=== PATIENT | male | born 1990 | race Caucasian/White ===

== ENCOUNTER 2021-09-26 20:52 | Emergency (ER) | payer OTHER, SELFPAY ==
[2021-09-26 21:11] VITALS: BP 157/84; BP 160/82; PULSE 108; RESP 18; TEMP 37.1; O2SAT 97; BMI 29.2
--- NOTE | 2021-09-26 21:25 | ED_ITS ---
HPI - Psych General Chief Complaint: Psychiatric Symptoms Stated Complaint: HI/SEC 12 Time Seen by Provider: 09/26/21 21:22 Source: patient and EMS Mode of arrival: EMS Limitations: no limitations History of Present Illness HPI Narrative: 31-year-old male who presents emergency department by EMS on a Section 12 for homicidal ideation. The patient states that he has bipolar disorder and schizophrenia. He states that he takes Haldol 2.5 mg daily and has been compliant with his medication. He states that he was at his brother's girlfriend's house. He states that he took a dog outside in the dog had a bowel movement. The neighbor was upset that the patient did not cigar packer and picker the dog excrement and got in an argument with the patient. The patient states that he got upset with a neighbor and wanted to kill the neighbor. Apparently he went to the police station and wanted to be put in detention because he was homicidal. The patient states that he was created to be in detention and that his people were in detention. He denied being suicidal. When I asked him if he was homicidal he states that if anybody hurt him he would hurt them back. He states that he was upset with the neighbor and that is why he went to the police station to be placed in detention. The patient states that he has not been vaccinated for COVID. He denies being ill in any way prior to coming to the emergency department The patient is on a Section 12 for unspecified schizophrenia with substantial risk of harm to other persons. The Section 12 states the following ?reported that he wants to kill his neighbor because of his mental health and a recent argument with a neighbor . Related Data Home Medications Medication Instructions Recorded Confirmed haloperidol 5 mg tablet 2.5 mg PO QPM 10/24/20 10/24/20 hydroxyzine pamoate 25 mg capsule 25 mg PO BEDTIME PRN cap 10/24/20 10/24/20 Allergies Allergy/AdvReac Type Severity Reaction Status Date / Time No Known Allergies Allergy Unknown UNKNOWN Verified 10/24/20 16:09 [NO KNOWN ALLERGIES] Review of Systems Review of Systems: Yes all other systems are reviewed and are negative [facility] Past Medical History [facility] Narrative: Social history: He denies tobacco, alcohol and drug use. Medical History Overweight (BMI 25.0-29.9) Schizoaffective disorder Surgical History No significant past surgical history Family History Family History Father Mental illness in member of household Mother Mental illness in member of household Brother Mental illness in member of household Sister Mental illness in member of household Maternal Grandmother Diabetes mellitus Social History Social History Alcohol intake: never Advance Directives: No Advance Directives Information Provided: No Physical Exam Vital Signs: Vital Signs: Last Vital Signs Temp 98.8 F 09/26/21 21:11 Pulse 99 09/26/21 23:09 Resp 16 09/26/21 23:09 BP 132/100 H 09/26/21 23:09 Pulse Ox 99 09/26/21 23:09 BMI result Body Mass Index 29.2 Const: General: cooperative and no acute distress Orientation/conscio usness: oriented to person and oriented to place Limitations: no limitations HEENT: Head: Yes normal to inspection, Yes normocephalic and Yes atraumatic Ears: external ears normal General nose exam: Normal external nose present Face and sinus: Yes normal facial exam Mouth: Normal oral and palatal mucosa present Throat: Yes posterior oropharynx normal Eyes: General: appearance normal, both eyes and all related structures Pupils: Equal, round and reactive pupils present Neck: Neck: Yes normal visual inspection, Yes no lymphadenopathy, Yes trachea midline and Yes supple Chest: Chest palpation & inspection: normal inspection of the chest and normal palpation of entire chest wall Resp: Effort & Inspection: normal respiratory effort and able to speak in complete sentences Auscultation: clear to auscultation bilaterally Cardio: Rate: regular rate Rhythm: regular rhythm Heart sounds: S1 no rmal heart sound present, S2 normal heart sound present and no murmurs GI: Inspection: Yes normal to inspection Palpation (GI): Soft to palpation, nontender and no guarding Auscultation: normal bowel sounds : General: Yes no CVA tenderness Back/Spine/Pelvis: Back: no CVA tenderness Skin: General skin exam: no rashes or lesions noted Neuro: General: oriented to person and oriented to place Cranial nerves: Yes CN's II-XII intact bilaterally and Yes Equal, round and reactive pupils present Cognition (Neuro): normal cognition Motor exam (neuro): 5/5 motor strength present throughout Extrem: General: Yes normal to inspection Psych: Appearance: grossly normal Speech and movement: Pressured speech present Affect: Animated affect present and Irritable affect present Attitude: Belligerent attititude/behavior present Thought content: Homicidality present Course Course Course Narrative: 31-year-old male with a history schizophrenia who states he is compliant with his Haldol who got in a fight with his neighbor and now has homicidal ideation towards the neighbor. The patient went to the detention because he wanted to be arrested, he was evaluated, placed on a Section 12 and transfer to the emergency department by EMS. Patient does appear to be agitated is very animated, he does have some grandiose ideas as well. I believe that the patient has decompensation of his underlying schizophrenia. I did order Haldol 10 mg orally and Ativan 2 mg orally. We will check blood work and a urine sample on the patient. The patient will need a crisis evaluation as well. 0007: Laboratory evaluation: CBC was normal. Elevated AST and ALT of 43 and 42. Normal TSH. Urinalysis was positive for glucose and trace blood. Microscopic revealed 0-2 RBCs, 0-2 WBCs, no bacteria. Urine drug screen was negative. Alcohol levels below detectable limits. COVID-19 and influenza tests were negative. The patient initially was given oral Haldol and Ativan but remained agitated therefore is given Zyprexa 10 mg IM with improvement of his agitation. The patient is medically cleared for psychiatric evaluation. 0148: Start physician observation: Physician observation was started at 01:48 hours. The patient is on a Section 12 and is waiting for Behavioral Health evaluation. The patient is sleeping and resting comfortably since receiving the above medications. The patient will need more time for the medications to wear off so he can be evaluated. His examination is unremarkable. MDM - Psych Lab Data Result diagrams: 09/26/21 22:57 09/26/21 22:57 Labs: Lab Results 09/26/21 09/26/21 09/26/21 Range/Units 22:32 22:57 22:57 WBC 9.4 (4.8-10.8) X10*3/uL RBC 4.85 (4.60-5.80) X10*6/uL Hgb 15.2 (14.0-18.0) g/dl Hct 44.8 (42.0-52.0) % MCV 92.4 (80.0-98.0) fL MCH 31.3 (27.0-33.0) pg MCHC 33.9 (31.0-36.0) g/dl RDW 11.9 (11.0-16.0) % Plt Count 209 (160-400) X10*3/uL MPV 9.5 (9.4-12.4) fL Immature Gran % (Auto) 0.4 (0.0-0.4) % Neut % (Auto) 66.0 (45-73) % Lymph % (Auto) 23.7 (20-40) % [place] % (Auto) 8.8 (2-11) % Eos % (Auto) 0.9 (0-4) % Baso % (Auto) 0.2 (0-2) % Lymph # (Auto) 2.2 (1.2-4.9) X10*3/uL [place] # (Auto) 0.8 (0.1-1.2) X10*3/uL Eos # (Auto) 0.1 (0.0-0.4) X10*3/uL Baso # (Auto) 0.0 (0.0-0.2) X10*3/uL Abs Immat Gran (auto) 0.04 H (0.00-0.03) X10*3/uL Absolute Neuts (auto) 6.2 (2.0-8.3) x10*3/uL Absolute Nucleated RBC 0.000 (0.0-0.012) X10*3/uL Nucleated RBC % (auto) 0.0 (0.0-0.2) /100WBC Sodium 142 (135-145) mmol/L Potassium 4.1 (3.3-5.1) mmol/L Chloride 103 (96-108) mmol/L Carbon Dioxide 31 H (22-29) mmol/L Anion Gap 12 (12-20) BUN 8 L (9-16) mg/dL Creatinine 1.13 (0.5-1.4) mg/dL Estim Creat Clear Calc 103.1 Estimated GFR > 60 Random Glucose 80 (60-115) mg/dL Calcium 9.6 (8.4-10.2) mg/dL Total Bilirubin 0.5 (0.0-1.0) mg/dL AST 43 H (5-37) U/L ALT 42 H (0-40) U/L Alkaline Phosphatase 93 (39-117) U/L Total Protein 7.3 (6.5-8.0) g/dL Albumin 4.3 (3.5-5.0) g/dL TSH 1.09 (0.32-4.0) uIU/mL Urine Opiates Screen Not Detected (Not Detect) Urine Fentanyl Screen Not Detected (Not Detect) Ur Barbiturates Screen Not Detected (Not Detect) Ur Phencyclidine Scrn Not Detected (Not Detect) Ur Amphetamines Screen Not Detected (Not Detect) U Benzodiazepines Scrn Not Detected (Not Detect) Urine Cocaine Screen Not Detected (Not Detect) U Marijuana (THC) Screen Not Detected (Not Detect) Ethyl Alcohol mg/dL COVID-19 (RADHIKA) (Negative) COVID-19 Clin Com Influenza Type A (RENATE) (Negative) Influenza Type B (RENATE) (Negative) Influenza A & B Note 09/26/21 09/26/21 09/26/21 Range/Units 22:57 22:57 23:42 WBC (4.8-10.8) X10*3/uL RBC (4.60-5.80) X10*6/uL Hgb (14.0-18.0) g/dl Hct (42.0-52.0) % MCV (80.0-98.0) fL MCH (27.0-33.0) pg MCHC (31.0-36.0) g/dl RDW (11.0-16.0) % Plt Count (160-400) X10*3/uL MPV (9.4-12.4) fL Immature Gran % (Auto) (0.0-0.4) % Neut % (Auto) (45-73) % Lymph % (Auto) (20-40) % [place] % (Auto) (2-11) % Eos % (Auto) (0-4) % Baso % (Auto) (0-2) % Lymph # (Auto) (1.2-4.9) X10*3/uL [place] # (Auto) (0.1-1.2) X10*3/uL Eos # (Auto) (0.0-0.4) X10*3/uL Baso # (Auto) (0.0-0.2) X10*3/uL Abs Immat Gran (auto) (0.00-0.03) X10*3/uL Absolute Neuts (auto) (2.0-8.3) x10*3/uL Absolute Nucleated RBC (0.0-0.012) X10*3/uL Nucleated RBC % (auto) (0.0-0.2) /100WBC Sodium (135-145) mmol/L Potassium (3.3-5.1) mmol/L Chloride (96-108) mmol/L Carbon Dioxide (22-29) mmol/L Anion Gap (12-20) BUN (9-16) mg/dL Creatinine (0.5-1.4) mg/dL Estim Creat Clear Calc Estimated GFR Random Glucose (60-115) mg/dL Calcium (8.4-10.2) mg/dL Total Bilirubin (0.0-1.0) mg/dL AST (5-37) U/L ALT (0-40) U/L Alkaline Phosphatase (39-117) U/L Total Protein (6.5-8.0) g/dL Albumin (3.5-5.0) g/dL TSH (0.32-4.0) uIU/mL Urine Opiates Screen (Not Detect) Urine Fentanyl Screen (Not Detect) Ur Barbiturates Screen (Not Detect) Ur Phencyclidine Scrn (Not Detect) Ur Amphetamines Screen (Not Detect) U Benzodiazepines Scrn (Not Detect) Urine Cocaine Screen (Not Detect) U Marijuana (THC) Screen (Not Detect) Ethyl Alcohol < 10 mg/dL COVID-19 (RADHIKA) Negative (Negative) COVID-19 Clin Com See Note Influenza Type A (RENATE) Negative (Negative) Influenza Type B (RENATE) Negative (Negative) Influenza A & B Note See Note Discharge Plan Discharge Clinical Impression: Homicidal ideation, Schizophrenia Patient Disposition: Still a Patient Prescriptions: No Action haloperidol 5 mg tablet 2.5 mg PO QPM 0RF hydroxyzine pamoate 25 mg capsule 25 mg PO BEDTIME PRN0RF
[2021-09-26] MEDS: HaloperidoL 5 MG TABLET 10 MG PO (21:40)
[2021-09-26] MEDS: LORazepam 1 MG TABLET 2 MG PO (21:40)
[2021-09-26] MEDS: OLANZapine 10 MG VIAL IM (21:45)
--- NOTE | 2021-09-26 21:53 | PC.NURSE ---
Pt has been slowly escalating in aggressive behaviors since his arrival. Vitaliy RN gave pt ativan and haldol PO that was ordered and Rylan RODRIGUEZ gave pt zyprexa injection. Pt has been cooperative with medication administrations. Security has been called about 3 times to deescalate pt and is currently at bedside. Plan is to move pt to a BH pod when one becomes available. Will continue to monitor.
[2021-09-26 23:09] VITALS: BP 132/100; PULSE 99; RESP 16; O2SAT 99
[2021-09-26 23:09] LABS: Amphetamine Screen Urine Not Detected (Not Detect); Barbiturates, Urine Not Detected (Not Detect); Benzodiazepines Screen Urine Not Detected (Not Detect); Cannabinoid Screen Urine Not Detected (Not Detect); Cocaine Screen Urine Not Detected (Not Detect); Fentanyl, urine Not Detected (Not Detect); Opiate Screen Urine Not Detected (Not Detect); Phencyclidine Screen Urine Not Detected (Not Detect)
[2021-09-26 23:10] LABS: MANUAL DIFF FLAG NO
--- NOTE | 2021-09-26 23:10 | PC.NURSE ---
Patient awake, resting in bed. Calm and cooperative at this time. Will monitor closely.
[2021-09-26 23:17] LABS: Basophils Percent Auto 0.2 % (0-2); Eosinophils Absolute Auto 0.1 X10*3/uL (0.0-0.4); Eosinophils Percent Auto 0.9 % (0-4); Hematocrit 44.8 % (42.0-52.0); Hemoglobin 15.2 g/dl (14.0-18.0); Imm Gran Abs Auto 0.04 X10*3/uL (0.00-0.03); Imm Gran Pct Auto 0.4 % (0.0-0.4); Lymphocytes Absolute Auto 2.2 X10*3/uL (1.2-4.9); Lymphocytes Percent Auto 23.7 % (20-40); Mean Corpuscular HGB Conc 33.9 g/dl (31.0-36.0); Mean Corpuscular Hemoglobin 31.3 pg (27.0-33.0); Mean Corpuscular Volume 92.4 fL (80.0-98.0); Mean Platelet Volume 9.5 fL (9.4-12.4); Monocytes Absolute Auto 0.8 X10*3/uL (0.1-1.2); Monocytes Percent Auto 8.8 % (2-11); Neutrophils Absolute Auto 6.2 x10*3/uL (2.0-8.3); Platelet Count 209 X10*3/uL (160-400); Red Blood Count 4.85 X10*6/uL (4.60-5.80); Red Cell Distribution Width 11.9 % (11.0-16.0); White Blood Count 9.4 X10*3/uL (4.8-10.8)
[2021-09-26 23:27] LABS: Ethanol < 10 mg/dL
[2021-09-26 23:30] LABS: Alanine Aminotransferase 42 U/L (0-40); Albumin Level 4.3 g/dL (3.5-5.0); Alkaline Phosphatase 93 U/L (39-117); Anion Gap 12 (12-20); Aspartate Amino Transferase 43 U/L (5-37); Bilirubin Total 0.5 mg/dL (0.0-1.0); Blood Urea Nitrogen 8 mg/dL (9-16); Calcium 9.6 mg/dL (8.4-10.2); Carbon Dioxide 31 mmol/L (22-29); Chloride 103 mmol/L (96-108); Creatinine Clr Calc Pharmacy 103.1; Estimated Glomerular Filt Rate > 60; Glucose Random 80 mg/dL (60-115); Potassium 4.1 mmol/L (3.3-5.1); Sodium 142 mmol/L (135-145); Total Protein 7.3 g/dL (6.5-8.0)
[2021-09-26 23:36] LABS: COVID-19 Test Negative (Negative); IDNOW Serial# 55D5AD1C
[2021-09-26 23:50] LABS: TSH reflex Free T4 1.09 uIU/mL (0.32-4.0)
[2021-09-27 00:06] LABS: Influenza A Negative (Negative); Influenza B2 Negative (Negative)
--- NOTE | 2021-09-27 07:16 | PC.NURSE ---
patient appears to remain asleep at prsent respirations are even and unlabored patient appears in no distress
[2021-09-27] MEDS: Naloxone HCl Nasal TAKE HOME 4 MG SPRAY NOSTRILALT (08:51)
[2021-09-27 10:41] VITALS: BP 149/89; PULSE 109; TEMP 36.8; O2SAT 96
--- NOTE | 2021-09-27 13:22 | MHC.CARE ---
CARE Team met with patient in BH3, he was alert and oriented, polite, easily engaged. He explained what had happened yesterday which was consistent with his initial complaint of being upset with his brother's girlfriend's neighbor and at the time wanted to kill him. Today he was calm and stated that he does not want to kill or harm anyone, he does not look for trouble but if he feels disrespected he will disrespect back, hard. In general patient appears to be functioning well, he lives independently in an apartment that he pays for with disability income, no issues with self-care, has providers at [facility] which he maintains contact with, has a psychiatry appointment tomorrow. He acknowledged that his twin brother thinks that he needs more medication and that seems to be based on the way that patient walks around with a bluetooth speaker listening to music. Patient feels that his medications are working and he feels stable. He has no suicidal or homicidal ideation, plan or intention and does not appear to be in crisis or need a psychiatric inpatient admission at this time. Attempted to call patient's father Bib for collateral but was unable to reach. [facility] arrived for evaluation and was provided with the above information.
== END 2021-09-27 14:52 | disposition home or self-care (01) ==
PROVIDERS: Emergency Provider Emergency Medicine Emergency Medical Services; PCP Internal Medicine
DX: F25.9 Schizoaffective disorder, unspecified (principal); R45.850 Homicidal ideations; Z20.822 Contact with and (suspected) exposure to COVID-19; Z79.899 Other long term (current) drug therapy
CPT/HCPCS: 80053; 80307; 82077; 84443; 85025; 87502; 87635; 96372; 99284; 99285

== ENCOUNTER 2021-09-28 07:27 | Inpatient (IN) | payer OTHER, SELFPAY ==
[2021-09-28 07:35] VITALS: BP 124/79; BP 154/74; PULSE 102; PULSE 95; RESP 20; TEMP 37.1; O2SAT 99; BMI 29.5
--- NOTE | 2021-09-28 08:03 | ED_ITS ---
HPI - Psych General Chief Complaint: Psychiatric Symptoms Stated Complaint: CRISIS,SI W/PLAN Time Seen by Provider: 09/28/21 08:02 Source: patient Mode of arrival: ambulatory Limitations: no limitations History of Present Illness HPI Narrative: Manually as presents via EMS with suicidal ideation with a plan he states he has no plan when I assessed him he states he just wants his meds changed he states he does see somebody but denies any falls fever chest pain nausea vomiting diarrhea. complaint: suicidal ideation and feels depressed Related Data Home Medications Medication Instructions Recorded Confirmed haloperidol 5 mg tablet 2.5 mg PO QPM 10/24/20 10/24/20 hydroxyzine pamoate 25 mg capsule 25 mg PO BEDTIME PRN cap 10/24/20 10/24/20 Allergies Allergy/AdvReac Type Severity Reaction Status Date / Time No Known Allergies Allergy Unknown UNKNOWN Verified 10/24/20 16:09 [NO KNOWN ALLERGIES] Review of Systems Review of Systems: Review of systems: General: Patient denies any fever chills recent illness or falls Musculoskeletal: Denies back pain or body aches or other injuries HEENT: denies headache, runny nose, ear pain Respiratory: denies shortness of breath, cough Cardiovascular: no chest pain or palpitations : denies dysuria, frequency Abdomen: no nausea vomiting denies abdominal pain Extremities: no swelling, no pain Skin: no diaphoresis Yes all other systems are reviewed and are negative PMFSH Past Medical History Medical History Overweight (BMI 25.0-29.9) Schizoaffective disorder Surgical History No significant past surgical history Family History Family History Father Mental illness in member of household Mother Mental illness in member of household Brother Mental illness in member of household Sister Mental illness in member of household Maternal Grandmother Diabetes mellitus Social History Social History Alcohol intake: never Smoked in Last 30 Days: No Use of substances other than those prescribed or required for medical reasons: No Advance Directives: No Advance Directives Information Provided: No Physical Exam Vital Signs: Vital Signs: Last Vital Signs Temp 97.9 F 09/28/21 11:56 Pulse 85 09/28/21 11:56 Resp 20 09/28/21 07:35 BP 143/88 H 09/28/21 11:56 Pulse Ox 100 09/28/21 11:56 BMI result Body Mass Index 29.5 General: Well-appearing well-nourished in no signs of distress HEENT: Normocephalic atraumatic Neck: No signs of JVD, no masses no tenderness or lymphadenopathy Cardiovascular: Regular rate and rhythm Respiratory: Clear to auscultation bilaterally Abdomen: Soft nontender no masses rectal exam performed guiac negative senior quality assurance analyst confirmed. Extremities: Normal pedal pulses no signs of edema Skin: Dry warm no rashes Back: No tenderness full ROM MDM - Psych MDM Narrative Medical decision making narrative: Patient with his son Section 12 have the patient evaluated by crisis. Patient's known evaluation I will sign out to Dr. Chou. Differential Diagnosis Differential diagnosis: Likely suicidal ideation Lab Data Result diagrams: 09/28/21 08:17 Labs: Lab Results 09/28/21 09/28/21 09/28/21 Range/Units 08:17 08:17 08:42 WBC 7.9 (4.8-10.8) X10*3/uL RBC 4.63 (4.60-5.80) X10*6/uL Hgb 14.3 (14.0-18.0) g/dl Hct 43.2 (42.0-52.0) % MCV 93.3 (80.0-98.0) fL MCH 30.9 (27.0-33.0) pg MCHC 33.1 (31.0-36.0) g/dl RDW 11.9 (11.0-16.0) % Plt Count 205 (160-400) X10*3/uL MPV 9.6 (9.4-12.4) fL Immature Gran % (Auto) 0.4 (0.0-0.4) % Neut % (Auto) 67.8 (45-73) % Lymph % (Auto) 23.2 (20-40) % Hand % (Auto) 7.5 (2-11) % Eos % (Auto) 0.6 (0-4) % Baso % (Auto) 0.5 (0-2) % Lymph # (Auto) 1.8 (1.2-4.9) X10*3/uL Hand # (Auto) 0.6 (0.1-1.2) X10*3/uL Eos # (Auto) 0.1 (0.0-0.4) X10*3/uL Baso # (Auto) 0.0 (0.0-0.2) X10*3/uL Abs Immat Gran (auto) 0.03 (0.00-0.03) X10*3/uL Absolute Neuts (auto) 5.4 (2.0-8.3) x10*3/uL Absolute Nucleated RBC 0.000 (0.0-0.012) X10*3/uL Nucleated RBC % (auto) 0.0 (0.0-0.2) /100WBC Urine Opiates Screen Not Detected (Not Detect) Urine Fentanyl Screen Not Detected (Not Detect) Ur Barbiturates Screen Not Detected (Not Detect) Ur Phencyclidine Scrn Not Detected (Not Detect) Ur Amphetamines Screen Not Detected (Not Detect) U Benzodiazepines Scrn Not Detected (Not Detect) Urine Cocaine Screen Not Detected (Not Detect) U Marijuana (THC) Screen Not Detected (Not Detect) Ethyl Alcohol < 10 mg/dL COVID-19 (RADHIKA) (Negative) COVID-19 Clin Com 09/28/21 Range/Units 10:52 WBC (4.8-10.8) X10*3/uL RBC (4.60-5.80) X10*6/uL Hgb (14.0-18.0) g/dl Hct (42.0-52.0) % MCV (80.0-98.0) fL MCH (27.0-33.0) pg MCHC (31.0-36.0) g/dl RDW (11.0-16.0) % Plt Count (160-400) X10*3/uL MPV (9.4-12.4) fL Immature Gran % (Auto) (0.0-0.4) % Neut % (Auto) (45-73) % Lymph % (Auto) (20-40) % Hand % (Auto) (2-11) % Eos % (Auto) (0-4) % Baso % (Auto) (0-2) % Lymph # (Auto) (1.2-4.9) X10*3/uL Hand # (Auto) (0.1-1.2) X10*3/uL Eos # (Auto) (0.0-0.4) X10*3/uL Baso # (Auto) (0.0-0.2) X10*3/uL Abs Immat Gran (auto) (0.00-0.03) X10*3/uL Absolute Neuts (auto) (2.0-8.3) x10*3/uL Absolute Nucleated RBC (0.0-0.012) X10*3/uL Nucleated RBC % (auto) (0.0-0.2) /100WBC Urine Opiates Screen (Not Detect) Urine Fentanyl Screen (Not Detect) Ur Barbiturates Screen (Not Detect) Ur Phencyclidine Scrn (Not Detect) Ur Amphetamines Screen (Not Detect) U Benzodiazepines Scrn (Not Detect) Urine Cocaine Screen (Not Detect) U Marijuana (THC) Screen (Not Detect) Ethyl Alcohol mg/dL COVID-19 (RADHIKA) Negative (Negative) COVID-19 Clin Com See Note Discharge Plan Discharge Clinical Impression: Schizoaffective disorder, Suicidal ideation Patient Disposition: Still a Patient Prescriptions: No Action haloperidol 5 mg tablet 2.5 mg PO QPM 0RF hydroxyzine pamoate 25 mg capsule 25 mg PO BEDTIME PRN0RF
[2021-09-28 08:24] LABS: MANUAL DIFF FLAG NO
[2021-09-28 08:29] LABS: Basophils Percent Auto 0.5 % (0-2); Eosinophils Absolute Auto 0.1 X10*3/uL (0.0-0.4); Eosinophils Percent Auto 0.6 % (0-4); Hematocrit 43.2 % (42.0-52.0); Hemoglobin 14.3 g/dl (14.0-18.0); Imm Gran Abs Auto 0.03 X10*3/uL (0.00-0.03); Imm Gran Pct Auto 0.4 % (0.0-0.4); Lymphocytes Absolute Auto 1.8 X10*3/uL (1.2-4.9); Lymphocytes Percent Auto 23.2 % (20-40); Mean Corpuscular HGB Conc 33.1 g/dl (31.0-36.0); Mean Corpuscular Hemoglobin 30.9 pg (27.0-33.0); Mean Corpuscular Volume 93.3 fL (80.0-98.0); Mean Platelet Volume 9.6 fL (9.4-12.4); Monocytes Absolute Auto 0.6 X10*3/uL (0.1-1.2); Monocytes Percent Auto 7.5 % (2-11); Neutrophils Absolute Auto 5.4 x10*3/uL (2.0-8.3); Neutrophils Percent Auto 67.8 % (45-73); Platelet Count 205 X10*3/uL (160-400); Red Blood Count 4.63 X10*6/uL (4.60-5.80); Red Cell Distribution Width 11.9 % (11.0-16.0); White Blood Count 7.9 X10*3/uL (4.8-10.8)
[2021-09-28 08:37] LABS: Ethanol < 10 mg/dL
[2021-09-28 09:05] LABS: Amphetamine Screen Urine Not Detected (Not Detect); Barbiturates, Urine Not Detected (Not Detect); Benzodiazepines Screen Urine Not Detected (Not Detect); Cannabinoid Screen Urine Not Detected (Not Detect); Fentanyl, urine Not Detected (Not Detect); Opiate Screen Urine Not Detected (Not Detect); Phencyclidine Screen Urine Not Detected (Not Detect)
[2021-09-28 09:25] LABS: Cocaine Screen Urine Not Detected (Not Detect)
--- NOTE | 2021-09-28 10:12 | PC.NURSE ---
smart sheet sent over to [facility] for eval.
[2021-09-28 11:14] LABS: COVID-19 Test Negative (Negative)
[2021-09-28 11:56] VITALS: BP 143/88; PULSE 85; TEMP 36.6; O2SAT 100
--- NOTE | 2021-09-28 19:32 | MHC.CARE ---
Pt has been accepted to for admission [facility]. Auth [id number] for 5 days approved by Shebly Jain.
[2021-09-28 21:48] VITALS: BP 139/88; PULSE 97; RESP 16; O2SAT 97
[2021-09-28 22:49] VITALS: BP 133/71; PULSE 108; RESP 16; TEMP 36.9; O2SAT 96; BMI 28.3
--- NOTE | 2021-09-29 | ECG_ITS ---
Test Reason : MED CLEARENCE Blood Pressure : / mmHG Vent. Rate : 102 BPM Atrial Rate : 102 BPM P-R Int : 118 ms QRS Dur : 070 ms QT Int : 324 ms P-R-T Axes : 065 067 011 degrees QTc Int : 422 ms Sinus tachycardia Otherwise normal ECG When compared with ECG of 25-DEC-2019 13:56, No significant change was found Referred By: Natalee Trejo Electronically Signed By:NATHAN CROCKETT MD
[2021-09-29] MEDS: traZODone HCL 50 MG TABLET PO (00:57)
--- NOTE | 2021-09-29 01:45 | PC.ADMIT ---
31 year old Man admitted to from ER with thoughts of harming his neighbor. He was transported to [facility] on a section 12 by the police after he reported himself to them that he need to go to longterm for his thoughts of HI. he has been a patient at [facility] [id number] in the past last admission was in 2019 . He is calm and cooperative with some slight pressured speech said he I know people are afraid of me because I works out and my arms are big I know I'm supposed to love others like the Bible says better than the love for myself He signed a CV
[2021-09-29] MEDS: HaloperidoL 5 MG TABLET PO (02:52)
[2021-09-29 05:38] VITALS: BP 130/69; PULSE 90; RESP 17; TEMP 36.2; O2SAT 97
[2021-09-29 08:21] LABS: Cholesterol 157 mg/dL; HDL Cholesterol 46 mg/dL; LDL Cholesterol Calculated 97 mg/dl; Magnesium 2.1 mg/dL (1.6-2.6); Triglycerides 71 mg/dL
[2021-09-29 08:22] LABS: Estimated Average Glucose 103 mg/dL; Hemoglobin A1c % 5.2 %
[2021-09-29 08:43] LABS: Free T4 (Free Thyroxine) 1.09 ng/dL (0.71-1.85); Thyroid Stimulating Hormone 1.35 uIU/mL (0.32-4.0)
[2021-09-29 09:10] LABS: Folate 11.1 ng/mL (> or = 4.0); Vitamin B12 255 pg/mL (200-900)
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
[2021-09-29 18:00] VITALS: BP 122/82; PULSE 102; RESP 16; TEMP 36.4; O2SAT 97
[2021-09-29] MEDS: HaloperidoL 5 MG TABLET 10 MG PO (20:49)
[2021-09-30] MEDS: hydrOXYzine HCL 25 MG TABLET PO (05:51)
[2021-09-30 06:00] VITALS: BP 146/79; PULSE 110; RESP 17; TEMP 36.5; O2SAT 97
--- NOTE | 2021-09-30 08:39 | P.PNPSI_ITS ---
Subjective Subjective Date of Service: 09/30/21 Reason For Visit: Manic Sx Interim History: Restless agitated. Pacing corridor in tank top. POS. Med compliant. 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 Pt is unkempt in appearance, pacing halls with he adphones, tank top. Intense eye contact, attentive. No Tics or Tremors. No abnormal involuntary movements. Calm, guarded but ultimately cooperative and engaged. Non-pressured speech, spontaneous with regular rate and rhythm, normal volume and prosody. No prolonged speech latency or dysarthria. Mood is ?okay,? affect is activated. Denies SI/SIB/HI upon inquiry. Denies A/VH. Endorses paranoid and persecutory delusional thought content. Thoughts are perseverative, tangential, racing. No known cognitive or memory impairment. Insight/ Judgment limited. Diagnostics Vital Signs (24Hr): Vital Signs - 24 hr 09/29/21 18:00 09/30/21 06:00 Temperature 97.6 F 97.7 F Pulse Rate 102 H 110 H Respiratory Rate 16 17 Blood Pressure 122/82 146/79 H Pulse Oximetry 97 97 BMI result Body Mass Index 28.3 Labs Results: 09/28/21 08:17 Labs: Laboratory Results - last 48 hr 09/28/21 09/28/21 09/29/21 08:42 10:52 07:45 Estimat Average Glucose 103 Hemoglobin A1c % 5.2 Magnesium Triglycerides Cholesterol LDL Cholesterol, Calc HDL Cholesterol Vitamin B12 Folate TSH Free T4 Urine Opiates Screen Not Detected Urine Fentanyl Screen Not Detected Ur Barbiturates Screen Not Detected Ur Phencyclidine Scrn Not Detected Ur Amphetamines Screen Not Detected U Benzodiazepines Scrn Not Detected Urine Cocaine Screen Not Detected U Marijuana (THC) Screen Not Detected COVID-19 (RADHIKA) Negative COVID-19 Clin Com See Note 09/29/21 09/29/21 07:45 07:46 Estimat Average Glucose Hemoglobin A1c % Magnesium 2.1 Triglycerides 71 Cholesterol 157 LDL Cholesterol, Calc 97 HDL Cholesterol 46 Vitamin B12 255 Folate 11.1 TSH 1.35 Free T4 1.09 Urine Opiates Screen Urine Fentanyl Screen Ur Barbiturates Screen Ur Phencyclidine Scrn Ur Amphetamines Screen U Benzodiazepines Scrn Urine Cocaine Screen U Marijuana (THC) Screen COVID-19 (RADHIKA) COVID-19 Clin Com Medications Medications Current Medications Acetaminophen (Acetaminophen 325 Mg Tablet) 650 mg PO Q6H PRN PRN Reason: Headache/Pain Mild Scale (1-3) Al Hydroxide/Mg Hydroxide (Magnesium Hydrox/Alum Hydrox 30 Ml Oral.Susp) 30 ml PO Q6H PRN PRN Reason: Heartburn/Nausea Benztropine Mesylate (Benztropine Mesylate 1 Mg Tablet) 1 mg PO Q8H PRN PRN Reason: akathisia/EPS Chlorpromazine HCl (Chlorpromazine Hcl 25 Mg Tablet) 50 mg PO Q4H PRN PRN Reason: agitation Haloperidol (Haloperidol 5 Mg Tablet) 10 mg PO BEDTIME CASANDRA Last Admin: 09/29/21 20:49 Dose: 10 mg Documented by: Hydroxyzine HCl (Hydroxyzine Hcl 25 Mg Tablet) 25 mg PO Q6H PRN PRN Reason: Anxiety Last Admin: 09/30/21 05:51 Dose: 25 mg Documented by: Magnesium Hydroxide (Milk Of Magnesia 30 Ml Oral.Susp) 30 ml PO DAILY PRN PRN Reason: Constipation Trazodone HCl (Trazodone Hcl 100 Mg Tablet) 100 mg PO BEDTIME PRN PRN Reason: Insomnia Allergies Allergies Allergy/AdvReac Type Severity Reaction Status Date / Time No Known Allergies Allergy Unknown UNKNOWN Verified 10/24/20 16:09 [NO KNOWN ALLERGIES] Assessment & Plan Assessment & Plan (1) Schizoaffective disorder, bipolar type: Status: Acute Code(s): F25.0 - Schizoaffective disorder, bipolar type Plan Edy is a 31 y.o. Male who carries a dx schizoaffective disorder, bipolar type. He presented to [facility] ED on 09/28/21 due to HI towards a neighbor. Pt brought himself to the [place] police station on 09/26/2021 stating he wanted to go to alf due to having thoughts to harm his neighbor.? Plan: Pt is prescribed haldol 2.5 mg QHS by his OP prescriber at [facility], says he is willing to take a higher dose as he thinks the 2.5 mg dose is too low. He took 5 mg last night per admitting provider. Will increase to 10 mg QHS to target psychotic sx and assaultive ideation. Q15 min safety checks, CV Monitor response to medications. Monitor for safety in the milieu. Discharge on stabilization. Patient seen. Chart reviewed. Discussed with team. Obtain collateral contact info?as needed 09/30: Ct meds. I spent minutes with the patient and/or on the patient floor today, greater than?50% of which was spent counseling/coordinating care. Reason for contiued inpatient stay Substantial Risk for: rapid decompensation
[2021-09-30 18:00] VITALS: BP 136/80; PULSE 97; RESP 18; TEMP 36.6; O2SAT 98
[2021-09-30] MEDS: HaloperidoL 5 MG TABLET 10 MG PO (21:24)
[2021-09-30] MEDS: traZODone HCL 100 MG TABLET PO (22:58)
[2021-10-01] MEDS: hydrOXYzine HCL 25 MG TABLET PO ×3 (05:05→20:37)
--- NOTE | 2021-10-01 05:32 | HO.PSYCHPN ---
Subjective Subjective Date of Service: 10/01/21 Reason For Visit: Manic Sx Subjective Notes: Conditional Voluntary Interim History: Restless agitated. Pacing corridor in tank top. POS. Med compliant. 10/01: Less agitated, pressured. Pacing but more relaxed. POS + . Told TW how he wanted to be jailed and his visit to the PD. Med compliant. 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 Pt is unkempt in appearance, pacing halls with headphones, tank top. Intense eye contact, attentive. No Tics or Tremors. No abnormal involuntary movements. Calm, guarded but ultimately cooperative and engaged. Non-pressured speech, spontaneous with regular rate and rhythm, normal volume and prosody. No prolonged speech latency or dysarthria. Mood is ?okay,? affect is activated. Denies SI/SIB/HI upon inquiry. Denies A/VH. Endorses paranoid and persecutory delusional thought content. Thoughts are perseverative, tangential, racing. No known cognitive or memory impairment. Insight/ Judgment limited. Diagnostics Vital Signs (24Hr): Vital Signs - 24 hr 09/30/21 06:00 09/30/21 18:00 Temperature 97.7 F 98 F Pulse Rate 110 H 97 Respiratory Rate 17 18 Blood Pressure 146/79 H 136/80 Pulse Oximetry 97 98 BMI result Body Mass Index 28.3 Labs Results: 09/28/21 08:17 Labs: Laboratory Results - last 48 hr 09/29/21 09/29/21 09/29/21 07:45 07:45 07:46 Estimat Average Glucose 103 Hemoglobin A1c % 5.2 Magnesium 2.1 Triglycerides 71 Cholesterol 157 LDL Cholesterol, Calc 97 HDL Cholesterol 46 Vitamin B12 255 Folate 11.1 TSH 1.35 Free T4 1.09 Medications Medications Current Medications Acetaminophen (Acetaminophen 325 Mg Tablet) 650 mg PO Q6H PRN PRN Reason: Headache/Pain Mild Scale (1-3) Al Hydroxide/Mg Hydroxide (Magnesium Hydrox/Alum Hydrox 30 Ml Oral.Susp) 30 ml PO Q6H PRN PRN Reason: Heartburn/Nausea Benztropine Mesylate (Benztropine Mesylate 1 Mg Tablet) 1 mg PO Q8H PRN PRN Reason: akathisia/EPS Chlorpromazine HCl (Chlorpromazine Hcl 25 Mg Tablet) 50 mg PO Q4H PRN PRN Reason: agitation Haloperidol (Haloperidol 5 Mg Tablet) 10 mg PO BEDTIME CASANDRA Last Admin: 09/30/21 21:24 Dose: 10 mg Documented by: Hydroxyzine HCl (Hydroxyzine Hcl 25 Mg Tablet) 25 mg PO Q6H PRN PRN Reason: Anxiety Last Admin: 10/01/21 05:05 Dose: 25 mg Documented by: Magnesium Hydroxide (Milk Of Magnesia 30 Ml Oral.Susp) 30 ml PO DAILY PRN PRN Reason: Constipation Trazodone HCl (Trazodone Hcl 100 Mg Tablet) 100 mg PO BEDTIME PRN PRN Reason: Insomnia Last Admin: 09/30/21 22:58 Dose: 100 mg Documented by: Allergies Allergies Allergy/AdvReac Type Severity Reaction Status Date / Time No Known Allergies Allergy Unknown UNKNOWN Verified 10/24/20 16:09 [NO KNOWN ALLERGIES] Assessment & Plan Assessment & Plan (1) Schizoaffective disorder, bipolar type: Status: Acute Code(s): F25.0 - Schizoaffective disorder, bipolar type Plan Edy is a 31 y.o. Male who carries a dx schizoaffective disorder, bipolar type. He presented to [facility] on 09/28/21 due to HI towards a neighbor. Pt brought himself to the [place] police station on 09/26/2021 stating he wanted to go to shelter due to having thoughts to harm his neighbor.? Plan: Pt is prescribed haldol 2.5 mg QHS by his OP prescriber at [facility], says he is willing to take a higher dose as he thinks the 2.5 mg dose is too low. He took 5 mg last night per admitting provider. Will increase to 10 mg QHS to target psychotic sx and assaultive ideation. Q15 min safety checks, CV Monitor response to medications. Monitor for safety in the milieu. Discharge on stabilization. Patient seen. Chart reviewed. Discussed with team. Obtain collateral contact info?as needed 10/01: Ct Rx plan I spent minutes with the patient and/or on the patient floor today, greater than?50% of which was spent counseling/coordinating care. Reason for contiued inpatient stay Substantial Risk for: harm to others and rapid decompensation
[2021-10-01 06:00] VITALS: BP 138/83; PULSE 98; RESP 16; TEMP 36.6; O2SAT 99
[2021-10-01 18:00] VITALS: BP 124/79; PULSE 102; RESP 16; TEMP 36.8; O2SAT 98
[2021-10-01] MEDS: HaloperidoL 5 MG TABLET 10 MG PO (19:24)
[2021-10-01] MEDS: chlorproMAZINE HCl 25 MG TABLET 50 MG PO (20:36)
[2021-10-01] MEDS: traZODone HCL 100 MG TABLET PO (20:37)
[2021-10-01] MEDS: Benztropine Mesylate 1 MG TABLET PO (20:49)
[2021-10-01] MEDS: LORazepam 1 MG TABLET 2 MG PO (21:08)
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
[2021-10-02 06:00] VITALS: BP 132/65; PULSE 108; RESP 20; TEMP 36.5; O2SAT 96
[2021-10-02] MEDS: LORazepam 1 MG TABLET PO (08:09)
[2021-10-02] MEDS: chlorproMAZINE HCl 25 MG TABLET 50 MG PO (08:09)
[2021-10-02] MEDS: HaloperidoL 5 MG TABLET PO (08:09)
[2021-10-02 16:40] VITALS: BP 141/70; PULSE 128; TEMP 36.3
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
[2021-10-02] MEDS: hydrOXYzine HCL 25 MG TABLET PO (20:13)
[2021-10-02] MEDS: Benztropine Mesylate 0.5 MG TABLET PO (20:13)
[2021-10-02] MEDS: QUEtiapine Fumarate 100 MG TABLET PO (20:13)
[2021-10-02] MEDS: HaloperidoL 5 MG TABLET 15 MG PO (20:14)
[2021-10-02] MEDS: traZODone HCL 100 MG TABLET PO (20:58)
[2021-10-03] MEDS: LORazepam 1 MG TABLET PO ×2 (05:14→23:27)
[2021-10-03 06:00] VITALS: BP 128/76; PULSE 100; RESP 18; TEMP 36.9; O2SAT 96
[2021-10-03] MEDS: HaloperidoL 5 MG TABLET PO ×2 (07:42→18:35)
[2021-10-03] MEDS: hydrOXYzine HCL 25 MG TABLET PO (07:42)
[2021-10-03] MEDS: Benztropine Mesylate 0.5 MG TABLET PO ×2 (07:42→23:28)
--- NOTE | 2021-10-03 10:13 | P.PNPSI_ITS ---
Subjective Subjective Date of Service: 10/03/21 Reason For Visit: Manic Sx Interim History: Staff reports pt only sleeping 3 hours a night Pt pacing halls singing. friendly and calm on approach. He says he wants to steal cocaine so he can go to [facility] and be kind and treat prisoners with love. He says i'm the only one that can carry the cross. Field Counsel discussed other ways to achieve this goal but patient discounts them. When publicity writer talked about medications to help him sleep, he corrects publicity writer to say he does not want to sleep, but just rest... However, he is open to medications. He says they won't work but is willing to try Depakote which records indicate he's been on before. He says his mind keeps going and that he has too much energy to sleep. Mental Status Exam Mental Status Exam Narrative: A&O except to situation. Pt is unkempt in appearance, pacing halls with hea dphones, tank top. Intense or no eye contact. No Tics or Tremors. No abnormal involuntary movements. Calm, guarded but ultimately cooperative and engaged. Non-pressured speech, spontaneous with regular rate and rhythm, normal volume and prosody. No prolonged speech latency or dysarthria. Mood is ?good,? affect is constricted. Denies SI/SIB/HI upon inquiry. Denies A/VH. Endorses paranoid and delusional thought content. Thoughts are perseverative on wanting to go to [facility] to love prisoners; No known cognitive or memory impairment. Insight/ Judgment limited. Diagnostics Vital Signs (24Hr): Vital Signs - 24 hr 10/02/21 16:40 10/03/21 06:00 Temperature 97.4 F 98.5 F Pulse Rate 128 H 100 Respiratory Rate 18 Blood Pressure 141/70 H 128/76 Pulse Oximetry 96 BMI result Body Mass Index 28.3 Labs Results: 09/28/21 08:17 Medications Medications Current Medications Acetaminophen (Acetaminophen 325 Mg Tablet) 650 mg PO Q6H PRN PRN Reason: Headache/Pain Mild Scale (1-3) Al Hydroxide/Mg Hydroxide (Magnesium Hydrox/Alum Hydrox 30 Ml Oral.Susp) 30 ml PO Q6H PRN PRN Reason: Heartburn/Nausea Benztropine Mesylate (Benztropine Mesylate 1 Mg Tablet) 1 mg PO Q8H PRN PRN Reason: akathisia/EPS Last Admin: 10/01/21 20:49 Dose: 1 mg Documented by: Benztropine Mesylate (Benztropine Mesylate 0.5 Mg Tablet) 0.5 mg PO BID [facility] Last Admin: 10/03/21 07:42 Dose: 0.5 mg Documented by: Chlorpromazine HCl (Chlorpromazine Hcl 25 Mg Tablet) 50 mg PO Q4H PRN PRN Reason: agitation Last Admin: 10/02/21 08:09 Dose: 50 mg Documented by: Haloperidol (Haloperidol 5 Mg Tablet) 5 mg PO RQ6H PRN PRN Reason: anxiety/restlessness Last Admin: 10/03/21 07:42 Dose: 5 mg Documented by: Haloperidol (Haloperidol 5 Mg Tablet) 15 mg PO BEDTIME [facility] Last Admin: 10/02/21 20:14 Dose: 15 mg Documented by: Hydroxyzine HCl (Hydroxyzine Hcl 25 Mg Tablet) 25 mg PO Q6H PRN PRN Reason: Anxiety Last Admin: 10/03/21 07:42 Dose: 25 mg Documented by: Lorazepam (Lorazepam 1 Mg Tablet) 1 mg PO Q4H PRN PRN Reason: anxiety/restlessness Last Admin: 10/03/21 05:14 Dose: 1 mg Documented by: Magnesium Hydroxide (Milk Of Magnesia 30 Ml Oral.Susp) 30 ml PO DAILY PRN PRN Reason: Constipation Quetiapine Fumarate (Quetiapine Fumarate 100 Mg Tablet) 100 mg PO BEDTIME [facility] Last Admin: 10/02/21 20:13 Dose: 100 mg Documented by: Trazodone HCl (Trazodone Hcl 100 Mg Tablet) 100 mg PO BEDTIME PRN PRN Reason: Insomnia Last Admin: 10/02/21 20:58 Dose: 100 mg Documented by: Allergies Allergies Allergy/AdvReac Type Severity Reaction Status Date / Time No Known Allergies Allergy Unknown UNKNOWN Verified 10/24/20 16:09 [NO KNOWN ALLERGIES] Assessment & Plan Assessment & Plan (1) Schizoaffective disorder, bipolar type: Status: Acute Code(s): F25.0 - Schizoaffective disorder, bipolar type Plan Edy is a 31 y.o. Male who carries a dx schizoaffective disorder, bipolar type. He presented to [facility] ED on 09/28/21 due to HI towards a neighbor. Pt brought himself to the [employer] police station on 09/26/2021 stating he wanted to go to [facility] due to having thoughts to harm his neighbor.? Hospital course -Pt is prescribed haldol 2.5 mg QHS by his OP prescriber at [facility], says he is willing to take higher dose as he thinks 2.5mg dose is too low, Will increase to 10 mg QHS to target psychotic sx and assaultive ideation. -10/03 remains manic with delusional thinking; will restart Depakote for continued insomnia and manic symptoms (pt has been on before) PLAN: Haldol 10mg qhs GIVE Depakote ER 250mg now dose' START Depakote ER 750mg qhs; pt has been on before Q15 min safety checks, CV Monitor response to medications. Monitor for safety in the milieu. Discharge on stabilization. Patient seen. Chart reviewed. Discussed with team. Obtain collateral contact info?as needed 10/01: Ct Rx plan I spent minutes with the patient and/or on the patient floor today, greater than?50% of which was spent counseling/coordinating care. Patient educated on: diagnosis and medication risk/benefits Informed Consent: further education needed Reason for contiued inpatient stay Substantial Risk for: rapid decompensation
[2021-10-03] MEDS: Divalproex Sodium ER 250 MG TAB.ER.24H PO (16:22)
[2021-10-03] MEDS: chlorproMAZINE HCl 25 MG TABLET 50 MG PO (16:51)
[2021-10-03 16:55] VITALS: BP 129/84; PULSE 109; TEMP 37.2
[2021-10-03] MEDS: QUEtiapine Fumarate 100 MG TABLET PO (23:27)
[2021-10-03] MEDS: HaloperidoL 5 MG TABLET 15 MG PO (23:27)
[2021-10-03] MEDS: Divalproex Sodium ER 250 MG TAB.ER.24H 750 MG PO (23:28)
[2021-10-03] MEDS: traZODone HCL 100 MG TABLET PO (23:30)
[2021-10-04 04:54] VITALS: BP 109/72; PULSE 110; RESP 18; TEMP 36.4; O2SAT 97
[2021-10-04] MEDS: HaloperidoL 5 MG TABLET PO (05:12)
[2021-10-04] MEDS: LORazepam 1 MG TABLET PO (05:12)
[2021-10-04] MEDS: Benztropine Mesylate 0.5 MG TABLET PO ×2 (09:15→20:10)
[2021-10-04] MEDS: Divalproex Sodium ER 250 MG TAB.ER.24H 750 MG PO (09:15)
--- NOTE | 2021-10-04 10:13 | P.PNPSI_ITS ---
Subjective Subjective Date of Service: 10/04/21 Reason For Visit: Manic Sx Interim History: Patient remains moderately manic and focused on going to by cocaine so that he can end up in nursing home and be kind to the prisoners. Last night, patient was irritable and initially refused meds and made some vaguely threatening comments towards staff, difficult to redirect as he was doing pushups in the milieu. He slept little last night. Patient put in a 3 day notice today. Afloat Cryptologic Manager encouraged patient to remain for treatment but he said he is taking all his medications, he is going to groups and he has done good and now he wants to leave since he has things to do. He agrees to have his medications increased and added to however he says it will not work. Afloat Cryptologic Manager told patient that during his past hospitalization at this hospital, combination of Haldol Depakote did seem to be effective; patient disagrees but is willing to continue with medication titration. Mental Status Exam Mental Status Exam Narrative: A&O except to situation. Pt is wearing tank top t-shirt; hair neatly combed; pac ing halls. Intense or minimal eye contact. No Tics or Tremors. No abnormal involuntary movements. Calm, guarded; overall cooperative and engaged. Non- pressured speech, spontaneous with regular rate and rhythm, normal volume and prosody. No prolonged speech latency or dysarthria. Mood is ?good,? but affect is constricted. Denies SI/SIB/HI upon inquiry. Denies A/VH. Endorses paranoid and delusional thought content. Thoughts perseverate on wanting to go to buy cocaine to get himself imprisoned in order to love fellow prisoners; No known cognitive or memory impairment. Insight/ Judgment impaired. Diagnostics Vital Signs (24Hr): Vital Signs - 24 hr 10/03/21 16:55 10/04/21 04:54 Temperature 98.9 F 97.6 F Pulse Rate 109 H 110 H Respiratory Rate 18 Blood Pressure 129/84 109/72 Pulse Oximetry 97 BMI result Body Mass Index 28.3 Labs Results: 09/28/21 08:17 Medications Medications Current Medications Acetaminophen (Acetaminophen 325 Mg Tablet) 650 mg PO Q6H PRN PRN Reason: Headache/Pain Mild Scale (1-3) Al Hydroxide/Mg Hydroxide (Magnesium Hydrox/Alum Hydrox 30 Ml Oral.Susp) 30 ml PO Q6H PRN PRN Reason: Heartburn/Nausea Benztropine Mesylate (Benztropine Mesylate 1 Mg Tablet) 1 mg PO Q8H PRN PRN Reason: akathisia/EPS Last Admin: 10/01/21 20:49 Dose: 1 mg Documented by: Benztropine Mesylate (Benztropine Mesylate 0.5 Mg Tablet) 0.5 mg PO BID [facility] Last Admin: 10/04/21 09:15 Dose: 0.5 mg Documented by: Chlorpromazine HCl (Chlorpromazine Hcl 25 Mg Tablet) 50 mg PO Q4H PRN PRN Reason: agitation Last Admin: 10/03/21 16:51 Dose: 50 mg Documented by: Divalproex Sodium (Divalproex Sodium Er 250 Mg Tab.Er.24h) 750 mg PO BID [facility] Last Admin: 10/04/21 09:15 Dose: 750 mg Documented by: Haloperidol (Haloperidol 5 Mg Tablet) 5 mg PO RQ6H PRN PRN Reason: anxiety/restlessness Last Admin: 10/04/21 05:12 Dose: 5 mg Documented by: Haloperidol (Haloperidol 5 Mg Tablet) 15 mg PO BEDTIME [facility] Last Admin: 10/03/21 23:27 Dose: 15 mg Documented by: Hydroxyzine HCl (Hydroxyzine Hcl 25 Mg Tablet) 25 mg PO Q6H PRN PRN Reason: Anxiety Last Admin: 10/03/21 07:42 Dose: 25 mg Documented by: Lorazepam (Lorazepam 1 Mg Tablet) 1 mg PO Q4H PRN PRN Reason: anxiety/restlessness Last Admin: 10/04/21 05:12 Dose: 1 mg Documented by: Magnesium Hydroxide (Milk Of Magnesia 30 Ml Oral.Susp) 30 ml PO DAILY PRN PRN Reason: Constipation Quetiapine Fumarate (Quetiapine Fumarate 100 Mg Tablet) 100 mg PO BEDTIME [facility] Last Admin: 10/03/21 23:27 Dose: 100 mg Documented by: Trazodone HCl (Trazodone Hcl 100 Mg Tablet) 100 mg PO BEDTIME PRN PRN Reason: Insomnia Last Admin: 10/03/21 23:30 Dose: 100 mg Documented by: Allergies Allergies Allergy/AdvReac Type Severity Reaction Status Date / Time No Known Allergies Allergy Unknown UNKNOWN Verified 10/24/20 16:09 [NO KNOWN ALLERGIES] Assessment & Plan Assessment & Plan (1) Schizoaffective disorder, bipolar type: Status: Acute Code(s): F25.0 - Schizoaffective disorder, bipolar type Plan Edy is a 31 y.o. Male who carries a dx schizoaffective disorder, bipolar type. He presented to [facility] ED on 09/28/21 due to HI towards a neighbor. Pt brought himself to the [employer] police station on 09/26/2021 stating he wanted to go to nursing home due to having thoughts to harm his neighbor.? Hospital course Pt is prescribed haldol 2.5 mg QHS by his OP prescriber at [facility], says he is willing to take higher dose as he thinks 2.5mg dose is too low, Will increase to 10 mg QHS to target psychotic sx and assaultive ideation. 10/03 remains manic with delusional thinking; will restart Depakote for continued insomnia and manic symptoms (pt has been on before) 10/04 remains manic with delusional thinking. Afloat Cryptologic Manager reviewed past admissions to this hospital during which time patient was will treated on Haldol and Depakote for very similar presentation PLAN: 3 day notice INCREASED TO Haldol 20mg qhs (up from 15mg) INCREASED to Depakote ER 1000mg BID; pt has been on before STARTED clonazepam 1 mg b.i.d. INCREASED to Seroquel 200 mg q.h.s. considered increasing Trazodone as well, however, do not want to over sedate or cause hypotension Monitor response to medications. Monitor for safety in the milieu. Discharge on stabilization. Patient seen. Chart reviewed. Discussed with team. Obtain collateral contact info?as needed I spent minutes with the patient and/or on the patient floor today, greater than?50% of which was spent counseling/coordinating care. Patient educated on: diagnosis and medication risk/benefits Informed Consent: further education needed Reason for contiued inpatient stay Substantial Risk for: rapid decompensation
[2021-10-04 18:00] VITALS: BP 122/81; PULSE 95; RESP 16; TEMP 36.5; O2SAT 99
[2021-10-04] MEDS: clonazePAM 1 MG TABLET PO ×2 (20:11)
[2021-10-04] MEDS: QUEtiapine Fumarate 200 MG TABLET PO (20:11)
[2021-10-04] MEDS: Divalproex Sodium ER 500 MG TAB.ER.24H 1000 MG PO (20:11)
[2021-10-04] MEDS: Divalproex Sodium ER 250 MG TAB.ER.24H PO (20:12)
[2021-10-04] MEDS: HaloperidoL 5 MG TABLET 20 MG PO (20:12)
[2021-10-04] MEDS: traZODone HCL 100 MG TABLET PO (20:12)
[2021-10-05 06:00] VITALS: BP 110/66; PULSE 119; RESP 18; TEMP 36.6; O2SAT 98
[2021-10-05] MEDS: Divalproex Sodium ER 500 MG TAB.ER.24H 1000 MG PO ×2 (09:06→19:49)
[2021-10-05] MEDS: HaloperidoL 5 MG TABLET 10 MG PO ×2 (09:06→19:50)
[2021-10-05] MEDS: Benztropine Mesylate 0.5 MG TABLET PO ×2 (09:06→19:49)
[2021-10-05] MEDS: clonazePAM 1 MG TABLET PO ×2 (09:06→19:50)
--- NOTE | 2021-10-05 10:04 | P.PNPSI_ITS ---
Subjective Subjective Date of Service: 10/05/21 Reason For Visit: Angel Manriquez Interim History: Patient more calm today. He said That he slept last night which staff confirms. He said that his mind is not racing as much. Patient still fixated on going to skilled nursing to Love [his] people. He said they got put on his Heart to go to skilled nursing to be kind to the present nurse. His plan is to go buy cocaine which he says he has been saving up for, get arrested and then go to skilled nursing. Slurry Tank Operator tried to di scuss alternatives and The many pitfalls to this plan however patient Remains adamant this is what he wants to do. He said he tried to get access to prisoners without committed a crime and that he went to the police and asked them to put him in skilled nursing which they of course did not. He does not except volunteering to work with present hers and he cannot appreciate the possibility That he might regret being in custodial and want out, But since being convicted he would have to remain. Patient said he has never been to custodial before but that god this but this on his heart And that he has been saving money to buy the cocaine since he was a first born baby. He says he knows at present is like from watching television. Slurry Tank Operator asked about the report that he HI towards his brothers neighbor. He described a situation where he was walking a dog that ran into the neighbor's yard; the neighbor yelled at him and he yelled back. He says he has no plans to harm or confront the neighbor or anyone else; he denies any SI. Patient also said he was on the list for Section 8 housing and wanting to know if social worker delinquency prevention help find out with this might be available; patient could not appreciate how this is incongruent with this plan to go to present Mental Status Exam Mental Status Exam Narrative: A&O except to situation. Pt is wearing tank top t-shirt; hair neatly combed; pacing halls, signing, listening to music.? Appropriate eye contact. No Tics or Tremors. No abnormal involuntary movements. Calm and cooperative and not guarded; Non-pressured speech, spontaneous with regular rate and rhythm, normal volume and prosody. No prolonged speech latency or dysarthria. Mood is ?good,? and affect more calm. Denies SI/SIB/HI upon inquiry. Denies A/VH. Endorses delusional thought content and thoughts perseverate on wanting to go to buy cocaine to get himself imprisoned in order to love fellow prisoners; No known cognitive or memory impairment. Insight/ Judgment impaired. Diagnostics Vital Signs (24Hr): Vital Signs - 24 hr 10/04/21 18:00 10/05/21 06:00 Temperature 97.7 F 97.8 F Pulse Rate 95 119 H Respiratory Rate 16 18 Blood Pressure 122/81 110/66 Pulse Oximetry 99 98 BMI result Body Mass Index 28.3 Labs Results: 09/28/21 08:17 Medications Medications Current Medications Acetaminophen (Acetaminophen 325 Mg Tablet) 650 mg PO Q6H PRN PRN Reason: Headache/Pain Mild Scale (1-3) Al Hydroxide/Mg Hydroxide (Magnesium Hydrox/Alum Hydrox 30 Ml Oral.Susp) 30 ml PO Q6H PRN PRN Reason: Heartburn/Nausea Benztropine Mesylate (Benztropine Mesylate 1 Mg Tablet) 1 mg PO Q8H PRN PRN Reason: akathisia/EPS Last Admin: 10/01/21 20:49 Dose: 1 mg Documented by: Benztropine Mesylate (Benztropine Mesylate 0.5 Mg Tablet) 0.5 mg PO BID [facility] Last Admin: 10/05/21 09:06 Dose: 0.5 mg Documented by: Clonazepam (Clonazepam 1 Mg Tablet) 1 mg PO BID [facility] Last Admin: 10/05/21 09:06 Dose: 1 mg Documented by: Diphenhydramine HCl (Diphenhydramine Hcl 25 Mg Tablet) 50 mg PO Q4H PRN PRN Reason: agitation Divalproex Sodium (Divalproex Sodium Er 500 Mg Tab.Er.24h) 1,000 mg PO BID [facility] Last Admin: 10/05/21 09:06 Dose: 1,000 mg Documented by: Haloperidol (Haloperidol 5 Mg Tablet) 5 mg PO Q4H PRN PRN Reason: agitation Haloperidol (Haloperidol 5 Mg Tablet) 10 mg PO BID [facility] Last Admin: 10/05/21 09:06 Dose: 10 mg Documented by: Hydroxyzine HCl (Hydroxyzine Hcl 25 Mg Tablet) 25 mg PO Q6H PRN PRN Reason: Anxiety Last Admin: 10/03/21 07:42 Dose: 25 mg Documented by: Lorazepam (Lorazepam 1 Mg Tablet) 2 mg PO Q4H PRN PRN Reason: agitation Magnesium Hydroxide (Milk Of Magnesia 30 Ml Oral.Susp) 30 ml PO DAILY PRN PRN Reason: Constipation Quetiapine Fumarate (Quetiapine Fumarate 200 Mg Tablet) 200 mg PO BEDTIME [facility] Last Admin: 10/04/21 20:11 Dose: 200 mg Documented by: Trazodone HCl (Trazodone Hcl 100 Mg Tablet) 100 mg PO BEDTIME [facility] Last Admin: 10/04/21 20:12 Dose: 100 mg Documented by: Allergies Allergies Allergy/AdvReac Type Severity Reaction Status Date / Time No Known Allergies Allergy Unknown UNKNOWN Verified 10/24/20 16:09 [NO KNOWN ALLERGIES] Assessment & Plan Assessment & Plan (1) Schizoaffective disorder, bipolar type: Status: Acute Code(s): F25.0 - Schizoaffective disorder, bipolar type Plan Edy is a 31 y.o. Male who carries a dx schizoaffective disorder, bipolar type. He presented to [facility] ED on 09/28/21 due to HI towards a neighbor. Pt brought himself to the [place] police station on 09/26/2021 stating he wanted to go to skilled nursing due to having thoughts to harm his neighbor.? Hospital course Pt is prescribed haldol 2.5 mg QHS by his OP prescriber at [facility], says he is willing to take higher dose as he thinks 2.5mg dose is too low, Will increase to 10 mg QHS to target psychotic sx and assaultive ideation. 10/03 remains manic with delusional thinking; will restart Depakote for continued insomnia and manic symptoms (pt has been on before) 10/04 remains manic with delusional thinking. Slurry Tank Operator reviewed past admissions to this hospital during which time patient was will treated on Haldol and Depakote for very similar presentation 10/05 Patient finally did sleep last night and does appear more calm; he says he is feeling more calm as well and mind is not racing as much. He remains perseverative on wanting to buy cocaine in order to get arrested and end up in custodial so he can love the people there PLAN: 3 day notice Will order Depakote level and associated lab work Continue TO Haldol 20mg qhs (up from 15mg) Continue to Depakote ER 1000mg BID; pt has been on before Continue clonazepam 1 mg b.i.d. Continue to Seroquel 200 mg q.h.s. considered increasing Trazodone as well, however, do not want to over sedate or cause hypotension Monitor response to medications. Monitor for safety in the milieu. Discharge on stabilization. Patient seen. Chart reviewed. Discussed with team. Obtain collateral contact info?as needed I spent minutes with the patient and/or on the patient floor today, greater than?50% of which was spent counseling/coordinating care. Patient educated on: diagnosis Informed Consent: does not understand Reason for contiued inpatient stay Substantial Risk for: rapid decompensation
[2021-10-05 17:49] VITALS: BP 134/82; PULSE 108; RESP 18; TEMP 36.7; O2SAT 100
[2021-10-05] MEDS: traZODone HCL 100 MG TABLET PO (19:49)
[2021-10-05] MEDS: QUEtiapine Fumarate 200 MG TABLET PO (19:49)
[2021-10-06 06:00] VITALS: BP 122/78; PULSE 82; RESP 16; TEMP 36.4; O2SAT 99
[2021-10-06] MEDS: HaloperidoL 5 MG TABLET 10 MG PO ×2 (08:43→19:46)
[2021-10-06] MEDS: Benztropine Mesylate 0.5 MG TABLET PO ×2 (08:43→19:46)
[2021-10-06] MEDS: Divalproex Sodium ER 500 MG TAB.ER.24H 1000 MG PO ×2 (08:43→19:46)
[2021-10-06] MEDS: clonazePAM 1 MG TABLET PO ×2 (08:43→19:47)
--- NOTE | 2021-10-06 10:09 | HO.PSYCHPN ---
Subjective Subjective Date of Service: 10/06/21 Reason For Visit: Manic Sx Interim History: Patient reports that he is doing better. He said that he slept again last night and that his mind is not racing. He says he still wants to go to assisted to be with the people and patient cannot seem to be dissuaded. Patient said that some of his friends from the street or in assisted a wants to visit them and be with them. He denies any HI or SI. Patient says he is tolerating his medications well and he is open to long-acting injectable of Haldol. Patient talked a little about his stepfather who lives in [place]; patient says he grew up in [place]. Mental Status Exam Mental Status Exam Narrative: A&O. Pt is wearing tank top t-shirt; hair neatly combed; pacing halls, signing, listening to music.? Appropriate eye contact. No Tics or Tremors. No abnormal involuntary movements. Calm and cooperative and not guarded; Non-pressured speech, spontaneous with regular rate and rhythm, normal volume and prosody. No prolonged speech latency or dysarthria. Mood is ?good,? and affect more calm. Denies SI/SIB/HI upon inquiry. Denies A/VH. Endorses delusional thought content and? thoughts perseverate on wanting to go to buy cocaine to get himself imprisoned in order to love fellow prisoners; No known cognitive or memory impairment. Insight/ Judgment impaired. Diagnostics Vital Signs (24Hr): Vital Signs - 24 hr 10/05/21 17:49 10/06/21 06:00 Temperature 98.1 F 97.6 F Pulse Rate 108 H 82 Respiratory Rate 18 16 Blood Pressure 134/82 122/78 Pulse Oximetry 100 99 BMI result Body Mass Index 28.3 Labs Results: 09/28/21 08:17 Medications Medications Current Medications Acetaminophen (Acetaminophen 325 Mg Tablet) 650 mg PO Q6H PRN PRN Reason: Headache/Pain Mild Scale (1-3) Al Hydroxide/Mg Hydroxide (Magnesium Hydrox/Alum Hydrox 30 Ml Oral.Susp) 30 ml PO Q6H PRN PRN Reason: Heartburn/Nausea Benztropine Mesylate (Benztropine Mesylate 1 Mg Tablet) 1 mg PO Q8H PRN PRN Reason: akathisia/EPS Last Admin: 10/01/21 20:49 Dose: 1 mg Documented by: Benztropine Mesylate (Benztropine Mesylate 0.5 Mg Tablet) 0.5 mg PO BID [facility] Last Admin: 10/06/21 08:43 Dose: 0.5 mg Documented by: Clonazepam (Clonazepam 1 Mg Tablet) 1 mg PO BID [facility] Last Admin: 10/06/21 08:43 Dose: 1 mg Documented by: Diphenhydramine HCl (Diphenhydramine Hcl 25 Mg Tablet) 50 mg PO Q4H PRN PRN Reason: agitation Divalproex Sodium (Divalproex Sodium Er 500 Mg Tab.Er.24h) 1,000 mg PO BID [facility] Last Admin: 10/06/21 08:43 Dose: 1,000 mg Documented by: Haloperidol (Haloperidol 5 Mg Tablet) 5 mg PO Q4H PRN PRN Reason: agitation Haloperidol (Haloperidol 5 Mg Tablet) 10 mg PO BID [facility] Last Admin: 10/06/21 08:43 Dose: 10 mg Documented by: Hydroxyzine HCl (Hydroxyzine Hcl 25 Mg Tablet) 25 mg PO Q6H PRN PRN Reason: Anxiety Last Admin: 10/03/21 07:42 Dose: 25 mg Documented by: Lorazepam (Lorazepam 1 Mg Tablet) 2 mg PO Q4H PRN PRN Reason: agitation Magnesium Hydroxide (Milk Of Magnesia 30 Ml Oral.Susp) 30 ml PO DAILY PRN PRN Reason: Constipation Quetiapine Fumarate (Quetiapine Fumarate 200 Mg Tablet) 200 mg PO BEDTIME [facility] Last Admin: 10/05/21 19:49 Dose: 200 mg Documented by: Trazodone HCl (Trazodone Hcl 100 Mg Tablet) 100 mg PO BEDTIME [facility] Last Admin: 10/05/21 19:49 Dose: 100 mg Documented by: Allergies Allergies Allergy/AdvReac Type Severity Reaction Status Date / Time No Known Allergies Allergy Unknown UNKNOWN Verified 10/24/20 16:09 [NO KNOWN ALLERGIES] Assessment & Plan Assessment & Plan (1) Schizoaffective disorder, bipolar type: Status: Acute Code(s): F25.0 - Schizoaffective disorder, bipolar type Plan Edy is a 31 y.o. Male who carries a dx schizoaffective disorder, bipolar type. He presented to [facility] on 09/28/21 due to HI towards a neighbor. Pt brought himself to the [place] police station on 09/26/2021 stating he wanted to go to group home due to having thoughts to harm his neighbor.? Hospital course Pt is prescribed haldol 2.5 mg QHS by his OP prescriber at [facility], says he is willing to take higher dose as he thinks 2.5mg dose is too low, Will increase to 10 mg QHS to target psychotic sx and assaultive ideation. 10/03 remains manic with delusional thinking; will restart Depakote for continued insomnia and manic symptoms (pt has been on before) 10/04 remains manic with delusional thinking. Retail Operations Manager reviewed past admissions to this hospital during which time patient was will treated on Haldol and Depakote for very similar presentation 10/05 Patient finally did sleep last night and does appear more calm; he says he is feeling more calm as well and mind is not racing as much. He remains perseverative on wanting to buy cocaine in order to get arrested and end up in assisted so he can love the people there 10/06 patient remains calmer and more easily engageable. He continues to have delusional idea about it being got plan for him to go to present. Retail Operations Manager discussed case with staff who known patient for years and say this is pretty much his baseline. And also that for years patient has had the same delusional idea to go buy cocaine so that he can get into assisted although he never has done so. Will consider long-acting injectable. Waiting for labs on whether to go up on Depakote PLAN: 3 day notice Will order Depakote level and associated lab work Continue Haldol b.i.d. Continue to Depakote ER 1000mg BID; pt has been on before Continue clonazepam 1 mg b.i.d. Continue to Seroquel 200 mg q.h.s. considered increasing Trazodone as well, however, do not want to over sedate or cause hypotension Monitor response to medications. Monitor for safety in the milieu. Discharge on stabilization. Patient seen. Chart reviewed. Discussed with team. Obtain collateral contact info?as needed I spent minutes with the patient and/or on the patient floor today, greater than?50% of which was spent counseling/coordinating care. Patient educated on: diagnosis Informed Consent: further education needed Reason for contiued inpatient stay Substantial Risk for: med/psych decompensation
[2021-10-06 18:00] VITALS: BP 109/76; PULSE 89; RESP 16; TEMP 36.6; O2SAT 99
[2021-10-06] MEDS: traZODone HCL 100 MG TABLET PO (19:46)
[2021-10-06] MEDS: QUEtiapine Fumarate 200 MG TABLET PO (19:46)
[2021-10-07 06:00] VITALS: BP 117/68; PULSE 100; RESP 18; TEMP 36.6; O2SAT 100
[2021-10-07] MEDS: HaloperidoL 5 MG TABLET 10 MG PO ×2 (08:49→21:15)
[2021-10-07] MEDS: Benztropine Mesylate 0.5 MG TABLET PO ×2 (08:49→21:14)
[2021-10-07] MEDS: Divalproex Sodium ER 500 MG TAB.ER.24H 1000 MG PO ×2 (08:50→21:14)
[2021-10-07] MEDS: clonazePAM 1 MG TABLET PO ×2 (08:50→21:15)
--- NOTE | 2021-10-07 11:19 | P.PNPSI_ITS ---
Subjective Subjective Date of Service: 10/07/21 Reason For Visit: Manic Sx Subjective Notes: Conditional Voluntary Interim History: Pt reports feeling much better in that he is less anxious, less depressed. He appears pleasant and polite on approach. He denies SI/HI. He denies AH/VH. pacing cruz at times, social with select peers. per nursing no concern. Medication Compliance: Yes Side effects from medications: No Attending Groups: Intermittent Review of Systems Acute medical concerns: No Review of Systems Review of Systems CVS: No c/o chest pain, palpitations, no SOB GEOGRAPHY PROFESSOR: No c/o dizziness, headache GI: No c/o Nausea, Vomiting, diarrhea, constipation or heartburn Yes all other systems are reviewed and are negative Mental Status Exam Mental Status Exam Narrative: A&O. Pt is wearing tank top t-shirt; hair neatly combed; pacing halls, signing, listening to music.? Appropriate eye contact. No Tics or Tremors. No abnormal involuntary movements. Calm and cooperative and not guarded; Non-pressured speech, spontaneous with regular rate and rhythm, normal volume and prosody. No prolonged speech latency or dysarthria. Mood is ?good,? and affect more calm. Denies SI/SIB/HI upon inquiry. Denies A/VH. Endorses delusional thought content and? thoughts perseverate on wanting to go to buy cocaine to get himself imprisoned in order to love fellow prisoners; No known cognitive or memory impairment. Insight/ Judgment impaired. Diagnostics Vital Signs (24Hr): Vital Signs - 24 hr 10/08/21 16:15 10/09/21 06:00 Temperature 99.2 F 97.7 F Pulse Rate 118 H 114 H Respiratory Rate 18 18 Blood Pressure 129/68 124/76 Pulse Oximetry 96 99 BMI result Body Mass Index 28.3 Labs Results: 09/28/21 08:17 Labs: Laboratory Results - last 48 hr 10/08/21 10/08/21 07:23 07:24 Total Bilirubin 0.2 Direct Bilirubin < 0.2 AST 55 H ALT 84 H Alkaline Phosphatase 89 Ammonia 40 Total Protein 6.9 Albumin 3.9 Valproic Acid 87.7 Medications Medications Current Medications Acetaminophen (Acetaminophen 325 Mg Tablet) 650 mg PO Q6H PRN PRN Reason: Headache/Pain Mild Scale (1-3) Al Hydroxide/Mg Hydroxide (Magnesium Hydrox/Alum Hydrox 30 Ml Oral.Susp) 30 ml PO Q6H PRN PRN Reason: Heartburn/Nausea Benztropine Mesylate (Benztropine Mesylate 1 Mg Tablet) 1 mg PO Q8H PRN PRN Reason: akathisia/EPS Last Admin: 10/01/21 20:49 Dose: 1 mg Documented by: Benztropine Mesylate (Benztropine Mesylate 0.5 Mg Tablet) 0.5 mg PO BID [facility] Last Admin: 10/08/21 19:55 Dose: 0.5 mg Documented by: Clonazepam (Clonazepam 1 Mg Tablet) 1 mg PO BID [facility] Last Admin: 10/08/21 19:55 Dose: 1 mg Documented by: Diphenhydramine HCl (Diphenhydramine Hcl 25 Mg Tablet) 50 mg PO Q4H PRN PRN Reason: agitation Divalproex Sodium (Divalproex Sodium Er 500 Mg Tab.Er.24h) 1,000 mg PO BID [facility] Last Admin: 10/08/21 19:55 Dose: 1,000 mg Documented by: Haloperidol (Haloperidol 5 Mg Tablet) 5 mg PO Q4H PRN PRN Reason: agitation Haloperidol (Haloperidol 5 Mg Tablet) 10 mg PO BID [facility] Last Admin: 10/08/21 19:55 Dose: 10 mg Documented by: Hydroxyzine HCl (Hydroxyzine Hcl 25 Mg Tablet) 25 mg PO Q6H PRN PRN Reason: Anxiety Last Admin: 10/08/21 04:57 Dose: 25 mg Documented by: Lorazepam (Lorazepam 1 Mg Tablet) 2 mg PO Q4H PRN PRN Reason: agitation Last Admin: 10/08/21 04:57 Dose: 2 mg Documented by: Magnesium Hydroxide (Milk Of Magnesia 30 Ml Oral.Susp) 30 ml PO DAILY PRN PRN Reason: Constipation Quetiapine Fumarate (Quetiapine Fumarate 200 Mg Tablet) 200 mg PO BEDTIME [facility] Last Admin: 10/08/21 19:56 Dose: 200 mg Documented by: Trazodone HCl (Trazodone Hcl 100 Mg Tablet) 100 mg PO BEDTIME [facility] Last Admin: 10/08/21 19:56 Dose: 100 mg Documented by: Allergies Allergies Allergy/AdvReac Type Severity Reaction Status Date / Time No Known Allergies Allergy Unknown UNKNOWN Verified 10/24/20 16:09 [NO KNOWN ALLERGIES] Assessment & Plan Assessment & Plan (1) Schizoaffective disorder, bipolar type: Status: Acute Code(s): F25.0 - Schizoaffective disorder, bipolar type Plan Edy is a 31 y.o. Male who carries a dx schizoaffective disorder, bipolar type. He presented to [facility] [place] due to HI towards a neighbor. Pt brought himself to the [place] police station on 09/26/2021 stating he wanted to go to halfway due to having thoughts to harm his neighbor.? Hospital course Pt is prescribed haldol 2.5 mg QHS by his OP prescriber at [facility], says he is willing to take higher dose as he thinks 2.5mg dose is too low, Will increase to 10 mg QHS to target psychotic sx and assaultive ideation. 10/03 remains manic with delusional thinking; will restart Depakote for continued insomnia and manic symptoms (pt has been on before) 10/04 remains manic with delusional thinking. Game Master reviewed past admissions to this hospital during which time patient was will treated on Haldol and Depakote for very similar presentation 10/05 Patient finally did sleep last night and does appear more calm; he says he is feeling more calm as well and mind is not racing as much. He remains perseverative on wanting to buy cocaine in order to get arrested and end up in shelter so he can love the people there 10/06 patient remains calmer and more easily engageable. He continues to have delusional idea about it being got plan for him to go to present. Game Master discussed case with staff who known patient for years and say this is pretty much his baseline. And also that for years patient has had the same delusional idea to go buy cocaine so that he can get into shelter although he never has done so. Will consider long-acting injectable. Waiting for labs on whether to go up on Depakote PLAN: 3 day notice Will order Depakote level and associated lab work Continue Haldol b.i.d. Continue to Depakote ER 1000mg BID; pt has been on before Continue clonazepam 1 mg b.i.d. Continue to Seroquel 200 mg q.h.s. considered increasing Trazodone as well, however, do not want to over sedate or cause hypotension Monitor response to medications. Monitor for safety in the milieu. Discharge on stabilization. Patient seen. Chart reviewed. Discussed with team. Obtain collateral contact info?as needed 10/07 continue tx. I spent __25____ minutes with the patient and/or on the patient floor today, greater than?50% of which was spent counseling/coordinating care. Reason for contiued inpatient stay Substantial Risk for: harm to self and inability to function
[2021-10-07 18:00] VITALS: BP 131/74; PULSE 112; TEMP 36.7
[2021-10-07] MEDS: traZODone HCL 100 MG TABLET PO (21:14)
[2021-10-07] MEDS: QUEtiapine Fumarate 200 MG TABLET PO (21:15)
[2021-10-08] MEDS: hydrOXYzine HCL 25 MG TABLET PO (04:57)
[2021-10-08] MEDS: LORazepam 1 MG TABLET 2 MG PO (04:57)
[2021-10-08 06:00] VITALS: BP 115/68; PULSE 109; RESP 18; TEMP 36.4; O2SAT 99
[2021-10-08 07:48] LABS: Alanine Aminotransferase 84 U/L (0-40); Albumin Level 3.9 g/dL (3.5-5.0); Alkaline Phosphatase 89 U/L (39-117); Aspartate Amino Transferase 55 U/L (5-37); Bilirubin Direct < 0.2 mg/dL (0.0-0.5); Bilirubin Total 0.2 mg/dL (0.0-1.0); Total Protein 6.9 g/dL (6.5-8.0)
[2021-10-08 07:55] LABS: Valproate 87.7 mcg/mL (50.0-100.0)
[2021-10-08] MEDS: clonazePAM 1 MG TABLET PO ×2 (08:29→19:55)
[2021-10-08] MEDS: HaloperidoL 5 MG TABLET 10 MG PO ×2 (08:29→19:55)
[2021-10-08] MEDS: Benztropine Mesylate 0.5 MG TABLET PO ×2 (08:29→19:55)
[2021-10-08] MEDS: Divalproex Sodium ER 500 MG TAB.ER.24H 1000 MG PO ×2 (08:30→19:55)
[2021-10-08 08:32] LABS: Ammonia 40 umol/L (13-55)
--- NOTE | 2021-10-08 11:21 | P.PNPSI_ITS ---
Subjective Subjective Date of Service: 10/08/21 Reason For Visit: Manic Sx Subjective Notes: Conditional Voluntary Interim History: Pt continues to report feeling much better in that he is less anxious, less depressed. He appears pleasant and polite on approach. He denies SI/HI. when asked about hurting others- he reports I would rather hurt myself and go to [facility] He denies AH/VH. pacing cruz at times, social with select peers. per nursing no concern. Review of Systems Review of Systems CVS: No c/o chest pain, palpitations, no SOB LITIGATOR: No c/o dizziness, headache GI: No c/o Nausea, Vomiting, diarrhea, constipation or heartburn Yes all other systems are reviewed and are negative Mental Status Exam Mental Status Exam Narrative: A&O. Pt is wearing tank top t-shirt; hair neatly combed; pacing halls, signing, listening to music.? Appropriate eye contact. No Tics or Tremors. No abnormal involuntary movements. Calm and cooperative and not guarded; Non-pressured speech, spontaneous with regular rate and rhythm, normal volume and prosody. No prolonged speech latency or dysarthria. Mood is ?good,? and affect more calm. Denies SI/SIB/HI upon inquiry. Denies A/VH. Endorses delusional thought content and? thoughts perseverate on wanting to go to buy cocaine to get himself impriso tomás in order to love fellow prisoners; No known cognitive or memory impairment. Insight/ Judgment impaired. Diagnostics Vital Signs (24Hr): Vital Signs - 24 hr 10/08/21 16:15 10/09/21 06:00 Temperature 99.2 F 97.7 F Pulse Rate 118 H 114 H Respiratory Rate 18 18 Blood Pressure 129/68 124/76 Pulse Oximetry 96 99 BMI result Body Mass Index 28.3 Labs Results: 09/28/21 08:17 Labs: Laboratory Results - last 48 hr 10/08/21 10/08/21 07:23 07:24 Total Bilirubin 0.2 Direct Bilirubin < 0.2 AST 55 H ALT 84 H Alkaline Phosphatase 89 Ammonia 40 Total Protein 6.9 Albumin 3.9 Valproic Acid 87.7 Medications Medications Current Medications Acetaminophen (Acetaminophen 325 Mg Tablet) 650 mg PO Q6H PRN PRN Reason: Headache/Pain Mild Scale (1-3) Al Hydroxide/Mg Hydroxide (Magnesium Hydrox/Alum Hydrox 30 Ml Oral.Susp) 30 ml PO Q6H PRN PRN Reason: Heartburn/Nausea Benztropine Mesylate (Benztropine Mesylate 1 Mg Tablet) 1 mg PO Q8H PRN PRN Reason: akathisia/EPS Last Admin: 10/01/21 20:49 Dose: 1 mg Documented by: Benztropine Mesylate (Benztropine Mesylate 0.5 Mg Tablet) 0.5 mg PO BID [facility] Last Admin: 10/08/21 19:55 Dose: 0.5 mg Documented by: Clonazepam (Clonazepam 1 Mg Tablet) 1 mg PO BID [facility] Last Admin: 10/08/21 19:55 Dose: 1 mg Documented by: Diphenhydramine HCl (Diphenhydramine Hcl 25 Mg Tablet) 50 mg PO Q4H PRN PRN Reason: agitation Divalproex Sodium (Divalproex Sodium Er 500 Mg Tab.Er.24h) 1,000 mg PO BID [facility] Last Admin: 10/08/21 19:55 Dose: 1,000 mg Documented by: Haloperidol (Haloperidol 5 Mg Tablet) 5 mg PO Q4H PRN PRN Reason: agitation Haloperidol (Haloperidol 5 Mg Tablet) 10 mg PO BID [facility] Last Admin: 10/08/21 19:55 Dose: 10 mg Documented by: Hydroxyzine HCl (Hydroxyzine Hcl 25 Mg Tablet) 25 mg PO Q6H PRN PRN Reason: Anxiety Last Admin: 10/08/21 04:57 Dose: 25 mg Documented by: Lorazepam (Lorazepam 1 Mg Tablet) 2 mg PO Q4H PRN PRN Reason: agitation Last Admin: 10/08/21 04:57 Dose: 2 mg Documented by: Magnesium Hydroxide (Milk Of Magnesia 30 Ml Oral.Susp) 30 ml PO DAILY PRN PRN Reason: Constipation Quetiapine Fumarate (Quetiapine Fumarate 200 Mg Tablet) 200 mg PO BEDTIME [facility] Last Admin: 10/08/21 19:56 Dose: 200 mg Documented by: Trazodone HCl (Trazodone Hcl 100 Mg Tablet) 100 mg PO BEDTIME [facility] Last Admin: 10/08/21 19:56 Dose: 100 mg Documented by: Allergies Allergies Allergy/AdvReac Type Severity Reaction Status Date / Time No Known Allergies Allergy Unknown UNKNOWN Verified 10/24/20 16:09 [NO KNOWN ALLERGIES] Assessment & Plan Assessment & Plan (1) Schizoaffective disorder, bipolar type: Status: Acute Code(s): F25.0 - Schizoaffective disorder, bipolar type Plan Edy is a 31 y.o. Male who carries a dx schizoaffective disorder, bipolar type. He [place] [facility] [place] due to HI towards a neighbor. Pt brought himself to the [place] police station on 09/26/2021 stating he wanted to go to care home due to having thoughts to harm his neighbor.? Hospital course Pt is prescribed haldol 2.5 mg QHS by his OP prescriber at [facility], says he is willing to take higher dose as he thinks 2.5mg dose is too low, Will increase to 10 mg QHS to target psychotic sx and assaultive ideation. 10/03 remains manic with delusional thinking; will restart Depakote for continued insomnia and manic symptoms (pt has been on before) 10/04 remains manic with delusional thinking. Front Office Developer reviewed past admissions to this hospital during which time patient was will treated on Haldol and Depakote for very similar presentation 10/05 Patient finally did sleep last night and does appear more calm; he says he is feeling more calm as well and mind is not racing as much. He remains perseverative on wanting to buy cocaine in order to get arrested and end up in care home so he can love the people there 10/06 patient remains calmer and more easily engageable. He continues to have delusional idea about it being got plan for him to go to present. Front Office Developer discussed case with staff who known patient for years and say this is pretty much his baseline. And also that for years patient has had the same delusional idea to go buy cocaine so that he can get into care home although he never has done so. Will consider long-acting injectable. Waiting for labs on whether to go up on Depakote PLAN: 3 day notice Will order Depakote level and associated lab work Continue Haldol b.i.d. Continue to Depakote ER 1000mg BID; pt has been on before Continue clonazepam 1 mg b.i.d. Continue to Seroquel 200 mg q.h.s. considered increasing Trazodone as well, however, do not want to over sedate or cause hypotension Monitor response to medications. Monitor for safety in the milieu. Discharge on stabilization. Patient seen. Chart reviewed. Discussed with team. Obtain collateral contact info?as needed 10/07 continue tx. 10/08 continue current tx. I spent ___25___ minutes with the patient and/or on the patient floor today, greater than?50% of which was spent counseling/coordinating care. Reason for contiued inpatient stay Substantial Risk for: inability to function
[2021-10-08 16:15] VITALS: BP 129/68; PULSE 118; RESP 18; TEMP 37.3; O2SAT 96
[2021-10-08] MEDS: traZODone HCL 100 MG TABLET PO (19:56)
[2021-10-08] MEDS: QUEtiapine Fumarate 200 MG TABLET PO (19:56)
--- NOTE | 2021-10-09 | ECG_ITS ---
Test Reason : QTC CHECK Blood Pressure : / mmHG Vent. Rate : 101 BPM Atrial Rate : 101 BPM P-R Int : 120 ms QRS Dur : 066 ms QT Int : 320 ms P-R-T Axes : 069 073 000 degrees QTc Int : 414 ms Sinus tachycardia Otherwise normal ECG When compared with ECG of 29-SEP-2021 10:44, No significant change was found Referred By: Noel Nichols Electronically Signed By:NATHAN CROCKETT MD
[2021-10-09 06:00] VITALS: BP 124/76; PULSE 114; RESP 18; TEMP 36.5; O2SAT 99
[2021-10-09] MEDS: HaloperidoL 5 MG TABLET 10 MG PO ×2 (08:43→20:53)
[2021-10-09] MEDS: Divalproex Sodium ER 500 MG TAB.ER.24H 1000 MG PO ×2 (08:43→20:53)
[2021-10-09] MEDS: Benztropine Mesylate 0.5 MG TABLET PO ×2 (08:43→20:53)
[2021-10-09] MEDS: clonazePAM 1 MG TABLET PO ×2 (08:44→20:54)
--- NOTE | 2021-10-09 12:05 | P.PNPSI_ITS ---
Subjective Subjective Date of Service: 10/09/21 Reason For Visit: Manic Sx Interim History: pt reports that he's doing well and feels much better. He says he's mostly sleeping through the night and feels well rested. When asked about his plans on discharge, he says he's going to go home, read, rest and follow his medication instructions. Ink Grinder asked if he still planned to buy cocaine to get imprisoned and he said ...maybe not...i'll leave it in God's hands.... a significant change as he's been adamant about this plan since admission (and has been for years). No SI or HI; no AVH. Patient retracted 3 day notice so he could stay another day in order to get Haldol Decanoate which he received to good effect. EKG done and QTC within normal limits. Mental Status Exam Mental Status Exam Narrative: A&O. Pt is wearing tank top t-shirt; hair neatly combed; reading bible; Appropriate eye contact. No Tics or Tremors. No abnormal involuntary movements. Calm and cooperative and not guarded; Non-pressured speech, spontaneous with regular rate and rhythm, normal volume and prosody. No prolonged speech latency or dysarthria. Mood is ?good,? and affect more calm. Denies SI/SIB/HI upon inquiry. Denies A/VH. No delusional thought content; no longer planning to buy cocaine to get himself imprisoned; No known cognitive or memory impairment. Insight/ Judgment fair and adequate. Diagnostics Vital Signs (24Hr): Vital Signs - 24 hr 10/08/21 16:15 10/09/21 06:00 Temperature 99.2 F 97.7 F Pulse Rate 118 H 114 H Respiratory Rate 18 18 Blood Pressure 129/68 124/76 Pulse Oximetry 96 99 BMI result Body Mass Index 28.3 Labs Results: 09/28/21 08:17 Labs: Laboratory Results - last 48 hr 10/08/21 10/08/21 07:23 07:24 Total Bilirubin 0.2 Direct Bilirubin < 0.2 AST 55 H ALT 84 H Alkaline Phosphatase 89 Ammonia 40 Total Protein 6.9 Albumin 3.9 Valproic Acid 87.7 EKG EKG: reviewed EKG Comment: Date of Service: 10/09/21 Procedure(s): ECG 12 lead EKG Accession Number(s): [id number] Test Reason : QTC CHECK Blood Pressure : / mmHG Vent. Rate : 101 BPM ? ? Atrial Rate : 101 BPM ?? P-R Int : 120 ms? QRS Dur : 066 ms ? ? QT Int : 320 ms ? ? ? P-R-T Axes : 069 073 000 degrees ?? QTc Int : 414 ms ? Medications Medications Current Medications Acetaminophen (Acetaminophen 325 Mg Tablet) 650 mg PO Q6H PRN PRN Reason: Headache/Pain Mild Scale (1-3) Al Hydroxide/Mg Hydroxide (Magnesium Hydrox/Alum Hydrox 30 Ml Oral.Susp) 30 ml PO Q6H PRN PRN Reason: Heartburn/Nausea Benztropine Mesylate (Benztropine Mesylate 1 Mg Tablet) 1 mg PO Q8H PRN PRN Reason: akathisia/EPS Last Admin: 10/01/21 20:49 Dose: 1 mg Documented by: Benztropine Mesylate (Benztropine Mesylate 0.5 Mg Tablet) 0.5 mg PO BID [facility] Last Admin: 10/09/21 08:43 Dose: 0.5 mg Documented by: Clonazepam (Clonazepam 1 Mg Tablet) 1 mg PO BID [facility] Last Admin: 10/09/21 08:44 Dose: 1 mg Documented by: Diphenhydramine HCl (Diphenhydramine Hcl 25 Mg Tablet) 50 mg PO Q4H PRN PRN Reason: agitation Divalproex Sodium (Divalproex Sodium Er 500 Mg Tab.Er.24h) 1,000 mg PO BID [facility] Last Admin: 10/09/21 08:43 Dose: 1,000 mg Documented by: Haloperidol (Haloperidol 5 Mg Tablet) 5 mg PO Q4H PRN PRN Reason: agitation Haloperidol (Haloperidol 5 Mg Tablet) 10 mg PO BID [facility] Last Admin: 10/09/21 08:43 Dose: 10 mg Documented by: Haloperidol Decanoate (Haloperidol Decanoate 50 Mg/Ml Ampul) 100 mg IM Q28D [facility] Hydroxyzine HCl (Hydroxyzine Hcl 25 Mg Tablet) 25 mg PO Q6H PRN PRN Reason: Anxiety Last Admin: 10/08/21 04:57 Dose: 25 mg Documented by: Lorazepam (Lorazepam 1 Mg Tablet) 2 mg PO Q4H PRN PRN Reason: agitation Last Admin: 10/08/21 04:57 Dose: 2 mg Documented by: Magnesium Hydroxide (Milk Of Magnesia 30 Ml Oral.Susp) 30 ml PO DAILY PRN PRN Reason: Constipation Quetiapine Fumarate (Quetiapine Fumarate 200 Mg Tablet) 200 mg PO BEDTIME [facility] Last Admin: 10/08/21 19:56 Dose: 200 mg Documented by: Trazodone HCl (Trazodone Hcl 100 Mg Tablet) 100 mg PO BEDTIME [facility] Last Admin: 10/08/21 19:56 Dose: 100 mg Documented by: Allergies Allergies Allergy/AdvReac Type Severity Reaction Status Date / Time No Known Allergies Allergy Unknown UNKNOWN Verified 10/24/20 16:09 [NO KNOWN ALLERGIES] Assessment & Plan Assessment & Plan (1) Schizoaffective disorder, bipolar type: Status: Acute Code(s): F25.0 - Schizoaffective disorder, bipolar type Plan Edy is a 31 y.o. Male who carries a dx schizoaffective disorder, bipolar type. He [place] [facility] [place] due to HI towards a neighbor. Pt brought himself to the [place] police station on 09/26/2021 stating he wanted to go to care home due to having thoughts to harm his neighbor.? Hospital course Pt is prescribed haldol 2.5 mg QHS by his OP prescriber at [facility], says he is willing to take higher dose as he thinks 2.5mg dose is too low, Will increase to 10 mg QHS to target psychotic sx and assaultive ideation. 10/03 remains manic with delusional thinking; will restart Depakote for continued insomnia and manic symptoms (pt has been on before) 10/04 remains manic with delusional thinking. Ink Grinder reviewed past admissions to this hospital during which time patient was will treated on Haldol and Depakote for very similar presentation 10/05 Patient finally did sleep last night and does appear more calm; he says he is feeling more calm as well and mind is not racing as much. He remains perseverative on wanting to buy cocaine in order to get arrested and end up in care home so he can love the people there 10/06 patient remains calmer and more easily engageable. He continues to have delusional idea about it being got plan for him to go to present. Ink Grinder discussed case with staff who known patient for years and say this is pretty much his baseline. And also that for years patient has had the same delusional idea to go buy cocaine so that he can get into care home although he never has done so. Will consider long-acting injectable. Waiting for labs on whether to go up on Depakote 10/09 Patient stable, Calm and delusional thoughts significantly reduced. Patient says that he is no longer planning to buy cocaine to get himself imprisoned which staff reports This is an improvement beyond his normal baseline and says that typically he is discharged with the continued plan to buy cocaine and get himself imprisoned (According to staff on the unit who have worked with him over the years, this is a baseline, chronic plan of his, however one he has never acted upon). Patient received Haldol dec 100mg. -regarding discharge, Patient is in good mood, sleeping Well, in good behavioral impulse control on the unit, tolerating medications. His delusional thinking has significantly reduced and staff reports he is improved beyond his normal baseline. Patient has no SI or HI and remains w/out angry feelings towards his brothers neighbor. Patient had a 3 day notice which was due today however he retracted it to get on the Haldol Decanoate demonstrating good judgment with plan to discharge tomorrow instead. Patient is not in imminent risk for harm to self or others and does not rise to the level of involuntary commitment. Patient's request for discharge will be honored. PLAN: 3 day notice; retracted Haldol dec 100mg recieived on 10/09 will get again in 2 weeks QTc WNL (10/09) Depakote level wnl Continue Haldol b.i.d. Continue to Depakote ER 1000mg BID; pt has been on before Continue clonazepam 1 mg b.i.d. Continue to Seroquel 200 mg q.h.s. considered increasing Trazodone as well, however, do not want to over sedate or cause hypotension Monitor response to medications. Monitor for safety in the milieu. Discharge on stabilization. Patient seen. Chart reviewed. Discussed with team. Obtain collateral contact info?as needed 10/07 continue tx. 10/08 continue current tx. I spent minutes with the patient and/or on the patient floor today, greater than?50% of which was spent counseling/coordinating care. Patient educated on: medication risk/benefits Informed Consent: understands Reason for contiued inpatient stay Substantial Risk for: stable for discharge
[2021-10-09] MEDS: traZODone HCL 100 MG TABLET PO ×2 (20:53→21:57)
[2021-10-09] MEDS: QUEtiapine Fumarate 200 MG TABLET PO (20:54)
[2021-10-09 20:55] VITALS: BP 135/84; PULSE 110; TEMP 36.7; O2SAT 96
[2021-10-10 06:00] VITALS: BP 123/57; PULSE 114; RESP 14; TEMP 36.5; O2SAT 99
--- NOTE | 2021-10-10 07:56 | PM.PSYDC ---
DS: Providers Provider Date of Service: 10/10/21 Date of admission: 09/28/21 22:00 Date of discharge: 10/10/21 Primary care physician: Khang Brown MD Admitting clinician: Merna Michael Attending physician on discharge: Noel Nichols DS: Diagnosis Discharge Diagnosis (1) Schizoaffective disorder, bipolar type: Status: Acute DS: Medications Discharge Medications Home Medications: Previous Rx's Medication Instructions Recorded benztropine 0.5 mg tablet 0.5 mg PO BID 30 Days #60 tab 10/10/21 clonazepam 0.5 mg tablet 0.5 mg PO BID 30 Days #60 tab 10/10/21 divalproex 500 mg tablet,extended 1,000 mg PO BID 30 Days #120 tab 10/10/21 release 24 hr haloperidol 10 mg tablet 10 mg PO BID 14 Days #28 tab 10/10/21 haloperidol decanoate 100 mg/mL 100 mg IM Q4W 30 Days #1 ml 10/10/21 intramuscular solution (Haldol Decanoate) haloperidol decanoate 50 mg/mL 100 mg (2 mL) IM ONCE 1 Days #2 ml 10/10/21 intramuscular solution quetiapine 200 mg tablet 200 mg PO BEDTIME PRN 30 Days #30 10/10/21 tab trazodone 100 mg tablet 100 mg PO BEDTIME PRN 30 Days #30 10/10/21 tab Mental Status Exam Mental Status Exam Narrative: A&O. Pt is wearing tank top t-shirt; hair neatly combed; Appropriate eye contact. No Tics or Tremors. No abnormal involuntary movements. Calm and cooperative and friendly; Non-pressured speech, spontaneous with regular rate and rhythm, normal volume and prosody. No prolonged speech latency or dysarthria. Mood is ?good,? and affect more calm. Denies SI or HI or A/VH. No delusional thought content; no longer planning to buy cocaine to get himself imprisoned; No known cognitive or memory impairment. Insight/ Judgment fair and adequate. Data Data Completed and Pending Completed studies during hospitalization [Text1]: 10/08/21 10/08/21 07:23 07:24 Total Bilirubin 0.2 Direct Bilirubin < 0.2 AST 55 H ALT 84 H Alkaline Phosphatase 89 Ammonia 40 Total Protein 6.9 Albumin 3.9 Valproic Acid 87.7 Cardiology Testing Date of Service: 10/09/21 Procedure(s): ECG 12 lead EKG Accession Number(s): [id number] Test Reason : QTC CHECK Blood Pressure : / mmHG Vent. Rate : 101 BPM ? ? Atrial Rate : 101 BPM ?? P-R Int : 120 ms? QRS Dur : 066 ms ? ? QT Int : 320 ms ? ? ? P-R-T Axes : 069 073 000 degrees ?? QTc Int : 414 ms ? Sinus tachycardia Otherwise normal ECG When compared with ECG of 29-SEP-2021 10:44, No significant change was found DS: Summary Hospital Course Hospital Course: KRYS Snow is a 31 y.o. Male who carries a dx schizoaffective disorder, bipolar type, who presents with moderate linn in face of subtherapeutic medication regimen. Pt brought himself to the [place] police station on 09/26/2021. He reported he is in the hospital because he had an altercation with his brother?s neighbor 3-4 days ago and says this person was having ?attitude with me.? He then went to the police station to explain what happened. Per pt, ?Im supposed to be in alf for the rest of my life, thats my purpose, that?s my plan.? States he plans to get into alf by ?I will ask them nicely to let me get in? and says he wants to go to alf because ?those people in there need help, nobody shows them love, they are waiting for the one.? Denies assaultive or homicidal ideation.? Hospital course: On admission, patient was moderately manic with insomnia, pacing the halls, racing mind and delusional thinking perseverating on the idea that he needs to buy cocaine to get arrested so that he can go to intermediate and show love to the prisoners. Patient had been angry at his brother's neighbor, but denied any thoughts of harming her. Patient was started on 10 mg of Haldol. Patient remained intermittently agitated 1 time punching the wall. He was started on trazodone and Seroquel to help with insomnia to only modest effect. Review of notes shows that in the past he had stabilized on both Haldol and Depakote and Depakote was also started. Haldol needed to be titrated to 10 mg b.i.d. and Depakote to 1000 mg b.i.d. at which time patient became a little more calm and reported his mind is not racing as much, however he still struggles insomnia was started on clonazepam 1 mg b.i.d. which was effective in patients started sleeping through the night (pt has remote history of substance abuse; sober for 10+years). He was still pacing and intermittently angry however was overall more calm. He remained with the delusional idea that it was God's plan for him to buy cocaine to get imprisoned so he could love the prisoners. Nursing staff who've worked with patient over the past years reported that this delusional thought is chronic and that patient was at his normal baseline and typically is discharged with the continued plan to buy cocaine and get himself imprisoned though one he has never acted upon. Patient remained on the unit for few more days and thankfully this current medication regimen continued to produce affect and as patient further stabilized this chronic plan (buy cocaine/get imprisoned) also resolved and patient decided not to do this. Patient had put in a 3 day notice but was willing to remain in extra day to get Haldol Decanoate which he received to good effect. Patient's EKG/QTC was within normal limits. He remains sleeping well, calm, denied racing thoughts, denied any SI or HI and reported he plan to continue with medication regimen; pt has demonstrated good behavioral and impulse control and is no longer intermittently angry. Patient does have a long history of disorganized/psychotic symptom and non adherence with medication and he remains vulnerable to at some point again becoming non-adherent and dysregulated. However as he is now on a long-acting injectable, patient's risk for decompensation is significantly reduced; Patient also has a VNA. Patient felt ready to go home and wanted discharge. He was not in imminent risk for harm to self or others and his request for discharge honored. In effort to treat with only Haldol, expert medical writer wanted to see if patient could be tapered off Seroquel and still remain stable. However, as Patient placed a 3 day notice and was appropriate for discharge there was not enough time remaining for a taper. Also, on this regimen pt finally become stabilized and was even improved beyond his baseline. Pt was fine with current regimen and expert medical writer agreed that it's in patients best interest to remain on regimen and allow his outpatient provider to see if he can taper off and remain stable w/out Seroquel. Time spent discussing smoking cessation with patient: 3 to 10 minutes Status at Discharge Functional status at discharge: independent ambulation Overall status at discharge: patient is back to baseline Time Spent with Patient Time attestation: Total time spent providing and/or coordinating discharge services: Time spent: Greater than 30 minutes Discharge Plan Discharge Patient Disposition: Home, Self-Care Discharge Diagnosis: Schizoaffective disorder, bipolar type Referrals: [facility] [Other] - 1 Week (fax- [phone] Visiting RN will start following Discharge. ) Therapist: Doug Kirk ([facility]) [Other] - 10/13/21 12:45 pm (Telehealth ) Psych Prescriber: Cora Phillips ([facility]) [Other] - 10/30/21 1:00 pm (Telehealth ) [facility] [Other] - 1 Week (OFFICE WILL CALL PT. WITH FOLLOW-UP APPOINTMENT.) Discharge Medications: New benztropine 0.5 mg Tablet 0.5 mg PO BID 30 Days Qty: 60 0RF divalproex 500 mg Tablet Extended Release 24 Hr 1,000 mg PO BID 30 Days Qty: 120 0RF haloperidol 10 mg tablet 10 mg PO BID 14 Days Qty: 28 0RF Rx Instructions: give for 14 days to overlap Haldol Dec haloperidol decanoate 50 mg/mL Solution 100 mg IM ONCE 1 Days Qty: 2 0RF Rx Instructions: Last dose on 10/09/21; give this dose on 10/23/21 and then from then five [id number] (11/20/21) quetiapine 200 mg Tablet 200 mg PO BEDTIME PRN (Reason: insomnia) 30 Days Qty: 30 0RF trazodone 100 mg Tablet 100 mg PO BEDTIME PRN (Reason: insomnia) 30 Days Qty: 30 0RF haloperidol decanoate [Haldol Decanoate] 100 mg/mL solution 100 mg IM Q4W 30 Days Qty: 1 0RF Rx Instructions: give on 11/20/21 (4 weeks after last dose on 10/23/21) clonazepam 0.5 mg tablet 0.5 mg PO BID 30 Days Qty: 60 0RF Discontinued haloperidol 5 mg tablet 2.5 mg PO QPM 0RF hydroxyzine pamoate 25 mg capsule 25 mg PO BEDTIME PRN (Reason: Anxiety) 0RF Discharge Orders: Discharge Order (Routine); Ordered 10/10/21 Ordered By: Noel Nichols Diet: regular diet Activity on Discharge: As tolerated Stand Alone Forms: Patient Portal Discharge page, Community Support Activity Restrictions/Additional Instructions: Next Haldol Dec 100mg IM dose on 10/23/21; then afterward, following IM dose to be given every 4 weeks (11/20/21). Take Haldol 10mg BID for 2 weeks then discontinue PO med Care Plan Goals: Maintain mood and safe behaviors Take medications as prescribed Practice coping skills Continue with outpatient providers and reach out to them as needed Health Concerns: Mood stability and behaviors Plan of Treatment: Follow up with your PCP, psychiatric provider and other outpatient providers regarding above concerns Take medications as prescribed Assessment: Risk assessment at time of discharge:? Patient was interviewed prior to discharge and found to be fully oriented and without any SI or HI. Patient has insight and demonstrates good judgment in terms of wanting to pursue treatment. Patient is not in imminent risk of harm to self or others and has a safety plan that includes presenting to the closest ER or calling 911 if feeling unsafe.? Patient has been observed closely by nursing and unit staff throughout admission; patient stabilized and did not engaged in any behaviors that suggest dangerousness to self or others and has demonstrated appropriate behaviors and impulse control
[2021-10-10] MEDS: Divalproex Sodium ER 500 MG TAB.ER.24H 1000 MG PO (08:45)
[2021-10-10] MEDS: HaloperidoL 5 MG TABLET 10 MG PO (08:45)
[2021-10-10] MEDS: clonazePAM 1 MG TABLET PO (08:45)
[2021-10-10] MEDS: Benztropine Mesylate 0.5 MG TABLET PO (08:46)
== END 2021-10-10 11:10 | disposition home or self-care (01) | DRG 750 ==
LOC: HO.ED 17:21 → HO.PM5 22:05
PROVIDERS: Registered Nurse; Admitting Provider Clinical Nurse Specialist Psychiatric/Mental Health, Adult; Emergency Provider Student in an Organized Health Care Education/Training Program; PCP Internal Medicine; Visit Provider Psychiatry & Neurology Psychiatry
DX: F25.0 Schizoaffective disorder, bipolar type (principal); R45.851 Suicidal ideations; Z20.822 Contact with and (suspected) exposure to COVID-19; Z79.899 Other long term (current) drug therapy
CPT/HCPCS: 36415; 80061; 80076; 80164; 80307; 82077; 82140; 82607; 82746; 83036; 83735; 84439; 84443; 85025; 87635; 93005; 99285

== ENCOUNTER 2021-10-13 17:51 | Inpatient (IN) | payer OTHER, SELFPAY ==
[2021-10-13 18:00] VITALS: BP 149/102; PULSE 115; RESP 18; TEMP 37.2; O2SAT 96; BMI 29.5
--- NOTE | 2021-10-13 18:41 | ED_ITS ---
HPI - Psych General Chief Complaint: Psychiatric Symptoms Stated Complaint: SI Time Seen by Provider: 10/13/21 18:36 Source: patient Mode of arrival: EMS History of Present Illness HPI Narrative: 31-year-old male with a past medical history of schizoaffective disorder, bipolar type, who was just discharged from [place] psychiatric hospitalization 3 days ago, presents again for suicidal ideation. Patient states he has been suicidal, and the meds he was given here are not working. He has a plan to kill himself which is decreased to find himself. States he hears voices, but he can control them. He repeatedly says that his family is in correction and he needs to be in correction. When I asked him if he has any pain he responds with ?I love pain? repeatedly saying ?time to go to correction with my family? patient has pressured speech. Patient has a left index finger puncture wound from a dog bite today, his story of how he got the bite is uncle ar. Will treat with Augmentin and give him a tetanus vaccination Related Data Previous Rx's Medication Instructions Recorded benztropine 0.5 mg tablet 0.5 mg PO BID 30 Days #60 tab 10/10/21 clonazepam 0.5 mg tablet 0.5 mg PO BID 30 Days #60 tab 10/10/21 divalproex 500 mg tablet,extended 1,000 mg PO BID 30 Days #120 tab 10/10/21 release 24 hr haloperidol 10 mg tablet 10 mg PO BID 14 Days #28 tab 10/10/21 haloperidol decanoate 100 mg/mL 100 mg IM Q4W 30 Days #1 ml 10/10/21 intramuscular solution (Haldol Decanoate) haloperidol decanoate 50 mg/mL 100 mg (2 mL) IM ONCE 1 Days #2 ml 10/10/21 intramuscular solution quetiapine 200 mg tablet 200 mg PO BEDTIME PRN 30 Days #30 10/10/21 tab trazodone 100 mg tablet 100 mg PO BEDTIME PRN 30 Days #30 10/10/21 tab Allergies Allergy/AdvReac Type Severity Reaction Status Date / Time No Known Allergies Allergy Unknown UNKNOWN Verified 10/24/20 16:09 [NO KNOWN ALLERGIES] Review of Systems Constitutional: Constitutional: Denies body ache(s), Denies chills, Denies fatigue, Denies fever(s), Denies headache(s), Denies malaise and Denies weakness Eyes: Eyes: Denies diplopia ENT: Denies vertigo, Denies dizziness, Denies otalgia, Denies headache(s), Denies mouth pain, Denies post nasal drip, Denies sinus pain, Denies sinus pressure, Denies sore throat and Denies throat swelling Cardiovascular: Cardiovascular: Denies chest pain, Denies syncope, Denies leg edema, Denies lightheadedness, Denies Loss of Consciousness, Denies palpitations and Denies dyspnea Respiratory: Respiratory: Denies chest congestion, Denies cough and Denies dyspnea Gastrointestinal: Gastrointestinal: Denies abdominal pain, Denies hematochezia, Denies constipation, Denies diarrhea and Denies vomiting Musculoskeletal: Musculoskeletal: Reports no additional musculoskeletal complaints Integumentary/Breasts: Comments: Puncture wound to left finger Neurologic: Reports behavioral changes, Denies confusion, Denies vertigo, Denies dizziness, Denies syncope, Denies headache(s) and Denies weakness Psychiatric: Psychiatric: Reports anxiety, Reports behavioral changes, Denies confusion, Reports depression, Reports auditory hallucinations, Denies homicidal ideation and Reports suicidal ideation Endocrine: Endocrine: Denies fatigue and Denies palpitations Allergic/Immunologic: Allergic/Immunologic: Denies throat swelling PMFSH Past Medical History Medical History Overweight (BMI 25.0-29.9) Schizoaffective disorder Surgical History No significant past surgical history Family History Family History Father Mental illness in member of household Mother Mental illness in member of household Brother Mental illness in member of household Sister Mental illness in member of household Maternal Grandmother Diabetes mellitus Social History Social History Household Members: None Housing: Apartment Do you presently have visiting nurse or other home services: No Alcohol intake: never Patient Tobacco Use Status: Never used Tobacco e-Cigarette/Vaping Use: Never Used Advance Directives: No Advance Directives Information Provided: No service: No Sexual orientation: Did not discuss Physical Exam Vital Signs: Vital Signs: Last Vital Signs Temp 99 F 10/13/21 18:00 Pulse 115 H 10/13/21 18:00 Resp 18 10/13/21 18:00 BP 149/102 H 10/13/21 18:00 Pulse Ox 96 10/13/21 18:00 BMI result Body Mass Index 29.5 Const: General: No confusion Nutritional Appearance: well nourished Orientation/consciousness: No confusion Limitations: no limitations HEENT: Head: Yes normal to inspection, Yes normocephalic and Yes atraumatic Ears: hearing grossly normal bilaterally, external ears normal, TM's normal bilaterally and EAC's normal General nose exam: Normal external nose present Face and sinus: Yes normal facial exam and Yes sinuses nontender Mouth: Normal oral and palatal mucosa present Throat: Yes posterior oropharynx normal Eyes: Conjunctivae: conjunctivae normal Pupils: Equal, round and reactive pupils present EOM: EOMs intact bilaterally Neck: Neck: Yes full ROM, Yes no lymphadenopathy and Yes supple Resp: Effort & Inspection: normal respiratory effort and able to speak in complete sentences Auscultation: clear to auscultation bilaterally, no crackles, no rales, no rhonchi and no wheezes Cardio: Rate: regular rate Rhythm: regular rhythm Heart sounds: S1 normal heart sound present and S2 normal heart sound present GI: Inspection: Yes normal to inspection Palpation (GI): Soft to palpation, nontender, no guarding and not rigid Percussion: Yes normal to percussion Auscultation: normal bowel sounds Skin: General skin exam: no rashes or lesions noted Neuro: General: No confusion Cranial nerves: Yes Equal, round and reactive pupils present Extrem: General: Yes normal to inspection and Yes full ROM Psych: Appearance: disheveled Speech and movement: Pressured speech present Affect: Animated affect present and Anxious affect present Attitude: cooperative Thought process: Perseverating thought process present Thought content: Suicidality present and Hallucination(s) present auditory Insight: Poor insight present (Psych) Course Course Course Narrative: 31-year-old male with schizoaffective disorder bipolar type presents for suicidal ideation with a plan. Patient states that the meds he was discharged on from her his recent psychiatric hospitalization are not working. On exam, patient has a benign physical exam except that he has a puncture wound to his left finger that he said he sustained from a dog. Will give Augmentin, tetanus, once patient is medically cleared, will consult crisis Reevaluation(s) Reevaluation #1: Patient is medically cleared. Only lab abnormality of significance is mild beth kocytosis at 11.3, most likely reactive not infectious Will repeat CMP tomorrow Time: 20:18 Reevaluation #2: A patient physician observation at this time, awaiting crisis evaluation Consultations Consultation #1: 31-year-old male presents for suicidal ideation with a plan to increase if I himself. Patient was just discharged from [facility] - Psych Lab Data Result diagrams: 10/13/21 18:48 10/13/21 18:48 Labs: Lab Results 10/13/21 10/13/21 10/13/21 Range/Units 18:18 18:18 18:48 WBC 11.3 H (4.8-10.8) X10*3/uL RBC 4.73 (4.60-5.80) X10*6/uL Hgb 14.7 (14.0-18.0) g/dl Hct 46.1 (42.0-52.0) % MCV 97.5 (80.0-98.0) fL MCH 31.1 (27.0-33.0) pg MCHC 31.9 (31.0-36.0) g/dl RDW 12.3 (11.0-16.0) % Plt Count 241 (160-400) X10*3/uL MPV 9.7 (9.4-12.4) fL Immature Gran % (Auto) 0.6 H (0.0-0.4) % Neut % (Auto) 74.7 H (45-73) % Lymph % (Auto) 14.6 L (20-40) % [place] % (Auto) 8.8 (2-11) % Eos % (Auto) 1.0 (0-4) % Baso % (Auto) 0.3 (0-2) % Lymph # (Auto) 1.7 (1.2-4.9) X10*3/uL [place] # (Auto) 1.0 (0.1-1.2) X10*3/uL Eos # (Auto) 0.1 (0.0-0.4) X10*3/uL Baso # (Auto) 0.0 (0.0-0.2) X10*3/uL Abs Immat Gran (auto) 0.07 H (0.00-0.03) X10*3/uL Absolute Neuts (auto) 8.4 H (2.0-8.3) x10*3/uL Absolute Nucleated RBC 0.000 (0.0-0.012) X10*3/uL Nucleated RBC % (auto) 0.0 (0.0-0.2) /100WBC Sodium (135-145) mmol/L Potassium (3.3-5.1) mmol/L Chloride (96-108) mmol/L Carbon Dioxide (22-29) mmol/L Anion Gap (12-20) BUN (9-16) mg/dL Creatinine (0.5-1.4) mg/dL Estim Creat Clear Calc Estimated GFR Random Glucose (60-115) mg/dL Calcium (8.4-10.2) mg/dL Total Bilirubin (0.0-1.0) mg/dL AST (5-37) U/L ALT (0-40) U/L Alkaline Phosphatase (39-117) U/L Total Protein (6.5-8.0) g/dL Albumin (3.5-5.0) g/dL Urine Opiates Screen Not Detected (Not Detect) Urine Fentanyl Screen Not Detected (Not Detect) Ur Barbiturates Screen Not Detected (Not Detect) Valproic Acid (50.0-100.0) mcg/mL Ur Phencyclidine Scrn Not Detected (Not Detect) Ur Amphetamines Screen Not Detected (Not Detect) U Benzodiazepines Scrn Not Detected (Not Detect) Urine Cocaine Screen Not Detected (Not Detect) U Marijuana (THC) Screen Not Detected (Not Detect) Ethyl Alcohol mg/dL COVID-19 (RADHIKA) Negative (Negative) COVID-19 Clin Com See Note 10/13/21 10/13/21 Range/Units 18:48 18:48 WBC (4.8-10.8) X10*3/uL RBC (4.60-5.80) X10*6/uL Hgb (14.0-18.0) g/dl Hct (42.0-52.0) % MCV (80.0-98.0) fL MCH (27.0-33.0) pg MCHC (31.0-36.0) g/dl RDW (11.0-16.0) % Plt Count (160-400) X10*3/uL MPV (9.4-12.4) fL Immature Gran % (Auto) (0.0-0.4) % Neut % (Auto) (45-73) % Lymph % (Auto) (20-40) % [place] % (Auto) (2-11) % Eos % (Auto) (0-4) % Baso % (Auto) (0-2) % Lymph # (Auto) (1.2-4.9) X10*3/uL [place] # (Auto) (0.1-1.2) X10*3/uL Eos # (Auto) (0.0-0.4) X10*3/uL Baso # (Auto) (0.0-0.2) X10*3/uL Abs Immat Gran (auto) (0.00-0.03) X10*3/uL Absolute Neuts (auto) (2.0-8.3) x10*3/uL Absolute Nucleated RBC (0.0-0.012) X10*3/uL Nucleated RBC % (auto) (0.0-0.2) /100WBC Sodium 137 (135-145) mmol/L Potassium 4.4 (3.3-5.1) mmol/L Chloride 100 (96-108) mmol/L Carbon Dioxide 26 (22-29) mmol/L Anion Gap 15 (12-20) BUN 12 (9-16) mg/dL Creatinine 1.18 (0.5-1.4) mg/dL Estim Creat Clear Calc 99.1 Estimated GFR > 60 Random Glucose 189 H D (60-115) mg/dL Calcium 9.2 (8.4-10.2) mg/dL Total Bilirubin 0.4 (0.0-1.0) mg/dL AST 114 H (5-37) U/L ALT 65 H (0-40) U/L Alkaline Phosphatase 97 (39-117) U/L Total Protein 7.7 (6.5-8.0) g/dL Albumin 4.2 (3.5-5.0) g/dL Urine Opiates Screen (Not Detect) Urine Fentanyl Screen (Not Detect) Ur Barbiturates Screen (Not Detect) Valproic Acid 14.9 L (50.0-100.0) mcg/mL Ur Phencyclidine Scrn (Not Detect) Ur Amphetamines Screen (Not Detect) U Benzodiazepines Scrn (Not Detect) Urine Cocaine Screen (Not Detect) U Marijuana (THC) Screen (Not Detect) Ethyl Alcohol < 10 mg/dL COVID-19 (RADHIKA) (Negative) COVID-19 Clin Com Discharge Plan Discharge Clinical Impression: Suicidal ideation, Schizoaffective disorder Patient Disposition: Still a Patient Prescriptions: No Action benztropine 0.5 mg Tablet 0.5 mg PO BID 30 Days Qty: 60 0RF divalproex 500 mg Tablet Extended Release 24 Hr 1,000 mg PO BID 30 Days Qty: 120 0RF haloperidol 10 mg tablet 10 mg PO BID 14 Days Qty: 28 0RF Rx Instructions: give for 14 days to overlap Haldol Dec haloperidol decanoate 50 mg/mL Solution 100 mg IM ONCE 1 Days Qty: 2 0RF Rx Instructions: Last dose on 10/09/21; give this dose on 10/23/21 and then from then five [id number] (11/20/21) quetiapine 200 mg Tablet 200 mg PO BEDTIME PRN (Reason: insomnia) 30 Days Qty: 30 0RF trazodone 100 mg Tablet 100 mg PO BEDTIME PRN (Reason: insomnia) 30 Days Qty: 30 0RF haloperidol decanoate [Haldol Decanoate] 100 mg/mL solution 100 mg IM Q4W 30 Days Qty: 1 0RF Rx Instructions: give on 11/20/21 (4 weeks after last dose on 10/23/21) clonazepam 0.5 mg tablet 0.5 mg PO BID 30 Days Qty: 60 0RF
[2021-10-13 18:43] LABS: COVID-19 Test Negative (Negative); IDNOW Serial# 16C4AD1C
[2021-10-13 18:45] LABS: Amphetamine Screen Urine Not Detected (Not Detect); Barbiturates, Urine Not Detected (Not Detect); Benzodiazepines Screen Urine Not Detected (Not Detect); Cannabinoid Screen Urine Not Detected (Not Detect); Cocaine Screen Urine Not Detected (Not Detect); Fentanyl, urine Not Detected (Not Detect); Opiate Screen Urine Not Detected (Not Detect); Phencyclidine Screen Urine Not Detected (Not Detect)
[2021-10-13] MEDS: Diphth,Pertus(ACell),Tet Adult 0.5 ML SYRINGE IM (18:50)
[2021-10-13] MEDS: Amoxicillin/Potassium Clav 875 MG TABLET PO (18:51)
[2021-10-13 18:53] LABS: MANUAL DIFF FLAG NO
[2021-10-13 18:54] LABS: Basophils Percent Auto 0.3 % (0-2); Eosinophils Absolute Auto 0.1 X10*3/uL (0.0-0.4); Hematocrit 46.1 % (42.0-52.0); Hemoglobin 14.7 g/dl (14.0-18.0); Imm Gran Abs Auto 0.07 X10*3/uL (0.00-0.03); Imm Gran Pct Auto 0.6 % (0.0-0.4); Lymphocytes Absolute Auto 1.7 X10*3/uL (1.2-4.9); Lymphocytes Percent Auto 14.6 % (20-40); Mean Corpuscular HGB Conc 31.9 g/dl (31.0-36.0); Mean Corpuscular Hemoglobin 31.1 pg (27.0-33.0); Mean Corpuscular Volume 97.5 fL (80.0-98.0); Mean Platelet Volume 9.7 fL (9.4-12.4); Monocytes Percent Auto 8.8 % (2-11); Neutrophils Absolute Auto 8.4 x10*3/uL (2.0-8.3); Neutrophils Percent Auto 74.7 % (45-73); Platelet Count 241 X10*3/uL (160-400); Red Blood Count 4.73 X10*6/uL (4.60-5.80); Red Cell Distribution Width 12.3 % (11.0-16.0); White Blood Count 11.3 X10*3/uL (4.8-10.8)
[2021-10-13 19:07] LABS: Ethanol < 10 mg/dL
[2021-10-13 19:13] LABS: Alanine Aminotransferase 65 U/L (0-40); Albumin Level 4.2 g/dL (3.5-5.0); Alkaline Phosphatase 97 U/L (39-117); Anion Gap 15 (12-20); Aspartate Amino Transferase 114 U/L (5-37); Bilirubin Total 0.4 mg/dL (0.0-1.0); Blood Urea Nitrogen 12 mg/dL (9-16); Calcium 9.2 mg/dL (8.4-10.2); Carbon Dioxide 26 mmol/L (22-29); Chloride 100 mmol/L (96-108); Creatinine Clr Calc Pharmacy 99.1; Estimated Glomerular Filt Rate > 60; Glucose Random 189 mg/dL (60-115); Potassium 4.4 mmol/L (3.3-5.1); Sodium 137 mmol/L (135-145); Total Protein 7.7 g/dL (6.5-8.0)
[2021-10-13 19:47] LABS: Valproate 14.9 mcg/mL (50.0-100.0)
[2021-10-13] MEDS: HaloperidoL 5 MG TABLET 10 MG PO (21:33)
[2021-10-13] MEDS: Benztropine Mesylate 0.5 MG TABLET PO (21:33)
[2021-10-13] MEDS: QUEtiapine Fumarate 200 MG TABLET PO (21:33)
[2021-10-13] MEDS: traZODone HCL 100 MG TABLET PO (21:33)
[2021-10-13] MEDS: Divalproex Sodium ER 500 MG TAB.ER.24H 1000 MG PO (21:33)
[2021-10-13] MEDS: clonazePAM 0.5 MG TABLET PO (21:34)
[2021-10-14 00:28] VITALS: BP 111/60; PULSE 104; RESP 17; TEMP 36.5; O2SAT 94
--- NOTE | 2021-10-14 06:32 | PC.NURSE ---
Patient slept through the night, no distress observed/reported, disposition per care team is section 12 inpatient bed search, pre-accepted to [facility], medication compliant, behavior appropriate and non concerning at this time, VSS, will continue to monitor.
--- NOTE | 2021-10-14 07:12 | PC.NURSE ---
patient appears to remain asleep at present respirations are even and unlabored patient appears in no distress
[2021-10-14] MEDS: Benztropine Mesylate 0.5 MG TABLET PO ×2 (07:43→20:49)
[2021-10-14] MEDS: HaloperidoL 5 MG TABLET 10 MG PO ×2 (07:43→20:49)
[2021-10-14] MEDS: Divalproex Sodium ER 500 MG TAB.ER.24H 1000 MG PO ×2 (07:44→20:49)
[2021-10-14] MEDS: clonazePAM 0.5 MG TABLET PO ×2 (07:44→20:50)
[2021-10-14] MEDS: Amoxicillin/Potassium Clav 875 MG TABLET PO ×2 (07:44→16:08)
[2021-10-14 09:55] LABS: MANUAL DIFF FLAG NO
[2021-10-14 10:04] LABS: Basophils Percent Auto 0.3 % (0-2); Eosinophils Absolute Auto 0.2 X10*3/uL (0.0-0.4); Eosinophils Percent Auto 2.4 % (0-4); Hematocrit 45.3 % (42.0-52.0); Hemoglobin 14.6 g/dl (14.0-18.0); Imm Gran Abs Auto 0.05 X10*3/uL (0.00-0.03); Imm Gran Pct Auto 0.5 % (0.0-0.4); Lymphocytes Absolute Auto 1.9 X10*3/uL (1.2-4.9); Lymphocytes Percent Auto 20.4 % (20-40); Mean Corpuscular HGB Conc 32.2 g/dl (31.0-36.0); Mean Corpuscular Hemoglobin 30.8 pg (27.0-33.0); Mean Corpuscular Volume 95.6 fL (80.0-98.0); Mean Platelet Volume 9.8 fL (9.4-12.4); Monocytes Percent Auto 11.1 % (2-11); Neutrophils Percent Auto 65.3 % (45-73); Platelet Count 217 X10*3/uL (160-400); Red Blood Count 4.74 X10*6/uL (4.60-5.80); Red Cell Distribution Width 12.4 % (11.0-16.0); White Blood Count 9.2 X10*3/uL (4.8-10.8)
--- NOTE | 2021-10-14 14:19 | PC.NURSE ---
Nursing admission note: 31 year old male DX: Schizoaffective disorder. Referred for admission by CARE team. Signed conditional voluntary for admission. Easily engaged, calm and cooperative with admission process. Reports he just discharged from hospitalization 3 days ago stating his medication was not right . Self presented to ED for assistance. Per crisis evaluation patient reported +SI with a plan to kill himself. He is A+O x3, speech normal rate, tone, volume. He is wearing hospital attire, presents as clean and neat. Intermittent eye contact. Currently denies SI/HI plan or intent. Reports he would be able to approach staff when needed and is more inclined to harm himself before anyone else. Patient endorses +AH reporting he is able to control them . . States he needs to go to retirement to be with his family. Thought process is disorganized. Patient reports sleep disturbances, getting approx. 3 hours per night. Denies appetite disturbances. Patient tox screen negative. COVID screen negative. Patient not current smoker. Patient denies current substance use. No current legal entanglements. Patient has history of previous hospitalization, reported suicide attempt in 2009 when he ate glass . Patient currently on AB for treatment of dog bite to L first finger. Reports it was a puppy . No other medical problems reported. NKDA. Patient oriented to unit, placed on unit safety checks. See nursing assessment, crisis evaluation for complete details.
[2021-10-14 16:07] VITALS: BMI 29.3
[2021-10-14 20:03] VITALS: BP 140/69; PULSE 114; RESP 18; TEMP 36.9; O2SAT 97
[2021-10-14] MEDS: traZODone HCL 100 MG TABLET PO (20:50)
[2021-10-14] MEDS: QUEtiapine Fumarate 200 MG TABLET PO (20:50)
[2021-10-15 07:12] LABS: Alanine Aminotransferase 63 U/L (0-40); Alkaline Phosphatase 93 U/L (39-117); Anion Gap 12 (12-20); Aspartate Amino Transferase 69 U/L (5-37); Bilirubin Total 0.5 mg/dL (0.0-1.0); Blood Urea Nitrogen 12 mg/dL (9-16); Calcium 9.3 mg/dL (8.4-10.2); Carbon Dioxide 31 mmol/L (22-29); Chloride 100 mmol/L (96-108); Cholesterol 173 mg/dL; Creatinine Clr Calc Pharmacy 101.4; Estimated Glomerular Filt Rate > 60; Glucose Fasting 106 mg/dL (60-99); HDL Cholesterol 40 mg/dL; LDL Cholesterol Calculated 104 mg/dl; Potassium 4.5 mmol/L (3.3-5.1); Sodium 138 mmol/L (135-145); Total Protein 7.2 g/dL (6.5-8.0); Triglycerides 147 mg/dL
[2021-10-15 07:32] LABS: Free T4 (Free Thyroxine) 1.46 ng/dL (0.71-1.85); Thyroid Stimulating Hormone 2.35 uIU/mL (0.32-4.0)
[2021-10-15 07:51] LABS: Estimated Average Glucose 103 mg/dL; Hemoglobin A1c % 5.2 %
[2021-10-15] MEDS: Divalproex Sodium ER 500 MG TAB.ER.24H 1000 MG PO ×2 (08:41→21:23)
[2021-10-15] MEDS: Benztropine Mesylate 0.5 MG TABLET PO ×2 (08:41→21:23)
[2021-10-15] MEDS: Amoxicillin/Potassium Clav 875 MG TABLET PO ×2 (08:41→17:40)
[2021-10-15] MEDS: clonazePAM 0.5 MG TABLET PO ×2 (08:42→21:23)
[2021-10-15] MEDS: HaloperidoL 5 MG TABLET 10 MG PO ×2 (08:42→21:23)
[2021-10-15 08:44] VITALS: BP 136/73; PULSE 100; RESP 18; TEMP 36.7; O2SAT 98
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
[2021-10-15 18:00] VITALS: BP 137/86; PULSE 102; RESP 18; TEMP 36.6; O2SAT 96
[2021-10-15] MEDS: traZODone HCL 100 MG TABLET PO (21:23)
[2021-10-15] MEDS: traZODone HCL 50 MG TABLET PO (21:23)
[2021-10-15] MEDS: QUEtiapine Fumarate 200 MG TABLET PO (21:23)
[2021-10-16 05:56] LABS: Folate 12.7 ng/mL (> or = 4.0); Vitamin B12 484 pg/mL (200-900)
[2021-10-16 08:32] VITALS: BP 142/72; PULSE 100; RESP 16; TEMP 36.7; O2SAT 97
[2021-10-16] MEDS: clonazePAM 0.5 MG TABLET PO ×2 (08:37→20:12)
[2021-10-16] MEDS: HaloperidoL 5 MG TABLET 10 MG PO ×2 (08:37→20:12)
[2021-10-16] MEDS: Amoxicillin/Potassium Clav 875 MG TABLET PO ×2 (08:37→16:37)
[2021-10-16] MEDS: Benztropine Mesylate 0.5 MG TABLET PO ×2 (08:37→20:11)
[2021-10-16] MEDS: Divalproex Sodium ER 500 MG TAB.ER.24H 1000 MG PO ×2 (08:37→20:11)
--- NOTE | 2021-10-16 14:28 | P.PNPSI_ITS ---
Subjective Subjective Date of Service: 10/16/21 Reason For Visit: Schizoaffective disorder Interim History: pt seen in milieu. calm, cooperative. comes to interview room. states he was not on the right medications after discharge - seems to believe he was not given the right medications by the pharmacy, then at another point blames his outpatient prescriber. unable to acknowledge not having taken his depakote since discharge; reviews his schedule and reports he takes his medications twice daily. asks how he can visit people in assisted. no complaints or requests otherwise, feels he is currently on the proper medications regimen. per staff, admitted with SI with plan; no SI/HI now. +AH as well, which pt says he can control currently. wants to go to assisted to live with his family. pleasant, cooperative. Mental Status Exam Mental Status Exam Narrative: dressed in red sleeveless undershirt. adequately dressed and groomed. cooperative. no PMA/PMR. speech somewhat mumbled with strong accent, rapid. incr amount, decr latency. thoughts linear and questionably logical. affect constricted, normo-intense, non-labile. mood not assessed. no SI/HI/AVH expressed. Diagnostics Vital Signs (24Hr): Vital Signs - 24 hr 10/15/21 18:00 10/16/21 08:32 Temperature 97.9 F 98.1 F Pulse Rate 102 H 100 Respiratory Rate 18 16 Blood Pressure 137/86 142/72 H Pulse Oximetry 96 97 BMI result Body Mass Index 29.3 Labs Results: 10/14/21 09:45 10/15/21 06:52 Labs: Laboratory Results - last 48 hr 10/15/21 10/15/21 10/15/21 06:52 06:52 06:52 Sodium 138 Potassium 4.5 Chloride 100 Carbon Dioxide 31 H Anion Gap 12 BUN 12 Creatinine 1.15 Estim Creat Clear Calc 101.4 Estimated GFR > 60 Fasting Glucose 106 H Estimat Average Glucose 103 Hemoglobin A1c % 5.2 Calcium 9.3 Magnesium 2.0 Total Bilirubin 0.5 AST 69 H ALT 63 H Alkaline Phosphatase 93 Total Protein 7.2 Albumin 4.0 Triglycerides 147 Cholesterol 173 LDL Cholesterol, Calc 104 HDL Cholesterol 40 Vitamin B12 484 Folate 12.7 TSH 2.35 Free T4 1.46 Medications Medications Current Medications Acetaminophen (Acetaminophen 325 Mg Tablet) 650 mg PO Q6H PRN PRN Reason: Headache/Pain Mild Scale (1-3) Al Hydroxide/Mg Hydroxide (Magnesium Hydrox/Alum Hydrox 30 Ml Oral.Susp) 30 ml PO Q6H PRN PRN Reason: Heartburn/Nausea Amoxicillin/Clavulanate Potassium (Amoxicillin/Potassium Clav 875 Mg Tablet) 875 mg PO BID@0800,1700 [facility] Stop: 10/23/21 18:44 Last Admin: 10/16/21 08:37 Dose: 875 mg Documented by: Benztropine Mesylate (Benztropine Mesylate 0.5 Mg Tablet) 0.5 mg PO BID [facility] Last Admin: 10/16/21 08:37 Dose: 0.5 mg Documented by: Clonazepam (Clonazepam 0.5 Mg Tablet) 0.5 mg PO BID [facility] Last Admin: 10/16/21 08:37 Dose: 0.5 mg Documented by: Divalproex Sodium (Divalproex Sodium Er 500 Mg Tab.Er.24h) 1,000 mg PO BID [facility] Last Admin: 10/16/21 08:37 Dose: 1,000 mg Documented by: Haloperidol (Haloperidol 5 Mg Tablet) 10 mg PO BID [facility] Last Admin: 10/16/21 08:37 Dose: 10 mg Documented by: Hydroxyzine HCl (Hydroxyzine Hcl 50 Mg Tablet) 50 mg PO BEDTIME PRN PRN Reason: Anxiety Magnesium Hydroxide (Milk Of Magnesia 30 Ml Oral.Susp) 30 ml PO DAILY PRN PRN Reason: Constipation Nicotine Polacrilex (Nicotine Polacrilex 2 Mg Gum) 4 mg BUCCAL Q2H PRN PRN Reason: Nicotine Cravings Quetiapine Fumarate (Quetiapine Fumarate 200 Mg Tablet) 200 mg PO BEDTIME PRN PRN Reason: insomnia Last Admin: 10/15/21 21:23 Dose: 200 mg Documented by: Trazodone HCl (Trazodone Hcl 100 Mg Tablet) 100 mg PO BEDTIME PRN PRN Reason: insomnia Last Admin: 10/15/21 21:23 Dose: 100 mg Documented by: Trazodone HCl (Trazodone Hcl 50 Mg Tablet) 50 mg PO BEDTIME PRN PRN Reason: Insomnia Last Admin: 10/15/21 21:23 Dose: 50 mg Documented by: Allergies Allergies Allergy/AdvReac Type Severity Reaction Status Date / Time No Known Allergies Allergy Unknown UNKNOWN Verified 10/24/20 16:09 [NO KNOWN ALLERGIES] Assessment & Plan Assessment & Plan (1) Schizoaffective disorder, bipolar type: Status: Acute Code(s): F25.0 - Schizoaffective disorder, bipolar type Plan - Admit to psychiatry - Restart medication - confirm dose of next Haldl Dec - Milieu therapy - Collaterals as needed - Disposition planning I spent ___25___ minutes with the patient and/or on the patient floor today, greater than?50% of which was spent counseling/coordinating care. Reason for contiued inpatient stay Substantial Risk for: harm to self
[2021-10-16 18:00] VITALS: BP 136/72; PULSE 97; RESP 18; TEMP 36.2; O2SAT 97
[2021-10-16] MEDS: QUEtiapine Fumarate 200 MG TABLET PO (20:12)
[2021-10-16] MEDS: traZODone HCL 100 MG TABLET PO (20:13)
[2021-10-17] MEDS: hydrOXYzine HCL 50 MG TABLET PO (03:07)
[2021-10-17 06:00] VITALS: BP 137/68; PULSE 104; RESP 17; TEMP 36.6; O2SAT 99
[2021-10-17] MEDS: clonazePAM 0.5 MG TABLET PO ×2 (08:50→22:13)
[2021-10-17] MEDS: Divalproex Sodium ER 500 MG TAB.ER.24H 1000 MG PO ×2 (08:50→21:05)
[2021-10-17] MEDS: Amoxicillin/Potassium Clav 875 MG TABLET PO ×2 (08:50→17:26)
[2021-10-17] MEDS: HaloperidoL 5 MG TABLET 10 MG PO ×2 (08:50→21:05)
[2021-10-17] MEDS: Benztropine Mesylate 0.5 MG TABLET PO ×2 (08:50→21:06)
--- NOTE | 2021-10-17 15:15 | HO.PSYCHPN ---
Subjective Subjective Date of Service: 10/17/21 Reason For Visit: Schizoaffective disorder Interim History: pt planning to DC on , when his 3-day notice matures. feels good on his current regimen. mood good. AH continue but they are controlled better than before. per staff, 3-day up . c/o AH. visible. participating in art group. got PRN seroquel and trazodone at HS. up x1 at 0300, then slept till morning. Mental Status Exam Mental Status Exam Narrative: dressed in red sleeveless undershirt. adequately dressed and groomed. cooperative. no PMA/PMR. speech somewhat mumbled with strong accent, rapid. nml amount, latency. thoughts linear and logical in brief interaction. affect constricted, normo-intense, non-labile. mood good. +AH, but improved from prior. no SI/HI/VH expressed. Diagnostics Vital Signs (24Hr): Vital Signs - 24 hr 10/16/21 18:00 10/17/21 06:00 Temperature 97.1 F 97.9 F Pulse Rate 97 104 H Respiratory Rate 18 17 Blood Pressure 136/72 137/68 Pulse Oximetry 97 99 BMI result Body Mass Index 29.3 Labs Results: 10/14/21 09:45 10/15/21 06:52 Labs: Laboratory Results - last 48 hr 10/15/21 06:52 Vitamin B12 484 Folate 12.7 Medications Medications Current Medications Acetaminophen (Acetaminophen 325 Mg Tablet) 650 mg PO Q6H PRN PRN Reason: Headache/Pain Mild Scale (1-3) Al Hydroxide/Mg Hydroxide (Magnesium Hydrox/Alum Hydrox 30 Ml Oral.Susp) 30 ml PO Q6H PRN PRN Reason: Heartburn/Nausea Amoxicillin/Clavulanate Potassium (Amoxicillin/Potassium Clav 875 Mg Tablet) 875 mg PO BID@0800,1700 [facility] Stop: 10/23/21 18:44 Last Admin: 10/17/21 08:50 Dose: 875 mg Documented by: Benztropine Mesylate (Benztropine Mesylate 0.5 Mg Tablet) 0.5 mg PO BID [facility] Last Admin: 10/17/21 08:50 Dose: 0.5 mg Documented by: Clonazepam (Clonazepam 0.5 Mg Tablet) 0.5 mg PO BID [facility] Last Admin: 10/17/21 08:50 Dose: 0.5 mg Documented by: Divalproex Sodium (Divalproex Sodium Er 500 Mg Tab.Er.24h) 1,000 mg PO BID [facility] Last Admin: 10/17/21 08:50 Dose: 1,000 mg Documented by: Haloperidol (Haloperidol 5 Mg Tablet) 10 mg PO BID [facility] Last Admin: 10/17/21 08:50 Dose: 10 mg Documented by: Hydroxyzine HCl (Hydroxyzine Hcl 50 Mg Tablet) 50 mg PO BEDTIME PRN PRN Reason: Anxiety Last Admin: 10/17/21 03:07 Dose: 50 mg Documented by: Magnesium Hydroxide (Milk Of Magnesia 30 Ml Oral.Susp) 30 ml PO DAILY PRN PRN Reason: Constipation Nicotine Polacrilex (Nicotine Polacrilex 2 Mg Gum) 4 mg BUCCAL Q2H PRN PRN Reason: Nicotine Cravings Quetiapine Fumarate (Quetiapine Fumarate 200 Mg Tablet) 200 mg PO BEDTIME PRN PRN Reason: insomnia Last Admin: 10/16/21 20:12 Dose: 200 mg Documented by: Trazodone HCl (Trazodone Hcl 100 Mg Tablet) 100 mg PO BEDTIME PRN PRN Reason: insomnia Last Admin: 10/16/21 20:13 Dose: 100 mg Documented by: Trazodone HCl (Trazodone Hcl 50 Mg Tablet) 50 mg PO BEDTIME PRN PRN Reason: Insomnia Last Admin: 10/15/21 21:23 Dose: 50 mg Documented by: Allergies Allergies Allergy/AdvReac Type Severity Reaction Status Date / Time No Known Allergies Allergy Unknown UNKNOWN Verified 10/24/20 16:09 [NO KNOWN ALLERGIES] Assessment & Plan Assessment & Plan (1) Schizoaffective disorder, bipolar type: Status: Acute Code(s): F25.0 - Schizoaffective disorder, bipolar type Plan continue current regimen. discharge as 3-day notice matures. I spent ___20___ minutes with the patient and/or on the patient floor today, greater than?50% of which was spent counseling/coordinating care. Reason for contiued inpatient stay Substantial Risk for: inability to function and rapid decompensation
[2021-10-17 20:59] VITALS: BP 143/62; PULSE 101; RESP 18; TEMP 36.6; O2SAT 97
[2021-10-17] MEDS: QUEtiapine Fumarate 200 MG TABLET PO (22:13)
[2021-10-17] MEDS: traZODone HCL 100 MG TABLET PO (22:13)
[2021-10-18 08:09] VITALS: BP 139/72; PULSE 101; RESP 18; TEMP 36.6; O2SAT 96
[2021-10-18] MEDS: HaloperidoL 5 MG TABLET 10 MG PO ×2 (08:10→20:09)
[2021-10-18] MEDS: Divalproex Sodium ER 500 MG TAB.ER.24H 1000 MG PO ×2 (08:11→20:09)
[2021-10-18] MEDS: Benztropine Mesylate 0.5 MG TABLET PO ×2 (08:11→20:09)
[2021-10-18] MEDS: clonazePAM 0.5 MG TABLET PO ×2 (08:11→20:09)
[2021-10-18] MEDS: Amoxicillin/Potassium Clav 875 MG TABLET PO ×2 (08:11→17:19)
--- NOTE | 2021-10-18 14:16 | HO.PSYCHPN ---
Subjective Subjective Date of Service: 10/18/21 Reason For Visit: Schizoaffective disorder Interim History: pt found resting in bed, easily rousable. reports he continues to feel well and that if he is able to continue on his current regimen, he will be fine after discharge. aware 3-day notice matures tomorrow. continues to feel he is better able to control the voices, describes his mood as great, and denies any safety concerns. per staff, not attending groups. endorsing AH of bad things. fixated on bible. pleasant, cooperative. no behavioral issues. Mental Status Exam Mental Status Exam Narrative: dressed in red sleeveless undershirt and matching shorts. adequately dressed and groomed. cooperative. no PMA/PMR. speech somewhat mumbled with strong accent, rapid. nml amount, latency. thoughts linear and logical in brief interaction. affect constricted, normo-intense, non-labile. mood great. +AH, but improved from prior. denies SI/HI/VH. Diagnostics Vital Signs (24Hr): Vital Signs - 24 hr 10/17/21 20:59 10/18/21 08:09 Temperature 97.9 F 97.9 F Pulse Rate 101 H 101 H Respiratory Rate 18 18 Blood Pressure 143/62 H 139/72 Pulse Oximetry 97 96 BMI result Body Mass Index 29.3 Labs Results: 10/14/21 09:45 10/15/21 06:52 Medications Medications Current Medications Acetaminophen (Acetaminophen 325 Mg Tablet) 650 mg PO Q6H PRN PRN Reason: Headache/Pain Mild Scale (1-3) Al Hydroxide/Mg Hydroxide (Magnesium Hydrox/Alum Hydrox 30 Ml Oral.Susp) 30 ml PO Q6H PRN PRN Reason: Heartburn/Nausea Amoxicillin/Clavulanate Potassium (Amoxicillin/Potassium Clav 875 Mg Tablet) 875 mg PO BID@0800,1700 [facility] Stop: 10/23/21 18:44 Last Admin: 10/18/21 08:11 Dose: 875 mg Documented by: Benztropine Mesylate (Benztropine Mesylate 0.5 Mg Tablet) 0.5 mg PO BID [facility] Last Admin: 10/18/21 08:11 Dose: 0.5 mg Documented by: Clonazepam (Clonazepam 0.5 Mg Tablet) 0.5 mg PO BID [facility] Last Admin: 10/18/21 08:11 Dose: 0.5 mg Documented by: Divalproex Sodium (Divalproex Sodium Er 500 Mg Tab.Er.24h) 1,000 mg PO BID [facility] Last Admin: 10/18/21 08:11 Dose: 1,000 mg Documented by: Haloperidol (Haloperidol 5 Mg Tablet) 10 mg PO BID [facility] Last Admin: 10/18/21 08:10 Dose: 10 mg Documented by: Hydroxyzine HCl (Hydroxyzine Hcl 50 Mg Tablet) 50 mg PO BEDTIME PRN PRN Reason: Anxiety Last Admin: 10/17/21 03:07 Dose: 50 mg Documented by: Magnesium Hydroxide (Milk Of Magnesia 30 Ml Oral.Susp) 30 ml PO DAILY PRN PRN Reason: Constipation Nicotine Polacrilex (Nicotine Polacrilex 2 Mg Gum) 4 mg BUCCAL Q2H PRN PRN Reason: Nicotine Cravings Quetiapine Fumarate (Quetiapine Fumarate 200 Mg Tablet) 200 mg PO BEDTIME PRN PRN Reason: insomnia Last Admin: 10/17/21 22:13 Dose: 200 mg Documented by: Trazodone HCl (Trazodone Hcl 100 Mg Tablet) 100 mg PO BEDTIME PRN PRN Reason: insomnia Last Admin: 10/17/21 22:13 Dose: 100 mg Documented by: Trazodone HCl (Trazodone Hcl 50 Mg Tablet) 50 mg PO BEDTIME PRN PRN Reason: Insomnia Last Admin: 10/15/21 21:23 Dose: 50 mg Documented by: Allergies Allergies Allergy/AdvReac Type Severity Reaction Status Date / Time No Known Allergies Allergy Unknown UNKNOWN Verified 10/24/20 16:09 [NO KNOWN ALLERGIES] Assessment & Plan Assessment & Plan (1) Schizoaffective disorder, bipolar type: Status: Acute Code(s): F25.0 - Schizoaffective disorder, bipolar type Plan continue current regimen. Sx gradually improving. discharge as 3-day notice matures. I spent ____20__ minutes with the patient and/or on the patient floor today, greater than?50% of which was spent counseling/coordinating care. Reason for contiued inpatient stay Substantial Risk for: inability to function and rapid decompensation
[2021-10-18 18:00] VITALS: BP 138/70; PULSE 101; RESP 16; TEMP 36.6; O2SAT 96
[2021-10-18] MEDS: traZODone HCL 100 MG TABLET PO (20:10)
[2021-10-18] MEDS: QUEtiapine Fumarate 200 MG TABLET PO (20:10)
[2021-10-19 08:11] VITALS: BP 144/65; PULSE 96; RESP 16; TEMP 36.7; O2SAT 97
[2021-10-19] MEDS: Benztropine Mesylate 0.5 MG TABLET PO (08:35)
[2021-10-19] MEDS: Amoxicillin/Potassium Clav 875 MG TABLET PO (08:35)
[2021-10-19] MEDS: HaloperidoL 5 MG TABLET 10 MG PO (08:35)
[2021-10-19] MEDS: Divalproex Sodium ER 500 MG TAB.ER.24H 1000 MG PO (08:35)
[2021-10-19 08:46] LABS: MANUAL DIFF FLAG NO
[2021-10-19 08:55] LABS: Basophils Percent Auto 0.4 % (0-2); Eosinophils Absolute Auto 0.2 X10*3/uL (0.0-0.4); Eosinophils Percent Auto 2.6 % (0-4); Hematocrit 45.8 % (42.0-52.0); Hemoglobin 14.9 g/dl (14.0-18.0); Imm Gran Abs Auto 0.23 X10*3/uL (0.00-0.03); Imm Gran Pct Auto 3.1 % (0.0-0.4); Lymphocytes Absolute Auto 2.1 X10*3/uL (1.2-4.9); Lymphocytes Percent Auto 28.2 % (20-40); Mean Corpuscular HGB Conc 32.5 g/dl (31.0-36.0); Mean Corpuscular Hemoglobin 30.7 pg (27.0-33.0); Mean Corpuscular Volume 94.4 fL (80.0-98.0); Mean Platelet Volume 9.7 fL (9.4-12.4); Monocytes Absolute Auto 0.7 X10*3/uL (0.1-1.2); Monocytes Percent Auto 9.7 % (2-11); Neutrophils Absolute Auto 4.2 x10*3/uL (2.0-8.3); Platelet Count 244 X10*3/uL (160-400); Red Blood Count 4.85 X10*6/uL (4.60-5.80); Red Cell Distribution Width 12.1 % (11.0-16.0); White Blood Count 7.4 X10*3/uL (4.8-10.8)
[2021-10-19 09:12] LABS: Alanine Aminotransferase 47 U/L (0-40); Albumin Level 3.9 g/dL (3.5-5.0); Alkaline Phosphatase 83 U/L (39-117); Anion Gap 12 (12-20); Aspartate Amino Transferase 33 U/L (5-37); Bilirubin Direct < 0.2 mg/dL (0.0-0.5); Bilirubin Total < 0.2 mg/dL (0.0-1.0); Blood Urea Nitrogen 11 mg/dL (9-16); Calcium 9.5 mg/dL (8.4-10.2); Carbon Dioxide 28 mmol/L (22-29); Chloride 102 mmol/L (96-108); Creatinine Clr Calc Pharmacy 117.8; Estimated Glomerular Filt Rate > 60; Glucose Random 130 mg/dL (60-115); Potassium 4.7 mmol/L (3.3-5.1); Sodium 137 mmol/L (135-145); Total Protein 7.1 g/dL (6.5-8.0)
[2021-10-19 09:17] LABS: Valproate 62.9 mcg/mL (50.0-100.0)
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
--- NOTE | 2021-10-19 13:32 | PC.NURSE ---
Patient is alert and oriented x4. Patient is pleasant and cooperative upon approach. Patient is in agreement with discharge and discharge teachings. Patient verbalizes an understanding of discharge teachings and is in agreement. Patient denies SI/HI. Patient reports looking forward to playing basketball today .
== END 2021-10-19 13:00 | disposition home or self-care (01) | DRG 750 ==
LOC: HO.ED 18:40 → HO.PADLT16 10-14 11:08
PROVIDERS: Physician Assistant; Psychiatry & Neurology Psychiatry; Admitting Provider Psychiatry & Neurology Psychiatry; Emergency Provider Emergency Medicine; Visit Provider Psychiatry & Neurology Psychiatry
DX: F25.0 Schizoaffective disorder, bipolar type (principal); R45.851 Suicidal ideations; Z20.822 Contact with and (suspected) exposure to COVID-19; Z79.899 Other long term (current) drug therapy
CPT/HCPCS: 36415; 80048; 80053; 80061; 80076; 80164; 80307; 82077; 82607; 82746; 83036; 83735; 84439; 84443; 85025; 87635; 90471; 90715; 99285

== ENCOUNTER 2021-10-21 04:42 | Emergency (ER) | payer OTHER, SELFPAY ==
[2021-10-21 04:46] VITALS: BMI 34.2
[2021-10-21 04:56] VITALS: BP 120/73; PULSE 90; RESP 17; TEMP 36.7; O2SAT 96
--- NOTE | 2021-10-21 05:30 | PC.NURSE ---
Patient just got triage, in bed resting, reported CAH, denied SI/HI/VH, [facility] referral completed/confirmed/pending ETA, med rec completed/pending provider's approval, patient was discharged from [facility] ON 10/19/21, VSS, WILL CONTINUE TO MONITOR.
--- NOTE | 2021-10-21 05:42 | ED_ITS ---
HPI - Psych General Chief Complaint: Psychiatric Symptoms Stated Complaint: SI/HI Time Seen by Provider: 10/21/21 05:42 Source: patient Mode of arrival: EMS History of Present Illness HPI Narrative: 31-year-old male with schizoaffective disorder presents with complaints of suicidal and homicidal ideation and states that he continues to hear voices and believes that the medication that he is given here at the hospital is superior to the medications that he is prescribed in the outpatient setting. He otherwise denies any acute constitutional symptoms such as fever, cough, abdominal or symptoms. Related Data Previous Rx's Medication Instructions Recorded haloperidol decanoate 100 mg/mL 100 mg IM Q4W 30 Days #1 ml 10/10/21 intramuscular solution (Haldol Decanoate) benztropine 0.5 mg tablet 0.5 mg PO BID 30 Days #60 tab 10/19/21 clonazepam 0.5 mg tablet 0.5 mg PO BID 30 Days #60 tab 10/19/21 divalproex 500 mg tablet,extended 1,000 mg PO BID 30 Days #120 tab 10/19/21 release 24 hr haloperidol 10 mg tablet 10 mg PO BID 14 Days #28 tab 10/19/21 quetiapine 200 mg tablet 200 mg PO BEDTIME PRN 30 Days #30 10/19/21 tab trazodone 100 mg tablet 100 mg PO BEDTIME PRN 30 Days #30 10/19/21 tab Allergies Allergy/AdvReac Type Severity Reaction Status Date / Time No Known Allergies Allergy Unknown UNKNOWN Verified 10/24/20 16:09 [NO KNOWN ALLERGIES] Review of Systems Review of Systems: Pertinent positives and negatives as stated in HPI 10 point review of systems is otherwise negative. [facility] Past Medical History Source: nursing notes reviewed Medical History Overweight (BMI 25.0-29.9) Surgical History No significant past surgical history Family History Family History Father Mental illness in member of household Mother Mental illness in member of household Brother Mental illness in member of household Sister Mental illness in member of household Maternal Grandmother Diabetes mellitus Social History Social History Household Members: None Housing: Apartment Do you presently have visiting nurse or other home services: No Alcohol intake: never Patient Tobacco Use Status: Never used Tobacco e-Cigarette/Vaping Use: Never Used Second Hand Smoke Exposure: No Substance Use Type: Caffiene Advance Directives: No Advance Directives Information Provided: No service: No Sexual orientation: Did not discuss. Physical Exam Vital Signs: Vital Signs: Last Vital Signs Temp 98.1 F 10/21/21 04:56 Pulse 90 10/21/21 04:56 Resp 17 10/21/21 04:56 BP 120/73 10/21/21 04:56 Pulse Ox 96 10/21/21 04:56 BMI result Body Mass Index 34.2 VITAL SIGNS: Reviewed. GENERAL: Well developed, well nourished, in no acute distress. HEAD: Normocephalic/atraumatic EYES: PERRLA, EOMI EARS: Ext canals without abnormality OROPHARYNX: no oral lesions noted, posterior pharynx clear LUNGS: Normal breath sounds. No adventitious sounds or accessory muscle use. SpO2<96> CARDIOVASCULAR: Regular rate and rhythm without noted murmurs ABDOMEN: Soft, non-tender, non-distended with bowel sounds. SKIN: Inspection of the skin reveals no rashes NEUROLOGIC: Alert and oriented x 4. Strength and sensation to light touch were grossly intact x 4, cranial nerves 2-12 grossly intact. PSYCH: Normal affect Course Course Course Narrative: 31-year-old male with history and clinical presentation consistent with decompensated, schizoaffective disorder that he attributes to medication differences and also has complaints of AVH/SI/HI. Patient has had recent labs and repeat COVID is noted to be negative. He is otherwise medically cleared for further evaluation by the crisis team. Reevaluation(s) Reevaluation #1: Patient placed in physician observation because the patient needed more time for crisis eval. At the time observation was started the patient's vital signs were stable, patient is alert and oriented, neuro: Nonfocal, CV RRR, lungs clear Time: 07:00 MDM - Psych Lab Data Labs: Lab Results 10/21/21 10/21/21 Range/Units 05:19 05:20 Urine Opiates Screen Not Detected (Not Detect) Urine Fentanyl Screen POSITIVE H (Not Detect) Ur Barbiturates Screen Not Detected (Not Detect) Ur Phencyclidine Scrn Not Detected (Not Detect) Ur Amphetamines Screen Not Detected (Not Detect) U Benzodiazepines Scrn Not Detected (Not Detect) Urine Cocaine Screen Not Detected (Not Detect) U Marijuana (THC) Screen Not Detected (Not Detect) COVID-19 (RADHIKA) Negative (Negative) COVID-19 Clin Com See Note Discharge Plan Discharge Clinical Impression: Schizoaffective disorder, bipolar type, Suicidal ideation Patient Disposition: Still a Patient Prescriptions: No Action haloperidol decanoate [Haldol Decanoate] 100 mg/mL solution 100 mg IM Q4W 30 Days Qty: 1 0RF Rx Instructions: give on 11/20/21 (4 weeks after last dose on 10/23/21) benztropine 0.5 mg Tablet 0.5 mg PO BID 30 Days Qty: 60 0RF clonazepam 0.5 mg tablet 0.5 mg PO BID 30 Days Qty: 60 0RF quetiapine 200 mg Tablet 200 mg PO BEDTIME PRN (Reason: insomnia) 30 Days Qty: 30 0RF trazodone 100 mg Tablet 100 mg PO BEDTIME PRN (Reason: insomnia) 30 Days Qty: 30 0RF divalproex 500 mg Tablet Extended Release 24 Hr 1,000 mg PO BID 30 Days Qty: 120 0RF haloperidol 10 mg tablet 10 mg PO BID 14 Days Qty: 28 0RF Rx Instructions: give for 14 days to overlap Haldol Dec
[2021-10-21 05:47] LABS: COVID-19 Test Negative (Negative)
[2021-10-21 05:49] LABS: Amphetamine Screen Urine Not Detected (Not Detect); Barbiturates, Urine Not Detected (Not Detect); Benzodiazepines Screen Urine Not Detected (Not Detect); Cannabinoid Screen Urine Not Detected (Not Detect); Cocaine Screen Urine Not Detected (Not Detect); Fentanyl, urine POSITIVE (Not Detect); Opiate Screen Urine Not Detected (Not Detect); Phencyclidine Screen Urine Not Detected (Not Detect)
--- NOTE | 2021-10-21 07:19 | PHA.MEDREC ---
Pharmacy Consult ? Medication Reconciliation Pharmacy has completed the medication reconciliation. Double checked nursing med rec
[2021-10-21 08:25] VITALS: BP 129/72; PULSE 92; RESP 15; O2SAT 98
[2021-10-21] MEDS: Divalproex Sodium ER 500 MG TAB.ER.24H 1000 MG PO (08:25)
[2021-10-21] MEDS: HaloperidoL 5 MG TABLET 10 MG PO (08:25)
[2021-10-21] MEDS: clonazePAM 0.5 MG TABLET PO (08:25)
[2021-10-21] MEDS: Benztropine Mesylate 0.5 MG TABLET PO (08:25)
== END 2021-10-21 14:01 | disposition home or self-care (01) ==
PROVIDERS: Emergency Provider Student in an Organized Health Care Education/Training Program
DX: F25.0 Schizoaffective disorder, bipolar type (principal); R45.851 Suicidal ideations; Z79.899 Other long term (current) drug therapy; Z20.822 Contact with and (suspected) exposure to COVID-19
CPT/HCPCS: 80307; 87635; 99284

== ENCOUNTER 2021-11-01 12:51 | Emergency (ER) | payer OTHER, SELFPAY ==
[2021-11-01 13:03] VITALS: BP 126/68; PULSE 96; O2SAT 96
[2021-11-01 13:33] VITALS: BP 142/84; PULSE 87; RESP 18; TEMP 36.6; O2SAT 95; BMI 29.2
--- NOTE | 2021-11-01 16:23 | ED_ITS ---
HPI - General Adult General Chief complaint: Allergic Reaction Stated complaint: RXN TO NEW MED/HALDOL,UNABLE SPEAK/WINDED PER EMS Time Seen by Provider: 11/01/21 15:30 Source: patient Mode of arrival: ambulatory Limitations: no limitations History of Present Illness HPI narrative: 31-year-old male presents to the ED for side effects from haldol. Patient states yesterday he was prescribed Haldol for the 1st time yesterday and today. Patient states after each episode of taking Haldol his tongue started having involuntary movements and than became stiff and could not talk. patient took benadryl and they resolved. Patient called his psychiatrists who informed him to to take half the dose and today he still had another adverse episode. Patient denies any facial droop, paralysis of extremities, or loss of visions. Patient denies any history of stroke in the past or drug use. Patient denies any family members of stroke. Related Data Previous Rx's Medication Instructions Recorded haloperidol decanoate 100 mg/mL 100 mg IM Q4W 30 Days #1 ml 10/10/21 intramuscular solution (Haldol Decanoate) benztropine 0.5 mg tablet 0.5 mg PO BID 30 Days #60 tab 10/19/21 clonazepam 0.5 mg tablet 0.5 mg PO BID 30 Days #60 tab 10/19/21 divalproex 500 mg tablet,extended 1,000 mg PO BID 30 Days #120 tab 10/19/21 release 24 hr haloperidol 10 mg tablet 10 mg PO BID 14 Days #28 tab 10/19/21 quetiapine 200 mg tablet 200 mg PO BEDTIME PRN 30 Days #30 10/19/21 tab trazodone 100 mg tablet 100 mg PO BEDTIME PRN 30 Days #30 10/19/21 tab Allergies Allergy/AdvReac Type Severity Reaction Status Date / Time No Known Allergies Allergy Unknown UNKNOWN Verified 11/01/21 13:32 [NO KNOWN ALLERGIES] Review of Systems Review of Systems: Tongue jerking and than stiffness after taking meds. Yes all other systems are reviewed and are negative PMFSH Past Medical History Medical History Overweight (BMI 25.0-29.9) Surgical History No significant past surgical history Family History Family History Father Mental illness in member of household Mother Mental illness in member of household Brother Mental illness in member of household Sister Mental illness in member of household Maternal Grandmother Diabetes mellitus Social History Social History Household Members: None Housing: Apartment Do you presently have visiting nurse or other home services: No Alcohol intake: never Patient Tobacco Use Status: Never used Tobacco e-Cigarette/Vaping Use: Never Used Second Hand Smoke Exposure: No Substance Use Type: Caffiene Advance Directives: No Advance Directives Information Provided: No service: No Sexual orientation: Did not discuss. Physical Exam ED Vital Signs: Vital Signs - 24 hr 11/01/21 13:33 Temperature 97.9 F Pulse Rate 87 Respiratory Rate 18 Blood Pressure 142/84 H Pulse Oximetry 95 BMI result Body Mass Index 29.2 Const General: cooperative, healthy appearing, comfortable, no acute distress, well developed, alert, awake and Physically active Orientation/consciousness: oriented to time and patient oriented x3 HENMT Head: Yes normal to inspection, Yes No palpable skull fracture present, Yes normocephalic, Yes atraumatic and No abrasion Eyes General: appearance normal, both eyes and all related structures Neck Neck: Yes normal visual inspection, Yes full ROM, Yes no lymphadenopathy, Yes no meningeal signs, Yes trachea midline, Yes supple, No anterior neck swelling and No tender Chest Chest palpation & inspection: normal inspection of the chest and normal palpation of entire chest wall Resp Effort & Inspection: normal respiratory effort and able to speak in complete sentences Auscultation: clear to auscultation bilaterally Cardio Jugular venous distension: no JVD Heart sounds: S1 normal heart sound present and S2 normal heart sound present GI Inspection: Yes normal to inspection and No abdominal wall ecchymosis Palpation (GI): Soft to palpation, not firm, nontender, no guarding and not rigid General: No CVA tenderness and Yes no CVA tenderness Back/Spine/Pelvis Back: no CVA tenderness, No CVA tenderness and No back tenderness Skin General skin exam: no rashes or lesions noted and elasticity normal Neuro General: oriented to time, patient oriented x3, gait normal, no meningeal signs and CN's II-XI intact bilaterally Cranial nerves: Yes CN's II-XII intact bilaterally Extrem General: Yes normal to inspection and Yes full ROM Psych Appearance: grossly normal, well kempt and not disheveled NIH Stroke Scale Internal: Initial- Upon Arrival Level of Consciousness: Alert Level of Consciousness Questions: Answers both questions correctly Level of Consciousness Commands: Performs both tasks correctly Best Gaze: Normal Visual: No visual loss Facial Palsy: Normal Motor Arm (Right): No drift Motor Arm (Left): No drift Motor Leg (Right): No drift Motor Leg (Left): No drift Limb Ataxia: Absent Sensory: Normal Best Language: No aphasia Dysarthia: Normal Extinction and Inattention: No abnormality Score: 0 Course Course Course Narrative: Side effects from Haldol. Extrapyrmidial symptoms Reevaluation(s) Reevaluation #1: Patient does not have any neuro deficits. Not suspecting stroke. Diagnosis focal dystonia. Benadryl already given. NIH score 0. No head CT scan needed. Time: 19:29 Discharge Plan Discharge Clinical Impression: Adverse effect of other antipsychotics and neuroleptics, initial encounter, Dystonia Patient Disposition: Home, Self-Care Instructions: Adverse Drug Reaction (ED), Extrapyramidal Symptoms (ED) Additional Instructions: You-re symptoms were due to Haldol. You were given benadryl. Please call the psychiatrist to discuss taking you off on medication. Return to ED for any slurred speech, facial droop, paralysis of extremities, loss of vision, or any other concerning symptoms. Prescriptions: No Action haloperidol decanoate [Haldol Decanoate] 100 mg/mL solution 100 mg IM Q4W 30 Days Qty: 1 0RF Rx Instructions: give on 11/20/21 (4 weeks after last dose on 10/23/21) benztropine 0.5 mg Tablet 0.5 mg PO BID 30 Days Qty: 60 0RF clonazepam 0.5 mg tablet 0.5 mg PO BID 30 Days Qty: 60 0RF quetiapine 200 mg Tablet 200 mg PO BEDTIME PRN (Reason: insomnia) 30 Days Qty: 30 0RF trazodone 100 mg Tablet 100 mg PO BEDTIME PRN (Reason: insomnia) 30 Days Qty: 30 0RF divalproex 500 mg Tablet Extended Release 24 Hr 1,000 mg PO BID 30 Days Qty: 120 0RF haloperidol 10 mg tablet 10 mg PO BID 14 Days Qty: 28 0RF Rx Instructions: give for 14 days to overlap Haldol Dec Interventions: ED Discharge Assessment Last Done: 11/01/21 17:17 Discharge Date/Time: 11/01/21 17:18 Print Language: American
[2021-11-01] MEDS: diphenhydrAMINE HCL 25 MG TABLET 50 MG PO (17:06)
== END 2021-11-01 17:18 | disposition home or self-care (01) ==
PROVIDERS: Emergency Provider Student in an Organized Health Care Education/Training Program; PCP Internal Medicine
DX: G24.09 Other drug induced dystonia (principal); T43.505A Adverse effect of unspecified antipsychotics and neuroleptics, initial encounter; R29.700 NIHSS score 0; Y92.9 Unspecified place or not applicable; Z79.899 Other long term (current) drug therapy
CPT/HCPCS: 99283; Q0163

== ENCOUNTER 2021-11-12 22:36 | Emergency (ER) | payer OTHER, SELFPAY ==
[2021-11-12 23:52] VITALS: BP 135/84; PULSE 74; RESP 16; TEMP 36.6; O2SAT 97; BMI 30.4
[2021-11-13 00:10] LABS: Amphetamine Screen Urine Not Detected (Not Detect); Barbiturates, Urine Not Detected (Not Detect); Benzodiazepines Screen Urine Not Detected (Not Detect); Cannabinoid Screen Urine Not Detected (Not Detect); Cocaine Screen Urine Not Detected (Not Detect); Fentanyl, urine Not Detected (Not Detect); Opiate Screen Urine Not Detected (Not Detect); Phencyclidine Screen Urine Not Detected (Not Detect)
--- NOTE | 2021-11-13 00:33 | PC.NURSE ---
pt a&ox3, vss, pt reports that he needs to be in shelter with his family and friend, and that there is a button that they might press if he is not there with them. pt denies SI/HI at this time, but did acknowledge a previous attempt in 2010. pt states that he has been taking his sleeping medication but was taken off of haldol by his doctor. pending ED provider.
--- NOTE | 2021-11-13 01:46 | ED_ITS ---
HPI - Psych General Chief Complaint: Psychiatric Symptoms Stated Complaint: SI/HI Time Seen by Provider: 11/13/21 01:45 History of Present Illness HPI Narrative: Patient made statements to anel GOMEZ that he wants to be aggressive to be with his friends. His possible suicidal homicidal ideation although patient cannot elaborate on the details. Denies recreational drug use. Does have a psychiatric history. Related Data Previous Rx's Medication Instructions Recorded haloperidol decanoate 100 mg/mL 100 mg IM Q4W 30 Days #1 ml 10/10/21 intramuscular solution (Haldol Decanoate) benztropine 0.5 mg tablet 0.5 mg PO BID 30 Days #60 tab 10/19/21 clonazepam 0.5 mg tablet 0.5 mg PO BID 30 Days #60 tab 10/19/21 divalproex 500 mg tablet,extended 1,000 mg PO BID 30 Days #120 tab 10/19/21 release 24 hr haloperidol 10 mg tablet 10 mg PO BID 14 Days #28 tab 10/19/21 quetiapine 200 mg tablet 200 mg PO BEDTIME PRN 30 Days #30 10/19/21 tab trazodone 100 mg tablet 100 mg PO BEDTIME PRN 30 Days #30 10/19/21 tab Allergies Allergy/AdvReac Type Severity Reaction Status Date / Time No Known Allergies Allergy Unknown UNKNOWN Verified 11/12/21 23:58 [NO KNOWN ALLERGIES] Review of Systems Review of Systems: No fever no chills no chest pain. Yes all other systems are reviewed and are negative PMFSH Past Medical History Attestation statement: The following information was validated with the patient. Medical History Bipolar 1 disorder Overweight (BMI 25.0-29.9) Schizophrenia Surgical History No significant past surgical history Family History Family History Father Mental illness in member of household Mother Mental illness in member of household Brother Mental illness in member of household Sister Mental illness in member of household Maternal Grandmother Diabetes mellitus Social History Social History Household Members: None Housing: Apartment Do you presently have visiting nurse or other home services: No Alcohol intake: never Patient Tobacco Use Status: Never used Tobacco e-Cigarette/Vaping Use: Never Used Second Hand Smoke Exposure: No Substance Use Type: Caffiene Advance Directives: No Advance Directives Information Provided: No service: No Sexual orientation: Did not discuss. Physical Exam Vital Signs: Vital Signs: Last Vital Signs Temp 97.9 F 11/12/21 23:52 Pulse 74 11/12/21 23:52 Resp 16 11/12/21 23:52 BP 135/84 11/12/21 23:52 Pulse Ox 97 11/12/21 23:52 BMI result Body Mass Index 30.4 Appearance: Alert. Oriented X3. No acute distress. Eyes: Pupils equal, round and reactive to light. ENT: Pharynx normal. Neck: Normal inspection. Neck supple. No lymph nodes noted. No crepitus CVS: Normal heart rate and rhythm. Pulses normal. Normal S1 and S2 Respiratory: No respiratory distress. Breath sounds normal. No Wheezing. No rales Abdomen: Soft and nontender. No rigidity. No distention. good BS x4 Skin: Skin warm and dry. Normal skin color. Normal skin turgor. Extremities: No lower extremity edema. Neurovascular intact to all extremities. No Lacerations. No Rash Neuro: Oriented X 3. No motor deficit. No sensory deficit. Moving all extermities. No slurred speech. Cranial nerves grossly intact MDM - Psych MDM Narrative Medical decision making narrative: Patient medically cleared. Final disposition as per crisis. In stable condition. Medical Records Attestation: I reviewed the patient's medical records. Lab Data Result diagrams: 11/13/21 02:51 11/13/21 02:51 Labs: Lab Results 11/12/21 11/13/21 11/13/21 Range/Units 23:47 02:51 02:51 WBC 8.2 (4.8-10.8) X10*3/uL RBC 4.87 (4.60-5.80) X10*6/uL Hgb 15.2 (14.0-18.0) g/dl Hct 46.1 (42.0-52.0) % MCV 94.7 (80.0-98.0) fL MCH 31.2 (27.0-33.0) pg MCHC 33.0 (31.0-36.0) g/dl RDW 12.2 (11.0-16.0) % Plt Count 202 (160-400) X10*3/uL MPV 9.9 (9.4-12.4) fL Immature Gran % (Auto) 0.2 (0.0-0.4) % Neut % (Auto) 52.8 (45-73) % Lymph % (Auto) 30.6 (20-40) % [place] % (Auto) 9.2 (2-11) % Eos % (Auto) 6.5 H (0-4) % Baso % (Auto) 0.7 (0-2) % Lymph # (Auto) 2.5 (1.2-4.9) X10*3/uL [place] # (Auto) 0.8 (0.1-1.2) X10*3/uL Eos # (Auto) 0.5 H (0.0-0.4) X10*3/uL Baso # (Auto) 0.1 (0.0-0.2) X10*3/uL Abs Immat Gran (auto) 0.02 (0.00-0.03) X10*3/uL Absolute Neuts (auto) 4.3 (2.0-8.3) x10*3/uL Absolute Nucleated RBC 0.000 (0.0-0.012) X10*3/uL Nucleated RBC % (auto) 0.0 (0.0-0.2) /100WBC Sodium (135-145) mmol/L Potassium (3.3-5.1) mmol/L Chloride (96-108) mmol/L Carbon Dioxide (22-29) mmol/L Anion Gap (12-20) BUN (9-16) mg/dL Creatinine (0.5-1.4) mg/dL Estim Creat Clear Calc Estimated GFR Random Glucose (60-115) mg/dL Calcium (8.4-10.2) mg/dL Total Bilirubin (0.0-1.0) mg/dL Direct Bilirubin (0.0-0.5) mg/dL AST (5-37) U/L ALT (0-40) U/L Alkaline Phosphatase (39-117) U/L Total Protein (6.5-8.0) g/dL Albumin (3.5-5.0) g/dL Urine Opiates Screen Not Detected (Not Detect) Urine Fentanyl Screen Not Detected (Not Detect) Ur Barbiturates Screen Not Detected (Not Detect) Ur Phencyclidine Scrn Not Detected (Not Detect) Ur Amphetamines Screen Not Detected (Not Detect) U Benzodiazepines Scrn Not Detected (Not Detect) Urine Cocaine Screen Not Detected (Not Detect) U Marijuana (THC) Screen Not Detected (Not Detect) Ethyl Alcohol mg/dL COVID-19 (RADHIKA) Negative (Negative) COVID-19 Clin Com See Note 11/13/21 11/13/21 Range/Units 02:51 02:51 WBC (4.8-10.8) X10*3/uL RBC (4.60-5.80) X10*6/uL Hgb (14.0-18.0) g/dl Hct (42.0-52.0) % MCV (80.0-98.0) fL MCH (27.0-33.0) pg MCHC (31.0-36.0) g/dl RDW (11.0-16.0) % Plt Count (160-400) X10*3/uL MPV (9.4-12.4) fL Immature Gran % (Auto) (0.0-0.4) % Neut % (Auto) (45-73) % Lymph % (Auto) (20-40) % [place] % (Auto) (2-11) % Eos % (Auto) (0-4) % Baso % (Auto) (0-2) % Lymph # (Auto) (1.2-4.9) X10*3/uL [place] # (Auto) (0.1-1.2) X10*3/uL Eos # (Auto) (0.0-0.4) X10*3/uL Baso # (Auto) (0.0-0.2) X10*3/uL Abs Immat Gran (auto) (0.00-0.03) X10*3/uL Absolute Neuts (auto) (2.0-8.3) x10*3/uL Absolute Nucleated RBC (0.0-0.012) X10*3/uL Nucleated RBC % (auto) (0.0-0.2) /100WBC Sodium 137 (135-145) mmol/L Potassium 4.1 (3.3-5.1) mmol/L Chloride 103 (96-108) mmol/L Carbon Dioxide 27 (22-29) mmol/L Anion Gap 11 L (12-20) BUN 10 (9-16) mg/dL Creatinine 1.00 (0.5-1.4) mg/dL Estim Creat Clear Calc 118.5 Estimated GFR > 60 Random Glucose 98 (60-115) mg/dL Calcium 9.2 (8.4-10.2) mg/dL Total Bilirubin 0.2 (0.0-1.0) mg/dL Direct Bilirubin < 0.2 (0.0-0.5) mg/dL AST 32 (5-37) U/L ALT 27 (0-40) U/L Alkaline Phosphatase 65 D (39-117) U/L Total Protein 7.2 (6.5-8.0) g/dL Albumin 4.1 (3.5-5.0) g/dL Urine Opiates Screen (Not Detect) Urine Fentanyl Screen (Not Detect) Ur Barbiturates Screen (Not Detect) Ur Phencyclidine Scrn (Not Detect) Ur Amphetamines Screen (Not Detect) U Benzodiazepines Scrn (Not Detect) Urine Cocaine Screen (Not Detect) U Marijuana (THC) Screen (Not Detect) Ethyl Alcohol < 10 mg/dL COVID-19 (RADHIKA) (Negative) COVID-19 Clin Com Discharge Plan Discharge Clinical Impression: Suicidal ideation Patient Disposition: Still a Patient Prescriptions: No Action haloperidol decanoate [Haldol Decanoate] 100 mg/mL solution 100 mg IM Q4W 30 Days Qty: 1 0RF Rx Instructions: give on 11/20/21 (4 weeks after last dose on 10/23/21) benztropine 0.5 mg Tablet 0.5 mg PO BID 30 Days Qty: 60 0RF clonazepam 0.5 mg tablet 0.5 mg PO BID 30 Days Qty: 60 0RF quetiapine 200 mg Tablet 200 mg PO BEDTIME PRN (Reason: insomnia) 30 Days Qty: 30 0RF trazodone 100 mg Tablet 100 mg PO BEDTIME PRN (Reason: insomnia) 30 Days Qty: 30 0RF divalproex 500 mg Tablet Extended Release 24 Hr 1,000 mg PO BID 30 Days Qty: 120 0RF haloperidol 10 mg tablet 10 mg PO BID 14 Days Qty: 28 0RF Rx Instructions: give for 14 days to overlap Haldol Dec
[2021-11-13 02:56] LABS: MANUAL DIFF FLAG NO
--- NOTE | 2021-11-13 02:56 | PC.NURSE ---
labs drawn, covid swab obtained, pt requesting food.
[2021-11-13 02:58] LABS: Basophils Absolute Auto 0.1 X10*3/uL (0.0-0.2); Basophils Percent Auto 0.7 % (0-2); Eosinophils Absolute Auto 0.5 X10*3/uL (0.0-0.4); Eosinophils Percent Auto 6.5 % (0-4); Hematocrit 46.1 % (42.0-52.0); Hemoglobin 15.2 g/dl (14.0-18.0); Imm Gran Abs Auto 0.02 X10*3/uL (0.00-0.03); Imm Gran Pct Auto 0.2 % (0.0-0.4); Lymphocytes Absolute Auto 2.5 X10*3/uL (1.2-4.9); Lymphocytes Percent Auto 30.6 % (20-40); Mean Corpuscular Hemoglobin 31.2 pg (27.0-33.0); Mean Corpuscular Volume 94.7 fL (80.0-98.0); Mean Platelet Volume 9.9 fL (9.4-12.4); Monocytes Absolute Auto 0.8 X10*3/uL (0.1-1.2); Monocytes Percent Auto 9.2 % (2-11); Neutrophils Absolute Auto 4.3 x10*3/uL (2.0-8.3); Neutrophils Percent Auto 52.8 % (45-73); Platelet Count 202 X10*3/uL (160-400); Red Blood Count 4.87 X10*6/uL (4.60-5.80); Red Cell Distribution Width 12.2 % (11.0-16.0); White Blood Count 8.2 X10*3/uL (4.8-10.8)
[2021-11-13 03:13] LABS: Ethanol < 10 mg/dL
[2021-11-13 03:17] LABS: Alanine Aminotransferase 27 U/L (0-40); Albumin Level 4.1 g/dL (3.5-5.0); Alkaline Phosphatase 65 U/L (39-117); Anion Gap 11 (12-20); Aspartate Amino Transferase 32 U/L (5-37); Bilirubin Direct < 0.2 mg/dL (0.0-0.5); Bilirubin Total 0.2 mg/dL (0.0-1.0); Blood Urea Nitrogen 10 mg/dL (9-16); Calcium 9.2 mg/dL (8.4-10.2); Carbon Dioxide 27 mmol/L (22-29); Chloride 103 mmol/L (96-108); Creatinine Clr Calc Pharmacy 118.5; Estimated Glomerular Filt Rate > 60; Glucose Random 98 mg/dL (60-115); Potassium 4.1 mmol/L (3.3-5.1); Sodium 137 mmol/L (135-145); Total Protein 7.2 g/dL (6.5-8.0)
[2021-11-13 03:27] LABS: COVID-19 Test Negative (Negative)
[2021-11-13 07:03] VITALS: BP 131/86; PULSE 66; RESP 14; TEMP 36.6; O2SAT 96
--- NOTE | 2021-11-13 08:22 | PC.NURSE ---
smart sheet done by this rn.
--- NOTE | 2021-11-13 13:50 | PHA.MEDREC ---
Pharmacy Consult ? Medication Reconciliation Pharmacy has completed the medication reconciliation. Patient unsure of what medications he takes. He did report that the doctor told him to stop the haloperidol. He reports taking trazodone at night makes him groggy in the morning. Deanne Wetzel, PharmD
== END 2021-11-13 15:06 | disposition home or self-care (01) ==
PROVIDERS: Emergency Provider Emergency Medicine Emergency Medical Services
DX: R45.851 Suicidal ideations (principal); R45.850 Homicidal ideations; Z20.822 Contact with and (suspected) exposure to COVID-19; F25.0 Schizoaffective disorder, bipolar type; Z79.899 Other long term (current) drug therapy
CPT/HCPCS: 36415; 80048; 80076; 80307; 82077; 85025; 87635; 99284

== ENCOUNTER 2022-01-01 14:37 | Emergency (ER) | payer OTHER, SELFPAY ==
[2022-01-01 14:46] VITALS: BP 126/80; PULSE 80; O2SAT 92
[2022-01-01 14:53] VITALS: BP 153/87; PULSE 79; RESP 18; TEMP 36.1; O2SAT 100; BMI 28.0
[2022-01-01 15:17] LABS: MANUAL DIFF FLAG NO
[2022-01-01 15:19] LABS: Basophils Percent Auto 0.3 % (0-2); Eosinophils Absolute Auto 0.1 X10*3/uL (0.0-0.4); Eosinophils Percent Auto 0.6 % (0-4); Hematocrit 45.9 % (42.0-52.0); Hemoglobin 15.1 g/dl (14.0-18.0); Imm Gran Abs Auto 0.04 X10*3/uL (0.00-0.03); Imm Gran Pct Auto 0.4 % (0.0-0.4); Lymphocytes Absolute Auto 2.9 X10*3/uL (1.2-4.9); Lymphocytes Percent Auto 26.2 % (20-40); Mean Corpuscular HGB Conc 32.9 g/dl (31.0-36.0); Mean Corpuscular Hemoglobin 31.1 pg (27.0-33.0); Mean Corpuscular Volume 94.6 fL (80.0-98.0); Mean Platelet Volume 9.7 fL (9.4-12.4); Monocytes Absolute Auto 0.8 X10*3/uL (0.1-1.2); Monocytes Percent Auto 7.5 % (2-11); Neutrophils Absolute Auto 7.1 x10*3/uL (2.0-8.3); Platelet Count 177 X10*3/uL (160-400); Red Blood Count 4.85 X10*6/uL (4.60-5.80); Red Cell Distribution Width 11.9 % (11.0-16.0); White Blood Count 10.9 X10*3/uL (4.8-10.8)
[2022-01-01 15:31] LABS: Appearance Urine CLEAR; Color Urine YELLOW; Glucose Urine UA NEG (NEG); Leukocyte Esterase Urine NEG (NEG); Nitrite Urine NEG (NEG); UACC Culture Trigger NO; Urine Blood 2+ (NEG); Urine Ketones 5 MG/DL (NEG); Urine Protein 1+ MG/DL (NEG-TRACE)
[2022-01-01 15:33] LABS: Alanine Aminotransferase 22 U/L (0-40); Albumin Level 4.6 g/dL (3.5-5.0); Alkaline Phosphatase 65 U/L (39-117); Anion Gap 12 (12-20); Aspartate Amino Transferase 20 U/L (5-37); Bilirubin Total 0.8 mg/dL (0.0-1.0); Blood Urea Nitrogen 18 mg/dL (9-16); Calcium 9.4 mg/dL (8.4-10.2); Carbon Dioxide 31 mmol/L (22-29); Chloride 104 mmol/L (96-108); Creatinine Clr Calc Pharmacy 89.2; Estimated Glomerular Filt Rate > 60; Glucose Random 95 mg/dL (60-115); Potassium 4.7 mmol/L (3.3-5.1); Sodium 142 mmol/L (135-145); Total Protein 8.1 g/dL (6.5-8.0)
[2022-01-01 15:44] LABS: WBC Urine 0 /HPF (0-4)
[2022-01-01 15:45] LABS: Bacteria Urine TRACE /LPF; Squamous Epithelial Cell Urine TRACE /LPF
--- NOTE | 2022-01-01 17:53 | ED.MALEGU ---
HPI - Male Genitourinary General Chief complaint: Urogenital-Male Stated complaint: blood in stool/urine x2 days Time Seen by Provider: 01/01/22 17:37 Source: patient Mode of arrival: ambulatory Limitations: no limitations History of Present Illness HPI Narrative: 31 yo male with history of schizoaffective disorder presents to the ER with new onset of hematuria that started yesterday. He reports when he went use to the bathroom to move his bowels, he noted blood in the toilet bowl that came from his penis. He reports it was from sitting too close to the toilet seat and straining to have a BM. He reports it was bright red. Since then the bleeding has improved and is now almost completely resolved. He reports some pain with urination in his penis as well. No rectal bleeding. No abdominal pain, back pain, fevers, chills, N/V, or urethral discharge. He is not sexually active. No history of hematuria in the past. MD Complaint: dysuria and other (hematuria) Onset (ago): day(s) (1) Duration: improved Location: penis Severity: mild Quality: burning Relieving factors: none Exacerbating factors: none Associated symptoms: Reports blood in urine and dysuria Related Data Sexually active: No Previous Rx's Medication Instructions Recorded benztropine 0.5 mg tablet 0.5 mg PO BID 30 days #60 tabs 10/19/21 clonazepam 0.5 mg tablet 0.5 mg PO BID 30 days #60 tabs 10/19/21 divalproex 500 mg tablet,extended 1,000 mg PO BID 30 days #120 tabs 10/19/21 release 24 hr quetiapine 200 mg tablet 200 mg PO BEDTIME PRN insomnia 30 10/19/21 days #30 tabs trazodone 100 mg tablet 100 mg PO BEDTIME PRN insomnia 30 10/19/21 days #30 tabs cefuroxime axetil 250 mg tablet 250 mg PO BID #10 tabs 01/01/22 Allergies Allergy/AdvReac Type Severity Reaction Status Date / Time No Known Allergies Allergy Unknown UNKNOWN Verified 11/21/21 11:30 [NO KNOWN ALLERGIES] Review of Systems Review of Systems: Constitutional: No Fever, No Chills Cardiovascular: No Chest Pain, No SOB Respiratory: No Cough, No Sputum Gastrointestinal: No Nausea, No Vomiting, No Diarrhea, No abdominal Pain Genitourinary: +Dysuria, No Urinary Frequency, + Hematuria Musculoskeletal: No joint pain, No Myalgias Skin: No Skin Lesions, No rash Psych: + Anxiety/Panic Heme/Lymph: No Bruising, No Lymphadenopathy PMFSH Past Medical History Medical History Bipolar 1 disorder Overweight (BMI 25.0-29.9) Schizophrenia Surgical History No significant past surgical history Family History Family History Father Mental illness in member of household Mother Mental illness in member of household Brother Mental illness in member of household Sister Mental illness in member of household Maternal Grandmother Diabetes mellitus Social History Social History Household Members: None Housing: Apartment Do you presently have visiting nurse or other home services: No Alcohol intake: never Patient Tobacco Use Status: Never used Tobacco e-Cigarette/Vaping Use: Never Used Second Hand Smoke Exposure: No Substance Use Type: Caffiene Advance Directives: No Advance Directives Information Provided: No service: No Sexual orientation: Did not discuss. Cognitive needs: No Hearing needs: No Vision needs: Yes (Pt has not seen a eye doctor since 2010-04.) Physical Exam Vital Signs: Vital Signs: Last Vital Signs Temp 96.9 F 01/01/22 14:53 Pulse 79 01/01/22 14:53 Resp 18 01/01/22 14:53 BP 153/87 H 01/01/22 14:53 Pulse Ox 100 01/01/22 14:53 O2 Del Method 01/01/22 14:53 BMI result Body Mass Index 28.0 Appearance: Alert. Oriented X3. No acute distress. HEENT: normal external inspection Neck: Normal inspection. Respiratory: No respiratory distress. Abdomen: Soft and nontender. +BS x4 : normal external inspection, no urethral discharge. no testicular tenderness. Skin: Skin warm and dry. Normal skin color. Normal skin turgor. No rashes. Extremities: No lower extremity edema. Neuro: Oriented X 3. Nonfocal Course Course Course Narrative: 31 yo male presenting with hematuria and dysuria that started yesterday and is slowly resolving. Not sexually active. No systemic signs of infection. Doubt kidney stone without back pain, abdominal pain, N/V. He appears comforable. UA today is clear yellow urine with 2+ blood. No other evidence of infection. Will empirically treat with abx for cystitis. Patient counseled and encouraged to f/u with Urology if symptoms persist or worsen. Stable for d/c home. MDM - Male Genitourinary Lab Data Result diagrams: 01/01/22 15:12 01/01/22 15:12 Labs: Lab Results 01/01/22 01/01/22 01/01/22 Range/Units 15:12 15:12 15:12 WBC 10.9 H (4.8-10.8) X10*3/uL RBC 4.85 (4.60-5.80) X10*6/uL Hgb 15.1 (14.0-18.0) g/dl Hct 45.9 (42.0-52.0) % MCV 94.6 (80.0-98.0) fL MCH 31.1 (27.0-33.0) pg MCHC 32.9 (31.0-36.0) g/dl RDW 11.9 (11.0-16.0) % Plt Count 177 (160-400) X10*3/uL MPV 9.7 (9.4-12.4) fL Immature Gran % (Auto) 0.4 (0.0-0.4) % Neut % (Auto) 65.0 (45-73) % Lymph % (Auto) 26.2 (20-40) % [place] % (Auto) 7.5 (2-11) % Eos % (Auto) 0.6 (0-4) % Baso % (Auto) 0.3 (0-2) % Lymph # (Auto) 2.9 (1.2-4.9) X10*3/uL [place] # (Auto) 0.8 (0.1-1.2) X10*3/uL Eos # (Auto) 0.1 (0.0-0.4) X10*3/uL Baso # (Auto) 0.0 (0.0-0.2) X10*3/uL Abs Immat Gran (auto) 0.04 H (0.00-0.03) X10*3/uL Absolute Neuts (auto) 7.1 (2.0-8.3) x10*3/uL Absolute Nucleated RBC 0.000 (0.0-0.012) X10*3/uL Nucleated RBC % (auto) 0.0 (0.0-0.2) /100WBC Sodium 142 (135-145) mmol/L Potassium 4.7 (3.3-5.1) mmol/L Chloride 104 (96-108) mmol/L Carbon Dioxide 31 H (22-29) mmol/L Anion Gap 12 (12-20) BUN 18 H D (9-16) mg/dL Creatinine 1.28 (0.5-1.4) mg/dL Estim Creat Clear Calc 89.2 Estimated GFR > 60 Random Glucose 95 (60-115) mg/dL Calcium 9.4 (8.4-10.2) mg/dL Total Bilirubin 0.8 (0.0-1.0) mg/dL AST 20 (5-37) U/L ALT 22 (0-40) U/L Alkaline Phosphatase 65 (39-117) U/L Total Protein 8.1 H (6.5-8.0) g/dL Albumin 4.6 (3.5-5.0) g/dL Urine Color YELLOW Urine Appearance CLEAR Urine pH 6.0 (5.0-8.0) Ur Specific [place] 1.020 (1.005-1.025) Urine Protein 1+ H (NEG-TRACE) MG/DL Urine Glucose (UA) NEG (NEG) MG/DL Urine Ketones 5 (NEG) MG/DL Urine Blood 2+ H (NEG) Urine Nitrite NEG (NEG) Ur Leukocyte Esterase NEG (NEG) Urine RBC 15-29 H (0) /HPF Urine WBC 0 (0-4) /HPF Ur Squamous Epith Cells TRACE /LPF Urine Bacteria TRACE /LPF Critical Care Time Critical Care Time Critical Care Time: No Discharge Plan Discharge Clinical Impression: Cystitis Patient Disposition: Home, Self-Care Instructions: Interstitial Cystitis (ED) Additional Instructions: Your urine test showed traces of blood which is most likely from inflammation and/or irritation of your bladder. Take the prescribed antibiotic as directed, start taking tomorrow. You were given the 1st dose today in the ER. If your symptoms do not resolve or recur, recommend following up with Urology for further evaluation and treatment. Prescriptions: New cefuroxime axetil 250 mg tablet 250 mg PO BID Qty: 10 0RF No Action benztropine 0.5 mg Tablet 0.5 mg PO BID 30 Days Qty: 60 0RF clonazepam 0.5 mg tablet 0.5 mg PO BID 30 Days Qty: 60 0RF quetiapine 200 mg Tablet 200 mg PO BEDTIME PRN (Reason: insomnia) 30 Days Qty: 30 0RF trazodone 100 mg Tablet 100 mg PO BEDTIME PRN (Reason: insomnia) 30 Days Qty: 30 0RF divalproex 500 mg Tablet Extended Release 24 Hr 1,000 mg PO BID 30 Days Qty: 120 0RF Referrals: Gerald Foster MD [Physician] - (hematuria)
== END 2022-01-01 18:21 | disposition home or self-care (01) ==
PROVIDERS: Emergency Provider Emergency Medicine
DX: N30.91 Cystitis, unspecified with hematuria (principal); F20.9 Schizophrenia, unspecified; Z79.899 Other long term (current) drug therapy
CPT/HCPCS: 36415; 80053; 81001; 85025; 99282; 99283

== ENCOUNTER 2022-01-08 10:16 | Emergency (ER) | payer OTHER, SELFPAY ==
[2022-01-08 10:55] VITALS: BP 141/74; PULSE 80; RESP 16; TEMP 36.6; O2SAT 98; BMI 26.6
[2022-01-08 11:10] LABS: Appearance Urine HAZY; Color Urine YELLOW; Glucose Urine UA NEG (NEG); Leukocyte Esterase Urine NEG (NEG); Nitrite Urine NEG (NEG); Specific Gravity - Urine 1.025 (1.005-1.025); UACC Culture Trigger NO; Urine Blood 3+ (NEG); Urine Ketones 5 MG/DL (NEG); Urine Protein NEG (NEG-TRACE)
--- NOTE | 2022-01-08 11:23 | ED_ITS ---
HPI - General Adult General Chief complaint: General Medical Stated complaint: return from previous visit for checkup Time Seen by Provider: 01/08/22 11:05 Source: patient Mode of arrival: ambulatory History of Present Illness HPI narrative: 31-year-old male without significant past medical history returns after he was treated for cystitis and returns to make sure that things are improving . He denies any previous penile redness but was experiencing dysuria which has resolved with antibiotics but he is concerned. Patient denies any difficulty with erections or urination at this time and denies any fevers or chills. Related Data Previous Rx's Medication Instructions Recorded benztropine 0.5 mg tablet 0.5 mg PO BID 30 days #60 tabs 10/19/21 clonazepam 0.5 mg tablet 0.5 mg PO BID 30 days #60 tabs 10/19/21 divalproex 500 mg tablet,extended 1,000 mg PO BID 30 days #120 tabs 10/19/21 release 24 hr quetiapine 200 mg tablet 200 mg PO BEDTIME PRN insomnia 30 10/19/21 days #30 tabs trazodone 100 mg tablet 100 mg PO BEDTIME PRN insomnia 30 10/19/21 days #30 tabs cefuroxime axetil 250 mg tablet 250 mg PO BID #10 tabs 01/01/22 Allergies Allergy/AdvReac Type Severity Reaction Status Date / Time No Known Allergies Allergy Unknown UNKNOWN Verified 11/21/21 11:30 [NO KNOWN ALLERGIES] Review of Systems Review of Systems: Pertinent positives and negatives as stated in HPI 10 point review of systems otherwise negative. [facility] Past Medical History Source: nursing notes reviewed Medical History Bipolar 1 disorder Overweight (BMI 25.0-29.9) Surgical History No significant past surgical history Family History Family History Father Mental illness in member of household Mother Mental illness in member of household Brother Mental illness in member of household Sister Mental illness in member of household Maternal Grandmother Diabetes mellitus Social History Social History Household Members: None Housing: Apartment Do you presently have visiting nurse or other home services: No Alcohol intake: never Patient Tobacco Use Status: Never used Tobacco e-Cigarette/Vaping Use: Never Used Second Hand Smoke Exposure: No Substance Use Type: Caffiene Advance Directives: No Advance Directives Information Provided: No service: No Sexual orientation: Did not discuss. Cognitive needs: No Hearing needs: No Vision needs: Yes (Pt has not seen a eye doctor since 2010-04.) Physical Exam ED Vital Signs: Vital Signs - 24 hr 01/08/22 10:55 Temperature 97.9 F Pulse Rate 80 Respiratory Rate 16 Blood Pressure 141/74 H Pulse Oximetry 98 Oxygen Delivery Method Room Air BMI result Body Mass Index 26.6 VITAL SIGNS: Reviewed. GENERAL: Well developed, well nourished, in no acute distress. HEAD: Normocephalic/atraumatic EYES: PERRLA, EOMI LUNGS: Normal breath sounds. No adventitious sounds or accessory muscle use. SpO2<98> CARDIOVASCULAR: Regular rate and rhythm without noted murmurs ABDOMEN: Soft, non-tender, non-distended with bowel sounds. : Exam was chaperoned Circumcised penis, no noted erythema/induration and patient denies any pain on his own personal palpation. Scrotum is non erythematous, no evidence of induration or swelling NEUROLOGIC: Alert and oriented x 4. Medical Decision Making Lab Data Labs: Lab Results 01/08/22 Range/Units 11:04 Urine Color YELLOW Urine Appearance HAZY Urine pH 6.0 (5.0-8.0) Ur Specific [place] 1.025 (1.005-1.025) Urine Protein NEG (NEG-TRACE) MG/DL Urine Glucose (UA) NEG (NEG) MG/DL Urine Ketones 5 (NEG) MG/DL Urine Blood 3+ H (NEG) Urine Nitrite NEG (NEG) Ur Leukocyte Esterase NEG (NEG) Discharge Plan Discharge Clinical Impression: Dysuria Patient Disposition: Home, Self-Care Instructions: Dysuria (ED) Additional Instructions: 1. There were no acute findings on your exam today and you reported that you were feeling much better. 2. I still recommend that you follow-up with Dr. Foster who is listed on your last discharge paperwork. Return to the ER for worsening symptoms. Prescriptions: No Action benztropine 0.5 mg Tablet 0.5 mg PO BID 30 Days Qty: 60 0RF clonazepam 0.5 mg tablet 0.5 mg PO BID 30 Days Qty: 60 0RF quetiapine 200 mg Tablet 200 mg PO BEDTIME PRN (Reason: insomnia) 30 Days Qty: 30 0RF trazodone 100 mg Tablet 100 mg PO BEDTIME PRN (Reason: insomnia) 30 Days Qty: 30 0RF divalproex 500 mg Tablet Extended Release 24 Hr 1,000 mg PO BID 30 Days Qty: 120 0RF cefuroxime axetil 250 mg tablet 250 mg PO BID Qty: 10 0RF Referrals: Khang Brown MD [Primary Care Provider] -
[2022-01-08 11:33] LABS: RBC Urine 50-75 /HPF (0); Squamous Epithelial Cell Urine 2+ /LPF
[2022-01-08 11:44] VITALS: BP 136/65; PULSE 74; RESP 17; O2SAT 98
== END 2022-01-08 11:59 | disposition home or self-care (01) ==
PROVIDERS: Emergency Provider Student in an Organized Health Care Education/Training Program; PCP Internal Medicine
DX: R30.0 Dysuria (principal); Z79.899 Other long term (current) drug therapy
CPT/HCPCS: 81001; 99282; 99283

== ENCOUNTER 2022-02-09 14:36 | Outpatient (REF) | payer OTHER, SELFPAY ==
--- NOTE | ~2022-02-09 | XR_ITS ---
EXAMINATION: XR LUMBOSACRAL SPINE CLINICAL INFORMATION: Lower back pain. COMPARISON: None TECHNIQUE: AP and lateral views of the lumbar spine and lateral view of the lumbosacral junction. FINDINGS: Vertebral body heights are normal. There is a slight lumbar levoscoliosis. The lumbar disc spaces are well-maintained. There is multi-level very mild lower thoracic and lumbar spondylosis. The posterior elements are intact. The paravertebral soft tissues are unremarkable. XR/XR lumbar spine 2-3V IMPRESSION: 1. No acute fracture or spondylolisthesis is seen. 2. The lumbar disc spaces are well-maintained. 3. There is multi-level very mild lower thoracic and lumbar anterior spondylosis. 4. There is a slight lumbar levoscoliosis.
== END 2022-02-09 14:37 | disposition home or self-care (01) ==
LOC: HO.XRAY 14:36
PROVIDERS: PCP Internal Medicine; Visit Provider Internal Medicine
DX: M54.50 Low back pain, unspecified (principal)
CPT/HCPCS: 72100

== ENCOUNTER 2022-06-24 04:13 | Inpatient (IN) | payer OTHER, SELFPAY ==
[2022-06-24 04:19] VITALS: BMI 26.6
[2022-06-24 04:39] VITALS: BP 117/59; PULSE 62; RESP 16; TEMP 36.3; O2SAT 98
--- NOTE | 2022-06-24 04:42 | ED.PSYCH ---
HPI - Psych General Chief Complaint: Psychiatric Symptoms Stated Complaint: psych eval Time Seen by Provider: 06/24/22 04:41 Source: patient Mode of arrival: EMS Limitations: no limitations History of Present Illness HPI Narrative: Patient With history of schizophrenia says that he has not taken his medication for last 2 days now if feels suicidal/homicidal sometimes with plan, intent, target nonspecific at this time. Patient watching TV at this time relaxed Related Data Home Medications Medication Instructions Recorded Confirmed clonazepam 0.5 mg tablet 1 tab PO DAILY 06/24/22 06/24/22 divalproex 500 mg tablet,extended 1 tab PO DAILY 06/24/22 06/24/22 release 24 hr Allergies Allergy/AdvReac Type Severity Reaction Status Date / Time No Known Allergies Allergy Unknown UNKNOWN Verified 02/09/22 14:18 [NO KNOWN ALLERGIES] Review of Systems Review of Systems: Yes all other systems are reviewed and are negative [facility] Past Medical History Medical History Bipolar 1 disorder Overweight (BMI 25.0-29.9) Surgical History No significant past surgical history Family History Family History Father Mental illness in member of household Mother Mental illness in member of household Brother Mental illness in member of household Sister Mental illness in member of household Maternal Grandmother Diabetes mellitus Social History Social History Household Members: None Housing: Apartment Do you presently have visiting nurse or other home services: No Alcohol intake: never Patient Tobacco Use Status: Never used Tobacco e-Cigarette/Vaping Use: Never Used Second Hand Smoke Exposure: No Substance Use Type: Caffiene Advance Directives: No Advance Directives Information Provided: No service: No Sexual orientation: Did not discuss. Cognitive needs: No Hearing needs: No Vision needs: Yes (Pt has not seen a eye doctor since 2010-04.) Physical Exam Vital Signs: Vital Signs: Last Vital Signs Temp 97.4 F 06/24/22 04:39 Pulse 62 06/24/22 04:39 Resp 16 06/24/22 04:39 BP 117/59 L 06/24/22 04:39 Pulse Ox 98 06/24/22 04:39 O2 Del Method 06/24/22 04:39 BMI result Body Mass Index 26.6 Appearance: Alert. Oriented X3. No acute distress. Eyes: PERRLA, No Nystagmus ENT: Pharynx normal. Oral Mucosa moist Neck: Normal inspection. Neck supple. CVS: Normal heart rate and rhythm. Pulses normal. Respiratory: No respiratory distress. Equal air entry bilateral, no wheezing/rales/rhonchi Abdomen: Soft and nontender. Bowel sounds are present, no mass palpable, no CVA tenderness Skin: Skin warm and dry. Normal skin color. Normal skin turgor. Extremities: No lower extremity edema. No calf tenderness psych: Mood stable denied any specific SI/HI says that when he thinks he feels that way, no current hallucinations/delusions Neuro: Oriented X 3. No motor deficit. No sensory deficit.No cerebellar signs , cranial nerves II-XII intact Medical Decision Making Medical Decision Making [facility] Narrative: Patient is schizophrenic off his medication with SI/HI will get crisis evaluation Lab Data [facility] Lab Attestation statement: I reviewed the patient's lab results. 06/24/22 05:11 06/24/22 05:10 Labs: Lab Results 06/24/22 06/24/22 06/24/22 Range/Units 04:46 04:47 05:10 WBC (4.8-10.8) X10*3/uL RBC (4.60-5.80) X10*6/uL Hgb (14.0-18.0) g/dl Hct (42.0-52.0) % MCV (80.0-98.0) fL MCH (27.0-33.0) pg MCHC (31.0-36.0) g/dl RDW (11.0-16.0) % Plt Count (160-400) X10*3/uL MPV (9.4-12.4) fL Immature Gran % (Auto) (0.0-0.4) % Neut % (Auto) (45-73) % Lymph % (Auto) (20-40) % [place] % (Auto) (2-11) % Eos % (Auto) (0-4) % Baso % (Auto) (0-2) % Lymph # (Auto) (1.2-4.9) X10*3/uL [place] # (Auto) (0.1-1.2) X10*3/uL Eos # (Auto) (0.0-0.4) X10*3/uL Baso # (Auto) (0.0-0.2) X10*3/uL Abs Immat Gran (auto) (0.00-0.03) X10*3/uL Absolute Neuts (auto) (2.0-8.3) x10*3/uL Absolute Nucleated RBC (0.0-0.012) X10*3/uL Nucleated RBC % (auto) (0.0-0.2) /100WBC Sodium 144 (135-145) mmol/L Potassium 4.2 (3.3-5.1) mmol/L Chloride 108 (96-108) mmol/L Carbon Dioxide 28 (22-29) mmol/L Anion Gap 12 (12-20) BUN 18 H (9-16) mg/dL Creatinine 0.98 (0.5-1.4) mg/dL Estim Creat Clear Calc 102.7 Estimated GFR > 60 Random Glucose 98 (60-115) mg/dL Calcium 9.2 (8.4-10.2) mg/dL Total Bilirubin 0.3 (0.0-1.0) mg/dL AST 94 H (5-37) U/L ALT 57 H (0-40) U/L Alkaline Phosphatase 55 (39-117) U/L Total Protein 7.0 (6.5-8.0) g/dL Albumin 4.3 (3.5-5.0) g/dL Urine Opiates Screen Not Detected (Not Detect) Urine Fentanyl Screen Not Detected (Not Detect) Ur Barbiturates Screen Not Detected (Not Detect) Valproic Acid (50.0-100.0) mcg/mL Ur Phencyclidine Scrn Not Detected (Not Detect) Ur Amphetamines Screen Not Detected (Not Detect) U Benzodiazepines Scrn Not Detected (Not Detect) Urine Cocaine Screen Not Detected (Not Detect) U Marijuana (THC) Screen Not Detected (Not Detect) Ethyl Alcohol mg/dL COVID-19 (RADHIKA) Negative (Negative) COVID-19 Clin Com See Note 06/24/22 06/24/22 06/24/22 Range/Units 05:10 05:11 05:11 WBC 9.3 (4.8-10.8) X10*3/uL RBC 4.63 (4.60-5.80) X10*6/uL Hgb 14.5 (14.0-18.0) g/dl Hct 44.4 (42.0-52.0) % MCV 95.9 (80.0-98.0) fL MCH 31.3 (27.0-33.0) pg MCHC 32.7 (31.0-36.0) g/dl RDW 12.6 (11.0-16.0) % Plt Count 208 (160-400) X10*3/uL MPV 10.1 (9.4-12.4) fL Immature Gran % (Auto) 0.2 (0.0-0.4) % Neut % (Auto) 71.9 (45-73) % Lymph % (Auto) 19.7 L (20-40) % [place] % (Auto) 6.9 (2-11) % Eos % (Auto) 1.1 (0-4) % Baso % (Auto) 0.2 (0-2) % Lymph # (Auto) 1.8 (1.2-4.9) X10*3/uL [place] # (Auto) 0.6 (0.1-1.2) X10*3/uL Eos # (Auto) 0.1 (0.0-0.4) X10*3/uL Baso # (Auto) 0.0 (0.0-0.2) X10*3/uL Abs Immat Gran (auto) 0.02 (0.00-0.03) X10*3/uL Absolute Neuts (auto) 6.7 (2.0-8.3) x10*3/uL Absolute Nucleated RBC 0.000 (0.0-0.012) X10*3/uL Nucleated RBC % (auto) 0.0 (0.0-0.2) /100WBC Sodium (135-145) mmol/L Potassium (3.3-5.1) mmol/L Chloride (96-108) mmol/L Carbon Dioxide (22-29) mmol/L Anion Gap (12-20) BUN (9-16) mg/dL Creatinine (0.5-1.4) mg/dL Estim Creat Clear Calc Estimated GFR Random Glucose (60-115) mg/dL Calcium (8.4-10.2) mg/dL Total Bilirubin (0.0-1.0) mg/dL AST (5-37) U/L ALT (0-40) U/L Alkaline Phosphatase (39-117) U/L Total Protein (6.5-8.0) g/dL Albumin (3.5-5.0) g/dL Urine Opiates Screen (Not Detect) Urine Fentanyl Screen (Not Detect) Ur Barbiturates Screen (Not Detect) Valproic Acid < 12.5 L (50.0-100.0) mcg/mL Ur Phencyclidine Scrn (Not Detect) Ur Amphetamines Screen (Not Detect) U Benzodiazepines Scrn (Not Detect) Urine Cocaine Screen (Not Detect) U Marijuana (THC) Screen (Not Detect) Ethyl Alcohol < 10 mg/dL COVID-19 (RADHIKA) (Negative) COVID-19 Clin Com Discharge Plan Discharge Clinical Impression: Schizoaffective disorder, bipolar type, Suicidal ideation Patient Disposition: Still a Patient Prescriptions: No Action clonazepam 0.5 mg tablet 1 tab PO DAILY divalproex 500 mg tablet extended release 24 hr 1 tab PO DAILY Interventions: [place]-Suicide Risk Severity Scale Last Done: 06/24/22 04:35
[2022-06-24 05:16] LABS: MANUAL DIFF FLAG NO
[2022-06-24 05:17] LABS: Basophils Percent Auto 0.2 % (0-2); Eosinophils Absolute Auto 0.1 X10*3/uL (0.0-0.4); Eosinophils Percent Auto 1.1 % (0-4); Hematocrit 44.4 % (42.0-52.0); Hemoglobin 14.5 g/dl (14.0-18.0); Imm Gran Abs Auto 0.02 X10*3/uL (0.00-0.03); Imm Gran Pct Auto 0.2 % (0.0-0.4); Lymphocytes Absolute Auto 1.8 X10*3/uL (1.2-4.9); Lymphocytes Percent Auto 19.7 % (20-40); Mean Corpuscular HGB Conc 32.7 g/dl (31.0-36.0); Mean Corpuscular Hemoglobin 31.3 pg (27.0-33.0); Mean Corpuscular Volume 95.9 fL (80.0-98.0); Mean Platelet Volume 10.1 fL (9.4-12.4); Monocytes Absolute Auto 0.6 X10*3/uL (0.1-1.2); Monocytes Percent Auto 6.9 % (2-11); Neutrophils Absolute Auto 6.7 x10*3/uL (2.0-8.3); Neutrophils Percent Auto 71.9 % (45-73); Platelet Count 208 X10*3/uL (160-400); Red Blood Count 4.63 X10*6/uL (4.60-5.80); Red Cell Distribution Width 12.6 % (11.0-16.0); White Blood Count 9.3 X10*3/uL (4.8-10.8)
[2022-06-24 05:28] LABS: Amphetamine Screen Urine Not Detected (Not Detect); Barbiturates, Urine Not Detected (Not Detect); Benzodiazepines Screen Urine Not Detected (Not Detect); Cannabinoid Screen Urine Not Detected (Not Detect); Cocaine Screen Urine Not Detected (Not Detect); Fentanyl, urine Not Detected (Not Detect); Opiate Screen Urine Not Detected (Not Detect); Phencyclidine Screen Urine Not Detected (Not Detect)
[2022-06-24 05:29] LABS: COVID-19 Test Negative (Negative); IDNOW Serial# 16C4AD1C
[2022-06-24 05:30] LABS: Ethanol < 10 mg/dL
[2022-06-24 05:30] LABS: Alanine Aminotransferase 57 U/L (0-40); Albumin Level 4.3 g/dL (3.5-5.0); Alkaline Phosphatase 55 U/L (39-117); Anion Gap 12 (12-20); Aspartate Amino Transferase 94 U/L (5-37); Bilirubin Total 0.3 mg/dL (0.0-1.0); Blood Urea Nitrogen 18 mg/dL (9-16); Calcium 9.2 mg/dL (8.4-10.2); Carbon Dioxide 28 mmol/L (22-29); Chloride 108 mmol/L (96-108); Creatinine Clr Calc Pharmacy 102.7; Estimated Glomerular Filt Rate > 60; Glucose Random 98 mg/dL (60-115); Potassium 4.2 mmol/L (3.3-5.1); Sodium 144 mmol/L (135-145); Valproate < 12.5 mcg/mL (50.0-100.0)
--- NOTE | 2022-06-24 07:13 | PC.NURSE ---
Patient awaiting care team assessment, behavior non concerning, vss, med rec completed/pending provider's approval, will continue to monitor.
--- NOTE | 2022-06-24 07:22 | PC.NURSE ---
PT IN COMMON AREA HAVING BKFST. CALM AND COOPERATIVE AT THIS TIME. AWAITING CARE TEAM
[2022-06-24 08:37] VITALS: BP 110/57; PULSE 77; TEMP 36.3; O2SAT 98
--- NOTE | 2022-06-24 10:51 | PC.NURSE ---
PT SPEAKING TO CARE TEAM AT THIS TIME
[2022-06-24 20:49] VITALS: BP 149/46; PULSE 73; RESP 20; TEMP 36.6; O2SAT 96
[2022-06-25 03:23] VITALS: BP 118/76; PULSE 78; RESP 14; TEMP 36.7; O2SAT 94
--- NOTE | 2022-06-25 06:30 | PC.NURSE ---
Patient slept only one and half hours of sleep, no distress observed/reported, wandering in POD listening to music, talking to staff member, behavior non concerning, hyperverbal and intrusive at time, med rec completed/pending provider's approval, disposition per care team is section 12 inpatient bed search, will continue to monitor.
--- NOTE | 2022-06-25 08:10 | PC.NURSE ---
Pt requested headphone, and gave them back after a few minutes, requesting to take a shower, loudly singing in shower to himself, hyperverbal, appears to be manic.
[2022-06-25 08:34] VITALS: BP 118/67; PULSE 80; RESP 16; TEMP 36.5; O2SAT 98
[2022-06-25] MEDS: clonazePAM 0.5 MG TABLET PO (09:00)
[2022-06-25] MEDS: Divalproex Sodium ER 500 MG TAB.ER.24H PO (09:04)
--- NOTE | 2022-06-25 12:58 | PC.NURSE ---
Pt seen for individual OT intervention on this date. Pt alert, oriented to self and place, somewhat disheveled wearing hospital gown . Pt paced the unit and conversed with this development writer, stated sometimes all I need is to talk with someone . This development writer used Therapeutic Use of Self to engage with pt, pt appeared calmer at end of intervention.
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
--- NOTE | 2022-06-25 15:18 | MHC.CARE ---
Care Team exhausted bedsearch.
--- NOTE | 2022-06-26 | ECG_ITS ---
Test Reason : RULE OUT QT Blood Pressure : / mmHG Vent. Rate : 083 BPM Atrial Rate : 083 BPM P-R Int : 120 ms QRS Dur : 084 ms QT Int : 332 ms P-R-T Axes : 065 057 033 degrees QTc Int : 390 ms Normal sinus rhythm with sinus arrhythmia Normal ECG When compared with ECG of 09-OCT-2021 11:51, Nonspecific T wave abnormality has replaced inverted T waves in Inferior leads Referred By: Natalee Trejo Electronically Signed By:NATHAN CROCKETT MD
[2022-06-26 05:10] VITALS: BP 124/79; PULSE 76; RESP 18; TEMP 36.6; O2SAT 97
--- NOTE | 2022-06-26 06:20 | PC.NURSE ---
Patient slept total 4 hours, no distress observed/reported, wandering in POD/exercising while awake, behavior hyper-verbal and non concerning, medication compliant, disposition per care team is section 12 inpatient bed search, will continue to monitor.
--- NOTE | 2022-06-26 07:03 | PC.NURSE ---
patient appears to remain asleep at present respirations are even and unlabored patient appears in no distress
[2022-06-26] MEDS: clonazePAM 0.5 MG TABLET PO (08:52)
[2022-06-26] MEDS: Divalproex Sodium ER 500 MG TAB.ER.24H PO (08:52)
[2022-06-26 09:41] VITALS: BP 104/56; PULSE 70; RESP 16; TEMP 37; O2SAT 98
--- NOTE | 2022-06-26 13:32 | PC.NURSE ---
RN-RN report called into [facility].
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
[2022-06-26 19:15] VITALS: BP 139/60; PULSE 95; RESP 18; TEMP 36.4; O2SAT 96
--- NOTE | 2022-06-27 06:03 | PC.NURSE ---
0550: pt became agitated, slamming room door, banging pt phone receivers, throwing headset into nurses station. It is unclear why this behavior was occurring. Security called for safety and support.Pt was quiet while security was on unit but acted out as soon as they left. Demanding to be let into social workers office. When told by staff that he would not be allowed to do so patient threatened to tear things down . Security called back to unit. Dr Nichols called for medication. 0620: supervisor dog license officer is speaking with patient. Patient appears to be calming after venting to security. Pt responding well to male senior network security architect than to unit staff. In behavioral control at this time.
[2022-06-27] MEDS: Divalproex Sodium ER 500 MG TAB.ER.24H PO ×3 (08:11→21:05)
[2022-06-27] MEDS: clonazePAM 0.5 MG TABLET PO (08:11)
[2022-06-27 08:14] VITALS: BP 126/87; PULSE 90; RESP 18; TEMP 36.4; O2SAT 97
--- NOTE | 2022-06-27 09:00 | ECG_ITS ---
Test Reason : qtc Blood Pressure : / mmHG Vent. Rate : 100 BPM Atrial Rate : 100 BPM P-R Int : 128 ms QRS Dur : 080 ms QT Int : 316 ms P-R-T Axes : 066 074 031 degrees QTc Int : 407 ms Normal sinus rhythm Normal ECG When compared with ECG of 26-JUN-2022 14:04, No significant change was found Referred By: Annie Leung Electronically Signed By:NATHAN CROCKETT MD
[2022-06-27 09:24] LABS: Estimated Average Glucose 94 mg/dL; Hemoglobin A1c % 4.9 %
[2022-06-27 10:01] LABS: Cholesterol 148 mg/dL; HDL Cholesterol 48 mg/dL; LDL Cholesterol Calculated 88 mg/dl; Magnesium 1.9 mg/dL (1.6-2.6); Triglycerides 60 mg/dL
[2022-06-27 10:05] LABS: Folate 14.3 ng/mL (> or = 4.0); Vitamin B12 482 pg/mL (200-900)
[2022-06-27 10:15] LABS: Free T4 (Free Thyroxine) 1.11 ng/dL (0.71-1.85); Thyroid Stimulating Hormone 1.89 uIU/mL (0.32-4.0)
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
[2022-06-27 18:00] VITALS: BP 135/80; PULSE 82; TEMP 36.8; O2SAT 99
[2022-06-27] MEDS: QUEtiapine Fumarate 100 MG TABLET PO (21:05)
[2022-06-27] MEDS: traZODone HCL 100 MG TABLET PO (21:06)
[2022-06-28 07:00] VITALS: BMI 24.1
[2022-06-28] MEDS: Divalproex Sodium ER 500 MG TAB.ER.24H PO ×2 (08:16→12:04)
[2022-06-28] MEDS: clonazePAM 0.5 MG TABLET PO (08:16)
[2022-06-28 08:44] VITALS: BP 137/85; PULSE 110; RESP 18; TEMP 36.6; O2SAT 98
--- NOTE | 2022-06-28 10:21 | HO.PSYCHPN ---
Subjective Subjective Date of Service: 06/28/22 Reason For Visit: Schizoaffective disorder, bipolar type Interim History: Met with patient; Discussed case with nursing and social work; of note nursing staff have known patient for while says that he is often discharged with current presentation Patient remains hyperactive, not sleeping. Immediately starts talking about hoahaoism things and that he is here form his father got to have do good to people on the unit. Manager In Training addressed patient not sleeping and he says he just wants to keep doing good and refers to the Bible; patient however responded well to the idea that he even god rested on the 7th day and that patient too needs rest. He agrees to medication adjustments. Mental Status Exam Mental Status Exam Narrative: Pt is alert and oriented; behavior is hyperactive, can be dysregulated, but mostly cooperative and friendly; patient is not in distress; dressed in casual attire tank top; adequate hygiene; mood is described as good and affect expansive; eye contact appropriate; Speech is pressured, hyperverbal, but normal volume. Psychomotor agitation present; thought process can be goal oriented but becomes tangential; Thought content is on grandiose delusional ideas; denies any SI/HI. not sure if AVH. Patients insight and judgment are impaired. Diagnostics Vital Signs (24Hr): Vital Signs - 24 hr 06/27/22 18:00 06/28/22 08:44 Temperature 98.3 F 97.8 F Pulse Rate 82 110 H Respiratory Rate 18 Blood Pressure 135/80 137/85 Pulse Oximetry 99 98 Oxygen Delivery Method Room Air Room Air BMI result Body Mass Index 26.6 Labs 06/24/22 05:11 06/24/22 05:10 Labs: Laboratory Results - last 48 hr 06/27/22 06/27/22 06/27/22 08:19 08:19 08:19 Estimat Average Glucose 94 Hemoglobin A1c % 4.9 Magnesium 1.9 Triglycerides 60 Cholesterol 148 LDL Cholesterol, Calc 88 HDL Cholesterol 48 Vitamin B12 482 Folate 14.3 TSH 1.89 Free T4 1.11 Medications Medications Current Medications Acetaminophen (Acetaminophen 325 Mg Tablet) 650 mg PO Q6H PRN PRN Reason: Headache/Pain Mild Scale (1-3) Al Hydroxide/Mg Hydroxide (Magnesium Hydrox/Alum Hydrox 30 Ml Oral.Susp) 30 ml PO Q6H PRN PRN Reason: Heartburn/Nausea Clonazepam (Clonazepam 1 Mg Tablet) 1 mg PO BID [facility] Divalproex Sodium (Divalproex Sodium Er 500 Mg Tab.Er.24h) 1,000 mg PO BEDTIME [facility] Divalproex Sodium (Divalproex Sodium Er 500 Mg Tab.Er.24h) 1,000 mg PO BID [facility] Magnesium Hydroxide (Milk Of Magnesia 30 Ml Oral.Susp) 30 ml PO DAILY PRN PRN Reason: Constipation Olanzapine (Olanzapine 10 Mg Tablet) 10 mg PO BID [facility] Quetiapine Fumarate (Quetiapine Fumarate 200 Mg Tablet) 200 mg PO BEDTIME [facility] Trazodone HCl (Trazodone Hcl 100 Mg Tablet) 100 mg PO BEDTIME PRN PRN Reason: insomnia Last Admin: 06/27/22 21:06 Dose: 100 mg Allergies Allergies Allergy/AdvReac Type Severity Reaction Status Date / Time haloperidol [From Haldol] AdvReac Intermediate Dystonia Unverified 06/25/22 13:23 Assessment & Plan Assessment & Plan (1) Schizoaffective disorder, bipolar type: Status: Acute Code(s): F25.0 - Schizoaffective disorder, bipolar type Plan Patient is a 32-year-old male with history of skin schizoaffective, bipolar type who presents with manic behaviors and the face of having medications lowered in the community and being off them for 2 days.? Earlier this morning on 3rd shift patient was dysregulated, kicking and punching the wall/doors; redirected and calmed down. Later, Patient is pleasant and mostly cooperative on approach; though friendly, patient remains Hyperactive, with pressured speech and grandiose ideas. -for some reason patient's Depakote was lowered to 500 mg daily; likely need to increase -patient reports dystonic reaction from Haldol and demonstrates by putting his tongue up 06/28 not sleeping, pleasantly manic; will titrate medications Plan: CV Q 15 minutes checks Increase Depakote ER to 1000 mg b.i.d. Start Zyprexa 10 mg b.i.d. for continued manic behavior; (used to be on Haldol 10 mg b.i.d. but reports dystonic reaction so will try Zyprexa) Increase clonazepam to 1 mg b.i.d. Seroquel 200 mg q.h.s. (home dose) Patient educated on: diagnosis and medication risk/benefits Informed Consent: understands, does not understand and further education needed Reason for contiued inpatient stay Substantial Risk for: inability to function Time Spent With Patient Time: Total time managing care of this patient today ____ minutes.
[2022-06-28] MEDS: OLANZapine 10 MG TABLET PO ×2 (11:23→22:42)
[2022-06-28] MEDS: clonazePAM 1 MG TABLET PO ×2 (12:04→22:42)
[2022-06-28 17:12] VITALS: BP 129/60; PULSE 103; RESP 18; TEMP 36.1; O2SAT 96
[2022-06-28] MEDS: Divalproex Sodium ER 500 MG TAB.ER.24H 1000 MG PO (22:41)
[2022-06-28] MEDS: traZODone HCL 100 MG TABLET PO (22:42)
[2022-06-28] MEDS: QUEtiapine Fumarate 200 MG TABLET PO (22:42)
[2022-06-29] MEDS: OLANZapine 10 MG TABLET PO ×2 (07:59→23:26)
[2022-06-29] MEDS: clonazePAM 1 MG TABLET PO ×2 (07:59→23:30)
[2022-06-29] MEDS: Divalproex Sodium ER 500 MG TAB.ER.24H 1000 MG PO ×2 (07:59→23:26)
[2022-06-29 08:01] VITALS: BP 138/73; PULSE 112; RESP 16; TEMP 36.5; O2SAT 100
--- NOTE | 2022-06-29 09:07 | PC.NURSE ---
Pt signed a 3-day notice up on July 04. MD PHILL, and SW aware.
--- NOTE | 2022-06-29 11:30 | P.PNPSI_ITS ---
Subjective Subjective Date of Service: 06/29/22 Reason For Visit: Schizoaffective disorder, bipolar type Subjective Notes: Conditional Voluntary Interim History: Pt very somnolent, falling asleep in chair and drooling but declined to go to his room. He reports doing well. He denies SI/HI. He finally agreed to go to his room and it was clear he was very somnolent. He has not slept for days and fighting it not to fall asleep. Per nursing, no behavioral concerns. Medication Compliance: Yes Side effects from medications: No Attending Groups: Intermittent Review of Systems Review of Systems Yes all other systems are reviewed and are negative Mental Status Exam Mental Status Exam Narrative: Pt is very somnolent, briefly opens eyes, reports feeling well. behavior is somnolent, cooperative and friendly; patient is not in distress; dressed in casual attire tank top; adequate hygiene; mood is described as good and affect expansive; eye contact appropriate; Speech is minimally spontaneous due to somnolence. Psychomotor: retardation; thought process: single words at this point due to somnolence; Thought content limited due to somnolence; denies any SI/HI. not sure if AVH. Patients insight and judgment are impaired. Diagnostics Vital Signs (24Hr): Vital Signs - 24 hr 06/28/22 17:12 06/29/22 08:01 Temperature 97 F 97.7 F Pulse Rate 103 H 112 H Respiratory Rate 18 16 Blood Pressure 129/60 138/73 Pulse Oximetry 96 100 Oxygen Delivery Method Room Air Room Air BMI result Body Mass Index 24.1 Labs 06/24/22 05:11 06/24/22 05:10 Medications Medications Current Medications Acetaminophen (Acetaminophen 325 Mg Tablet) 650 mg PO Q6H PRN PRN Reason: Headache/Pain Mild Scale (1-3) Al Hydroxide/Mg Hydroxide (Magnesium Hydrox/Alum Hydrox 30 Ml Oral.Susp) 30 ml PO Q6H PRN PRN Reason: Heartburn/Nausea Clonazepam (Clonazepam 1 Mg Tablet) 1 mg PO BID [facility] Last Admin: 06/29/22 07:59 Dose: 1 mg Divalproex Sodium (Divalproex Sodium Er 500 Mg Tab.Er.24h) 1,000 mg PO BID [facility] Last Admin: 06/29/22 07:59 Dose: 1,000 mg Magnesium Hydroxide (Milk Of Magnesia 30 Ml Oral.Susp) 30 ml PO DAILY PRN PRN Reason: Constipation Olanzapine (Olanzapine 10 Mg Tablet) 10 mg PO BID [facility] Last Admin: 06/29/22 07:59 Dose: 10 mg Quetiapine Fumarate (Quetiapine Fumarate 200 Mg Tablet) 200 mg PO BEDTIME [facility] Last Admin: 06/28/22 22:42 Dose: 200 mg Trazodone HCl (Trazodone Hcl 100 Mg Tablet) 100 mg PO BEDTIME PRN PRN Reason: insomnia Last Admin: 06/28/22 22:42 Dose: 100 mg Allergies Allergies Allergy/AdvReac Type Severity Reaction Status Date / Time haloperidol [From Haldol] AdvReac Intermediate Dystonia Unverified 06/25/22 13:23 Assessment & Plan Assessment & Plan (1) Schizoaffective disorder, bipolar type: Status: Acute Code(s): F25.0 - Schizoaffective disorder, bipolar type Plan Patient is a 32-year-old male with history of skin schizoaffective, bipolar type who presents with manic behaviors and the face of having medications lowered in the community and being off them for 2 days.? Earlier this morning on 3rd shift patient was dysregulated, kicking and punching the wall/doors; redirected and calmed down. Later, Patient is pleasant and mostly cooperative on approach; though friendly, patient remains Hyperactive, with pressured speech and grandiose ideas. -for some reason patient's Depakote was lowered to 500 mg daily; likely need to increase -patient reports dystonic reaction from Haldol and demonstrates by putting his tongue up 06/28 not sleeping, pleasantly manic; will titrate medications Plan: CV Q 15 minutes checks Increase Depakote ER to 1000 mg b.i.d. Start Zyprexa 10 mg b.i.d. for continued manic behavior; (used to be on Haldol 10 mg b.i.d. but reports dystonic reaction so will try Zyprexa) Increase clonazepam to 1 mg b.i.d. Seroquel 200 mg q.h.s. (home dose) 06/29- continue tx. Patient educated on: diagnosis Informed Consent: understands Reason for contiued inpatient stay Substantial Risk for: inability to function Time Spent With Patient Time: Total time managing care of this patient today _30___ minutes.
[2022-06-29 20:23] VITALS: BP 134/70; PULSE 100; TEMP 37.2
[2022-06-29] MEDS: QUEtiapine Fumarate 200 MG TABLET PO (23:27)
[2022-06-30] MEDS: Divalproex Sodium ER 500 MG TAB.ER.24H 1000 MG PO ×2 (07:59→22:56)
[2022-06-30] MEDS: clonazePAM 1 MG TABLET PO ×2 (07:59→22:56)
[2022-06-30] MEDS: OLANZapine 10 MG TABLET PO (07:59)
[2022-06-30 08:13] VITALS: BP 118/73; PULSE 108; RESP 18; TEMP 35.9; O2SAT 97
[2022-06-30 18:00] VITALS: BP 145/67; PULSE 106; RESP 18; TEMP 36.7; O2SAT 98
--- NOTE | 2022-06-30 20:13 | P.PNPSI_ITS ---
Subjective Subjective Date of Service: 06/30/22 Reason For Visit: Schizoaffective disorder, bipolar type Interim History: Case review with nursing. Pt reportedly improving with medication changes with intermittent irritability and continued struggles with his sleep. Pt visable in milieu. Reports he is feeling improved. Well engaged. Spends a significant amount of time exercising Medication Compliance: Yes Side effects from medications: No Attending Groups: Intermittent Review of Systems Acute medical concerns: No Medical Review of Systems: unchanged Mental Status Exam Mental Status Exam Patient Appearance: Appropriate Patient Orientation: Person, Place, Time and Situation Level of Consciousness: Alert Patient Behavior: Talkative Mood Description: Cheerful Affect Description: Constricted Patient Cognition Impaired: No Ability to Follow Directions: Good Speech Pattern: Spontaneous Speech Memory Description: Episodic Impaired Delusions: Present Thought Process: Distracted Thought Content: positive for [place] and positive for Tangential Judgement: Fair Diagnostics Vital Signs (24Hr): Vital Signs - 24 hr 06/29/22 20:23 06/30/22 08:13 06/30/22 18:00 Temperature 98.9 F 96.7 F L 98.0 F Pulse Rate 100 108 H 106 H Respiratory Rate 18 18 Blood Pressure 134/70 118/73 145/67 H Pulse Oximetry 97 98 Oxygen Delivery Method Room Air Room Air BMI result Body Mass Index 24.1 Labs 06/24/22 05:11 06/24/22 05:10 Medications Medications Current Medications Acetaminophen (Acetaminophen 325 Mg Tablet) 650 mg PO Q6H PRN PRN Reason: Headache/Pain Mild Scale (1-3) Al Hydroxide/Mg Hydroxide (Magnesium Hydrox/Alum Hydrox 30 Ml Oral.Susp) 30 ml PO Q6H PRN PRN Reason: Heartburn/Nausea Clonazepam (Clonazepam 1 Mg Tablet) 1 mg PO BID [facility] Last Admin: 06/30/22 07:59 Dose: 1 mg Divalproex Sodium (Divalproex Sodium Er 500 Mg Tab.Er.24h) 1,000 mg PO BID [facility] Last Admin: 06/30/22 07:59 Dose: 1,000 mg Magnesium Hydroxide (Milk Of Magnesia 30 Ml Oral.Susp) 30 ml PO DAILY PRN PRN Reason: Constipation Olanzapine (Olanzapine 10 Mg Tablet) 10 mg PO BID [facility] Last Admin: 06/30/22 07:59 Dose: 10 mg Quetiapine Fumarate (Quetiapine Fumarate 200 Mg Tablet) 200 mg PO BEDTIME [facility] Last Admin: 06/29/22 23:27 Dose: 200 mg Trazodone HCl (Trazodone Hcl 100 Mg Tablet) 100 mg PO BEDTIME PRN PRN Reason: insomnia Last Admin: 06/28/22 22:42 Dose: 100 mg Allergies Allergies Allergy/AdvReac Type Severity Reaction Status Date / Time haloperidol [From Haldol] AdvReac Intermediate Dystonia Unverified 06/25/22 13:23 Assessment & Plan Assessment & Plan (1) Schizoaffective disorder, bipolar type: Status: Acute Code(s): F25.0 - Schizoaffective disorder, bipolar type Plan Patient is a 32-year-old male with history of skin schizoaffective, bipolar type who presents with manic behaviors and the face of having medications lowered in the community and being off them for 2 days.? Earlier this morning on 3rd shift patient was dysregulated, kicking and punching the wall/doors; redirected and calmed down. Later, Patient is pleasant and mostly cooperative on approach; th ough friendly, patient remains Hyperactive, with pressured speech and grandiose ideas. -for some reason patient's Depakote was lowered to 500 mg daily; likely need to increase -patient reports dystonic reaction from Haldol and demonstrates by putting his tongue up 06/28 not sleeping, pleasantly manic; will titrate medications Plan: CV Q 15 minutes checks Increase Depakote ER to 1000 mg b.i.d. Start Zyprexa 10 mg b.i.d. for continued manic behavior; (used to be on Haldol 10 mg b.i.d. but reports dystonic reaction so will try Zyprexa) Increase clonazepam to 1 mg b.i.d. Seroquel 200 mg q.h.s. (home dose) 06/29- continue tx. 06/30/22- Continue current plan. Labs 07/02/22. Informed Consent: further education needed Reason for contiued inpatient stay Substantial Risk for: rapid decompensation Time Spent With Patient Time: Total time managing care of this patient today ____ minutes.
[2022-07-01] MEDS: Divalproex Sodium ER 500 MG TAB.ER.24H 1000 MG PO ×2 (08:32→21:33)
[2022-07-01] MEDS: OLANZapine 10 MG TABLET PO ×2 (08:32→21:33)
[2022-07-01] MEDS: clonazePAM 1 MG TABLET PO ×2 (08:32→21:33)
[2022-07-01 09:37] VITALS: BP 134/81; PULSE 104; RESP 16; TEMP 36.8; O2SAT 96
[2022-07-01 17:40] VITALS: BP 120/74; PULSE 113; TEMP 36.3
--- NOTE | 2022-07-01 19:20 | P.PNPSI_ITS ---
Subjective Subjective Date of Service: 07/01/22 Reason For Visit: Schizoaffective disorder, bipolar type Interim History: Care discussed with team. Pt reports that he could use some extra assist with his sleep. Labs for 07/02-Valproate, CBCD, CHEMP Pt telling team and tw today that he believes he was sent to the hospital to make others happy Medication Compliance: Yes Side effects from medications: No Attending Groups: Intermittent Review of Systems Acute medical concerns: No Medical Review of Systems: unchanged Mental Status Exam Mental Status Exam Patient Appearance: Appropriate Patient Orientation: Person, Place, Time and Situation Level of Consciousness: Alert Patient Behavior: Talkative Mood Description: Cheerful Affect Description: Constricted Patient Cognition Impaired: No Ability to Follow Directions: Good Speech Pattern: Spontaneous Speech Memory Description: Episodic Impaired Delusions: Present Thought Process: Distracted Thought Content: positive for [place] and positive for Tangential Judgement: Fair Diagnostics Vital Signs (24Hr): Vital Signs - 24 hr 07/01/22 09:37 Temperature 98.2 F Pulse Rate 104 H Respiratory Rate 16 Blood Pressure 134/81 Pulse Oximetry 96 Oxygen Delivery Method Room Air BMI result Body Mass Index 24.1 Labs 06/24/22 05:11 06/24/22 05:10 Medications Medications Current Medications Acetaminophen (Acetaminophen 325 Mg Tablet) 650 mg PO Q6H PRN PRN Reason: Headache/Pain Mild Scale (1-3) Al Hydroxide/Mg Hydroxide (Magnesium Hydrox/Alum Hydrox 30 Ml Oral.Susp) 30 ml PO Q6H PRN PRN Reason: Heartburn/Nausea Clonazepam (Clonazepam 1 Mg Tablet) 1 mg PO BID [facility] Last Admin: 07/01/22 08:32 Dose: 1 mg Divalproex Sodium (Divalproex Sodium Er 500 Mg Tab.Er.24h) 1,000 mg PO BID [facility] Last Admin: 07/01/22 08:32 Dose: 1,000 mg Magnesium Hydroxide (Milk Of Magnesia 30 Ml Oral.Susp) 30 ml PO DAILY PRN PRN Reason: Constipation Olanzapine (Olanzapine 10 Mg Tablet) 10 mg PO BID [facility] Last Admin: 07/01/22 08:32 Dose: 10 mg Quetiapine Fumarate (Quetiapine Fumarate 300 Mg Tablet) 300 mg PO BEDTIME [facility] Trazodone HCl (Trazodone Hcl 100 Mg Tablet) 100 mg PO BEDTIME PRN PRN Reason: insomnia Last Admin: 06/28/22 22:42 Dose: 100 mg Allergies Allergies Allergy/AdvReac Type Severity Reaction Status Date / Time haloperidol [From Haldol] AdvReac Intermediate Dystonia Unverified 06/25/22 13:23 Assessment & Plan Assessment & Plan (1) Schizoaffective disorder, bipolar type: Status: Acute Code(s): F25.0 - Schizoaffective disorder, bipolar type Plan Patient is a 32-year-old male with history of skin schizoaffective, bipolar type who presents with manic behaviors and the face of having medications lowered in the community and being off them for 2 days.? Earlier this morning on 3rd shift patient was dysregulated, kicking and punching the wall/doors; redirected and calmed down. Later, Patient is pleasant and mostly cooperative on approach; though friendly, patient remains Hyperactive, with pressured speech and gra ndiose ideas. -for some reason patient's Depakote was lowered to 500 mg daily; likely need to increase -patient reports dystonic reaction from Haldol and demonstrates by putting his tongue up 06/28 not sleeping, pleasantly manic; will titrate medications Plan: CV Q 15 minutes checks Increase Depakote ER to 1000 mg b.i.d. Start Zyprexa 10 mg b.i.d. for continued manic behavior; (used to be on Haldol 10 mg b.i.d. but reports dystonic reaction so will try Zyprexa) Increase clonazepam to 1 mg b.i.d. Seroquel 200 mg q.h.s. (home dose) 06/29- continue tx. 07/01/22- Increase Seroquel to 300 mg HS CBCD, CMP, Valproate for 07/02/22. Informed Consent: understands Reason for contiued inpatient stay Substantial Risk for: inability to function and rapid decompensation Time Spent With Patient Time: Total time managing care of this patient today ____ minutes.
[2022-07-01] MEDS: QUEtiapine Fumarate 300 MG TABLET PO (21:34)
[2022-07-02 08:16] LABS: MANUAL DIFF FLAG NO
[2022-07-02 08:19] LABS: Basophils Percent Auto 0.4 % (0-2); Eosinophils Absolute Auto 0.3 X10*3/uL (0.0-0.4); Eosinophils Percent Auto 3.3 % (0-4); Hematocrit 47.5 % (42.0-52.0); Hemoglobin 15.4 g/dl (14.0-18.0); Imm Gran Abs Auto 0.02 X10*3/uL (0.00-0.03); Imm Gran Pct Auto 0.3 % (0.0-0.4); Lymphocytes Absolute Auto 2.5 X10*3/uL (1.2-4.9); Lymphocytes Percent Auto 32.7 % (20-40); Mean Corpuscular HGB Conc 32.4 g/dl (31.0-36.0); Mean Corpuscular Volume 95.8 fL (80.0-98.0); Mean Platelet Volume 9.9 fL (9.4-12.4); Monocytes Absolute Auto 0.6 X10*3/uL (0.1-1.2); Monocytes Percent Auto 8.1 % (2-11); Neutrophils Absolute Auto 4.3 x10*3/uL (2.0-8.3); Neutrophils Percent Auto 55.2 % (45-73); Platelet Count 197 X10*3/uL (160-400); Red Blood Count 4.96 X10*6/uL (4.60-5.80); Red Cell Distribution Width 12.6 % (11.0-16.0); White Blood Count 7.7 X10*3/uL (4.8-10.8)
[2022-07-02] MEDS: clonazePAM 1 MG TABLET PO (08:34)
[2022-07-02] MEDS: Divalproex Sodium ER 500 MG TAB.ER.24H 1000 MG PO ×2 (08:34→22:19)
[2022-07-02] MEDS: OLANZapine 10 MG TABLET PO (08:34)
[2022-07-02 08:49] LABS: Valproate 77.8 mcg/mL (50.0-100.0)
[2022-07-02 08:53] LABS: Alanine Aminotransferase 38 U/L (0-40); Alkaline Phosphatase 57 U/L (39-117); Anion Gap 15 (12-20); Aspartate Amino Transferase 34 U/L (5-37); Bilirubin Total 0.3 mg/dL (0.0-1.0); Blood Urea Nitrogen 14 mg/dL (9-16); Calcium 9.4 mg/dL (8.4-10.2); Carbon Dioxide 28 mmol/L (22-29); Chloride 105 mmol/L (96-108); Creatinine Clr Calc Pharmacy 109.4; Estimated Glomerular Filt Rate > 60; Glucose Random 72 mg/dL (60-115); Potassium 4.6 mmol/L (3.3-5.1); Sodium 143 mmol/L (135-145); Total Protein 6.8 g/dL (6.5-8.0)
--- NOTE | 2022-07-02 09:18 | HO.PSYCHPN ---
Subjective Subjective Date of Service: 07/02/22 Reason For Visit: Schizoaffective disorder, bipolar type Interim History: Met with patient; discussed with team; reviewed labs; reviewed notes by covering provider who reported some improvement but continued insomnia. pt says the same things, that he's here on the unit to do good to people. He says is not sleeping much but does not want to end up sleeping too much which he says happened with past medications; he agrees to med change for help sleep Mental Status Exam Mental Status Exam Patient Appearance: Appropriate Patient Orientation: Person, Place, Time and Situation Level of Consciousness: Alert Patient Behavior: Talkative Mood Description: Cheerful Affect Description: Constricted Patient Cognition Impaired: No Ability to Follow Directions: Good Speech Pattern: Spontaneous Speech Memory Description: Episodic Impaired Delusions: Present Thought Process: Distracted Thought Content: positive for [place] and positive for Tangential Judgement: Fair Diagnostics Vital Signs (24Hr): Vital Signs - 24 hr 07/01/22 09:37 07/01/22 17:40 Temperature 98.2 F 97.4 F Pulse Rate 104 H 113 H Respiratory Rate 16 Blood Pressure 134/81 120/74 Pulse Oximetry 96 Oxygen Delivery Method Room Air BMI result Body Mass Index 24.1 Labs 07/02/22 08:08 07/02/22 08:08 Labs: Laboratory Results - last 48 hr 07/02/22 07/02/22 07/02/22 08:08 08:08 08:08 WBC 7.7 RBC 4.96 Hgb 15.4 Hct 47.5 MCV 95.8 MCH 31.0 MCHC 32.4 RDW 12.6 Plt Count 197 MPV 9.9 Immature Gran % (Auto) 0.3 Neut % (Auto) 55.2 Lymph % (Auto) 32.7 [place] % (Auto) 8.1 Eos % (Auto) 3.3 Baso % (Auto) 0.4 Lymph # (Auto) 2.5 [place] # (Auto) 0.6 Eos # (Auto) 0.3 Baso # (Auto) 0.0 Abs Immat Gran (auto) 0.02 Absolute Neuts (auto) 4.3 Absolute Nucleated RBC 0.000 Nucleated RBC % (auto) 0.0 Sodium 143 Potassium 4.6 Chloride 105 Carbon Dioxide 28 Anion Gap 15 BUN 14 Creatinine 0.92 Estim Creat Clear Calc 109.4 Estimated GFR > 60 Random Glucose 72 Calcium 9.4 Total Bilirubin 0.3 AST 34 ALT 38 Alkaline Phosphatase 57 Total Protein 6.8 Albumin 4.0 Valproic Acid 77.8 Medications Medications Current Medications Acetaminophen (Acetaminophen 325 Mg Tablet) 650 mg PO Q6H PRN PRN Reason: Headache/Pain Mild Scale (1-3) Al Hydroxide/Mg Hydroxide (Magnesium Hydrox/Alum Hydrox 30 Ml Oral.Susp) 30 ml PO Q6H PRN PRN Reason: Heartburn/Nausea Clonazepam (Clonazepam 1 Mg Tablet) 1 mg PO BID [facility] Last Admin: 07/02/22 08:34 Dose: 1 mg Divalproex Sodium (Divalproex Sodium Er 500 Mg Tab.Er.24h) 1,000 mg PO BID [facility] Last Admin: 07/02/22 08:34 Dose: 1,000 mg Magnesium Hydroxide (Milk Of Magnesia 30 Ml Oral.Susp) 30 ml PO DAILY PRN PRN Reason: Constipation Olanzapine (Olanzapine 10 Mg Tablet) 10 mg PO BID [facility] Last Admin: 07/02/22 08:34 Dose: 10 mg Quetiapine Fumarate (Quetiapine Fumarate 300 Mg Tablet) 300 mg PO BEDTIME [facility] Last Admin: 07/01/22 21:34 Dose: 300 mg Trazodone HCl (Trazodone Hcl 100 Mg Tablet) 100 mg PO BEDTIME PRN PRN Reason: insomnia Last Admin: 06/28/22 22:42 Dose: 100 mg Allergies Allergies Allergy/AdvReac Type Severity Reaction Status Date / Time haloperidol [From Haldol] AdvReac Intermediate Dystonia Unverified 06/25/22 13:23 Assessment & Plan Assessment & Plan (1) Schizoaffective disorder, bipolar type: Status: Acute Code(s): F25.0 - Schizoaffective disorder, bipolar type Plan Patient is a 32-year-old male with history of skin schizoaffective, bipolar type who presents with manic behaviors and the face of having medications lowered in the community and being off them for 2 days.? Earlier this morning on 3rd shift patient was dysregulated, kicking and punching the wall/doors; redirected and calmed down. Later, Patient is pleasant and mostly cooperative on approach; though friendly, patient remains Hyperactive, with pressured speech and grandiose ideas. -for some reason patient's Depakote was lowered to 500 mg daily; likely need to increase -patient reports dystonic reaction from Haldol and demonstrates by putting his tongue up 06/28 not sleeping, pleasantly manic; will titrate medications 06/29- continue tx. 07/01/22- Increase Seroquel to 300 mg HS CBCD, CMP, Valproate for 07/02/22. 07/02 Reviewed labs: Depakote level WNL; associated labs WNL; will change Zyprexa to 20mg qhs to help w/ sleep. Hypomanic. Staff who know patient report pt is doing better than his typical baseline for discharge. Plan: 3 day notice Q 15 minutes checks Increase Depakote ER to 1000 mg b.i.d. changed to Zyprexa 20mg at bed to help w/ sleep; (used to be on Haldol 10 mg b.i.d. but reports dystonic reaction so will try Zyprexa) Increase clonazepam to 1 mg b.i.d. Seroquel 200 mg q.h.s. (home dose) Patient educated on: diagnosis and medication risk/benefits Informed Consent: understands and further education needed Reason for contiued inpatient stay Substantial Risk for: stable for discharge Time Spent With Patient Time: Total time managing care of this patient today ____ minutes.
[2022-07-02 10:15] VITALS: BP 133/56; PULSE 141; RESP 16; TEMP 36.8; O2SAT 96
[2022-07-02 21:45] VITALS: BP 148/76; PULSE 119; TEMP 36.9; O2SAT 96
[2022-07-02] MEDS: clonazePAM 0.5 MG TABLET PO (22:20)
[2022-07-02] MEDS: QUEtiapine Fumarate 300 MG TABLET PO (22:20)
[2022-07-02] MEDS: OLANZapine 10 MG TABLET 20 MG PO (22:20)
[2022-07-03 06:00] VITALS: BP 132/75; PULSE 150; RESP 6; TEMP 38.3; O2SAT 96
[2022-07-03] MEDS: Divalproex Sodium ER 500 MG TAB.ER.24H 1000 MG PO ×2 (08:08→21:55)
[2022-07-03] MEDS: clonazePAM 0.5 MG TABLET PO ×2 (08:08→21:55)
[2022-07-03 10:23] LABS: Influenza A PCR NEGATIVE (Negative); Influenza B PCR NEGATIVE (Negative); Resp Syncy Virus RNA Qual PCR NEGATIVE (Negative); SARS COV2 PCR INHOUSE NEGATIVE (Negative)
--- NOTE | 2022-07-03 13:26 | HO.PSYCHPN ---
Subjective Subjective Date of Service: 07/03/22 Reason For Visit: Schizoaffective disorder, bipolar type Interim History: Met with patient; discussed patient with team Patient is cooperative and pleasant on approach. He talks about doing good and serving God. To other staff person patient had made a statement about suicide however and the next moment he talked about something totally unrelated and staff reports that this is baseline behavior for patient. Patient denies any actual SI or HI. Patient's 3 day notice is coming due and he wants to discharge tomorrow. Patient said he will continue taking medications but does not want them to make him sleepy during the day which clearly is not happening. Mental Status Exam Mental Status Exam Narrative: Pt is alert and oriented; behavior is mildly hyperactive, but in overall behvioral control, pleasant, cooperative and friendly; patient is not in distress; dressed in casual attire, wearing a tank top with hair pulled back; good hygiene; mood is described as good and affect mildly expansive; eye contact appropriate; Speech is midly pressured, but normal volume. Some Psychomotor agitation present; thought process can be goal oriented but also becomes tangential; Thought content is on muslim ideas; denies any SI/HI/avh; Patients insight and judgment are impaired but adequate and at baseline. Diagnostics Vital Signs (24Hr): Vital Signs - 24 hr 07/02/22 21:45 07/03/22 06:00 Temperature 98.4 F 101 F H Pulse Rate 119 H 150 H Respiratory Rate 6 L Blood Pressure 148/76 H 132/75 Pulse Oximetry 96 96 Oxygen Delivery Method Room Air Room Air BMI result Body Mass Index 24.1 Labs 07/02/22 08:08 07/02/22 08:08 Labs: Laboratory Results - last 48 hr 07/02/22 07/02/22 07/02/22 08:08 08:08 08:08 WBC 7.7 RBC 4.96 Hgb 15.4 Hct 47.5 MCV 95.8 MCH 31.0 MCHC 32.4 RDW 12.6 Plt Count 197 MPV 9.9 Immature Gran % (Auto) 0.3 Neut % (Auto) 55.2 Lymph % (Auto) 32.7 [place] % (Auto) 8.1 Eos % (Auto) 3.3 Baso % (Auto) 0.4 Lymph # (Auto) 2.5 [place] # (Auto) 0.6 Eos # (Auto) 0.3 Baso # (Auto) 0.0 Abs Immat Gran (auto) 0.02 Absolute Neuts (auto) 4.3 Absolute Nucleated RBC 0.000 Nucleated RBC % (auto) 0.0 Sodium 143 Potassium 4.6 Chloride 105 Carbon Dioxide 28 Anion Gap 15 BUN 14 Creatinine 0.92 Estim Creat Clear Calc 109.4 Estimated GFR > 60 Random Glucose 72 Calcium 9.4 Total Bilirubin 0.3 AST 34 ALT 38 Alkaline Phosphatase 57 Total Protein 6.8 Albumin 4.0 Valproic Acid 77.8 Influenza Type A (PCR) Influenza Type B (PCR) RSV RNA Qual (PCR) SARS-CoV-2 RNA (RT-PCR) 07/03/22 09:25 WBC RBC Hgb Hct MCV MCH MCHC RDW Plt Count MPV Immature Gran % (Auto) Neut % (Auto) Lymph % (Auto) [place] % (Auto) Eos % (Auto) Baso % (Auto) Lymph # (Auto) [place] # (Auto) Eos # (Auto) Baso # (Auto) Abs Immat Gran (auto) Absolute Neuts (auto) Absolute Nucleated RBC Nucleated RBC % (auto) Sodium Potassium Chloride Carbon Dioxide Anion Gap BUN Creatinine Estim Creat Clear Calc Estimated GFR Random Glucose Calcium Total Bilirubin AST ALT Alkaline Phosphatase Total Protein Albumin Valproic Acid Influenza Type A (PCR) NEGATIVE Influenza Type B (PCR) NEGATIVE RSV RNA Qual (PCR) NEGATIVE SARS-CoV-2 RNA (RT-PCR) NEGATIVE Medications Medications Current Medications Acetaminophen (Acetaminophen 325 Mg Tablet) 650 mg PO Q6H PRN PRN Reason: Headache/Pain Mild Scale (1-3) Al Hydroxide/Mg Hydroxide (Magnesium Hydrox/Alum Hydrox 30 Ml Oral.Susp) 30 ml PO Q6H PRN PRN Reason: Heartburn/Nausea Clonazepam (Clonazepam 0.5 Mg Tablet) 0.5 mg PO BID [facility] Last Admin: 07/03/22 08:08 Dose: 0.5 mg Divalproex Sodium (Divalproex Sodium Er 500 Mg Tab.Er.24h) 1,000 mg PO BID [facility] Last Admin: 07/03/22 08:08 Dose: 1,000 mg Magnesium Hydroxide (Milk Of Magnesia 30 Ml Oral.Susp) 30 ml PO DAILY PRN PRN Reason: Constipation Olanzapine (Olanzapine 10 Mg Tablet) 20 mg PO BEDTIME [facility] Last Admin: 07/02/22 22:20 Dose: 20 mg Quetiapine Fumarate (Quetiapine Fumarate 300 Mg Tablet) 300 mg PO BEDTIME [facility] Last Admin: 07/02/22 22:20 Dose: 300 mg Trazodone HCl (Trazodone Hcl 100 Mg Tablet) 100 mg PO BEDTIME PRN PRN Reason: insomnia Last Admin: 06/28/22 22:42 Dose: 100 mg Allergies Allergies Allergy/AdvReac Type Severity Reaction Status Date / Time haloperidol [From Haldol] AdvReac Intermediate Dystonia Unverified 06/25/22 13:23 Assessment & Plan Assessment & Plan (1) Schizoaffective disorder, bipolar type: Status: Acute Code(s): F25.0 - Schizoaffective disorder, bipolar type Plan Patient is a 32-year-old male with history of skin schizoaffective, bipolar type who presents with manic behaviors and the face of having medications lowered in the community and being off them for 2 days.? Earlier this morning on 3rd shift patient was dysregulated, kicking and punching the wall/doors; redirected and calmed down. Later, Patient is pleasant and mostly cooperative on approach; though friendly, patient remains Hyperactive, with pressured speech and grandiose ideas. -for some reason patient's Depakote was lowered to 500 mg daily; likely need to increase -patient reports dystonic reaction from Haldol and demonstrates by putting his tongue up 06/28 not sleeping, pleasantly manic; will titrate medications 06/29- continue tx. 07/01/22- Increase Seroquel to 300 mg HS CBCD, CMP, Valproate for 07/02/22. 07/02 Reviewed labs: Depakote level WNL; associated labs WNL; will change Zyprexa to 20mg qhs to help w/ sleep. Hypomanic. Staff who know patient report pt is doing better than his typical baseline for discharge. 07/03 patient is at or beyond baseline; is on medications that have reduced manic symptoms. He remains hypomanic, with some grandiose muslim preoccupations however he is cooperative and friendly, pleasant and appropriate with others. Has mentioned, he is at baseline. Patient has outpatient providers established. While he of course remains at risk for decompensate in at some point, he is not in imminent risk for harm to self or others and his request for discharge honored. Plan: 3 day notice Q 15 minutes checks Increase Depakote ER to 1000 mg b.i.d. changed to Zyprexa 20mg at bed to help w/ sleep; (used to be on Haldol 10 mg b.i.d. but reports dystonic reaction so will try Zyprexa) Increase clonazepam to 1 mg b.i.d. Seroquel 200 mg q.h.s. (home dose) Patient educated on: medication risk/benefits Informed Consent: understands and further education needed Reason for contiued inpatient stay Substantial Risk for: stable for discharge Time Spent With Patient Time: Total time managing care of this patient today ____ minutes.
[2022-07-03 18:40] VITALS: BP 133/63; PULSE 126; RESP 16; TEMP 37.3; O2SAT 96
[2022-07-03] MEDS: OLANZapine 10 MG TABLET 20 MG PO (21:55)
[2022-07-03] MEDS: QUEtiapine Fumarate 300 MG TABLET PO (21:55)
[2022-07-04] MEDS: traZODone HCL 100 MG TABLET PO (02:43)
[2022-07-04 07:32] VITALS: BP 133/71; PULSE 132; RESP 18; TEMP 36.9; O2SAT 95
[2022-07-04] MEDS: Divalproex Sodium ER 500 MG TAB.ER.24H 1000 MG PO (07:59)
[2022-07-04] MEDS: clonazePAM 0.5 MG TABLET PO (07:59)
--- NOTE | 2022-07-04 11:40 | PM.PSYDC ---
DS: Providers Provider Date of Service: 07/04/22 Date of admission: 06/26/22 15:03 Date of discharge: 07/04/22 Primary care physician: Khang Brown MD Attending physician on admission: Noel Nichols Attending physician on discharge: Noel Nichols DS: Diagnosis Discharge Diagnosis (1) Schizoaffective disorder, bipolar type: Status: Acute DS: Medications Discharge Medications Home Medications: Previous Rx's Medication Instructions Recorded clonazepam 0.5 mg tablet 0.5 mg PO DAILY PRN anxiety 30 07/04/22 days #30 tabs divalproex 500 mg tablet,extended 1,000 mg PO BID 30 days #120 tabs 07/04/22 release 24 hr olanzapine 20 mg tablet 20 mg PO BEDTIME 30 days #30 tabs 07/04/22 quetiapine 300 mg tablet 300 mg PO BEDTIME 30 days #30 tabs 07/04/22 trazodone 100 mg tablet 100 mg PO BEDTIME PRN insomnia 30 07/04/22 days #30 tabs Mental Status Exam Mental Status Exam Narrative: Pt is alert and oriented; behavior is mildly hyperactive, but in overall behvioral control, pleasant, cooperative and friendly; patient is not in distress; dressed in casual attire, wearing a tank top with hair pulled back; good hygiene; mood is described as good and affect mildly expansive; eye contact appropriate; Speech is midly pressured, but normal volume. Some Psychomotor agitation present; thought process can be goal oriented but also becomes tangential; Thought content is on methodist ideas; denies any SI/HI/avh; Patients insight and judgment are impaired but adequate and at baseline. Data Data Completed and Pending Completed studies during hospitalization [Text1]: 07/02/22 07/02/22 07/02/22 08:08 08:08 08:08 WBC 7.7 RBC 4.96 Hgb 15.4 Hct 47.5 MCV 95.8 MCH 31.0 MCHC 32.4 RDW 12.6 Plt Count 197 MPV 9.9 Immature Gran % (Auto) 0.3 Neut % (Auto) 55.2 Lymph % (Auto) 32.7 [place] % (Auto) 8.1 Eos % (Auto) 3.3 Baso % (Auto) 0.4 Lymph # (Auto) 2.5 [place] # (Auto) 0.6 Eos # (Auto) 0.3 Baso # (Auto) 0.0 Abs Immat Gran (auto) 0.02 Absolute Neuts (auto) 4.3 Absolute Nucleated RBC 0.000 Nucleated RBC % (auto) 0.0 Sodium 143 Potassium 4.6 Chloride 105 Carbon Dioxide 28 Anion Gap 15 BUN 14 Creatinine 0.92 Estim Creat Clear Calc 109.4 Estimated GFR > 60 Random Glucose 72 Calcium 9.4 Total Bilirubin 0.3 AST 34 ALT 38 Alkaline Phosphatase 57 Total Protein 6.8 Albumin 4.0 Valproic Acid 77.8 Influenza Type A (PCR) Influenza Type B (PCR) RSV RNA Qual (PCR) SARS-CoV-2 RNA (RT-PCR) 07/03/22 09:25 WBC RBC Hgb Hct MCV MCH MCHC RDW Plt Count MPV Immature Gran % (Auto) Neut % (Auto) Lymph % (Auto) [place] % (Auto) Eos % (Auto) Baso % (Auto) Lymph # (Auto) [place] # (Auto) Eos # (Auto) Baso # (Auto) Abs Immat Gran (auto) Absolute Neuts (auto) Absolute Nucleated RBC Nucleated RBC % (auto) Sodium Potassium Chloride Carbon Dioxide Anion Gap BUN Creatinine Estim Creat Clear Calc Estimated GFR Random Glucose Calcium Total Bilirubin AST ALT Alkaline Phosphatase Total Protein Albumin Valproic Acid Influenza Type A (PCR) NEGATIVE Influenza Type B (PCR) NEGATIVE RSV RNA Qual (PCR) NEGATIVE SARS-CoV-2 RNA (RT-PCR) NEGATIVE DS: Summary Hospital Course Hospital Course: Patient is a 32-year-old male with history of skin schizoaffective, bipolar type who presents with manic behaviors and the face of having medications lowered in the community and being off them for 2 days.? Earlier this morning on 3rd shift patient was dysregulated, kicking and punching the wall/doors; redirected and calmed down. Later, Patient is pleasant and mostly cooperative on approach; though friendly, patient remains Hyperactive, with pressured speech and grandiose ideas. -for some reason patient's Depakote was lowered to 500 mg daily; likely need to increase -patient reports dystonic reaction from Haldol and demonstrates by putting his tongue up On admission, patient was manic, hyperactive and hyperverbal, talking about methodist things with grandiose ideas; however he was pleasant; in the cost and risk analysis manager of his admission, he had 1 bout of dysregulated behavior where he punched and kicked the wall, but he was redirectable and going forward remained within safe behavior. Patient agreed to increase Depakote which was subtherapeutic. Patient used to also be on Haldol 10 mg b.i.d. but reported that this had caused a dystonic reaction; he agreed to try Zyprexa instead which was helpful and patient's behaviors became less hyperactive and in improved control. Patient continued to have trouble sleeping however and agreed to have home dose of Seroquel restored to 300 mg q.h.s.. Patient started sleeping through the night. He remained hypomanic, frequently exercising in the halls, and with some delusional preoccupation but was otherwise pleasant and appropriate with peers and staff. Patient would intermittently make comments about suicidality, however he denied any actual SI, intent or plans; these comments were randomly expressed and juxtaposed with other grandiose and future oriented comments and it is noteworthy to mention that this is baseline behavior for patient. Patient's labs remained within normal limits and Depakote level therapeutic. Patient placed a 3 day notice wanting to discharge. Patient remained in good mood, future oriented and said he would take medication as long as it did make him too drowsy which it does not appear to be doing. Staff who know patient well report that he is actually improved from his typical presentation when discharged from prior admissions. Despite intermittent random comments, Patient continues to denies any SI; no HI. Patient has outpatient providers already established. Patient of course remains vulnerable to future dysregulation however he is currently at or better than his regular baseline at which he is able to function on his own in the community. He is not in imminent risk for or harm to self or others. His 3 day notice is due and he does not rise to the level of involuntary commitment. His request for discharge honored. Time spent discussing smoking cessation with patient: 3 to 10 minutes Status at Discharge Functional status at discharge: independent ambulation Overall status at discharge: patient is progressing back to baseline Time Spent with Patient Time attestation: Total time managing care of this patient today ____ minutes. Time spent: Less than 30 minutes Discharge Plan Discharge Anticipated Discharge Date/Time: 07/04/22 13:00 Patient Disposition: Home, Self-Care Discharge Diagnosis: Schizoaffective disorder, bipolar type, recurrent, severe in partial remission Referrals: Khang Brown MD [Primary Care Provider] - 07/13/22 10:30 am (in office) Discharge Medications: New divalproex 500 mg Tablet Extended Release 24 Hr 1,000 mg PO BID 30 Days Qty: 120 0RF olanzapine 20 mg tablet 20 mg PO BEDTIME 30 Days Qty: 30 0RF quetiapine 300 mg Tablet 300 mg PO BEDTIME 30 Days Qty: 30 0RF trazodone 100 mg Tablet 100 mg PO BEDTIME PRN (Reason: insomnia) 30 Days Qty: 30 0RF Changed clonazepam 0.5 mg tablet 0.5 mg PO DAILY PRN (Reason: anxiety) 30 Days Qty: 30 0RF Discontinued divalproex 500 mg tablet extended release 24 hr 1 tab PO DAILY Discharge Orders: Discharge Order (Routine); Ordered 07/04/22 Ordered By: Noel Nichols Diet: Regular diet Activity on Discharge: As tolerated Stand Alone Forms: Patient Portal Discharge page, Community Support Care Plan Goals: Maintain mood and safe behaviors Take medications as prescribed Continue to pursue sobriety Practice coping skills Continue with outpatient providers and reach out to them as needed Health Concerns: Mood stability and behaviors Plan of Treatment: Follow up with your PCP, psychiatric provider and other outpatient providers regarding above concerns Take medications as prescribed Assessment: Risk assessment at time of discharge:? Patient was interviewed prior to discharge and found to be fully oriented and without any SI or HI. Patient has insight and demonstrates good judgment in terms of wanting to pursue treatment. Patient is not in imminent risk of harm to self or others and has a safety plan that includes presenting to the closest ER or calling 911 if feeling unsafe.? Patient has been observed closely by nursing and unit staff throughout admission; patient has not engaged in any behaviors that suggest dangerousness to self or others and has demonstrated appropriate behaviors and impulse control
== END 2022-07-04 13:45 | disposition home or self-care (01) | DRG 750 ==
LOC: HO.ED 06-26 12:57 → HO.PM5 06-26 15:07
PROVIDERS: Admitting Provider Clinical Nurse Specialist Psychiatric/Mental Health, Adult; Emergency Provider Internal Medicine; PCP Internal Medicine; Visit Provider Psychiatry & Neurology Psychiatry
DX: F25.0 Schizoaffective disorder, bipolar type (principal); R45.851 Suicidal ideations; Z20.822 Contact with and (suspected) exposure to COVID-19; Z88.8 Allergy status to other drugs, medicaments and biological substances; Z79.899 Other long term (current) drug therapy
CPT/HCPCS: 0241U; 36415; 80053; 80061; 80164; 80307; 82077; 82607; 82746; 83036; 83735; 84439; 84443; 85025; 87635; 93005; 99285; S9485

== ENCOUNTER 2022-07-05 00:30 | Emergency (ER) | payer OTHER, SELFPAY ==
[2022-07-05 00:38] VITALS: BP 149/91; PULSE 109; RESP 16; TEMP 36.9; O2SAT 96; BMI 24.3
[2022-07-05 01:12] LABS: Amphetamine Screen Urine Not Detected (Not Detect); Barbiturates, Urine Not Detected (Not Detect); Benzodiazepines Screen Urine Not Detected (Not Detect); COVID-19 Test Negative (Negative); Cannabinoid Screen Urine Not Detected (Not Detect); Cocaine Screen Urine Not Detected (Not Detect); Fentanyl, urine Not Detected (Not Detect); IDNOW Serial# BCCEAD1C; Opiate Screen Urine Not Detected (Not Detect); Phencyclidine Screen Urine Not Detected (Not Detect)
--- NOTE | 2022-07-05 02:19 | ED.PSYCH ---
HPI - Psych General Chief Complaint: Psychiatric Symptoms Stated Complaint: crisis Time Seen by Provider: 07/05/22 00:52 Source: patient Mode of arrival: ambulatory Limitations: no limitations History of Present Illness HPI Narrative: Patient schizoaffective disorder just discharged from yesterday from here patient went to police station and asked to bring him back to the ER as unable to sleep patient delusional with history of hallucination thinks that his medicine has been change which were now Related Data Previous Rx's Medication Instructions Recorded clonazepam 0.5 mg tablet 0.5 mg PO DAILY PRN anxiety 30 07/04/22 days #30 tabs divalproex 500 mg tablet,extended 1,000 mg PO BID 30 days #120 tabs 07/04/22 release 24 hr olanzapine 20 mg tablet 20 mg PO BEDTIME 30 days #30 tabs 07/04/22 quetiapine 300 mg tablet 300 mg PO BEDTIME 30 days #30 tabs 07/04/22 trazodone 100 mg tablet 100 mg PO BEDTIME PRN insomnia 30 07/04/22 days #30 tabs Allergies Allergy/AdvReac Type Severity Reaction Status Date / Time haloperidol [From Haldol] AdvReac Intermediate Dystonia Unverified 06/25/22 13:23 Review of Systems Review of Systems: Yes all other systems are reviewed and are negative PMFSH Past Medical History Medical History Bipolar 1 disorder Overweight (BMI 25.0-29.9) Surgical History No significant past surgical history Family History Family History Father Mental illness in member of household Mother Mental illness in member of household Brother Mental illness in member of household Sister Mental illness in member of household Maternal Grandmother Diabetes mellitus Social History Social History Household Members: None Housing: Apartment Do you presently have visiting nurse or other home services: No Alcohol intake: never Patient Tobacco Use Status: Never used Tobacco e-Cigarette/Vaping Use: Never Used Second Hand Smoke Exposure: No Substance Use Type: Caffiene Advance Directives: No service: No Sexual orientation: Did not discuss Cognitive needs: No Hearing needs: No Vision needs: Yes (Pt has not seen a eye doctor since 2010-04.) Physical Exam Vital Signs: Vital Signs: Last Vital Signs Temp 98.4 F 07/05/22 00:38 Pulse 109 H 07/05/22 00:38 Resp 16 07/05/22 00:38 BP 149/91 H 07/05/22 00:38 Pulse Ox 96 07/05/22 00:38 O2 Del Method 07/05/22 00:38 BMI result Body Mass Index 24.3 Appearance: Alert. Oriented X3. No acute distress. Eyes: PERRLA, No Nystagmus ENT: Pharynx normal. Oral Mucosa moist Neck: Normal inspection. Neck supple. CVS: Normal heart rate and rhythm. Pulses normal. Respiratory: No respiratory distress. Equal air entry bilateral, no wheezing/rales/rhonchi Abdomen: Soft and nontender. Bowel sounds are present, no mass palpable, no CVA tenderness Skin: Skin warm and dry. Normal skin color. Normal skin turgor. Extremities: No lower extremity edema. No calf tenderness psych: Delusional +AH no VH no depression no SI no HI Neuro: Oriented X 3. No motor deficit. No sensory deficit.No cerebellar signs , cranial nerves II-XII intact Medical Decision Making Medical Decision Making [facility] Narrative: Will get care time involved schizo affective disorder and delusion Lab Data [facility] Lab Attestation statement: I reviewed the patient's lab results. Labs: Lab Results 07/05/22 07/05/22 Range/Units 00:53 00:53 Urine Opiates Screen Not Detected (Not Detect) Urine Fentanyl Screen Not Detected (Not Detect) Ur Barbiturates Screen Not Detected (Not Detect) Ur Phencyclidine Scrn Not Detected (Not Detect) Ur Amphetamines Screen Not Detected (Not Detect) U Benzodiazepines Scrn Not Detected (Not Detect) Urine Cocaine Screen Not Detected (Not Detect) U Marijuana (THC) Screen Not Detected (Not Detect) COVID-19 (RADHIKA) Negative (Negative) COVID-19 Clin Com See Note Discharge Plan Discharge Clinical Impression: Schizoaffective disorder, bipolar type Patient Disposition: Still a Patient Prescriptions: No Action divalproex 500 mg Tablet Extended Release 24 Hr 1,000 mg PO BID 30 Days Qty: 120 0RF olanzapine 20 mg tablet 20 mg PO BEDTIME 30 Days Qty: 30 0RF quetiapine 300 mg Tablet 300 mg PO BEDTIME 30 Days Qty: 30 0RF trazodone 100 mg Tablet 100 mg PO BEDTIME PRN (Reason: insomnia) 30 Days Qty: 30 0RF clonazepam 0.5 mg tablet 0.5 mg PO DAILY PRN (Reason: anxiety) 30 Days Qty: 30 0RF Interventions: [place]-Suicide Risk Severity Scale Last Done: 07/05/22 05:57
--- NOTE | 2022-07-05 05:59 | PC.NURSE ---
Patient stayed up whole night, listening to music, no distress observed/reported, med rec completed/pending provider's approval, care consult ordered/pending evaluation in the morning, behavior non concerning, VSS, will continue to monitor.
[2022-07-05] MEDS: Divalproex Sodium ER 500 MG TAB.ER.24H 1000 MG PO (10:20)
[2022-07-05 11:25] VITALS: BP 132/61; PULSE 91; RESP 18; TEMP 36.9; O2SAT 96
== END 2022-07-05 14:13 | disposition home or self-care (01) ==
PROVIDERS: Emergency Provider Internal Medicine; PCP Internal Medicine
DX: F25.0 Schizoaffective disorder, bipolar type (principal); Z20.822 Contact with and (suspected) exposure to COVID-19; Z20.828 Contact with and (suspected) exposure to other viral communicable diseases; Z79.899 Other long term (current) drug therapy
CPT/HCPCS: 80307; 87635; 99283; 99284; S9485

== ENCOUNTER 2022-07-10 02:13 | Emergency (ER) | payer OTHER, SELFPAY ==
--- NOTE | ~2022-07-10 | XR_ITS ---
EXAMINATION: XR HAND, LEFT CLINICAL INFORMATION: Pain, rule out boxer's fracture COMPARISON: 01/18/2019 TECHNIQUE: PA, lateral, and oblique views of the left hand. FINDINGS: Osseous alignment is anatomic. No acute fracture is seen. No significant focal soft tissue abnormality identified. XR/XR hand LT min 3V IMPRESSION: No acute findings identified.
[2022-07-10 02:21] VITALS: BP 120/69; BP 129/69; PULSE 80; PULSE 89; RESP 16; TEMP 36.9; O2SAT 97; BMI 26.6
--- NOTE | 2022-07-10 02:36 | PC.NURSE ---
PT A&Ox4, calm and cooperative. PT reports being at brothers house and being in an argument. PT reports having one alcohol drink at the bar, walking to the PD station and asking for an ambulance. Denies SI/HI. States to be honest, I do hear voices but I'm controlling them . Denies visual hallucinations.
--- NOTE | 2022-07-10 03:08 | ED.PSYCH ---
HPI - Psych General Chief Complaint: ETOH/Substance Use Stated Complaint: etoh Time Seen by Provider: 07/10/22 02:57 Source: patient Mode of arrival: EMS Limitations: no limitations History of Present Illness HPI Narrative: Patient comes to the emergency room requesting to be seen by care team. Patient states that he was recently seen here, he was given new medications and they are not working well as his old prescription medications. Patient states that earlier today, patient had an argument at his brother's house. Patient states that he was very upset at his brother because he was using drugs in front of his own young child and confronted him about it. The patient when outside his brother's house, punched the floor with his left hand. Patient states that he is agreeable to get an x-ray and states thatl he likes feeling the pain. Symptoms patient had 1 alcoholic drink up, went to the police station and asked to be brought to emergency room. Patient denies suicidal or homicidal ideation. Patient states that he does hear voices but is able to control him. Related Data Previous Rx's Medication Instructions Recorded clonazepam 0.5 mg tablet 0.5 mg PO DAILY PRN anxiety 30 07/04/22 days #30 tabs divalproex 500 mg tablet,extended 1,000 mg PO BID 30 days #120 tabs 07/04/22 release 24 hr olanzapine 20 mg tablet 20 mg PO BEDTIME 30 days #30 tabs 07/04/22 quetiapine 300 mg tablet 300 mg PO BEDTIME 30 days #30 tabs 07/04/22 trazodone 100 mg tablet 100 mg PO BEDTIME PRN insomnia 30 07/04/22 days #30 tabs Allergies Allergy/AdvReac Type Severity Reaction Status Date / Time haloperidol [From Haldol] AdvReac Intermediate Dystonia Verified 07/05/22 10:04 Review of Systems Review of Systems: Constitutional : No Weight loss, No Fever, No Chills, No Night Sweats, No Fatigue, No Malaise ENT/Mouth : No Hearing loss, No Ear Pain, No Nasal Congestion, No Sinus Pain, No Hoarseness, No sore throat, No Rhinorrhea, No Swallowing Difficulty Eyes: No Eye Pain, No Swelling, No Redness, No Foreign Body, No Discharge, No Vision Changes Cardiovascular : No Chest Pain, No SOB, No Dyspnea on Exertion, No Orthopnea, No Edema, No Palpitations Respiratory : No Cough, No Sputum, No Wheezing, No Smoke Exposure, No Dyspnea Gastrointestinal : No Nausea, No Vomiting, No Diarrhea, No Constipation, No abdominal Pain, No Hematochezia, No Melena Genitourinary : no irregular bleeding, No Dysuria, No Urinary Frequency, No Hematuria, No Urinary Incontinence, No Urgency, No Flank Pain, No Urinary Flow Changes, No Hesitancy Musculoskeletal : Swelling in the left hand, No Myalgias, No Joint Swelling Skin : No Skin Lesions, No rash Neuro : No Weakness, No Numbness, No Paresthesias, No Loss of Consciousness, No Dizziness, No Headache Psych : No Anxiety/Panic, No Depression, No SI/HI/AH/VH, requesting medication changes for voice hearing Heme/Lymph: No Bruising, No Bleeding,No Lymphadenopathy Endocrine : No Polyuria, No Polydipsia, No Temperature Intolerance PMFSH Past Medical History Medical History Bipolar 1 disorder Overweight (BMI 25.0-29.9) Surgical History No significant past surgical history Family History Family History Father Mental illness in member of household Mother Mental illness in member of household Brother Mental illness in member of household Sister Mental illness in member of household Maternal Grandmother Diabetes mellitus Social History Social History Household Members: None Housing: Apartment Do you presently have visiting nurse or other home services: No Alcohol intake: current Alcohol intake frequency: holidays/special occasions only Alcohol type: beer and hard liquor Patient Tobacco Use Status: Never used Tobacco Smoked in Last 30 Days: No e-Cigarette/Vaping Use: Never Used Second Hand Smoke Exposure: No Use of substances other than those prescribed or required for medical reasons: No Substance Use Type: Caffiene Advance Directives: No service: No Sexual orientation: Did not discuss Cognitive needs: No Hearing needs: No Vision needs: Yes (Pt has not seen a eye doctor since 2010-04.) Physical Exam Vital Signs: Vital Signs: Last Vital Signs Temp 98.4 F 07/10/22 02:21 Pulse 80 01/31/23 02:21 Resp 16 07/10/22 02:21 BP 129/69 07/10/22 02:21 Pulse Ox 97 07/10/22 02:21 O2 Del Method 07/10/22 02:21 BMI result Body Mass Index 26.6 Const: Other: Appearance: Alert. Oriented X3. No acute distress. Eyes: Pupils equal, round and reactive to light. ENT: Pharynx normal. Neck: Normal inspection. Neck supple. No lymph nodes noted. No crepitus CVS: Normal heart rate and rhythm. Pulses normal. Normal S1 and S2 Respiratory: No respiratory distress. Breath sounds normal. No Wheezing. No rales Abdomen: Soft and nontender. No rigidity. No distention. Skin: Skin warm and dry. Normal skin color. Normal skin turgor. Extremities: No lower extremity edema. No Lacerations. No Rash. There is swelling around the 5th metacarpal of left hand Neuro: Oriented X 3. No motor deficit. No sensory deficit. Moving all extremities. No slurred speech. CN 2 through 12 grossly intact Psych: calm, cooperative, normal affect Course Course Course Narrative: -patient is not homicidal or suicidal. Not on a Section 12 -x-ray of the hand pending -care team consult pending -physician observation started at 03:15 Medical Decision Making Medical Decision Making MDM Narrative: -patient states that he is tired of waiting. Patient aware that he will be seen until at least 4 hours from now. -patient decided to not wait for behavioral health and states that he would like to be discharged. -patient not suicidal homicidal, not on a Section 12, alert and oriented x4. -patient encouraged to come back if he needs help with his medications. -no hand fracture Independent Interpretation I performed an independent interpretation of an: Plain X-Ray (Hand x-ray my interpretation: No fracture) Radiology Impression Discussion of test interpretation with radiology: I have reviewed the radiologist's reading. Radiologist Impression: ECHNIQUE: PA, lateral, and oblique views of the left hand. FINDINGS: Osseous alignment is anatomic. No acute fracture is seen. No significant focal soft tissue abnormality identified.? XR/XR hand LT min 3V IMPRESSION: No acute findings identified. Discharge Plan Discharge Clinical Impression: Schizoaffective disorder, bipolar type Patient Disposition: Home, Self-Care Instructions: Schizoaffective Disorder (ED) Additional Instructions: Please follow-up with your primary care physician tomorrow. If you have any worsening or new symptoms, please return to the emergency room or call 911 Prescriptions: No Action divalproex 500 mg Tablet Extended Release 24 Hr 1,000 mg PO BID 30 Days Qty: 120 0RF olanzapine 20 mg tablet 20 mg PO BEDTIME 30 Days Qty: 30 0RF quetiapine 300 mg Tablet 300 mg PO BEDTIME 30 Days Qty: 30 0RF trazodone 100 mg Tablet 100 mg PO BEDTIME PRN (Reason: insomnia) 30 Days Qty: 30 0RF clonazepam 0.5 mg tablet 0.5 mg PO DAILY PRN (Reason: anxiety) 30 Days Qty: 30 0RF Interventions: [place]-Suicide Risk Severity Scale Last Done: 07/10/22 02:36
== END 2022-07-10 04:32 | disposition home or self-care (01) ==
PROVIDERS: Emergency Provider Emergency Medicine
DX: F25.0 Schizoaffective disorder, bipolar type (principal); M79.642 Pain in left hand; Z79.899 Other long term (current) drug therapy
CPT/HCPCS: 73130; 99283; 99284

== ENCOUNTER 2022-07-15 11:36 | Inpatient (IN) | payer OTHER, SELFPAY ==
[2022-07-15 11:41] VITALS: BP 144/88; PULSE 68; RESP 18; TEMP 36.9; O2SAT 99; BMI 22.3
--- NOTE | 2022-07-15 11:51 | PC.NURSE ---
Per pt off medication x 1 month.
--- NOTE | 2022-07-15 11:54 | ED_ITS ---
HPI - Psych General Chief Complaint: Psychiatric Symptoms Stated Complaint: Psych eval from HPD, SI(w/ plan) per EMS Time Seen by Provider: 07/15/22 11:53 Source: patient and EMS Mode of arrival: EMS History of Present Illness HPI Narrative: 32-year-old male with a past medical history of schizoaffective disorder, bipolar disorder, recently discharged from inpatient psychiatry at this facility on 07/04/2022 presenting to the ED via EMS s/p found chasing a female in [place]. Patient reports SI, HI, auditory and visual hallucinations. Reports he has been medication noncompliance since recent discharge. Reports SI with plan to burn himself or eat his eyeballs. Patient admits to THC use, denies other substances or ETOH. Denies abd pain, N/V/D/C, CP, SOB complaint: suicidal ideation, substance abuse and hallucinations Related Data Previous Rx's Medication Instructions Recorded clonazepam 0.5 mg tablet 0.5 mg PO DAILY PRN anxiety 30 07/04/22 days #30 tabs divalproex 500 mg tablet,extended 1,000 mg PO BID 30 days #120 tabs 07/04/22 release 24 hr olanzapine 20 mg tablet 20 mg PO BEDTIME 30 days #30 tabs 07/04/22 quetiapine 300 mg tablet 300 mg PO BEDTIME 30 days #30 tabs 07/04/22 trazodone 100 mg tablet 100 mg PO BEDTIME PRN insomnia 30 07/04/22 days #30 tabs Allergies Allergy/AdvReac Type Severity Reaction Status Date / Time haloperidol [From Haldol] AdvReac Intermediate Dystonia Verified 07/05/22 10:04 Review of Systems Review of Systems: Constitutional: No Fever, No Chills, No Fatigue, No Malaise ENT/Mouth: No Ear Pain, No Nasal Congestion, No sore throat, No Rhinorrhea, No Swallowing Difficulty Eyes: No Eye Pain, No Swelling, No Redness Cardiovascular: No Chest Pain, No SOB, No Edema, No Palpitations Respiratory: No Cough, No Sputum, No Wheezing, No Smoke Exposure, No Dyspnea Gastrointestinal: No Nausea, No Vomiting, No Diarrhea, No Constipation, No Abdominal pain Genitourinary: No Dysuria, No Urinary Frequency, No Hematuria, No Flank Pain Musculoskeletal: No joint pain, No Myalgias, No Joint Swelling Skin: No Skin Lesions, No rash Neuro: No Weakness, No Headache Psych: No Anxiety/Panic, + Depression, + SI/HI/AH/VH, + Social Issues Yes all other systems are reviewed and are negative Constitutional: Constitutional: Reports as per [facility] Past Medical History Attestation statement: The following information was validated with the patient. Medical History Bipolar 1 disorder Overweight (BMI 25.0-29.9) Surgical History No significant past surgical history Family History Family History Father Mental illness in member of household Mother Mental illness in member of household Brother Mental illness in member of household Sister Mental illness in member of household Maternal Grandmother Diabetes mellitus Social History Social History Household Members: None Housing: Apartment Do you presently have visiting nurse or other home services: No Alcohol intake: unknown Patient Tobacco Use Status: Never used Tobacco Smoked in Last 30 Days: Yes e-Cigarette/Vaping Use: Never Used Second Hand Smoke Exposure: No Use of substances other than those prescribed or required for medical reasons: No Substance Use Type: Caffiene Advance Directives: No Advance Directives Information Provided: No service: No Sexual orientation: Did not discuss Cognitive needs: No Hearing needs: No Vision needs: Yes (Pt has not seen a eye doctor since 2010-04.) Physical Exam Vital Signs: Vital Signs: Last Vital Signs Temp 98.5 F 07/15/22 11:41 Pulse 68 07/15/22 11:41 Resp 18 07/15/22 14:00 BP 144/88 H 07/15/22 11:41 Pulse Ox 99 07/15/22 11:41 O2 Del Method 07/15/22 11:41 BMI result Body Mass Index 22.3 Const: General: cooperative, healthy appearing and no acute distress Orientation/consciousness: patient oriented x3 Limitations: no limitations HEENT: Head: Yes normal to inspection and Yes atraumatic Ears: hearing grossly normal bilaterally General nose exam: Normal external nose present Face and sinus: Yes normal facial exam Mouth: Normal oral and palatal mucosa present Eyes: General: appearance normal, both eyes and all related structures Pupils: Equal, round and reactive pupils present EOM: EOMs intact bilaterally Neck: Neck: Yes normal visual inspection and Yes no meningeal signs Resp: Effort & Inspection: normal respiratory effort and no respiratory distress Auscultation: clear to auscultation bilaterally, no crackles, no rales, no rhonchi and no wheezes Cardio: Rate: regular rate Heart sounds: S1 normal heart sound present and S2 normal heart sound present GI: Inspection: Yes normal to inspection Palpation (GI): Soft to palpation, nontender, no guarding and not rigid Skin: Rashes: no rashes Wounds: no wounds Neuro: General: patient oriented x3, gait normal, tone normal, moves all extremities, no meningeal signs, no focal motor deficits and CN's II-XI intact bilaterally Cranial nerves: Yes Equal, round and reactive pupils present Gait exam (Neuro): Normal gait present Extrem: General: Yes normal to inspection Psych: Other: mildly hyperactive Affect: Animated affect present, Anxious affect present and Ecstatic affect present Thought content: Suicidality present, Homicidality present and Hallucination(s) present auditory and visual Course Course Course Narrative: -mild leukocytosis of 11.5, AST/ALT mildly elevated -UA negative, tox screen negative --Physician observation initiated at 1338 as patient needs more time to be evaluated by CARE team Patient is a Section 12 inpatient bed search from the community. -2100--ED care transferred to SHARAN mckoy pending bed search Medical Decision Making Medical Decision Making [facility] Narrative: 32-year-old male with a past medical history of schizoaffective disorder, bipolar disorder, recently discharged from inpatient psychiatry at this facility on 07/04/2022 presenting to the ED via EMS s/p found chasing a female in [place]. Patient reports SI, HI, auditory and visual hallucinations. On exam vital signs stable, and ED, mildly hyperactive, suicidal, homicidal, with active auditory and visual hallucinations. Concern for medication noncompliance vs schizoaffective disorder. Rule out substance abuse/organic causes Plan: Labs, UA, drug screen, CARE team consult Differential Diagnosis Differential Diagnoses: The differential diagnosis associated with the presentation includes As above Admission/Observation Consideration of admission/observation: Escalation of care including admission/observation considered Consult Healthcare Provider Management of the patient was discussed with: Behavioral Health Provider Lab Data MDM Lab Attestation statement: I reviewed the patient's lab results. 07/15/22 12:02 07/15/22 12:02 Labs: Lab Results 07/15/22 07/15/22 07/15/22 Range/Units 11:56 11:56 11:56 WBC (4.8-10.8) X10*3/uL RBC (4.60-5.80) X10*6/uL Hgb (14.0-18.0) g/dl Hct (42.0-52.0) % MCV (80.0-98.0) fL MCH (27.0-33.0) pg MCHC (31.0-36.0) g/dl RDW (11.0-16.0) % Plt Count (160-400) X10*3/uL MPV (9.4-12.4) fL Immature Gran % (Auto) (0.0-0.4) % Neut % (Auto) (45-73) % Lymph % (Auto) (20-40) % Crawford % (Auto) (2-11) % Eos % (Auto) (0-4) % Baso % (Auto) (0-2) % Lymph # (Auto) (1.2-4.9) X10*3/uL Crawford # (Auto) (0.1-1.2) X10*3/uL Eos # (Auto) (0.0-0.4) X10*3/uL Baso # (Auto) (0.0-0.2) X10*3/uL Abs Immat Gran (auto) (0.00-0.03) X10*3/uL Absolute Neuts (auto) (2.0-8.3) x10*3/uL Absolute Nucleated RBC (0.0-0.012) X10*3/uL Nucleated RBC % (auto) (0.0-0.2) /100WBC Sodium (135-145) mmol/L Potassium (3.3-5.1) mmol/L Chloride (96-108) mmol/L Carbon Dioxide (22-29) mmol/L Anion Gap (12-20) BUN (9-16) mg/dL Creatinine (0.5-1.4) mg/dL Estim Creat Clear Calc Estimated GFR Random Glucose (60-115) mg/dL Calcium (8.4-10.2) mg/dL Total Bilirubin (0.0-1.0) mg/dL Direct Bilirubin (0.0-0.5) mg/dL AST (5-37) U/L ALT (0-40) U/L Alkaline Phosphatase (39-117) U/L Total Protein (6.5-8.0) g/dL Albumin (3.5-5.0) g/dL Lipase (8-78) U/L Urine Color Yellow Urine Appearance Clear Urine pH 7.0 (5.0-9.0) Ur Specific [place] 1.020 (1.005-1.025) Urine Protein Negative (Neg-Trace) mg/dL Urine Glucose (UA) Negative (Negative) mg/dL Urine Ketones Negative (Negative) mg/dL Urine Blood Negative (Negative) Urine Nitrite Negative (Negative) Ur Leukocyte Esterase Negative (Negative) Urine Opiates Screen Not Detected (Not Detect) Urine Fentanyl Screen Not Detected (Not Detect) Ur Barbiturates Screen Not Detected (Not Detect) Ur Phencyclidine Scrn Not Detected (Not Detect) Ur Amphetamines Screen Not Detected (Not Detect) U Benzodiazepines Scrn Not Detected (Not Detect) Urine Cocaine Screen Not Detected (Not Detect) U Marijuana (THC) Screen Not Detected (Not Detect) Ethyl Alcohol mg/dL COVID-19 (RADHIKA) Negative (Negative) COVID-19 Clin Com See Note 07/15/22 07/15/22 07/15/22 Range/Units 12:02 12:02 12:02 WBC 11.5 H (4.8-10.8) X10*3/uL RBC 4.98 (4.60-5.80) X10*6/uL Hgb 15.5 (14.0-18.0) g/dl Hct 47.8 (42.0-52.0) % MCV 96.0 (80.0-98.0) fL MCH 31.1 (27.0-33.0) pg MCHC 32.4 (31.0-36.0) g/dl RDW 12.9 (11.0-16.0) % Plt Count 325 D (160-400) X10*3/uL MPV 9.3 L (9.4-12.4) fL Immature Gran % (Auto) 0.4 (0.0-0.4) % Neut % (Auto) 71.0 (45-73) % Lymph % (Auto) 19.0 L (20-40) % Crawford % (Auto) 7.9 (2-11) % Eos % (Auto) 1.3 (0-4) % Baso % (Auto) 0.4 (0-2) % Lymph # (Auto) 2.2 (1.2-4.9) X10*3/uL Crawford # (Auto) 0.9 (0.1-1.2) X10*3/uL Eos # (Auto) 0.2 (0.0-0.4) X10*3/uL Baso # (Auto) 0.1 (0.0-0.2) X10*3/uL Abs Immat Gran (auto) 0.05 H (0.00-0.03) X10*3/uL Absolute Neuts (auto) 8.2 (2.0-8.3) x10*3/uL Absolute Nucleated RBC 0.000 (0.0-0.012) X10*3/uL Nucleated RBC % (auto) 0.0 (0.0-0.2) /100WBC Sodium 138 (135-145) mmol/L Potassium 4.7 (3.3-5.1) mmol/L Chloride 102 (96-108) mmol/L Carbon Dioxide 28 (22-29) mmol/L Anion Gap 13 (12-20) BUN 13 (9-16) mg/dL Creatinine 1.03 (0.5-1.4) mg/dL Estim Creat Clear Calc 84.2 Estimated GFR > 60 Random Glucose 96 (60-115) mg/dL Calcium 9.7 (8.4-10.2) mg/dL Total Bilirubin 0.6 (0.0-1.0) mg/dL Direct Bilirubin 0.2 (0.0-0.5) mg/dL AST 90 H (5-37) U/L ALT 88 H (0-40) U/L Alkaline Phosphatase 68 (39-117) U/L Total Protein 7.5 (6.5-8.0) g/dL Albumin 4.3 (3.5-5.0) g/dL Lipase 14 (8-78) U/L Urine Color Urine Appearance Urine pH (5.0-9.0) Ur Specific [place] (1.005-1.025) Urine Protein (Neg-Trace) mg/dL Urine Glucose (UA) (Negative) mg/dL Urine Ketones (Negative) mg/dL Urine Blood (Negative) Urine Nitrite (Negative) Ur Leukocyte Esterase (Negative) Urine Opiates Screen (Not Detect) Urine Fentanyl Screen (Not Detect) Ur Barbiturates Screen (Not Detect) Ur Phencyclidine Scrn (Not Detect) Ur Amphetamines Screen (Not Detect) U Benzodiazepines Scrn (Not Detect) Urine Cocaine Screen (Not Detect) U Marijuana (THC) Screen (Not Detect) Ethyl Alcohol < 10 mg/dL COVID-19 (RADHIKA) (Negative) COVID-19 Clin Com External Record Review External record reviewed: Inpatient record, Office record, Outpatient record and Prior outpatient labs Discharge Plan Discharge Clinical Impression: Schizoaffective disorder, Suicidal ideations, Hallucinations Patient Disposition: Still a Patient Prescriptions: No Action divalproex 500 mg Tablet Extended Release 24 Hr 1,000 mg PO BID 30 Days Qty: 120 0RF olanzapine 20 mg tablet 20 mg PO BEDTIME 30 Days Qty: 30 0RF quetiapine 300 mg Tablet 300 mg PO BEDTIME 30 Days Qty: 30 0RF trazodone 100 mg Tablet 100 mg PO BEDTIME PRN (Reason: insomnia) 30 Days Qty: 30 0RF clonazepam 0.5 mg tablet 0.5 mg PO DAILY PRN (Reason: anxiety) 30 Days Qty: 30 0RF Interventions: [place]ades-Suicide Risk Severity Scale Last Done: 07/15/22 14:00
[2022-07-15 12:00] VITALS: RESP 18
[2022-07-15 12:07] LABS: MANUAL DIFF FLAG NO
--- NOTE | 2022-07-15 12:09 | PC.NURSE ---
Contact made from [facility]-Pt is inpt bed search, evaluated in the community. Found to be following female, closely confessing love to her Endorsed SI/HI/AH/VH for community assessment. Admits to non-med compliance
[2022-07-15 12:12] LABS: Appearance Urine Clear; Color Urine Yellow; Glucose Urine UA Negative (Negative); Leukocyte Esterase Urine Negative (Negative); Nitrite Urine Negative (Negative); Urine Blood Negative (Negative); Urine Ketones Negative (Negative); Urine Protein Negative (Neg-Trace)
[2022-07-15 12:16] LABS: Basophils Absolute Auto 0.1 X10*3/uL (0.0-0.2); Basophils Percent Auto 0.4 % (0-2); Eosinophils Absolute Auto 0.2 X10*3/uL (0.0-0.4); Eosinophils Percent Auto 1.3 % (0-4); Hematocrit 47.8 % (42.0-52.0); Hemoglobin 15.5 g/dl (14.0-18.0); Imm Gran Abs Auto 0.05 X10*3/uL (0.00-0.03); Imm Gran Pct Auto 0.4 % (0.0-0.4); Lymphocytes Absolute Auto 2.2 X10*3/uL (1.2-4.9); Mean Corpuscular HGB Conc 32.4 g/dl (31.0-36.0); Mean Corpuscular Hemoglobin 31.1 pg (27.0-33.0); Mean Platelet Volume 9.3 fL (9.4-12.4); Monocytes Absolute Auto 0.9 X10*3/uL (0.1-1.2); Monocytes Percent Auto 7.9 % (2-11); Neutrophils Absolute Auto 8.2 x10*3/uL (2.0-8.3); Platelet Count 325 X10*3/uL (160-400); Red Blood Count 4.98 X10*6/uL (4.60-5.80); Red Cell Distribution Width 12.9 % (11.0-16.0); White Blood Count 11.5 X10*3/uL (4.8-10.8)
[2022-07-15 12:24] LABS: Ethanol < 10 mg/dL
[2022-07-15 12:25] LABS: Alanine Aminotransferase 88 U/L (0-40); Albumin Level 4.3 g/dL (3.5-5.0); Alkaline Phosphatase 68 U/L (39-117); Anion Gap 13 (12-20); Aspartate Amino Transferase 90 U/L (5-37); Bilirubin Direct 0.2 mg/dL (0.0-0.5); Bilirubin Total 0.6 mg/dL (0.0-1.0); Blood Urea Nitrogen 13 mg/dL (9-16); Calcium 9.7 mg/dL (8.4-10.2); Carbon Dioxide 28 mmol/L (22-29); Chloride 102 mmol/L (96-108); Creatinine Clr Calc Pharmacy 84.2; Estimated Glomerular Filt Rate > 60; Glucose Random 96 mg/dL (60-115); Lipase 14 U/L (8-78); Potassium 4.7 mmol/L (3.3-5.1); Sodium 138 mmol/L (135-145); Total Protein 7.5 g/dL (6.5-8.0)
[2022-07-15 12:29] LABS: COVID-19 Test Negative (Negative); IDNOW Serial# 55D5AD1C
[2022-07-15 12:32] LABS: Amphetamine Screen Urine Not Detected (Not Detect); Barbiturates, Urine Not Detected (Not Detect); Benzodiazepines Screen Urine Not Detected (Not Detect); Cannabinoid Screen Urine Not Detected (Not Detect); Cocaine Screen Urine Not Detected (Not Detect); Fentanyl, urine Not Detected (Not Detect); Opiate Screen Urine Not Detected (Not Detect); Phencyclidine Screen Urine Not Detected (Not Detect)
[2022-07-15 14:00] VITALS: RESP 18
--- NOTE | 2022-07-15 16:15 | PC.NURSE ---
Pacing in milieu area. Hyperverbal, tangential in thoughts. I don't sleep. I dont need medication. I want to go if you cross my life I kill you. I will kill you . Care team to bedside to speak to patient.
--- NOTE | 2022-07-15 16:30 | PC.NURSE ---
Per care team pt states I'm god, I kill people who touch babies Pt reports feeling in touch Ely Zendejas's music She tells me what to do.
[2022-07-15] MEDS: Divalproex Sodium ER 500 MG TAB.ER.24H 1000 MG PO (20:46)
[2022-07-15] MEDS: QUEtiapine Fumarate 300 MG TABLET PO (20:46)
[2022-07-15] MEDS: OLANZapine 10 MG TABLET 20 MG PO (20:46)
--- NOTE | 2022-07-16 | ECG_ITS ---
Test Reason : clearance Blood Pressure : / mmHG Vent. Rate : 070 BPM Atrial Rate : 069 BPM P-R Int : 136 ms QRS Dur : 084 ms QT Int : 358 ms P-R-T Axes : 053 071 025 degrees QTc Int : 386 ms Normal sinus rhythm with sinus arrhythmia Normal ECG When compared with ECG of 27-JUN-2022 13:59, No significant change was found Referred By: Elie Hall Electronically Signed By:NATHAN CROCKETT MD
--- NOTE | 2022-07-16 02:02 | PC.NURSE ---
Assumed care of pt. at 1900. Pt. up in the milieu at this time, pt. then moved to room and slept for about 1 1/2 hours. Pt. woke up for medications and was medication compliant. Pt. asked to write some songs. Paper provided to pt. Pt. currently asleep, respirations even and unlabored, no distress noted. Will continue to monitor.
[2022-07-16 05:35] VITALS: BP 116/57; PULSE 97; RESP 17; TEMP 36.2; O2SAT 97
--- NOTE | 2022-07-16 05:45 | PC.NURSE ---
Pt. awake and up to use restroom and brush teeth. Pt. asked to watch tv, allowed to watch in the dining area . Pt. back to room and asked for paper to write songs. Provided to pt.
[2022-07-16] MEDS: Divalproex Sodium ER 500 MG TAB.ER.24H 1000 MG PO ×2 (08:25→22:15)
[2022-07-16] MEDS: clonazePAM 0.5 MG TABLET PO (10:47)
--- NOTE | 2022-07-16 16:16 | PC.NURSE ---
Report given to M[facility]
[2022-07-16 17:59] VITALS: BP 114/72; PULSE 81; RESP 18; TEMP 36.1; O2SAT 97
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
[2022-07-16 20:26] LABS: Valproate 46.9 mcg/mL (50.0-100.0)
[2022-07-16] MEDS: QUEtiapine Fumarate 300 MG TABLET PO (22:14)
[2022-07-16] MEDS: OLANZapine 10 MG TABLET 20 MG PO (22:15)
[2022-07-16] MEDS: traZODone HCL 100 MG TABLET PO (22:16)
[2022-07-16] MEDS: traZODone HCL 50 MG TABLET PO (23:14)
[2022-07-16] MEDS: hydrOXYzine HCL 25 MG TABLET PO (23:14)
[2022-07-17 08:00] VITALS: BP 139/71; PULSE 97; RESP 18; TEMP 36.6; O2SAT 99
[2022-07-17 09:12] LABS: Estimated Average Glucose 100 mg/dL; Hemoglobin A1c % 5.1 %
[2022-07-17] MEDS: Divalproex Sodium ER 500 MG TAB.ER.24H 1000 MG PO ×2 (09:35→22:52)
[2022-07-17 09:43] LABS: Alanine Aminotransferase 58 U/L (0-40); Albumin Level 3.9 g/dL (3.5-5.0); Alkaline Phosphatase 61 U/L (39-117); Anion Gap 16 (12-20); Aspartate Amino Transferase 39 U/L (5-37); Bilirubin Total 0.2 mg/dL (0.0-1.0); Blood Urea Nitrogen 14 mg/dL (9-16); Calcium 9.3 mg/dL (8.4-10.2); Carbon Dioxide 26 mmol/L (22-29); Chloride 100 mmol/L (96-108); Cholesterol 146 mg/dL; Creatinine Clr Calc Pharmacy 103.3; Estimated Glomerular Filt Rate > 60; Glucose Fasting 116 mg/dL (60-99); HDL Cholesterol 45 mg/dL; LDL Cholesterol Calculated 87 mg/dl; Potassium 4.4 mmol/L (3.3-5.1); Sodium 138 mmol/L (135-145); Total Protein 6.8 g/dL (6.5-8.0); Triglycerides 74 mg/dL
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
[2022-07-17 10:17] LABS: Folate 10.9 ng/mL (> or = 4.0); Free T4 (Free Thyroxine) 1.16 ng/dL (0.71-1.85); Thyroid Stimulating Hormone 1.77 uIU/mL (0.32-4.0); Vitamin B12 351 pg/mL (200-900)
[2022-07-17 18:00] VITALS: BP 129/62; PULSE 108; TEMP 36.2; O2SAT 95
[2022-07-17] MEDS: OLANZapine 10 MG TABLET 20 MG PO (22:51)
[2022-07-17] MEDS: QUEtiapine Fumarate 300 MG TABLET PO (22:52)
[2022-07-17] MEDS: LORazepam 1 MG TABLET PO (23:39)
[2022-07-17] MEDS: OLANZapine ODT 10 MG TAB.RAPDIS TRANSLINGU (23:39)
[2022-07-17] MEDS: hydrOXYzine HCL 25 MG TABLET PO (23:39)
[2022-07-17] MEDS: traZODone HCL 100 MG TABLET PO (23:39)
[2022-07-18 08:00] VITALS: BP 134/83; PULSE 100; TEMP 36.4; O2SAT 99
[2022-07-18] MEDS: Divalproex Sodium ER 500 MG TAB.ER.24H 1000 MG PO ×2 (08:36→20:05)
[2022-07-18] MEDS: LORazepam 1 MG TABLET PO (09:01)
[2022-07-18] MEDS: OLANZapine ODT 10 MG TAB.RAPDIS TRANSLINGU ×2 (09:01→22:54)
--- NOTE | 2022-07-18 09:09 | PC.NURSE ---
pt refused flu vaccine at this time
--- NOTE | 2022-07-18 10:43 | P.PNPSI_ITS ---
Subjective Subjective Date of Service: 07/18/22 Reason For Visit: Frances Subjective Notes: Conditional Voluntary and 3 Day Interim History: Pt continues to report that he hears voices. He continues to present as hypervigilant, restless, focused on having to eat someone face, the face of those who are killing children. When asked, who is killing children, pt states I can't tell you. He denies SI. He continues to tell this typewriter assembler that no one can help him, that he has special caballero that other don't. Medication Compliance: Yes Review of Systems Review of Systems Constitutional: No Fever, No Chills, No Fatigue, No Malaise ENT/Mouth: No Ear Pain, No Nasal Congestion, No sore throat, No Rhinorrhea, No Swallowing Difficulty Eyes: No Eye Pain, No Swelling, No Redness Cardiovascular: No Chest Pain, No SOB, No Edema, No Palpitations Respiratory: No Cough, No Sputum, No Wheezing, No Smoke Exposure, No Dyspnea Gastrointestinal: No Nausea, No Vomiting, No Diarrhea, No Constipation, No Abdominal pain Genitourinary: No Dysuria, No Urinary Frequency, No Hematuria, No Flank Pain Musculoskeletal: No joint pain, No Myalgias, No Joint Swelling Skin: No Skin Lesions, No rash Neuro: No Weakness, No Headache Psych: No Anxiety/Panic, + Depression, + SI/HI/AH/VH, + Social Issues Yes all other systems are reviewed and are negative Constitutional: Reports as per HPI Mental Status Exam Mental Status Exam Narrative: Pt is alert, not oriented to situation. Behavior: guarded and suspicious;dressed in casual attire, wearing a tank top with hair pulled back; fair hygiene; affect expansive; eye contact appropriate; Speech is, hyperverbal, pressured, but normal volume. Some Psychomotor agitation present; thought process can be goal oriented but also becomes tangential; Thought content is on scientology ideas; denies any SI/HI/AVH; Patients insight and judgment are impaired. Diagnostics Vital Signs (24Hr): Vital Signs - 24 hr 07/18/22 20:07 07/19/22 06:00 Temperature 98.1 F 98.4 F Pulse Rate 110 H 104 H Respiratory Rate 16 Blood Pressure 131/60 134/82 Pulse Oximetry 96 98 Oxygen Delivery Method Room Air Room Air BMI result Body Mass Index 29.3 Labs 07/15/22 12:02 07/17/22 08:36 Labs: Laboratory Results - last 48 hr 07/19/22 09:07 Ammonia 33 Medications Medications Current Medications Acetaminophen (Acetaminophen 325 Mg Tablet) 650 mg PO Q6H PRN PRN Reason: Headache/Pain Mild Scale (1-3) Al Hydroxide/Mg Hydroxide (Magnesium Hydrox/Alum Hydrox 30 Ml Oral.Susp) 30 ml PO Q6H PRN PRN Reason: Heartburn/Nausea Divalproex Sodium (Divalproex Sodium Er 500 Mg Tab.Er.24h) 1,000 mg PO BID CASANDRA Last Admin: 07/19/22 09:08 Dose: 1,000 mg Hydroxyzine HCl (Hydroxyzine Hcl 25 Mg Tablet) 25 mg PO Q6H PRN PRN Reason: Anxiety Last Admin: 07/18/22 22:54 Dose: 25 mg Lorazepam (Lorazepam 1 Mg Tablet) 1 mg PO Q4H PRN PRN Reason: Anxiety Last Admin: 07/18/22 09:01 Dose: 1 mg Magnesium Hydroxide (Milk Of Magnesia 30 Ml Oral.Susp) 30 ml PO DAILY PRN PRN Reason: Constipation Nicotine Polacrilex (Nicotine Polacrilex 2 Mg Gum) 4 mg BUCCAL Q2H PRN PRN Reason: Nicotine Cravings Olanzapine (Olanzapine 10 Mg Tablet) 20 mg PO BEDTIME CASANDRA Last Admin: 07/18/22 20:05 Dose: 20 mg Olanzapine (Olanzapine Odt 10 Mg Tab.Rapdis) 10 mg TRANSLINGU Q6H PRN PRN Reason: agitation Last Admin: 07/18/22 22:54 Dose: 10 mg Quetiapine Fumarate (Quetiapine Fumarate 300 Mg Tablet) 300 mg PO BEDTIME CASANDRA Last Admin: 07/18/22 20:05 Dose: 300 mg Trazodone HCl (Trazodone Hcl 100 Mg Tablet) 100 mg PO BEDTIME PRN PRN Reason: insomnia Last Admin: 07/18/22 22:55 Dose: 100 mg Trazodone HCl (Trazodone Hcl 50 Mg Tablet) 50 mg PO BEDTIME MRX1 PRN PRN Reason: Insomnia Last Admin: 07/18/22 22:54 Dose: 50 mg Allergies Allergies Allergy/AdvReac Type Severity Reaction Status Date / Time haloperidol [From Haldol] AdvReac Intermediate Dystonia Verified 07/05/22 10:04 Assessment & Plan Assessment & Plan (1) Schizoaffective disorder: Status: Acute Code(s): F25.9 - Schizoaffective disorder, unspecified Plan Mr. Noel is a 32 year-old male with hx of schizoaffective disorder who was discharged from on 07/02/22. Self presented with increase scientology and paranoid delusions, not sleeping, pacing, thinking he has to protect children who are being killed by evil forces, and he has to eat these peoples faces. Pt presents as hypervigilant, pacing, irritable and guarded. He denies having mental illness and minimizes need for psychotropic medications. We discussed risks, benefits and alternative treatment options. PLAN 1. Admit to M3, CV, 15 minutes checks for safety. 2. Continue depakote and olanzapine, will check ammonia level. Some elevation on LFT. 3. Obtain collateral information 4. Aftercare planning. 07/18 check ammonia. continue medications, pending collateral from OP provider. Reason for contiued inpatient stay Substantial Risk for: harm to others and inability to function Time Spent With Patient Time: Total time managing care of this patient today ____ minutes.
[2022-07-18] MEDS: QUEtiapine Fumarate 300 MG TABLET PO (20:05)
[2022-07-18] MEDS: OLANZapine 10 MG TABLET 20 MG PO (20:05)
[2022-07-18 20:07] VITALS: BP 131/60; PULSE 110; TEMP 36.7; O2SAT 96
[2022-07-18] MEDS: traZODone HCL 50 MG TABLET PO (22:54)
[2022-07-18] MEDS: hydrOXYzine HCL 25 MG TABLET PO (22:54)
[2022-07-18] MEDS: traZODone HCL 100 MG TABLET PO (22:55)
[2022-07-19 06:00] VITALS: BP 134/82; PULSE 104; RESP 16; TEMP 36.9; O2SAT 98
[2022-07-19 07:00] VITALS: BMI 29.3
[2022-07-19] MEDS: Divalproex Sodium ER 500 MG TAB.ER.24H 1000 MG PO ×2 (09:08→20:19)
[2022-07-19 09:30] LABS: Ammonia 33 umol/L (13-55)
--- NOTE | 2022-07-19 13:09 | P.PNPSI_ITS ---
Subjective Subjective Date of Service: 07/19/22 Reason For Visit: Frances Subjective Notes: Conditional Voluntary Interim History: Pt continues to report that he has to save children and having caballero that others don't. He continues to present as hypervigilant, restless, focused on having to eat someone face, the face of those who are killing children. When asked, who is killing children, pt states I can't tell you. He denies SI. He continues to tell this pattern chart writer that no one can help him, that he has special caballero that other don't. He asks for discharge soon. Review of Systems Review of Systems Constitutional: No Fever, No Chills, No Fatigue, No Malaise ENT/Mouth: No Ear Pain, No Nasal Congestion, No sore throat, No Rhinorrhea, No Swallowing Difficulty Eyes: No Eye Pain, No Swelling, No Redness Cardiovascular: No Chest Pain, No SOB, No Edema, No Palpitations Respiratory: No Cough, No Sputum, No Wheezing, No Smoke Exposure, No Dyspnea Gastrointestinal: No Nausea, No Vomiting, No Diarrhea, No Constipation, No Abdominal pain Genitourinary: No Dysuria, No Urinary Frequency, No Hematuria, No Flank Pain Musculoskeletal: No joint pain, No Myalgias, No Joint Swelling Skin: No Skin Lesions, No rash Neuro: No Weakness, No Headache Psych: No Anxiety/Panic, + Depression, + SI/HI/AH/VH, + Social Issues Yes all other systems are reviewed and are negative Constitutional: Reports as per [facility] Mental Status Exam Mental Status Exam Narrative: Pt is alert, not oriented to situation. Behavior: guarded and suspicious;dressed in casual attire, wearing a tank top with hair pulled back; fair hygiene; affect expansive; eye contact appropriate; Speech is, hyperverbal, pressured, but normal volume. Some Psychomotor agitation present; thought process can be goal oriented but also becomes tangential; Thought content is on gnosticist ideas; denies any SI/HI/AVH; Patients insight and judgment are impaired. Diagnostics Vital Signs (24Hr): Vital Signs - 24 hr 07/20/22 20:19 07/21/22 08:00 Temperature 97.8 F 97.8 F Pulse Rate 101 H 108 H Blood Pressure 132/67 128/65 Pulse Oximetry 100 98 Oxygen Delivery Method Room Air Room Air BMI result Body Mass Index 29.3 Labs 07/15/22 12:02 07/17/22 08:36 Labs: Laboratory Results - last 48 hr 07/19/22 09:07 Ammonia 33 Medications Medications Current Medications Acetaminophen (Acetaminophen 325 Mg Tablet) 650 mg PO Q6H PRN PRN Reason: Headache/Pain Mild Scale (1-3) Al Hydroxide/Mg Hydroxide (Magnesium Hydrox/Alum Hydrox 30 Ml Oral.Susp) 30 ml PO Q6H PRN PRN Reason: Heartburn/Nausea Divalproex Sodium (Divalproex Sodium Er 500 Mg Tab.Er.24h) 1,000 mg PO BID CASANDRA Last Admin: 07/21/22 08:14 Dose: 1,000 mg Hydroxyzine HCl (Hydroxyzine Hcl 25 Mg Tablet) 25 mg PO Q6H PRN PRN Reason: Anxiety Last Admin: 07/20/22 09:05 Dose: 25 mg Lorazepam (Lorazepam 1 Mg Tablet) 1 mg PO Q4H PRN PRN Reason: Anxiety Last Admin: 07/20/22 21:36 Dose: 1 mg Magnesium Hydroxide (Milk Of Magnesia 30 Ml Oral.Susp) 30 ml PO DAILY PRN PRN Reason: Constipation Nicotine Polacrilex (Nicotine Polacrilex 2 Mg Gum) 4 mg BUCCAL Q2H PRN PRN Reason: Nicotine Cravings Olanzapine (Olanzapine 10 Mg Tablet) 20 mg PO BEDTIME CASANDRA Last Admin: 07/20/22 20:17 Dose: 20 mg Olanzapine (Olanzapine Odt 10 Mg Tab.Rapdis) 10 mg TRANSLINGU Q6H PRN PRN Reason: agitation Last Admin: 07/18/22 22:54 Dose: 10 mg Quetiapine Fumarate (Quetiapine Fumarate 300 Mg Tablet) 300 mg PO BEDTIME CASANDRA Last Admin: 07/20/22 20:17 Dose: 300 mg Trazodone HCl (Trazodone Hcl 100 Mg Tablet) 100 mg PO BEDTIME PRN PRN Reason: insomnia Last Admin: 07/20/22 21:36 Dose: 100 mg Trazodone HCl (Trazodone Hcl 50 Mg Tablet) 50 mg PO BEDTIME MRX1 PRN PRN Reason: Insomnia Last Admin: 07/20/22 21:36 Dose: 50 mg Allergies Allergies Allergy/AdvReac Type Severity Reaction Status Date / Time haloperidol [From Haldol] AdvReac Intermediate Dystonia Verified 07/05/22 10:04 Assessment & Plan Assessment & Plan (1) Schizoaffective disorder: Status: Acute Code(s): F25.9 - Schizoaffective disorder, unspecified Plan Mr. Noel is a 32 year-old male with hx of schizoaffective disorder who was discharged from on 07/02/22. Self presented with increase gnosticist and paranoid delusions, not sleeping, pacing, thinking he has to protect children who are being killed by evil forces, and he has to eat these peoples faces. Pt presents as hypervigilant, pacing, irritable and guarded. He denies having mental illness and minimizes need for psychotropic medications. We discussed risks, benefits and alternative treatment options. PLAN 1. Admit to M3, CV, 15 minutes checks for safety. 2. Continue depakote and olanzapine, will check ammonia level. Some elevation on LFT. 3. Obtain collateral information 4. Aftercare planning. 07/18 check ammonia. continue medications, pending collateral from OP provider. 07/19 continue tx. Reason for contiued inpatient stay Substantial Risk for: harm to others and inability to function Time Spent With Patient Time: Total time managing care of this patient today ____ minutes.
[2022-07-19] MEDS: QUEtiapine Fumarate 300 MG TABLET PO (20:19)
[2022-07-19] MEDS: OLANZapine 10 MG TABLET 20 MG PO (20:19)
[2022-07-19 20:20] VITALS: BP 132/74; PULSE 94; RESP 18; TEMP 36.7; O2SAT 96
[2022-07-19] MEDS: hydrOXYzine HCL 25 MG TABLET PO (20:20)
[2022-07-19] MEDS: traZODone HCL 50 MG TABLET PO (20:20)
[2022-07-19] MEDS: traZODone HCL 100 MG TABLET PO (20:20)
[2022-07-19] MEDS: LORazepam 1 MG TABLET PO (20:20)
[2022-07-20 06:00] VITALS: BP 141/85; PULSE 109; RESP 16; TEMP 36.6; O2SAT 97
[2022-07-20] MEDS: Divalproex Sodium ER 500 MG TAB.ER.24H 1000 MG PO ×2 (09:05→20:17)
[2022-07-20] MEDS: hydrOXYzine HCL 25 MG TABLET PO (09:05)
[2022-07-20] MEDS: LORazepam 1 MG TABLET PO ×2 (09:05→21:36)
--- NOTE | 2022-07-20 12:20 | P.PNPSI_ITS ---
Subjective Subjective Date of Service: 07/20/22 Reason For Visit: Frances Subjective Notes: Conditional Voluntary and 3 Day Interim History: Pt reports he is doing well. Pt presents with expansive mood. He denies SI/HI. He states he has many thing to do alluding to his power of saving children. 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 He is pacing the cruz, slightly calmer as he has agreed to take medications but with no insight into psychosis and his illness. Review of Systems Review of Systems Constitutional: No Fever, No Chills, No Fatigue, No Malaise ENT/Mouth: No Ear Pain, No Nasal Congestion, No sore throat, No Rhinorrhea, No Swallowing Difficulty Eyes: No Eye Pain, No Swelling, No Redness Cardiovascular: No Chest Pain, No SOB, No Edema, No Palpitations Respiratory: No Cough, No Sputum, No Wheezing, No Smoke Exposure, No Dyspnea Gastrointestinal: No Nausea, No Vomiting, No Diarrhea, No Constipation, No Abdominal pain Genitourinary: No Dysuria, No Urinary Frequency, No Hematuria, No Flank Pain Musculoskeletal: No joint pain, No Myalgias, No Joint Swelling Skin: No Skin Lesions, No rash Neuro: No Weakness, No Headache Psych: No Anxiety/Panic, + Depression, + SI/HI/AH/VH, + Social Issues Yes all other systems are reviewed and are negative Constitutional: Reports as per [facility] Mental Status Exam Mental Status Exam Narrative: Pt is alert, not oriented to situation. Behavior: guarded and suspicious;dressed in casual attire, wearing a tank top with hair pulled back; fair hygiene; affect expansive; eye contact appropriate; Speech is, hyperverbal, pressured, but normal volume. Some Psychomotor agitation present; thought process can be goal oriented but also becomes tangential; Thought content is on christianity ideas; denies any SI/HI/AVH; Patients insight and judgment are impaired. Diagnostics Vital Signs (24Hr): Vital Signs - 24 hr 07/20/22 20:19 07/21/22 08:00 Temperature 97.8 F 97.8 F Pulse Rate 101 H 108 H Blood Pressure 132/67 128/65 Pulse Oximetry 100 98 Oxygen Delivery Method Room Air Room Air BMI result Body Mass Index 29.3 Labs 07/15/22 12:02 07/17/22 08:36 Labs: Laboratory Results - last 48 hr 07/19/22 09:07 Ammonia 33 Medications Medications Current Medications Acetaminophen (Acetaminophen 325 Mg Tablet) 650 mg PO Q6H PRN PRN Reason: Headache/Pain Mild Scale (1-3) Al Hydroxide/Mg Hydroxide (Magnesium Hydrox/Alum Hydrox 30 Ml Oral.Susp) 30 ml PO Q6H PRN PRN Reason: Heartburn/Nausea Divalproex Sodium (Divalproex Sodium Er 500 Mg Tab.Er.24h) 1,000 mg PO BID CASANDRA Last Admin: 07/21/22 08:14 Dose: 1,000 mg Hydroxyzine HCl (Hydroxyzine Hcl 25 Mg Tablet) 25 mg PO Q6H PRN PRN Reason: Anxiety Last Admin: 07/20/22 09:05 Dose: 25 mg Lorazepam (Lorazepam 1 Mg Tablet) 1 mg PO Q4H PRN PRN Reason: Anxiety Last Admin: 07/20/22 21:36 Dose: 1 mg Magnesium Hydroxide (Milk Of Magnesia 30 Ml Oral.Susp) 30 ml PO DAILY PRN PRN Reason: Constipation Nicotine Polacrilex (Nicotine Polacrilex 2 Mg Gum) 4 mg BUCCAL Q2H PRN PRN Reason: Nicotine Cravings Olanzapine (Olanzapine 10 Mg Tablet) 20 mg PO BEDTIME CASANDRA Last Admin: 07/20/22 20:17 Dose: 20 mg Olanzapine (Olanzapine Odt 10 Mg Tab.Rapdis) 10 mg TRANSLINGU Q6H PRN PRN Reason: agitation Last Admin: 07/18/22 22:54 Dose: 10 mg Quetiapine Fumarate (Quetiapine Fumarate 300 Mg Tablet) 300 mg PO BEDTIME CASANDRA Last Admin: 07/20/22 20:17 Dose: 300 mg Trazodone HCl (Trazodone Hcl 100 Mg Tablet) 100 mg PO BEDTIME PRN PRN Reason: insomnia Last Admin: 07/20/22 21:36 Dose: 100 mg Trazodone HCl (Trazodone Hcl 50 Mg Tablet) 50 mg PO BEDTIME MRX1 PRN PRN Reason: Insomnia Last Admin: 07/20/22 21:36 Dose: 50 mg Allergies Allergies Allergy/AdvReac Type Severity Reaction Status Date / Time haloperidol [From Haldol] AdvReac Intermediate Dystonia Verified 07/05/22 10:04 Assessment & Plan Assessment & Plan (1) Schizoaffective disorder: Status: Acute Code(s): F25.9 - Schizoaffective disorder, unspecified Plan Mr. Noel is a 32 year-old male with hx of schizoaffective disorder who was discharged from on 07/02/22. Self presented with increase christianity and paranoid delusions, not sleeping, pacing, thinking he has to protect children who are being killed by evil forces, and he has to eat these peoples faces. Pt presents as hypervigilant, pacing, irritable and guarded. He denies having mental illness and minimizes need for psychotropic medications. We discussed risks, benefits and alternative treatment options. PLAN 1. Admit to M3, CV, 15 minutes checks for safety. 2. Continue depakote and olanzapine, will check ammonia level. Some elevation on LFT. 3. Obtain collateral information 4. Aftercare planning. 07/18 check ammonia. continue medications, pending collateral from OP provider. 07/19 continue tx. 07/20 continue current medications. Reason for contiued inpatient stay Substantial Risk for: harm to others and inability to function Time Spent With Patient Time: Total time managing care of this patient today ____ minutes.
[2022-07-20] MEDS: OLANZapine 10 MG TABLET 20 MG PO (20:17)
[2022-07-20] MEDS: QUEtiapine Fumarate 300 MG TABLET PO (20:17)
[2022-07-20 20:19] VITALS: BP 132/67; PULSE 101; TEMP 36.6; O2SAT 100
[2022-07-20] MEDS: traZODone HCL 100 MG TABLET PO (21:36)
[2022-07-20] MEDS: traZODone HCL 50 MG TABLET PO (21:36)
[2022-07-21 08:00] VITALS: BP 128/65; PULSE 108; TEMP 36.6; O2SAT 98
[2022-07-21] MEDS: Divalproex Sodium ER 500 MG TAB.ER.24H 1000 MG PO ×2 (08:14→20:53)
--- NOTE | 2022-07-21 13:04 | P.PNPSI_ITS ---
Subjective Subjective Date of Service: 07/21/22 Reason For Visit: Frances Interim History: Pt mood is expansive and irritable; He is pacing and loud at times; He denies SI/HI. staff report he slept until 345 am and then took shower and went back to bed for a few hours. Medication Compliance: Yes Side effects from medications: No Attending Groups: No Review of Systems Acute medical concerns: No Medical Review of Systems: unchanged Review of Systems Review of Systems Constitutional: No Fever, No Chills, No Fatigue, No Malaise ENT/Mouth: No Ear Pain, No Nasal Congestion, No sore throat, No Rhinorrhea, No Swallowing Difficulty Eyes: No Eye Pain, No Swelling, No Redness Cardiovascular: No Chest Pain, No SOB, No Edema, No Palpitations Respiratory: No Cough, No Sputum, No Wheezing, No Smoke Exposure, No Dyspnea Gastrointestinal: No Nausea, No Vomiting, No Diarrhea, No Constipation, No Abdominal pain Genitourinary: No Dysuria, No Urinary Frequency, No Hematuria, No Flank Pain Musculoskeletal: No joint pain, No Myalgias, No Joint Swelling Skin: No Skin Lesions, No rash Neuro: No Weakness, No Headache Psych: No Anxiety/Panic, + Depression, + SI/HI/AH/VH, + Social Issues Yes all other systems are reviewed and are negative Constitutional: Reports as per HPI Mental Status Exam Mental Status Exam Narrative: Pt is alert, not oriented to situation. Behavior: guarded and suspicious;dressed in casual attire, wearing a tank top with hair pulled back; fair hygiene; affect expansive; eye contact appropriate; Speech is, hyperverbal, pressured, but normal volume. Some Psychomotor agitation present; thought process can be goal oriented but also becomes tangential; Thought content is on mormonism ideas; denies any SI/HI/AVH; Patients insight and judgment are impaired. Diagnostics Vital Signs (24Hr): Vital Signs - 24 hr 07/20/22 20:19 07/21/22 08:00 Temperature 97.8 F 97.8 F Pulse Rate 101 H 108 H Blood Pressure 132/67 128/65 Pulse Oximetry 100 98 Oxygen Delivery Method Room Air Room Air BMI result Body Mass Index 29.3 Labs 07/15/22 12:02 07/17/22 08:36 Medications Medications Current Medications Acetaminophen (Acetaminophen 325 Mg Tablet) 650 mg PO Q6H PRN PRN Reason: Headache/Pain Mild Scale (1-3) Al Hydroxide/Mg Hydroxide (Magnesium Hydrox/Alum Hydrox 30 Ml Oral.Susp) 30 ml PO Q6H PRN PRN Reason: Heartburn/Nausea Divalproex Sodium (Divalproex Sodium Er 500 Mg Tab.Er.24h) 1,000 mg PO BID CASANDRA Last Admin: 07/21/22 08:14 Dose: 1,000 mg Hydroxyzine HCl (Hydroxyzine Hcl 25 Mg Tablet) 25 mg PO Q6H PRN PRN Reason: Anxiety Last Admin: 07/20/22 09:05 Dose: 25 mg Lorazepam (Lorazepam 1 Mg Tablet) 1 mg PO Q4H PRN PRN Reason: Anxiety Last Admin: 07/20/22 21:36 Dose: 1 mg Magnesium Hydroxide (Milk Of Magnesia 30 Ml Oral.Susp) 30 ml PO DAILY PRN PRN Reason: Constipation Nicotine Polacrilex (Nicotine Polacrilex 2 Mg Gum) 4 mg BUCCAL Q2H PRN PRN Reason: Nicotine Cravings Olanzapine (Olanzapine 10 Mg Tablet) 20 mg PO BEDTIME CASANDRA Last Admin: 07/20/22 20:17 Dose: 20 mg Olanzapine (Olanzapine Odt 10 Mg Tab.Rapdis) 10 mg TRANSLINGU Q6H PRN PRN Reason: agitation Last Admin: 07/18/22 22:54 Dose: 10 mg Quetiapine Fumarate (Quetiapine Fumarate 300 Mg Tablet) 300 mg PO BEDTIME CASANDRA Last Admin: 07/20/22 20:17 Dose: 300 mg Trazodone HCl (Trazodone Hcl 100 Mg Tablet) 100 mg PO BEDTIME PRN PRN Reason: insomnia Last Admin: 07/20/22 21:36 Dose: 100 mg Trazodone HCl (Trazodone Hcl 50 Mg Tablet) 50 mg PO BEDTIME MRX1 PRN PRN Reason: Insomnia Last Admin: 07/20/22 21:36 Dose: 50 mg Allergies Allergies Allergy/AdvReac Type Severity Reaction Status Date / Time haloperidol [From Haldol] AdvReac Intermediate Dystonia Verified 07/05/22 10:04 Assessment & Plan Assessment & Plan (1) Schizoaffective disorder: Status: Acute Code(s): F25.9 - Schizoaffective disorder, unspecified Plan Mr. Noel is a 32 year-old male with hx of schizoaffective disorder who was discharged from on 07/02/22. Self presented with increase mormonism and paranoid delusions, not sleeping, pacing, thinking he has to protect children who are being killed by evil forces, and he has to eat these peoples faces. Pt presents as hypervigilant, pacing, irritable and guarded. He denies having mental illness and minimizes need for psychotropic medications. We discussed risks, benefits and alternative treatment options. PLAN 1. Admit to M3, CV, 15 minutes checks for safety. 2. Continue depakote and olanzapine, will check ammonia level. Some elevation on LFT. 3. Obtain collateral information 4. Aftercare planning. 07/18 check ammonia. continue medications, pending collateral from OP provider. 07/19 continue tx. 07/20 continue current medications. 07/21 continue current treatment plan Reason for contiued inpatient stay Substantial Risk for: harm to self, harm to others, inability to function, rapid decompensation and med/psych decompensation Time Spent With Patient Time: Total time managing care of this patient today ____ minutes.
[2022-07-21] MEDS: QUEtiapine Fumarate 300 MG TABLET PO (20:53)
[2022-07-21] MEDS: OLANZapine 10 MG TABLET 20 MG PO (20:53)
[2022-07-21 20:55] VITALS: BP 131/64; PULSE 106; TEMP 36.6; O2SAT 97
[2022-07-21] MEDS: hydrOXYzine HCL 25 MG TABLET PO (22:19)
[2022-07-21] MEDS: traZODone HCL 100 MG TABLET PO (22:19)
[2022-07-21] MEDS: LORazepam 1 MG TABLET PO (22:19)
[2022-07-21] MEDS: traZODone HCL 50 MG TABLET PO (22:19)
[2022-07-22 07:48] VITALS: BP 129/61; PULSE 110; TEMP 36.6; O2SAT 97
[2022-07-22] MEDS: Divalproex Sodium ER 500 MG TAB.ER.24H 1000 MG PO ×2 (08:00→21:53)
--- NOTE | 2022-07-22 10:18 | P.PNPSI_ITS ---
Subjective Subjective Date of Service: 07/22/22 Reason For Visit: Frances Interim History: Pt is calmer and more easily redirected; less physical agitation; some physical intrusive behavior but responding to directions; impulsive at tiimes for example jumped up on a dining room table; mood is expansive, less irritable; He denies SI/HI.staff report he is taking 4-5 showers in a 24 hour period. He is writing voluminous amounts and giving to staff. He is wanting to go home ut [facility] ey may ask me to stay longer. Medication Compliance: Yes Side effects from medications: No Attending Groups: No Review of Systems Acute medical concerns: No Medical Review of Systems: unchanged Review of Systems Review of Systems Constitutional: No Fever, No Chills, No Fatigue, No Malaise ENT/Mouth: No Ear Pain, No Nasal Congestion, No sore throat, No Rhinorrhea, No Swallowing Difficulty Eyes: No Eye Pain, No Swelling, No Redness Cardiovascular: No Chest Pain, No SOB, No Edema, No Palpitations Respiratory: No Cough, No Sputum, No Wheezing, No Smoke Exposure, No Dyspnea Gastrointestinal: No Nausea, No Vomiting, No Diarrhea, No Constipation, No Abdominal pain Genitourinary: No Dysuria, No Urinary Frequency, No Hematuria, No Flank Pain Musculoskeletal: No joint pain, No Myalgias, No Joint Swelling Skin: No Skin Lesions, No rash Neuro: No Weakness, No Headache Psych: No Anxiety/Panic, + Depression, + SI/HI/AH/VH, + Social Issues Yes all other systems are reviewed and are negative Constitutional: Reports as per [facility] Mental Status Exam Mental Status Exam Narrative: Pt is alert, not oriented to situation. Behavior: guarded and suspicious;dressed in casual attire, good hygiene; affect expansive; eye contact appropriate; Speech is, hyperverbal, pressured, but normal volume. Some Psychomotor agitation present; impulsive at times; thought process can be goal oriented but also becomes tangential; Thought content is on anglican ideas; denies any SI/HI/AVH; Patients insight and judgment are impaired. Diagnostics Vital Signs (24Hr): Vital Signs - 24 hr 07/21/22 20:55 07/22/22 07:48 Temperature 97.9 F 98 F Pulse Rate 106 H 110 H Blood Pressure 131/64 129/61 Pulse Oximetry 97 97 Oxygen Delivery Method Room Air Room Air BMI result Body Mass Index 29.3 Labs 07/15/22 12:02 07/17/22 08:36 Medications Medications Current Medications Acetaminophen (Acetaminophen 325 Mg Tablet) 650 mg PO Q6H PRN PRN Reason: Headache/Pain Mild Scale (1-3) Al Hydroxide/Mg Hydroxide (Magnesium Hydrox/Alum Hydrox 30 Ml Oral.Susp) 30 ml PO Q6H PRN PRN Reason: Heartburn/Nausea Divalproex Sodium (Divalproex Sodium Er 500 Mg Tab.Er.24h) 1,000 mg PO BID CASANDRA Last Admin: 07/22/22 08:00 Dose: 1,000 mg Hydroxyzine HCl (Hydroxyzine Hcl 25 Mg Tablet) 25 mg PO Q6H PRN PRN Reason: Anxiety Last Admin: 07/21/22 22:19 Dose: 25 mg Lorazepam (Lorazepam 1 Mg Tablet) 1 mg PO Q4H PRN PRN Reason: Anxiety Last Admin: 07/21/22 22:19 Dose: 1 mg Magnesium Hydroxide (Milk Of Magnesia 30 Ml Oral.Susp) 30 ml PO DAILY PRN PRN Reason: Constipation Nicotine Polacrilex (Nicotine Polacrilex 2 Mg Gum) 4 mg BUCCAL Q2H PRN PRN Reason: Nicotine Cravings Olanzapine (Olanzapine 10 Mg Tablet) 20 mg PO BEDTIME CASANDRA Last Admin: 07/21/22 20:53 Dose: 20 mg Olanzapine (Olanzapine Odt 10 Mg Tab.Rapdis) 10 mg TRANSLINGU Q6H PRN PRN Reason: agitation Last Admin: 07/18/22 22:54 Dose: 10 mg Quetiapine Fumarate (Quetiapine Fumarate 300 Mg Tablet) 300 mg PO BEDTIME CASANDRA Last Admin: 07/21/22 20:53 Dose: 300 mg Trazodone HCl (Trazodone Hcl 100 Mg Tablet) 100 mg PO BEDTIME PRN PRN Reason: insomnia Last Admin: 07/21/22 22:19 Dose: 100 mg Trazodone HCl (Trazodone Hcl 50 Mg Tablet) 50 mg PO BEDTIME MRX1 PRN PRN Reason: Insomnia Last Admin: 07/21/22 22:19 Dose: 50 mg Allergies Allergies Allergy/AdvReac Type Severity Reaction Status Date / Time haloperidol [From Haldol] AdvReac Intermediate Dystonia Verified 07/05/22 10:04 Assessment & Plan Assessment & Plan (1) Schizoaffective disorder: Status: Acute Code(s): F25.9 - Schizoaffective disorder, unspecified Plan Mr. Noel is a 32 year-old male with hx of schizoaffective disorder who was discharged from on 07/02/22. Self presented with increase anglican and paranoid delusions, not sleeping, pacing, thinking he has to protect children who are being killed by evil forces, and he has to eat these peoples faces. Pt presents as hypervigilant, pacing, irritable and guarded. He denies having mental illness and minimizes need for psychotropic medications. We discussed risks, benefits and alternative treatment options. PLAN 1. Admit to M3, CV, 15 minutes checks for safety. 2. Continue depakote and olanzapine, will check ammonia level. Some elevation on LFT. 3. Obtain collateral information 4. Aftercare planning. 07/18 check ammonia. continue medications, pending collateral from OP provider. 07/19 continue tx. 07/20 continue current medications. 07/21 continue current treatment plan 07/22 continue current treatment plan Reason for contiued inpatient stay Substantial Risk for: harm to self, inability to function, rapid decompensation and med/psych decompensation Time Spent With Patient Time: Total time managing care of this patient today ____ minutes.
[2022-07-22] MEDS: LORazepam 1 MG TABLET PO (14:57)
[2022-07-22 21:00] VITALS: BP 153/68; PULSE 112; RESP 16; TEMP 36.6; O2SAT 96
[2022-07-22] MEDS: traZODone HCL 100 MG TABLET PO (21:53)
[2022-07-22] MEDS: OLANZapine 10 MG TABLET 20 MG PO (21:53)
[2022-07-22] MEDS: hydrOXYzine HCL 25 MG TABLET PO (21:53)
[2022-07-22] MEDS: QUEtiapine Fumarate 300 MG TABLET PO (21:53)
[2022-07-23 08:00] VITALS: BP 134/59; PULSE 100; TEMP 36.4; O2SAT 97
[2022-07-23] MEDS: Divalproex Sodium ER 500 MG TAB.ER.24H 1000 MG PO ×2 (09:17→23:33)
--- NOTE | 2022-07-23 13:38 | HO.PSYCHPN ---
Subjective Subjective Date of Service: 07/23/22 Reason For Visit: Frances Subjective Notes: Section 7 Interim History: Pt reports he is doing well- he continues to report that he has been saving children and other people as he has that special power. He has been taking several showers during the day. He did not sleep last night. He is taking medications as prescribed. He reports the people he has to save are here in the hospital so, he doesn't mind staying longer. He denies SI/HI. Medication Compliance: Intermittent Side effects from medications: No Review of Systems Review of Systems Constitutional: No Fever, No Chills, No Fatigue, No Malaise ENT/Mouth: No Ear Pain, No Nasal Congestion, No sore throat, No Rhinorrhea, No Swallowing Difficulty Eyes: No Eye Pain, No Swelling, No Redness Cardiovascular: No Chest Pain, No SOB, No Edema, No Palpitations Respiratory: No Cough, No Sputum, No Wheezing, No Smoke Exposure, No Dyspnea Gastrointestinal: No Nausea, No Vomiting, No Diarrhea, No Constipation, No Abdominal pain Genitourinary: No Dysuria, No Urinary Frequency, No Hematuria, No Flank Pain Musculoskeletal: No joint pain, No Myalgias, No Joint Swelling Skin: No Skin Lesions, No rash Neuro: No Weakness, No Headache Psych: No Anxiety/Panic, + Depression, + SI/HI/AH/VH, + Social Issues Yes all other systems are reviewed and are negative Constitutional: Reports as per HPI Mental Status Exam Mental Status Exam Narrative: Pt is alert, not oriented to situation. Behavior: guarded and suspicious;dressed in casual attire, good hygiene; affect expansive; eye contact appropriate; Speech is, hyperverbal, pressured, but normal volume. Some Psychomotor agitation present; impulsive at times; thought process can be goal oriented but also becomes tangential; Thought content is on moravian ideas; denies any SI/HI/AVH; Patients insight and judgment are impaired. Diagnostics Vital Signs (24Hr): Vital Signs - 24 hr 07/22/22 21:00 07/23/22 08:00 Temperature 97.9 F 97.6 F Pulse Rate 112 H 100 Respiratory Rate 16 Blood Pressure 153/68 H 134/59 L Pulse Oximetry 96 97 Oxygen Delivery Method Room Air Room Air BMI result Body Mass Index 29.3 Labs 07/15/22 12:02 07/17/22 08:36 Medications Medications Current Medications Acetaminophen (Acetaminophen 325 Mg Tablet) 650 mg PO Q6H PRN PRN Reason: Headache/Pain Mild Scale (1-3) Al Hydroxide/Mg Hydroxide (Magnesium Hydrox/Alum Hydrox 30 Ml Oral.Susp) 30 ml PO Q6H PRN PRN Reason: Heartburn/Nausea Divalproex Sodium (Divalproex Sodium Er 500 Mg Tab.Er.24h) 1,000 mg PO BID CASANDRA Last Admin: 07/23/22 09:17 Dose: 1,000 mg Hydroxyzine HCl (Hydroxyzine Hcl 25 Mg Tablet) 25 mg PO Q6H PRN PRN Reason: Anxiety Last Admin: 07/22/22 21:53 Dose: 25 mg Magnesium Hydroxide (Milk Of Magnesia 30 Ml Oral.Susp) 30 ml PO DAILY PRN PRN Reason: Constipation Nicotine Polacrilex (Nicotine Polacrilex 2 Mg Gum) 4 mg BUCCAL Q2H PRN PRN Reason: Nicotine Cravings Olanzapine (Olanzapine 10 Mg Tablet) 20 mg PO BEDTIME CASANDRA Last Admin: 07/22/22 21:53 Dose: 20 mg Olanzapine (Olanzapine Odt 10 Mg Tab.Rapdis) 10 mg TRANSLINGU Q6H PRN PRN Reason: agitation Last Admin: 07/18/22 22:54 Dose: 10 mg Quetiapine Fumarate (Quetiapine Fumarate 300 Mg Tablet) 300 mg PO BEDTIME CASANDRA Last Admin: 07/22/22 21:53 Dose: 300 mg Trazodone HCl (Trazodone Hcl 100 Mg Tablet) 100 mg PO BEDTIME PRN PRN Reason: insomnia Last Admin: 07/22/22 21:53 Dose: 100 mg Trazodone HCl (Trazodone Hcl 50 Mg Tablet) 50 mg PO BEDTIME MRX1 PRN PRN Reason: Insomnia Last Admin: 07/21/22 22:19 Dose: 50 mg Allergies Allergies Allergy/AdvReac Type Severity Reaction Status Date / Time haloperidol [From Haldol] AdvReac Intermediate Dystonia Verified 07/05/22 10:04 Assessment & Plan Assessment & Plan (1) Schizoaffective disorder: Status: Acute Code(s): F25.9 - Schizoaffective disorder, unspecified Plan Mr. Noel is a 32 year-old male with hx of schizoaffective disorder who was discharged from on 07/02/22. Self presented with increase moravian and paranoid delusions, not sleeping, pacing, thinking he has to protect children who are being killed by evil forces, and he has to eat these peoples faces. Pt presents as hypervigilant, pacing, irritable and guarded. He denies having mental illness and minimizes need for psychotropic medications. We discussed risks, benefits and alternative treatment options. PLAN 1. Admit to M3, CV, 15 minutes checks for safety. 2. Continue depakote and olanzapine, will check ammonia level. Some elevation on LFT. 3. Obtain collateral information 4. Aftercare planning. 07/18 check ammonia. continue medications, pending collateral from OP provider. 07/19 continue tx. 07/20 continue current medications. 07/21 continue current treatment plan 07/22 continue current treatment plan 07/23 continue tx. filed section 7/. Reason for contiued inpatient stay Substantial Risk for: inability to function Time Spent With Patient Time: Total time managing care of this patient today ____ minutes.
[2022-07-23 20:45] VITALS: BP 144/73; PULSE 114; RESP 18; TEMP 36.6; O2SAT 96
[2022-07-23] MEDS: traZODone HCL 100 MG TABLET PO (23:33)
[2022-07-23] MEDS: OLANZapine 10 MG TABLET 20 MG PO (23:33)
[2022-07-23] MEDS: hydrOXYzine HCL 25 MG TABLET PO (23:33)
[2022-07-23] MEDS: QUEtiapine Fumarate 300 MG TABLET PO (23:33)
[2022-07-24] MEDS: Divalproex Sodium ER 500 MG TAB.ER.24H 1000 MG PO ×2 (08:30→20:56)
[2022-07-24 08:45] VITALS: BP 126/63; PULSE 102; RESP 16; TEMP 36.2; O2SAT 97
--- NOTE | 2022-07-24 15:41 | HO.PSYCHPN ---
Subjective Subjective Date of Service: 07/24/22 Reason For Visit: Frances Subjective Notes: Conditional Voluntary Interim History: Pt reports sleeping better. He reports hearing voices of God, still thinks he has special caballero and saves people. He reports less AH telling him that children are being killed and he appears much less guarded. He denies SI/HI. He reports he is concern that some of current medications are too sedating for him and then he stops taking them. He stated that he would be interested in different antipsychotic with less sedation. He agreed to try paliperidone and sign CV. He states he is willing to stay one more week in the hospital to adjust his medications. Per nursing, no behavioral concerns. Pt continues to take about 8 showers, he states I like to be clean Review of Systems Review of Systems Constitutional: No Fever, No Chills, No Fatigue, No Malaise ENT/Mouth: No Ear Pain, No Nasal Congestion, No sore throat, No Rhinorrhea, No Swallowing Difficulty Eyes: No Eye Pain, No Swelling, No Redness Cardiovascular: No Chest Pain, No SOB, No Edema, No Palpitations Respiratory: No Cough, No Sputum, No Wheezing, No Smoke Exposure, No Dyspnea Gastrointestinal: No Nausea, No Vomiting, No Diarrhea, No Constipation, No Abdominal pain Genitourinary: No Dysuria, No Urinary Frequency, No Hematuria, No Flank Pain Musculoskeletal: No joint pain, No Myalgias, No Joint Swelling Skin: No Skin Lesions, No rash Neuro: No Weakness, No Headache Psych: No Anxiety/Panic, + Depression, + SI/HI/AH/VH, + Social Issues Yes all other systems are reviewed and are negative Constitutional: Reports as per HPI Mental Status Exam Mental Status Exam Narrative: Pt is alert, not oriented to situation. Behavior: guarded and suspicious;dressed in casual attire, good hygiene; affect expansive; eye contact appropriate; Speech is, less hyperverbal, pressured, but normal volume. No Psychomotor agitation noted (but exercising excessively at times); impulsive at times; thought process can be goal oriented but also becomes tangential; Thought content is on restorationist ideas; denies any SI/HI. Still hearing voices of GOD; Patients insight and judgment are improving. Diagnostics Vital Signs (24Hr): Vital Signs - 24 hr 07/23/22 20:45 07/24/22 08:45 Temperature 97.9 F 97.2 F Pulse Rate 114 H 102 H Respiratory Rate 18 16 Blood Pressure 144/73 H 126/63 Pulse Oximetry 96 97 Oxygen Delivery Method Room Air Room Air BMI result Body Mass Index 29.3 Labs 07/15/22 12:02 07/17/22 08:36 Medications Medications Current Medications Acetaminophen (Acetaminophen 325 Mg Tablet) 650 mg PO Q6H PRN PRN Reason: Headache/Pain Mild Scale (1-3) Al Hydroxide/Mg Hydroxide (Magnesium Hydrox/Alum Hydrox 30 Ml Oral.Susp) 30 ml PO Q6H PRN PRN Reason: Heartburn/Nausea Divalproex Sodium (Divalproex Sodium Er 500 Mg Tab.Er.24h) 1,000 mg PO BID CASANDRA Last Admin: 07/24/22 08:30 Dose: 1,000 mg Hydroxyzine HCl (Hydroxyzine Hcl 25 Mg Tablet) 25 mg PO Q6H PRN PRN Reason: Anxiety Last Admin: 07/23/22 23:33 Dose: 25 mg Magnesium Hydroxide (Milk Of Magnesia 30 Ml Oral.Susp) 30 ml PO DAILY PRN PRN Reason: Constipation Nicotine Polacrilex (Nicotine Polacrilex 2 Mg Gum) 4 mg BUCCAL Q2H PRN PRN Reason: Nicotine Cravings Olanzapine (Olanzapine 10 Mg Tablet) 20 mg PO BEDTIME CASANDRA Last Admin: 07/23/22 23:33 Dose: 20 mg Olanzapine (Olanzapine Odt 10 Mg Tab.Rapdis) 10 mg TRANSLINGU Q6H PRN PRN Reason: agitation Last Admin: 07/18/22 22:54 Dose: 10 mg Paliperidone (Paliperidone Er 6 Mg Tab.Er.24) 6 mg PO BEDTIME CASANDRA Trazodone HCl (Trazodone Hcl 100 Mg Tablet) 100 mg PO BEDTIME PRN PRN Reason: insomnia Last Admin: 07/23/22 23:33 Dose: 100 mg Trazodone HCl (Trazodone Hcl 50 Mg Tablet) 50 mg PO BEDTIME MRX1 PRN PRN Reason: Insomnia Last Admin: 07/21/22 22:19 Dose: 50 mg Allergies Allergies Allergy/AdvReac Type Severity Reaction Status Date / Time haloperidol [From Haldol] AdvReac Intermediate Dystonia Verified 07/05/22 10:04 Assessment & Plan Assessment & Plan (1) Schizoaffective disorder: Status: Acute Code(s): F25.9 - Schizoaffective disorder, unspecified Plan Mr. Noel is a 32 year-old male with hx of schizoaffective disorder who was discharged from on 07/02/22. Self presented with increase restorationist and paranoid delusions, not sleeping, pacing, thinking he has to protect children who are being killed by evil forces, and he has to eat these peoples faces. Pt presents as hypervigilant, pacing, irritable and guarded. He denies having mental illness and minimizes need for psychotropic medications. We discussed risks, benefits and alternative treatment options. PLAN 1. Admit to M3, CV, 15 minutes checks for safety. 2. Continue depakote and olanzapine, will check ammonia level. Some elevation on LFT. 3. Obtain collateral information 4. Aftercare planning. 07/18 check ammonia. continue medications, pending collateral from OP provider. 07/19 continue tx. 07/20 continue current medications. 07/21 continue current treatment plan 07/22 continue current treatment plan 07/23 continue tx. filed section 7/8. 07/24 pt agreed to sign CV, and in agreement to try paliperidone as less sedating antipsychotic which he identifies as problematic when he is out in community. May consider BERNAL. Start paliperidone 6mg po qhs, stop seroquel, continue olanzapine. Reason for contiued inpatient stay Substantial Risk for: inability to function Time Spent With Patient Time: Total time managing care of this patient today ____ minutes.
[2022-07-24] MEDS: hydrOXYzine HCL 25 MG TABLET PO ×2 (16:53→20:56)
[2022-07-24] MEDS: OLANZapine ODT 10 MG TAB.RAPDIS TRANSLINGU (16:53)
[2022-07-24] MEDS: OLANZapine 10 MG TABLET 20 MG PO (20:56)
[2022-07-24] MEDS: Paliperidone ER 6 MG TAB.ER.24 PO (20:56)
[2022-07-24] MEDS: traZODone HCL 100 MG TABLET PO (20:56)
[2022-07-25] MEDS: OLANZapine ODT 10 MG TAB.RAPDIS TRANSLINGU ×2 (03:28→16:36)
[2022-07-25] MEDS: hydrOXYzine HCL 25 MG TABLET PO ×2 (03:28→16:36)
[2022-07-25 06:00] VITALS: BP 136/70; PULSE 90; RESP 16; TEMP 36.7; O2SAT 99
[2022-07-25] MEDS: Divalproex Sodium ER 500 MG TAB.ER.24H 1000 MG PO ×2 (08:36→20:47)
[2022-07-25 09:06] LABS: Valproate 66.1 mcg/mL (50.0-100.0)
[2022-07-25 09:09] LABS: Alanine Aminotransferase 87 U/L (0-40); Albumin Level 3.8 g/dL (3.5-5.0); Alkaline Phosphatase 75 U/L (39-117); Aspartate Amino Transferase 62 U/L (5-37); Bilirubin Direct < 0.2 mg/dL (0.0-0.5); Bilirubin Total 0.4 mg/dL (0.0-1.0); Total Protein 6.7 g/dL (6.5-8.0)
--- NOTE | 2022-07-25 09:54 | HO.PSYCHPN ---
Subjective Subjective Date of Service: 07/25/22 Reason For Visit: Frances Subjective Notes: Conditional Voluntary Interim History: Pt pleasant no approach. He reports sleeping better, which is confirmed with nursing. He continues to talk about the gospel and having evangelical grandiose ideas, but much more organized, no ideas of people killing children and him needing to protect them. He denied SI/HI. No aggression towards self or others. Medication Compliance: Yes Side effects from medications: No Review of Systems Review of Systems Constitutional: No Fever, No Chills, No Fatigue, No Malaise ENT/Mouth: No Ear Pain, No Nasal Congestion, No sore throat, No Rhinorrhea, No Swallowing Difficulty Eyes: No Eye Pain, No Swelling, No Redness Cardiovascular: No Chest Pain, No SOB, No Edema, No Palpitations Respiratory: No Cough, No Sputum, No Wheezing, No Smoke Exposure, No Dyspnea Gastrointestinal: No Nausea, No Vomiting, No Diarrhea, No Constipation, No Abdominal pain Genitourinary: No Dysuria, No Urinary Frequency, No Hematuria, No Flank Pain Musculoskeletal: No joint pain, No Myalgias, No Joint Swelling Skin: No Skin Lesions, No rash Neuro: No Weakness, No Headache Psych: No Anxiety/Panic, + Depression, + SI/HI/AH/VH, + Social Issues Yes all other systems are reviewed and are negative Constitutional: Reports as per HPI Mental Status Exam Mental Status Exam Narrative: Pt is alert, not oriented to situation. Behavior: guarded and suspicious;dressed in casual attire, good hygiene; affect expansive; eye contact appropriate; Speech is, less hyperverbal, pressured, but normal volume. No Psychomotor agitation noted (but exercising excessively at times); impulsive at times; thought process can be goal oriented but also becomes tangential; Thought content is on evangelical ideas; denies any SI/HI. Still hearing voices of GOD; Patients insight and judgment are improving. Diagnostics Vital Signs (24Hr): Vital Signs - 24 hr 07/25/22 20:49 07/26/22 07:55 Temperature 97.8 F 98.1 F Pulse Rate 112 H 106 H Respiratory Rate 18 Blood Pressure 129/73 146/84 H Pulse Oximetry 96 96 Oxygen Delivery Method Room Air Room Air BMI result Body Mass Index 29.3 Labs 07/15/22 12:02 07/17/22 08:36 Labs: Laboratory Results - last 48 hr 07/25/22 07/25/22 08:40 08:40 Total Bilirubin 0.4 Direct Bilirubin < 0.2 AST 62 H ALT 87 H Alkaline Phosphatase 75 Total Protein 6.7 Albumin 3.8 Valproic Acid 66.1 Medications Medications Current Medications Acetaminophen (Acetaminophen 325 Mg Tablet) 650 mg PO Q6H PRN PRN Reason: Headache/Pain Mild Scale (1-3) Al Hydroxide/Mg Hydroxide (Magnesium Hydrox/Alum Hydrox 30 Ml Oral.Susp) 30 ml PO Q6H PRN PRN Reason: Heartburn/Nausea Divalproex Sodium (Divalproex Sodium Er 500 Mg Tab.Er.24h) 1,000 mg PO BID CASANDRA Last Admin: 07/26/22 08:03 Dose: 1,000 mg Hydroxyzine HCl (Hydroxyzine Hcl 25 Mg Tablet) 25 mg PO Q6H PRN PRN Reason: Anxiety Last Admin: 07/25/22 16:36 Dose: 25 mg Magnesium Hydroxide (Milk Of Magnesia 30 Ml Oral.Susp) 30 ml PO DAILY PRN PRN Reason: Constipation Nicotine Polacrilex (Nicotine Polacrilex 2 Mg Gum) 4 mg BUCCAL Q2H PRN PRN Reason: Nicotine Cravings Olanzapine (Olanzapine 10 Mg Tablet) 20 mg PO BEDTIME CASANDRA Last Admin: 07/25/22 20:47 Dose: 20 mg Olanzapine (Olanzapine Odt 10 Mg Tab.Rapdis) 10 mg TRANSLINGU Q6H PRN PRN Reason: agitation Last Admin: 07/26/22 08:19 Dose: 10 mg Paliperidone (Paliperidone Er 6 Mg Tab.Er.24) 6 mg PO BEDTIME CASANDRA Last Admin: 07/25/22 20:47 Dose: 6 mg Trazodone HCl (Trazodone Hcl 100 Mg Tablet) 100 mg PO BEDTIME PRN PRN Reason: insomnia Last Admin: 07/25/22 23:33 Dose: 100 mg Trazodone HCl (Trazodone Hcl 50 Mg Tablet) 50 mg PO BEDTIME MRX1 PRN PRN Reason: Insomnia Last Admin: 07/25/22 23:33 Dose: 50 mg Allergies Allergies Allergy/AdvReac Type Severity Reaction Status Date / Time haloperidol [From Haldol] AdvReac Intermediate Dystonia Verified 07/05/22 10:04 Assessment & Plan Assessment & Plan (1) Schizoaffective disorder: Status: Acute Code(s): F25.9 - Schizoaffective disorder, unspecified Plan Mr. Noel is a 32 year-old male with hx of schizoaffective disorder who was discharged from on 07/02/22. Self presented with increase evangelical and paranoid delusions, not sleeping, pacing, thinking he has to protect children who are being killed by evil forces, and he has to eat these peoples faces. Pt presents as hypervigilant, pacing, irritable and guarded. He denies having mental illness and minimizes need for psychotropic medications. We discussed risks, benefits and alternative treatment options. PLAN 1. Admit to M3, CV, 15 minutes checks for safety. 2. Continue depakote and olanzapine, will check ammonia level. Some elevation on LFT. 3. Obtain collateral information 4. Aftercare planning. 07/18 check ammonia. continue medications, pending collateral from OP provider. 07/19 continue tx. 07/20 continue current medications. 07/21 continue current treatment plan 07/22 continue current treatment plan 07/23 continue tx. filed section 7/8. 07/24 pt agreed to sign CV, and in agreement to try paliperidone as less sedating antipsychotic which he identifies as problematic when he is out in community. May consider BERNAL. Start paliperidone 6mg po qhs, stop seroquel, continue olanzapine. 07/25 continue tx. depakote level 61, elevation of LFTs, normal ammonia. Reason for contiued inpatient stay Substantial Risk for: inability to function Time Spent With Patient Time: Total time managing care of this patient today ____ minutes.
[2022-07-25] MEDS: Paliperidone ER 6 MG TAB.ER.24 PO (20:47)
[2022-07-25] MEDS: OLANZapine 10 MG TABLET 20 MG PO (20:47)
[2022-07-25 20:49] VITALS: BP 129/73; PULSE 112; TEMP 36.6; O2SAT 96
[2022-07-25] MEDS: traZODone HCL 100 MG TABLET PO (23:33)
[2022-07-25] MEDS: traZODone HCL 50 MG TABLET PO (23:33)
[2022-07-26 07:00] VITALS: BMI 30.3
[2022-07-26 07:55] VITALS: BP 146/84; PULSE 106; RESP 18; TEMP 36.7; O2SAT 96
[2022-07-26] MEDS: Divalproex Sodium ER 500 MG TAB.ER.24H 1000 MG PO ×2 (08:03→21:27)
[2022-07-26] MEDS: OLANZapine ODT 10 MG TAB.RAPDIS TRANSLINGU ×2 (08:19→16:48)
--- NOTE | 2022-07-26 14:34 | HO.PSYCHPN ---
Subjective Subjective Date of Service: 07/26/22 Reason For Visit: Frances Subjective Notes: Conditional Voluntary Interim History: Pt irritable, paranoid reporting that his brother is selling drugs and he is not in agreement with this. He reports in the past he has called the police but was told there was no evidence of such. Pt pacing rapidly back and forth on the unit. He is taking medications as prescribed but appears worse. Medication Compliance: Yes Side effects from medications: No Review of Systems Review of Systems Constitutional: No Fever, No Chills, No Fatigue, No Malaise ENT/Mouth: No Ear Pain, No Nasal Congestion, No sore throat, No Rhinorrhea, No Swallowing Difficulty Eyes: No Eye Pain, No Swelling, No Redness Cardiovascular: No Chest Pain, No SOB, No Edema, No Palpitations Respiratory: No Cough, No Sputum, No Wheezing, No Smoke Exposure, No Dyspnea Gastrointestinal: No Nausea, No Vomiting, No Diarrhea, No Constipation, No Abdominal pain Genitourinary: No Dysuria, No Urinary Frequency, No Hematuria, No Flank Pain Musculoskeletal: No joint pain, No Myalgias, No Joint Swelling Skin: No Skin Lesions, No rash Neuro: No Weakness, No Headache Psych: No Anxiety/Panic, + Depression, + SI/HI/AH/VH, + Social Issues Yes all other systems are reviewed and are negative Constitutional: Reports as per HPI Mental Status Exam Mental Status Exam Narrative: Pt is alert, not oriented to situation. Behavior: guarded and suspicious;dressed in casual attire, good hygiene; affect expansive; eye contact appropriate; Speech is, less hyperverbal, pressured, but normal volume. No Psychomotor agitation noted (but exercising excessively at times); impulsive at times; thought process can be goal oriented but also becomes tangential; Thought content is on uatsdin ideas; denies any SI/HI. Still hearing voices of GOD; Patients insight and judgment are improving. Diagnostics Vital Signs (24Hr): Vital Signs - 24 hr 07/26/22 18:00 07/27/22 07:55 Temperature 98.7 F 97.8 F Pulse Rate 112 H 106 H Respiratory Rate 18 18 Blood Pressure 118/70 143/63 H Pulse Oximetry 97 97 Oxygen Delivery Method Room Air Room Air BMI result Body Mass Index 30.3 Labs 07/15/22 12:02 07/17/22 08:36 Labs: Laboratory Results - last 48 hr 07/27/22 07/27/22 09:19 09:20 Total Bilirubin 0.4 Direct Bilirubin < 0.2 AST 59 H ALT 81 H Alkaline Phosphatase 77 Ammonia 31 Total Protein 7.1 Albumin 4.0 Medications Medications Current Medications Acetaminophen (Acetaminophen 325 Mg Tablet) 650 mg PO Q6H PRN PRN Reason: Headache/Pain Mild Scale (1-3) Al Hydroxide/Mg Hydroxide (Magnesium Hydrox/Alum Hydrox 30 Ml Oral.Susp) 30 ml PO Q6H PRN PRN Reason: Heartburn/Nausea Hydroxyzine HCl (Hydroxyzine Hcl 25 Mg Tablet) 25 mg PO Q6H PRN PRN Reason: Anxiety Last Admin: 07/26/22 16:48 Dose: 25 mg [place] Carbonate ([place] Carbonate 300 Mg Capsule) 600 mg PO BID CASANDRA Magnesium Hydroxide (Milk Of Magnesia 30 Ml Oral.Susp) 30 ml PO DAILY PRN PRN Reason: Constipation Nicotine Polacrilex (Nicotine Polacrilex 2 Mg Gum) 4 mg BUCCAL Q2H PRN PRN Reason: Nicotine Cravings Olanzapine (Olanzapine Odt 10 Mg Tab.Rapdis) 10 mg TRANSLINGU Q6H PRN PRN Reason: agitation Last Admin: 07/26/22 16:48 Dose: 10 mg Olanzapine (Olanzapine 10 Mg Tablet) 30 mg PO BEDTIME CASANDRA Paliperidone (Paliperidone Er 6 Mg Tab.Er.24) 6 mg PO BEDTIME CASANDRA Last Admin: 07/26/22 21:27 Dose: 6 mg Trazodone HCl (Trazodone Hcl 100 Mg Tablet) 100 mg PO BEDTIME PRN PRN Reason: insomnia Last Admin: 07/26/22 22:27 Dose: 100 mg Trazodone HCl (Trazodone Hcl 50 Mg Tablet) 50 mg PO BEDTIME MRX1 PRN PRN Reason: Insomnia Last Admin: 07/26/22 22:27 Dose: 50 mg Allergies Allergies Allergy/AdvReac Type Severity Reaction Status Date / Time haloperidol [From Haldol] AdvReac Intermediate Dystonia Verified 07/05/22 10:04 Assessment & Plan Assessment & Plan (1) Schizoaffective disorder: Status: Acute Code(s): F25.9 - Schizoaffective disorder, unspecified Plan Mr. Noel is a 32 year-old male with hx of schizoaffective disorder who was discharged from on 07/02/22. Self presented with increase uatsdin and paranoid delusions, not sleeping, pacing, thinking he has to protect children who are being killed by evil forces, and he has to eat these peoples faces. Pt presents as hypervigilant, pacing, irritable and guarded. He denies having mental illness and minimizes need for psychotropic medications. We discussed risks, benefits and alternative treatment options. PLAN 1. Admit to [facility], CV, 15 minutes checks for safety. 2. Continue depakote and olanzapine, will check ammonia level. Some elevation on LFT. 3. Obtain collateral information 4. Aftercare planning. 07/18 check ammonia. continue medications, pending collateral from OP provider. 07/19 continue tx. 07/20 continue current medications. 07/21 continue current treatment plan 07/22 continue current treatment plan 07/23 continue tx. filed section 7/. 07/24 pt agreed to sign CV, and in agreement to try paliperidone as less sedating antipsychotic which he identifies as problematic when he is out in community. May consider BERNAL. Start paliperidone 6mg po qhs, stop seroquel, continue olanzapine. 07/25 continue tx. depakote level 61, elevation of LFTs, normal ammonia. 07/26 pt appears more paranoid and suspicious today. He slept through the night. Reason for contiued inpatient stay Substantial Risk for: harm to others and inability to function Time Spent With Patient Time: Total time managing care of this patient today ____ minutes.
[2022-07-26] MEDS: hydrOXYzine HCL 25 MG TABLET PO (16:48)
[2022-07-26 18:00] VITALS: BP 118/70; PULSE 112; RESP 18; TEMP 37.1; O2SAT 97
[2022-07-26] MEDS: Paliperidone ER 6 MG TAB.ER.24 PO (21:27)
[2022-07-26] MEDS: OLANZapine 10 MG TABLET 20 MG PO (21:27)
[2022-07-26] MEDS: traZODone HCL 50 MG TABLET PO (22:27)
[2022-07-26] MEDS: traZODone HCL 100 MG TABLET PO (22:27)
[2022-07-27 07:55] VITALS: BP 143/63; PULSE 106; RESP 18; TEMP 36.6; O2SAT 97
[2022-07-27] MEDS: Divalproex Sodium ER 500 MG TAB.ER.24H 1000 MG PO (08:03)
[2022-07-27 09:50] LABS: Ammonia 31 umol/L (13-55)
[2022-07-27 10:20] LABS: Alanine Aminotransferase 81 U/L (0-40); Alkaline Phosphatase 77 U/L (39-117); Aspartate Amino Transferase 59 U/L (5-37); Bilirubin Direct < 0.2 mg/dL (0.0-0.5); Bilirubin Total 0.4 mg/dL (0.0-1.0); Total Protein 7.1 g/dL (6.5-8.0)
--- NOTE | 2022-07-27 13:29 | P.PNPSI_ITS ---
Subjective Subjective Date of Service: 07/27/22 Reason For Visit: Frances Subjective Notes: Conditional Voluntary Interim History: Pt met with public health social worker and this principal technical writer. He reports he does not want to see his brother, he refused visit from him. He reports he is selling drugs and if he continues to do so, he will put him in a body bag. When asked to clarify, pt laughed, stating I may spare his life. Pt increasingly more paranoid. However, when this principal technical writer commented that he was getting worse not better, he was open to medication changes. We have seen elevations of LFTs with depakote but no high ammonia. He agreed to try lithium instead. He also agreed to increase olanzapine. Medication Compliance: Yes Side effects from medications: No Attending Groups: No Review of Systems Review of Systems Constitutional: No Fever, No Chills, No Fatigue, No Malaise ENT/Mouth: No Ear Pain, No Nasal Congestion, No sore throat, No Rhinorrhea, No Swallowing Difficulty Eyes: No Eye Pain, No Swelling, No Redness Cardiovascular: No Chest Pain, No SOB, No Edema, No Palpitations Respiratory: No Cough, No Sputum, No Wheezing, No Smoke Exposure, No Dyspnea Gastrointestinal: No Nausea, No Vomiting, No Diarrhea, No Constipation, No Abdominal pain Genitourinary: No Dysuria, No Urinary Frequency, No Hematuria, No Flank Pain Musculoskeletal: No joint pain, No Myalgias, No Joint Swelling Skin: No Skin Lesions, No rash Neuro: No Weakness, No Headache Psych: No Anxiety/Panic, + Depression, + SI/HI/AH/VH, + Social Issues Yes all other systems are reviewed and are negative Constitutional: Reports as per HPI Mental Status Exam Mental Status Exam Narrative: Pt is alert, not oriented to situation. Behavior: guarded and suspicious;dressed in casual attire, good hygiene; affect expansive; eye contact appropriate; Speech is, less hyperverbal, pressured, but normal volume. No Psychomotor agitation noted (but exercising excessively at times); impulsive at times; thought process can be goal oriented but also becomes tangential; Thought content is on temple ideas; denies any SI/HI. Still hearing voices of GOD; Patients insight and judgment are improving. Diagnostics Vital Signs (24Hr): Vital Signs - 24 hr 07/26/22 18:00 07/27/22 07:55 Temperature 98.7 F 97.8 F Pulse Rate 112 H 106 H Respiratory Rate 18 18 Blood Pressure 118/70 143/63 H Pulse Oximetry 97 97 Oxygen Delivery Method Room Air Room Air BMI result Body Mass Index 30.3 Labs 07/15/22 12:02 07/17/22 08:36 Labs: Laboratory Results - last 48 hr 07/27/22 07/27/22 09:19 09:20 Total Bilirubin 0.4 Direct Bilirubin < 0.2 AST 59 H ALT 81 H Alkaline Phosphatase 77 Ammonia 31 Total Protein 7.1 Albumin 4.0 Medications Medications Current Medications Acetaminophen (Acetaminophen 325 Mg Tablet) 650 mg PO Q6H PRN PRN Reason: Headache/Pain Mild Scale (1-3) Al Hydroxide/Mg Hydroxide (Magnesium Hydrox/Alum Hydrox 30 Ml Oral.Susp) 30 ml PO Q6H PRN PRN Reason: Heartburn/Nausea Hydroxyzine HCl (Hydroxyzine Hcl 25 Mg Tablet) 25 mg PO Q6H PRN PRN Reason: Anxiety Last Admin: 07/26/22 16:48 Dose: 25 mg [place] Carbonate ([place] Carbonate 300 Mg Capsule) 600 mg PO BID CASANDRA Magnesium Hydroxide (Milk Of Magnesia 30 Ml Oral.Susp) 30 ml PO DAILY PRN PRN Reason: Constipation Nicotine Polacrilex (Nicotine Polacrilex 2 Mg Gum) 4 mg BUCCAL Q2H PRN PRN Reason: Nicotine Cravings Olanzapine (Olanzapine Odt 10 Mg Tab.Rapdis) 10 mg TRANSLINGU Q6H PRN PRN Reason: agitation Last Admin: 07/26/22 16:48 Dose: 10 mg Olanzapine (Olanzapine 10 Mg Tablet) 30 mg PO BEDTIME CASANDRA Paliperidone (Paliperidone Er 6 Mg Tab.Er.24) 6 mg PO BEDTIME CASANDRA Last Admin: 07/26/22 21:27 Dose: 6 mg Trazodone HCl (Trazodone Hcl 100 Mg Tablet) 100 mg PO BEDTIME PRN PRN Reason: insomnia Last Admin: 07/26/22 22:27 Dose: 100 mg Trazodone HCl (Trazodone Hcl 50 Mg Tablet) 50 mg PO BEDTIME MRX1 PRN PRN Reason: Insomnia Last Admin: 07/26/22 22:27 Dose: 50 mg Allergies Allergies Allergy/AdvReac Type Severity Reaction Status Date / Time haloperidol [From Haldol] AdvReac Intermediate Dystonia Verified 07/05/22 10:04 Assessment & Plan Assessment & Plan (1) Schizoaffective disorder: Status: Acute Code(s): F25.9 - Schizoaffective disorder, unspecified Plan Mr. Noel is a 32 year-old male with hx of schizoaffective disorder who was discharged from [facility] on 07/02/22. Self presented with increase temple and par anoid delusions, not sleeping, pacing, thinking he has to protect children who are being killed by evil forces, and he has to eat these peoples faces. Pt presents as hypervigilant, pacing, irritable and guarded. He denies having mental illness and minimizes need for psychotropic medications. We discussed risks, benefits and alternative treatment options. PLAN 1. Admit to M[facility], CV, 15 minutes checks for safety. 2. Continue depakote and olanzapine, will check ammonia level. Some elevation on LFT. 3. Obtain collateral information 4. Aftercare planning. 07/18 check ammonia. continue medications, pending collateral from OP provider. 07/19 continue tx. 07/20 continue current medications. 07/21 continue current treatment plan 07/22 continue current treatment plan 07/23 continue tx. filed section 7/8. 07/24 pt agreed to sign CV, and in agreement to try paliperidone as less sedating antipsychotic which he identifies as problematic when he is out in community. May consider BERNAL. Start paliperidone 6mg po qhs, stop seroquel, continue olanzapine. 07/25 continue tx. depakote level 61, elevation of LFTs, normal ammonia. 07/26 pt appears more paranoid and suspicious today. He slept through the night. 07/27 increase olanzapine to 30mg po qhs. switched depakote to lithium due to LFTs elevation and pt request of excessive sedation when discharged home. Reason for contiued inpatient stay Substantial Risk for: harm to others and inability to function Time Spent With Patient Time: Total time managing care of this patient today ____ minutes.
[2022-07-27] MEDS: OLANZapine ODT 10 MG TAB.RAPDIS TRANSLINGU (15:31)
[2022-07-27] MEDS: hydrOXYzine HCL 25 MG TABLET PO (15:31)
[2022-07-27] MEDS: LORazepam 1 MG TABLET PO (15:51)
[2022-07-27] MEDS: Lithium Carbonate 300 MG CAPSULE 600 MG PO (22:39)
[2022-07-27 22:40] VITALS: RESP 18
[2022-07-27] MEDS: OLANZapine 10 MG TABLET 30 MG PO (22:40)
[2022-07-27] MEDS: Paliperidone ER 6 MG TAB.ER.24 PO (22:40)
[2022-07-27] MEDS: traZODone HCL 100 MG TABLET PO (22:47)
[2022-07-27] MEDS: traZODone HCL 50 MG TABLET PO (22:47)
[2022-07-28] MEDS: hydrOXYzine HCL 25 MG TABLET PO (04:11)
[2022-07-28 09:15] VITALS: BP 135/76; PULSE 112; RESP 16; TEMP 37.1; O2SAT 97
[2022-07-28] MEDS: Lithium Carbonate 300 MG CAPSULE 600 MG PO ×2 (09:25→20:45)
[2022-07-28] MEDS: LORazepam 1 MG TABLET PO (09:30)
[2022-07-28] MEDS: OLANZapine ODT 10 MG TAB.RAPDIS TRANSLINGU (09:30)
--- NOTE | 2022-07-28 13:34 | HO.PSYCHPN ---
Subjective Subjective Date of Service: 07/28/22 Reason For Visit: Frances Subjective Notes: Conditional Voluntary Interim History: Pt somewhat agitated about brother using substances and pt not wanting to talk to him. He asked for prn olanzapine as he reported feeling very anxious, give me everything you have. Pt some difficulty sleeping through the night. Pacing, irritable but no overt aggression towards self or others. Medication Compliance: Yes Review of Systems Review of Systems Constitutional: No Fever, No Chills, No Fatigue, No Malaise ENT/Mouth: No Ear Pain, No Nasal Congestion, No sore throat, No Rhinorrhea, No Swallowing Difficulty Eyes: No Eye Pain, No Swelling, No Redness Cardiovascular: No Chest Pain, No SOB, No Edema, No Palpitations Respiratory: No Cough, No Sputum, No Wheezing, No Smoke Exposure, No Dyspnea Gastrointestinal: No Nausea, No Vomiting, No Diarrhea, No Constipation, No Abdominal pain Genitourinary: No Dysuria, No Urinary Frequency, No Hematuria, No Flank Pain Musculoskeletal: No joint pain, No Myalgias, No Joint Swelling Skin: No Skin Lesions, No rash Neuro: No Weakness, No Headache Psych: No Anxiety/Panic, + Depression, + SI/HI/AH/VH, + Social Issues Yes all other systems are reviewed and are negative Constitutional: Reports as per HPI Mental Status Exam Mental Status Exam Narrative: Pt is alert, not oriented to situation. Behavior: guarded and suspicious;dressed in casual attire, good hygiene; affect expansive; eye contact appropriate; Speech is, less hyperverbal, pressured, but normal volume. No Psychomotor agitation noted (but exercising excessively at times); impulsive at times; thought process can be goal oriented but also becomes tangential; Thought content is on jain ideas; denies any SI/HI. Still hearing voices of GOD; Patients insight and judgment are improving. Diagnostics Vital Signs (24Hr): Vital Signs - 24 hr 07/29/22 21:24 07/30/22 06:00 Temperature 97.9 F 97.1 F Pulse Rate 100 112 H Respiratory Rate 18 18 Blood Pressure 136/78 112/59 L Pulse Oximetry 98 97 Oxygen Delivery Method Room Air Room Air BMI result Body Mass Index 30.3 Labs 07/15/22 12:02 07/17/22 08:36 Medications Medications Current Medications Acetaminophen (Acetaminophen 325 Mg Tablet) 650 mg PO Q6H PRN PRN Reason: Headache/Pain Mild Scale (1-3) Al Hydroxide/Mg Hydroxide (Magnesium Hydrox/Alum Hydrox 30 Ml Oral.Susp) 30 ml PO Q6H PRN PRN Reason: Heartburn/Nausea Hydroxyzine HCl (Hydroxyzine Hcl 25 Mg Tablet) 25 mg PO Q6H PRN PRN Reason: Anxiety Last Admin: 07/28/22 04:11 Dose: 25 mg [place] Carbonate ([place] Carbonate 300 Mg Capsule) 600 mg PO DAILY CASANDRA Last Admin: 07/30/22 08:26 Dose: 600 mg [place] Carbonate ([place] Carbonate 300 Mg Tablet) 900 mg PO BEDTIME CASANDRA Last Admin: 07/29/22 21:19 Dose: 900 mg Lorazepam (Lorazepam 1 Mg Tablet) 1 mg PO Q4H PRN PRN Reason: agitation Last Admin: 07/30/22 12:49 Dose: 1 mg Magnesium Hydroxide (Milk Of Magnesia 30 Ml Oral.Susp) 30 ml PO DAILY PRN PRN Reason: Constipation Nicotine Polacrilex (Nicotine Polacrilex 2 Mg Gum) 4 mg BUCCAL Q2H PRN PRN Reason: Nicotine Cravings Olanzapine (Olanzapine Odt 10 Mg Tab.Rapdis) 10 mg TRANSLINGU Q6H PRN PRN Reason: agitation Last Admin: 07/30/22 12:49 Dose: 10 mg Olanzapine (Olanzapine 10 Mg Tablet) 30 mg PO BEDTIME CASANDRA Last Admin: 07/29/22 21:19 Dose: 30 mg Paliperidone (Paliperidone Er 6 Mg Tab.Er.24) 6 mg PO BEDTIME CASANDRA Last Admin: 07/29/22 21:19 Dose: 6 mg Trazodone HCl (Trazodone Hcl 100 Mg Tablet) 100 mg PO BEDTIME PRN PRN Reason: insomnia Last Admin: 07/29/22 21:19 Dose: 100 mg Trazodone HCl (Trazodone Hcl 50 Mg Tablet) 50 mg PO BEDTIME PRN PRN Reason: Insomnia Last Admin: 07/29/22 21:19 Dose: 50 mg Allergies Allergies Allergy/AdvReac Type Severity Reaction Status Date / Time haloperidol [From Haldol] AdvReac Intermediate Dystonia Verified 07/05/22 10:04 Assessment & Plan Assessment & Plan (1) Schizoaffective disorder: Status: Acute Code(s): F25.9 - Schizoaffective disorder, unspecified Plan Mr. Noel is a 32 year-old male with hx of schizoaffective disorder who was discharged from on 07/02/22. Self presented with increase jain and paranoid delusions, not sleeping, pacing, thinking he has to protect children who are being killed by evil forces, and he has to eat these peoples faces. Pt presents as hypervigilant, pacing, irritable and guarded. He denies having mental illness and minimizes need for psychotropic medications. We discussed risks, benefits and alternative treatment options. PLAN 1. Admit to M[facility], CV, 15 minutes checks for safety. 2. Continue depakote and olanzapine, will check ammonia level. Some elevation on LFT. 3. Obtain collateral information 4. Aftercare planning. 07/18 check ammonia. continue medications, pending collateral from OP provider. 07/19 continue tx. 07/20 continue current medications. 07/21 continue current treatment plan 07/22 continue current treatment plan 07/23 continue tx. filed section 7/8. 07/24 pt agreed to sign CV, and in agreement to try paliperidone as less sedating antipsychotic which he identifies as problematic when he is out in community. May consider BERNAL. Start paliperidone 6mg po qhs, stop seroquel, continue olanzapine. 07/25 continue tx. depakote level 61, elevation of LFTs, normal ammonia. 07/26 pt appears more paranoid and suspicious today. He slept through the night. 07/27 increase olanzapine to 30mg po qhs. switched depakote to lithium due to LFTs elevation and pt request of excessive sedation when discharged home. 07/28 continue lithium, olanzapine. Reason for contiued inpatient stay Substantial Risk for: inability to function Time Spent With Patient Time: Total time managing care of this patient today ____ minutes.
[2022-07-28] MEDS: Paliperidone ER 6 MG TAB.ER.24 PO (20:45)
[2022-07-28] MEDS: OLANZapine 10 MG TABLET 30 MG PO (20:45)
[2022-07-29] MEDS: OLANZapine ODT 10 MG TAB.RAPDIS TRANSLINGU (08:22)
[2022-07-29] MEDS: Lithium Carbonate 300 MG CAPSULE 600 MG PO (08:22)
[2022-07-29 08:24] VITALS: BP 140/67; PULSE 102; RESP 16; TEMP 36.7; O2SAT 97
--- NOTE | 2022-07-29 14:38 | HO.PSYCHPN ---
Subjective Subjective Date of Service: 07/29/22 Reason For Visit: Frances Subjective Notes: Conditional Voluntary Interim History: Pt calmer today. he slept better. Less guarded and paranoid but continues to report that he will not talk to his brother. Pt nondenominational delusions. Pt taking medications as prescribed, hyperactive, hyperverbal. No SI/HI. Medication Compliance: Yes Review of Systems Review of Systems Constitutional: No Fever, No Chills, No Fatigue, No Malaise ENT/Mouth: No Ear Pain, No Nasal Congestion, No sore throat, No Rhinorrhea, No Swallowing Difficulty Eyes: No Eye Pain, No Swelling, No Redness Cardiovascular: No Chest Pain, No SOB, No Edema, No Palpitations Respiratory: No Cough, No Sputum, No Wheezing, No Smoke Exposure, No Dyspnea Gastrointestinal: No Nausea, No Vomiting, No Diarrhea, No Constipation, No Abdominal pain Genitourinary: No Dysuria, No Urinary Frequency, No Hematuria, No Flank Pain Musculoskeletal: No joint pain, No Myalgias, No Joint Swelling Skin: No Skin Lesions, No rash Neuro: No Weakness, No Headache Psych: No Anxiety/Panic, + Depression, + SI/HI/AH/VH, + Social Issues Yes all other systems are reviewed and are negative Constitutional: Reports as per HPI Mental Status Exam Mental Status Exam Narrative: Pt is alert, not oriented to situation. Behavior: guarded and suspicious;dressed in casual attire, good hygiene; affect expansive; eye contact appropriate; Speech is, less hyperverbal, pressured, but normal volume. No Psychomotor agitation noted (but exercising excessively at times); impulsive at times; thought process can be goal oriented but also becomes tangential; Thought content is on nondenominational ideas; denies any SI/HI. Still hearing voices of GOD; Patients insight and judgment are improving. Diagnostics Vital Signs (24Hr): Vital Signs - 24 hr 07/29/22 21:24 07/30/22 06:00 Temperature 97.9 F 97.1 F Pulse Rate 100 112 H Respiratory Rate 18 18 Blood Pressure 136/78 112/59 L Pulse Oximetry 98 97 Oxygen Delivery Method Room Air Room Air BMI result Body Mass Index 30.3 Labs 07/15/22 12:02 07/17/22 08:36 Medications Medications Current Medications Acetaminophen (Acetaminophen 325 Mg Tablet) 650 mg PO Q6H PRN PRN Reason: Headache/Pain Mild Scale (1-3) Al Hydroxide/Mg Hydroxide (Magnesium Hydrox/Alum Hydrox 30 Ml Oral.Susp) 30 ml PO Q6H PRN PRN Reason: Heartburn/Nausea Hydroxyzine HCl (Hydroxyzine Hcl 25 Mg Tablet) 25 mg PO Q6H PRN PRN Reason: Anxiety Last Admin: 07/28/22 04:11 Dose: 25 mg [employer] [place] Carbonate ([employer] [place] Carbonate 300 Mg Capsule) 600 mg PO DAILY CASANDRA Last Admin: 07/30/22 08:26 Dose: 600 mg [employer] [place] Carbonate ([employer] [place] Carbonate 300 Mg Tablet) 900 mg PO BEDTIME CASANDRA Last Admin: 07/29/22 21:19 Dose: 900 mg Lorazepam (Lorazepam 1 Mg Tablet) 1 mg PO Q4H PRN PRN Reason: agitation Last Admin: 07/30/22 12:49 Dose: 1 mg Magn[place] Hydroxide (Milk Of Magnesia 30 Ml Oral.Susp) 30 ml PO DAILY PRN PRN Reason: Constipation Nicotine Polacrilex (Nicotine Polacrilex 2 Mg Gum) 4 mg BUCCAL Q2H PRN PRN Reason: Nicotine Cravings Olanzapine (Olanzapine Odt 10 Mg Tab.Rapdis) 10 mg TRANSLINGU Q6H PRN PRN Reason: agitation Last Admin: 07/30/22 12:49 Dose: 10 mg Olanzapine (Olanzapine 10 Mg Tablet) 30 mg PO BEDTIME CASANDRA Last Admin: 07/29/22 21:19 Dose: 30 mg Paliperidone (Paliperidone Er 6 Mg Tab.Er.24) 6 mg PO BEDTIME CASANDRA Last Admin: 07/29/22 21:19 Dose: 6 mg Trazodone HCl (Trazodone Hcl 100 Mg Tablet) 100 mg PO BEDTIME PRN PRN Reason: insomnia Last Admin: 07/29/22 21:19 Dose: 100 mg Trazodone HCl (Trazodone Hcl 50 Mg Tablet) 50 mg PO BEDTIME PRN PRN Reason: Insomnia Last Admin: 07/29/22 21:19 Dose: 50 mg Allergies Allergies Allergy/AdvReac Type Severity Reaction Status Date / Time haloperidol [From Haldol] AdvReac Intermediate Dystonia Verified 07/05/22 10:04 Assessment & Plan Assessment & Plan (1) Schizoaffective disorder: Status: Acute Code(s): F25.9 - Schizoaffective disorder, unspecified Plan Mr. Noel is a 32 year-old male with hx of schizoaffective disorder who was discharged from on 07/02/22. Self presented with increase nondenominational and paranoid delusions, not sleeping, pacing, thinking he has to protect children who are being killed by evil forces, and he has to eat these peoples faces. Pt presents as hypervigilant, pacing, irritable and guarded. He denies having mental illness and minimizes need for psychotropic medications. We discussed risks, benefits and alternative treatment options. PLAN 1. Admit to M[facility], CV, 15 minutes checks for safety. 2. Continue depakote and olanzapine, will check ammonia level. Some elevation on LFT. 3. Obtain collateral information 4. Aftercare planning. 07/18 check ammonia. continue medications, pending collateral from OP provider. 07/19 continue tx. 07/20 continue current medications. 07/21 continue current treatment plan 07/22 continue current treatment plan 07/23 continue tx. filed section 7/. 07/24 pt agreed to sign CV, and in agreement to try paliperidone as less sedating antipsychotic which he identifies as problematic when he is out in community. May consider BERNAL. Start paliperidone 6mg po qhs, stop seroquel, continue olanzapine. 07/25 continue tx. depakote level 61, elevation of LFTs, normal ammonia. 07/26 pt appears more paranoid and suspicious today. He slept through the night. 07/27 increase olanzapine to 30mg po qhs. switched depakote to lithium due to LFTs elevation and pt request of excessive sedation when discharged home. 07/28 continue lithium, olanzapine. 07/29 increase lithium to 600mg po daily and 900mg po qhs. continue olanzapine and paliperidone but it does seem that he does better with olanzapine. Reason for contiued inpatient stay Substantial Risk for: harm to others and inability to function Time Spent With Patient Time: Total time managing care of this patient today ____ minutes.
[2022-07-29] MEDS: Lithium Carbonate 300 MG TABLET 900 MG PO (21:19)
[2022-07-29] MEDS: OLANZapine 10 MG TABLET 30 MG PO (21:19)
[2022-07-29] MEDS: traZODone HCL 50 MG TABLET PO (21:19)
[2022-07-29] MEDS: traZODone HCL 100 MG TABLET PO (21:19)
[2022-07-29] MEDS: Paliperidone ER 6 MG TAB.ER.24 PO (21:19)
[2022-07-29 21:24] VITALS: BP 136/78; PULSE 100; RESP 18; TEMP 36.6; O2SAT 98
[2022-07-29] MEDS: LORazepam 1 MG TABLET PO (21:49)
[2022-07-30 06:00] VITALS: BP 112/59; PULSE 112; RESP 18; TEMP 36.2; O2SAT 97
[2022-07-30] MEDS: Lithium Carbonate 300 MG CAPSULE 600 MG PO (08:26)
[2022-07-30] MEDS: LORazepam 1 MG TABLET PO ×2 (12:49→22:10)
[2022-07-30] MEDS: OLANZapine ODT 10 MG TAB.RAPDIS TRANSLINGU (12:49)
--- NOTE | 2022-07-30 14:42 | HO.PSYCHPN ---
Subjective Subjective Date of Service: 07/30/22 Reason For Visit: Frances Subjective Notes: Conditional Voluntary Interim History: Pt brighter, somewhat expanded mood. He reports he does not plan to talk to brother as he suspect brother using drugs, although no evidence of this. Pt denies SI/HI. no signs of aggression towards self or others. Pt asks about discharged. Encouraged to sign 3 day. reminded that there was no plan for discharge today. Still hyperverbal, pacing hyperactivity. Medication Compliance: Yes Review of Systems Review of Systems Constitutional: No Fever, No Chills, No Fatigue, No Malaise ENT/Mouth: No Ear Pain, No Nasal Congestion, No sore throat, No Rhinorrhea, No Swallowing Difficulty Eyes: No Eye Pain, No Swelling, No Redness Cardiovascular: No Chest Pain, No SOB, No Edema, No Palpitations Respiratory: No Cough, No Sputum, No Wheezing, No Smoke Exposure, No Dyspnea Gastrointestinal: No Nausea, No Vomiting, No Diarrhea, No Constipation, No Abdominal pain Genitourinary: No Dysuria, No Urinary Frequency, No Hematuria, No Flank Pain Musculoskeletal: No joint pain, No Myalgias, No Joint Swelling Skin: No Skin Lesions, No rash Neuro: No Weakness, No Headache Psych: No Anxiety/Panic, + Depression, + SI/HI/AH/VH, + Social Issues Yes all other systems are reviewed and are negative Constitutional: Reports as per HPI Mental Status Exam Mental Status Exam Narrative: Pt is alert, not oriented to situation. Behavior: guarded and suspicious;dressed in casual attire, good hygiene; affect expansive; eye contact appropriate; Speech is, less hyperverbal, pressured, but normal volume. No Psychomotor agitation noted (but exercising excessively at times); impulsive at times; thought process can be goal oriented but also becomes tangential; Thought content is on restorationist ideas; denies any SI/HI. Still hearing voices of GOD; Patients insight and judgment are improving. Diagnostics Vital Signs (24Hr): Vital Signs - 24 hr 07/29/22 21:24 07/30/22 06:00 Temperature 97.9 F 97.1 F Pulse Rate 100 112 H Respiratory Rate 18 18 Blood Pressure 136/78 112/59 L Pulse Oximetry 98 97 Oxygen Delivery Method Room Air Room Air BMI result Body Mass Index 30.3 Labs 07/15/22 12:02 07/17/22 08:36 Medications Medications Current Medications Acetaminophen (Acetaminophen 325 Mg Tablet) 650 mg PO Q6H PRN PRN Reason: Headache/Pain Mild Scale (1-3) Al Hydroxide/Mg Hydroxide (Magnesium Hydrox/Alum Hydrox 30 Ml Oral.Susp) 30 ml PO Q6H PRN PRN Reason: Heartburn/Nausea Hydroxyzine HCl (Hydroxyzine Hcl 25 Mg Tablet) 25 mg PO Q6H PRN PRN Reason: Anxiety Last Admin: 07/28/22 04:11 Dose: 25 mg [place] Carbonate ([place] Carbonate 300 Mg Capsule) 600 mg PO DAILY CASANDRA Last Admin: 07/30/22 08:26 Dose: 600 mg [place] Carbonate ([place] Carbonate 300 Mg Tablet) 900 mg PO BEDTIME CASANDRA Last Admin: 07/29/22 21:19 Dose: 900 mg Lorazepam (Lorazepam 1 Mg Tablet) 1 mg PO Q4H PRN PRN Reason: agitation Last Admin: 07/30/22 12:49 Dose: 1 mg Magnesium Hydroxide (Milk Of Magnesia 30 Ml Oral.Susp) 30 ml PO DAILY PRN PRN Reason: Constipation Nicotine Polacrilex (Nicotine Polacrilex 2 Mg Gum) 4 mg BUCCAL Q2H PRN PRN Reason: Nicotine Cravings Olanzapine (Olanzapine Odt 10 Mg Tab.Rapdis) 10 mg TRANSLINGU Q6H PRN PRN Reason: agitation Last Admin: 07/30/22 12:49 Dose: 10 mg Olanzapine (Olanzapine 10 Mg Tablet) 30 mg PO BEDTIME CASANDRA Last Admin: 07/29/22 21:19 Dose: 30 mg Paliperidone (Paliperidone Er 6 Mg Tab.Er.24) 6 mg PO BEDTIME CASANDRA Last Admin: 07/29/22 21:19 Dose: 6 mg Trazodone HCl (Trazodone Hcl 100 Mg Tablet) 100 mg PO BEDTIME PRN PRN Reason: insomnia Last Admin: 07/29/22 21:19 Dose: 100 mg Trazodone HCl (Trazodone Hcl 50 Mg Tablet) 50 mg PO BEDTIME PRN PRN Reason: Insomnia Last Admin: 07/29/22 21:19 Dose: 50 mg Allergies Allergies Allergy/AdvReac Type Severity Reaction Status Date / Time haloperidol [From Haldol] AdvReac Intermediate Dystonia Verified 07/05/22 10:04 Assessment & Plan Assessment & Plan (1) Schizoaffective disorder: Status: Acute Code(s): F25.9 - Schizoaffective disorder, unspecified Plan Mr. Noel is a 32 year-old male with hx of schizoaffective disorder who was discharged from on 07/02/22. Self presented with increase restorationist and paranoid delusions, not sleeping, pacing, thinking he has to protect children who are being killed by evil forces, and he has to eat these peoples faces. Pt presents as hypervigilant, pacing, irritable and guarded. He denies having mental illness and minimizes need for psychotropic medications. We discussed risks, benefits and alternative treatment options. PLAN 1. Admit to M3, CV, 15 minutes checks for safety. 2. Continue depakote and olanzapine, will check ammonia level. Some elevation on LFT. 3. Obtain collateral information 4. Aftercare planning. 07/18 check ammonia. continue medications, pending collateral from OP provider. 07/19 continue tx. 07/20 continue current medications. 07/21 continue current treatment plan 07/22 continue current treatment plan 07/23 continue tx. filed section 7/8. 07/24 pt agreed to sign CV, and in agreement to try paliperidone as less sedating antipsychotic which he identifies as problematic when he is out in community. May consider BERNAL. Start paliperidone 6mg po qhs, stop seroquel, continue olanzapine. 07/25 continue tx. depakote level 61, elevation of LFTs, normal ammonia. 07/26 pt appears more paranoid and suspicious today. He slept through the night. 07/27 increase olanzapine to 30mg po qhs. switched depakote to lithium due to LFTs elevation and pt request of excessive sedation when discharged home. 07/28 continue lithium, olanzapine. 07/29 increase lithium to 600mg po daily and 900mg po qhs. continue olanzapine and paliperidone but it does seem that he does better with olanzapine. 07/30 continue current medications. Reason for contiued inpatient stay Substantial Risk for: inability to function Time Spent With Patient Time: Total time managing care of this patient today ____ minutes.
[2022-07-30] MEDS: OLANZapine 10 MG TABLET 30 MG PO (20:29)
[2022-07-30] MEDS: Paliperidone ER 6 MG TAB.ER.24 PO (20:29)
[2022-07-30] MEDS: Lithium Carbonate 300 MG TABLET 900 MG PO (20:29)
[2022-07-30 20:31] VITALS: BP 133/69; PULSE 109; TEMP 36.8; O2SAT 99
[2022-07-30] MEDS: traZODone HCL 100 MG TABLET PO (22:10)
[2022-07-30] MEDS: traZODone HCL 50 MG TABLET PO (22:10)
[2022-07-31 06:00] VITALS: BP 147/62; PULSE 99; RESP 18; TEMP 36.8; O2SAT 97
[2022-07-31] MEDS: OLANZapine ODT 10 MG TAB.RAPDIS TRANSLINGU (11:32)
[2022-07-31] MEDS: Lithium Carbonate 300 MG CAPSULE 600 MG PO (11:32)
[2022-07-31] MEDS: LORazepam 1 MG TABLET PO (11:32)
--- NOTE | 2022-07-31 11:37 | PC.NURSE ---
Patient initially refused AM medication. Accepted medication approx 113o AM. Natalee Trejo NP authorized late administration. Ativan 1mg, Olanzapine 10 PRN given, effects pending.
[2022-07-31 18:00] VITALS: BP 138/80; PULSE 131; RESP 20; TEMP 36.8; O2SAT 97
[2022-07-31] MEDS: Paliperidone ER 6 MG TAB.ER.24 PO (20:29)
[2022-07-31] MEDS: OLANZapine 10 MG TABLET 30 MG PO (20:29)
[2022-07-31] MEDS: Lithium Carbonate 300 MG TABLET 900 MG PO (20:30)
[2022-08-01] MEDS: LORazepam 1 MG TABLET PO (04:21)
[2022-08-01] MEDS: OLANZapine ODT 10 MG TAB.RAPDIS TRANSLINGU ×2 (04:21→23:34)
[2022-08-01] MEDS: hydrOXYzine HCL 25 MG TABLET PO ×2 (04:22→23:34)
[2022-08-01 08:18] VITALS: BP 120/60; PULSE 87; RESP 20; TEMP 36.6; O2SAT 97
[2022-08-01] MEDS: Lithium Carbonate 300 MG CAPSULE 600 MG PO (08:18)
[2022-08-01 20:15] VITALS: BP 140/67; PULSE 102; TEMP 36.6; O2SAT 96
[2022-08-01] MEDS: Paliperidone ER 6 MG TAB.ER.24 PO (20:35)
[2022-08-01] MEDS: Lithium Carbonate 300 MG TABLET 900 MG PO (20:35)
[2022-08-01] MEDS: OLANZapine 10 MG TABLET 30 MG PO (20:35)
[2022-08-01] MEDS: traZODone HCL 50 MG TABLET PO (21:54)
[2022-08-01] MEDS: traZODone HCL 100 MG TABLET PO (21:54)
[2022-08-02 07:00] VITALS: BMI 30.4
[2022-08-02 08:15] VITALS: BP 132/76; PULSE 93; RESP 18; TEMP 36.6; O2SAT 97
[2022-08-02] MEDS: Lithium Carbonate 300 MG CAPSULE 600 MG PO (08:41)
[2022-08-02 09:58] LABS: Lithium 0.82 mmol/L (0.60-1.20)
[2022-08-02 10:08] LABS: Alanine Aminotransferase 56 U/L (0-40); Albumin Level 3.8 g/dL (3.5-5.0); Alkaline Phosphatase 68 U/L (39-117); Anion Gap 13 (12-20); Aspartate Amino Transferase 41 U/L (5-37); Bilirubin Total 0.4 mg/dL (0.0-1.0); Blood Urea Nitrogen 18 mg/dL (9-16); Calcium 9.2 mg/dL (8.4-10.2); Carbon Dioxide 29 mmol/L (22-29); Chloride 102 mmol/L (96-108); Creatinine Clr Calc Pharmacy 92.3; Estimated Glomerular Filt Rate > 60; Glucose Fasting 175 mg/dL (60-99); Potassium 4.5 mmol/L (3.3-5.1); Sodium 139 mmol/L (135-145); Total Protein 6.8 g/dL (6.5-8.0)
[2022-08-02] MEDS: OLANZapine ODT 10 MG TAB.RAPDIS TRANSLINGU (12:10)
[2022-08-02] MEDS: hydrOXYzine HCL 25 MG TABLET PO (16:33)
[2022-08-02 20:30] VITALS: BP 126/80; PULSE 80; RESP 18; TEMP 36.7; O2SAT 96
[2022-08-02] MEDS: OLANZapine 10 MG TABLET 30 MG PO (20:47)
[2022-08-02] MEDS: Lithium Carbonate 300 MG TABLET 900 MG PO (20:47)
[2022-08-02] MEDS: Paliperidone ER 6 MG TAB.ER.24 PO (20:48)
[2022-08-03 08:00] VITALS: BP 135/70; PULSE 99; RESP 17; TEMP 36.6; O2SAT 98
[2022-08-03] MEDS: Lithium Carbonate 300 MG CAPSULE 600 MG PO (08:35)
--- NOTE | 2022-08-03 11:43 | PC.NURSE ---
Edy is discharged home in care of family. He denies ideation, plan or intent to harm self or others. He reports his symptoms have improved since admission. He denies physical complaint. He verbalizes understanding of prescribed medications and appointments.
--- NOTE | 2022-08-03 12:22 | PM.PSYDC ---
DS: Providers Provider Date of Service: 08/03/22 Date of admission: 07/16/22 17:20 Primary care physician: Khang Brown MD DS: Diagnosis Discharge Diagnosis (1) Schizoaffective disorder: Status: Acute DS: Medications Discharge Medications Home Medications: Previous Rx's Medication Instructions Recorded lithium carbonate 300 mg capsule 900 mg PO BEDTIME #90 caps 08/03/22 lithium carbonate 600 mg capsule 600 mg PO DAILY #30 caps 08/03/22 olanzapine 15 mg tablet 30 mg PO BEDTIME #60 tabs 08/03/22 paliperidone 6 mg tablet,extended 6 mg PO BEDTIME #30 tabs 08/03/22 release 24 hr (Invega) trazodone 100 mg tablet 100 mg PO BEDTIME PRN insomnia #30 08/03/22 tabs trazodone 50 mg tablet 50 mg PO BEDTIME PRN Insomnia #30 08/03/22 tabs Mental Status Exam Mental Status Exam Narrative: Pt is alert, not oriented to situation. Behavior: guarded and suspicious;dressed in casual attire, good hygiene; affect expansive; eye contact appropriate; Speech is, less hyperverbal, pressured, but normal volume. No Psychomotor agitation noted (but exercising excessively at times); impulsive at times; thought process can be goal oriented but also becomes tangential; Thought content is on alevism ideas; denies any SI/HI. Still hearing voices of GOD; Patients insight and judgment are improving. Data Data Completed and Pending Completed studies during hospitalization [Text1]: 08/02/22 08/02/22 09:27 09:27 Sodium 139 Potassium 4.5 Chloride 102 Carbon Dioxide 29 Anion Gap 13 BUN 18 H Creatinine 1.08 Estim Creat Clear Calc 92.3 Estimated GFR > 60 Fasting Glucose 175 H Calcium 9.2 Total Bilirubin 0.4 AST 41 H ALT 56 H Alkaline Phosphatase 68 Total Protein 6.8 Albumin 3.8 [place] 0.82 DS: Summary Hospital Course Hospital Course: Ms. Noel is 32 year-old male with hx of schizoaffective disorder who was recently discharged from on 07/02/22. Pt was brought by brother, as pt has not been sleeping, increasingly more paranoid with combination of alevism delusions including that he has responsibility to save children who are being killed by evil forces. He reports he is a good spirit but also is the devil as he can eat people's faces. In the ED- depakote level is 46.9, slight elevation of LFTs, utox is negative. Will check ammonia levels. On the unit, pt presents as restless, irritable, pacing. He reports no one can help him as he is the only one who can save these children. He reports hearing voices. He denies SI but has vague HI towards whoever is killing children, I need to protect them. Pt mostly up during the night. He reports he does not need medications, denies having a mental illness. Past Psychiatric History: -OP psych services at [facility] in 2019-present.? -Hx of multiple psych hospitalizations since 2009 in [place] and [place], previously at [facility] M5 12/2019 due to SI, paranoid delusions, alevism preoccupation, and AH. Hx of IPLOC at [facility] in 2019. [facility] September 2021-Early October.? [facility] 10/19/21 Medical Evaluation Reviewed: Yes HOSPITAL COURSE On the unit, pt was admitted on a CV and signed 3 day notice. Pt presented with alevism/grandiose delusions being designated by God to save humanity from evil. Pt also presented with some paranoid ideas of brother stealing and selling drugs. Pt reported hearing voices of God. He reported people abusing children. No SI. He initially reported vague HI towards whoever was harming children. We discussed risks, benefits and alternative treatment options. He initially agreed to continue depakote, seroquel and olanzapine. However, reported feeling very sedated with these medications. His affect gradually presented as less labile, less paranoid. No SI/HI. His sleep was slowly improving and he did not appear overly sedated. Given that there was concern about him quickly stopping medications on discharge, this engineering technical writer discussed with pt starting paliperidone with option of BERNAL with less sedation than seroquel or olanzapine. Pt was in agreement with this plan. However, his delusions seemed to worsen with paliperidone alone and olanzapine was reintroduced. Pt did have LFTs elevation with normal ammonia. We discussed switching depakote to lithium, which he tolerated well. He agreed to be referred to [facility] and continue OP psychiatric services. His affect gradually presented as less labile, less paranoid. NO SI/HI. No signs of aggression towards self or others. Status at Discharge Cognitive/behavioral status at discharge: Pt was calmer, less labile. No SI/HI. no signs of aggression towards self or others. He still had some delusional content with paranoid and alevism themes. Less AH. His sleep improved. Functional status at discharge: independent ambulation Overall status at discharge: patient is progressing back to baseline Time Spent with Patient Time attestation: Total time managing care of this patient today ___30_ minutes. Time spent: Greater than 30 minutes Discharge Plan Discharge Anticipated Discharge Date/Time: 08/03/22 11:26 Patient Disposition: Home, Self-Care Discharge Diagnosis: schizoaffective disorder bipolar type Referrals: [facility] [Other] - 08/27/22 3:00 pm (Psychiatric Assessment([place]) TELEHEALTH) Department of Mental Health [Other] - 1 Week (Lev Sethi [phone] will be contact patient to schedule meeting week of Aug 06. ) [facility] [Provider Group] - 09/26/22 11:45 am (Medication Management [place] ) [facility] [Outside] - 08/09/22 9:00 am (In person- Toyin Serrano (Assessment)) Khang Brown MD [Primary Care Provider] - 08/03/22 12:30 pm Discharge Medications: New olanzapine 15 mg tablet 30 mg PO BEDTIME Qty: 60 0RF trazodone 100 mg Tablet 100 mg PO BEDTIME PRN (Reason: insomnia) Qty: 30 0RF lithium carbonate 600 mg capsule 600 mg PO DAILY Qty: 30 0RF lithium carbonate 300 mg capsule 900 mg PO BEDTIME Qty: 90 0RF trazodone 50 mg Tablet 50 mg PO BEDTIME PRN (Reason: Insomnia) Qty: 30 0RF paliperidone [Invega] 6 mg Tablet Extended Release 24 Hr 6 mg PO BEDTIME Qty: 30 0RF Discontinued divalproex 500 mg Tablet Extended Release 24 Hr 1,000 mg PO BID 30 Days Qty: 120 0RF olanzapine 20 mg tablet 20 mg PO BEDTIME 30 Days Qty: 30 0RF quetiapine 300 mg Tablet 300 mg PO BEDTIME 30 Days Qty: 30 0RF trazodone 100 mg Tablet 100 mg PO BEDTIME PRN (Reason: insomnia) 30 Days Qty: 30 0RF clonazepam 0.5 mg tablet 0.5 mg PO DAILY PRN (Reason: anxiety) 30 Days Qty: 30 0RF Discharge Orders: Discharge Order (Routine); Ordered 08/03/22 Ordered By: Natalee Trejo Diet: Regular diet Activity on Discharge: As tolerated Stand Alone Forms: Patient Portal Discharge page, Community Support Care Plan Goals: 1. Maintain mood 2. No SI/HI. 3. No aggression towards self or others 4. Less delusions, less AH/VH. Health Concerns: Follow up with PCP Plan of Treatment: 1. Take medications as prescribed 2. Go to nearest ED or call 911 in event of emergency Assessment: Pt with brighter, less expansive, less labile affect. No SI/HI. No VH/AH. No signs of aggression towards self or others. Discharge Date/Time: 08/03/22 12:30
== END 2022-08-03 12:30 | disposition home or self-care (01) | DRG 750 ==
LOC: HO.ED 13:50 → HO.PADLT16 07-16 17:27
PROVIDERS: Admitting Provider Psychiatry & Neurology Psychiatry; Emergency Provider Student in an Organized Health Care Education/Training Program; PCP Internal Medicine; Visit Provider Social Worker
DX: F25.0 Schizoaffective disorder, bipolar type (principal); R45.851 Suicidal ideations; Z20.822 Contact with and (suspected) exposure to COVID-19; Z79.899 Other long term (current) drug therapy
CPT/HCPCS: 36415; 80053; 80061; 80076; 80164; 80178; 80307; 81003; 82077; 82140; 82248; 82607; 82746; 83036; 83690; 84439; 84443; 85025; 87635; 93005; 99285

== ENCOUNTER 2023-01-28 14:04 | Outpatient (AMB) | payer OTHER, SELFPAY ==
[2023-01-28 14:38] VITALS: BP 132/84; PULSE 105; O2SAT 97; BMI 29.0
--- NOTE | 2023-01-28 14:38 | MHC.PC.OV ---
Vital Signs 01/28/23 14:38 Height 5 ft 7 in Weight 185 lb 6 oz BMI 29.0 BP 132/84 Blood Pressure Location Lt brachial Position Sitting Pulse 105 H Pulse Source Pulse Oximeter Pulse Oximetry (%) 97 Oxygen Delivery Method Room Air Intake Visit Reasons: Annual exam Seasoning Sprayer Required: No Accompanied by: Self / Same As Patient Allergies haloperidol [From Haldol] Adverse Reaction (Intermediate, Verified 01/28/23 15:36) Dystonia Medication List - Last Reconciled 01/28/23 by Khang Brown MD lithium carbonate 600 mg PO DAILY olanzapine 30 mg (2 x 15 mg) PO BEDTIME trazodone 100 mg PO BEDTIME PRN Tobacco use date assessed: 01/28/23 Dental Screening Dental Screen Date: 01/28/23 Did you have a dental visit in the last 12 months?: Yes Did you have a dental problem in the last 6 months where you did not have access to dental care?: No Was dental information given to patient?: Patient has dentist HPI Annual exam HPI Details Patient comes in today for his annual physical examination States that he currently feels okay Relates that his psychiatrist made a lot of changes to his medications recently and he is still on Golovin 300 mg Q AM but is no longer on 900 mg of Golovin at bedtime He also currently takes Olanzapine Q HS (not sure if it is 15 or 30 mg) - states that he tends to get knocked out and sleeps all night when he takes his Olanzapine and has hardly had to take his Trazodone for sleep lately Relates that he feels dizzy at times and thinks that this is mostly due to his poor eyeslight States that his vision is blurry all the time and he has to squint often when reading - would like to see if he can get his eyes checked so he can start wearing the appropriate corrective lenses TROY He denies any chest pains, no SOB No nausea/vomiting, no abdominal pain No change in bowel habits noted Denies any acute urinary symptoms PFSH Medical History Bipolar 1 disorder Overweight (BMI 25.0-29.9) Surgical History No significant past surgical history Family History Father Mental illness in member of household Mother Mental illness in member of household Brother Mental illness in member of household Sister Mental illness in member of household Maternal Grandmother Diabetes mellitus Social History Household Members: None Housing: Apartment Do you presently have visiting nurse or other home services: No Alcohol intake: unknown Patient Tobacco Use Status: Never used Tobacco e-Cigarette/Vaping Use: Never Used Second Hand Smoke Exposure: No Substance Use Type: Caffiene service: No Sexual orientation: Straight/Heterosexual Cognitive needs: No Hearing needs: No Vision needs: Yes (Pt has not seen a eye doctor since 2010-04.) Questionnaire PHQ-9 Over the last 2 weeks, how often have you been bothered by any of the following problems? 1. Little interest or pleasure in doing things: not at all 2. Feeling down, depressed, or hopeless: not at all 3. Trouble falling or staying asleep, or sleeping too much: not at all 4. Feeling tired or having little energy: not at all 5. Poor appetite or overeating: not at all 6. Feeling bad about yourself - or that you are a failure or have let yourself or your family down: not at all 7. Trouble concentrating on things, such as reading the newspaper or watching television: not at all 8. Moving or speaking so slowly that other people could have noticed. Or the opposite - being so fidgety or restless that you have been moving around a lot more than usual: not at all 9. Thoughts that you would be better off or of hurting yourself in some way: not at all Total score: 0 Depression Screening Interpretation: Negative (current Rx help control his symptoms) [id number] - PHQ-9 Billing: Yes Source: Developed by Drs. Mehdi Alexandra, Ana Lilia Aragon, Moises Putnam and colleagues, with an educational steve from [employer]. Thrive Questionnaire Date Thrive assessed: 01/28/23 I am a: Patient What is your living situation today?: I have a steady place to live Within the past 12 months, did the food you bought not last and you didn't have the money to get more?: Never true Within the past 12 months, did you worry whether your food would run out before you got money to buy more?: Never true Do you have trouble paying for medicines?: No Do you have trouble getting transportation to medical appointments?: No Do you have trouble paying your heating and electricity bill?: No Do you have trouble taking care of your child, family member or friend?: No Do you have trouble with day-to-day activities such as bathing, preparing meals, shopping, managing finances, etc.?: No Are you currently unemployed and looking for a job?: No Are you interested in more education?: No Please select the resources that you would like help with: None Currently or been in a relationship where the following occur: no concerns reported AUDIT C Alcohol Use Questionnaire (AUDIT-C) 1. How often do you have a drink containing alcohol?: Never 3. How often do you have six or more drinks on one occasion?: Never Total Score: 0 Score Reviewed/Action Taken: Yes PHOENIX-7 AMB Questionnaire PHOENIX-7 Date PHOENIX - 7 assessed: 01/28/23 Feeling nervous, anxious, or on edge: 0 = Not at all Not being able to stop or control worryin = Not at all Worrying too much about different things: 0 = Not at all Trouble relaxin = Not at all Being so restless that it is hard to sit still: 0 = Not at all Becoming easily annoyed or irritable: 0 = Not at all Feeling afraid as if something awful might happen: 0 = Not at all Total PHOENIX-7 score (0-4 normal; 5-9 mild; 10-14 moderate; 15-21 severe): 0 Source: Developed by Drs. Mehdi Alexandra, Ana Lilia Aragon, Moises Putnam and colleagues, with an educational steve from [employer]. Review of Systems Const Denies chills, Denies fatigue, Denies fever(s), Denies headache(s), Denies malaise and Denies weakness Eyes Reports blurry vision (in both eyes), Denies irritation and Denies itchy eyes ENT Denies dysphagia, Reports dizziness (at times), Denies otalgia, Denies headache(s), Denies nasal congestion, Denies neck pain, Denies odynophagia and Denies sore throat Card Denies chest pain, Denies rapid heart rate, Denies irregular heart rhythm, Denies palpitations and Denies dyspnea Resp Denies chest congestion, Denies cough, Denies dyspnea and Denies wheezing GI Denies abdominal pain, Denies bloating, Denies constipation, Denies dysphagia, Denies heartburn, Denies diarrhea, Denies nausea, Denies odynophagia and Denies vomiting Denies hematuria, Denies difficulty urinating, Denies dysuria, Denies urinary frequency and Denies urinary urgency Musc Denies back pain, Denies arthralgias, Denies joint swelling, Denies muscle weakness and Denies neck pain Skin/Breast Denies change in pigmentation, Denies lesions, Denies rash and Denies unusual bruising Neuro Reports dizziness (at times), Denies headache(s), Denies paresthesias and Denies weakness Endo Denies fatigue and Denies palpitations Aller/Immun Denies itchy eyes and Denies wheezing Physical exam (Primary Care) Vital Signs: Last Vital Signs Pulse 105 H 01/28/23 14:38 BP 132/84 01/28/23 14:38 Pulse Ox 97 01/28/23 14:38 Oxygen Delivery Method Room Air 01/28/23 14:38 BMI result Body Mass Index 29.0 Tobacco/Smoking Status: Tobacco use Status Tobacco use date assessed 01/28/23 01/28/23 14:40 Patient Tobacco Use Status Never used Tobacco 01/28/23 14:40 e-Cigarette/Vaping Use Never Used 01/28/23 14:40 PHQ-9: PHQ-9 Score PHQ-9: Total score 0 01/28/23 14:40 Depression Screening Interpretation: Negative (current Rx help control his symptoms) Thrive Assessment: Date of Thrive Assessment Date Thrive assessed 01/28/23 01/28/23 14:40 Currently or been in a relationship where the following occur: no concerns reported Const General: no acute distress, alert and awake Orientation/consciousness: patient oriented x3 HENMT Head: Yes normocephalic and Yes atraumatic Ears: external ears normal, TM's normal bilaterally and EAC's normal General nose exam: No nasal discharge present Face and sinus: Yes normal facial exam and Yes sinuses nontender Teeth and gingiva: dentition normal Throat: Yes posterior oropharynx normal and Yes tonsils normal (no TP congestion) Eyes Eyelids: Yes eyelids normal Conjunctivae: conjunctivae normal Pupils: Equal, round and reactive pupils present EOM: EOMs intact bilaterally Neck Neck: Yes no lymphadenopathy and Yes supple Thyroid: Thyroid normal Resp Auscultation: clear to auscultation bilaterally, no rales and no wheezes Cardio Rate: regular rate Rhythm: regular rhythm Heart sounds: no murmurs GI Palpation (GI): Soft to palpation, nontender and No hepatosplenomegaly present Auscultation: normal bowel sounds General: Yes no CVA tenderness Back/Spine/Pelvis Back: no CVA tenderness Thoracic/Lumbar Spine: thoracic and lumbar spine normal to inspection Skin Lesions: no lesions Rashes: no rashes Neuro General: patient oriented x3, moves all extremities, no focal motor deficits and CN's II-XI intact bilaterally Cranial nerves: Yes Equal, round and reactive pupils present Cognition (Neuro): normal cognition Gait exam (Neuro): Normal gait present Extrem General: Yes no clubbing, cyanosis or edema Assessment and Plan Assessment & Plan (1) Annual physical exam: Code(s): Z00.00 - Encounter for general adult medical examination without abnormal findings Plan: Check labs (2) Elevated blood pressure reading in office without diagnosis of hypertension: Code(s): R03.0 - Elevated blood-pressure reading, without diagnosis of hypertension Plan: His BP appears slightly better today compared to previous Reinforced low sodium diet Patient is instructed to continue getting his BP monitored regularly (3) Blurred vision, bilateral: Code(s): H53.8 - Other visual disturbances Plan: Most likely due to error of refraction (myopia) Will refer him to ophthalmology for further evaluation and management (4) Low back pain: Code(s): M54.50 - Low back pain, unspecified Qualifiers: Chronicity: unspecified Back pain laterality: midline Sciatica presence: without sciatica Qualified Code(s): M54.50 - Low back pain, unspecified Plan: Reinforced activity and weight-lifting restrictions Lumbar spine x-rays done back in February 2022 revealed only very mild multi-level lower thoracic and lumbar anterior spondylosis, with a slight lumbar levoscoliosis Would recommend referral to physical therapy if he continues to experience frequent low back pain but patient states that this has improved a lot since he lost weight from last year (5) Schizoaffective disorder, bipolar type: Code(s): F25.0 - Schizoaffective disorder, bipolar type Plan: Continue Golovin 600 mg Q AM and Olanzapine 30 mg Q HS Has Trazodone 100 mg to take Q HS PRN but patient states that he never has to take this recently (6) Overweight (BMI 25.0-29.9): Code(s): E66.3 - Overweight Plan: Reinforced diet/exercise as tolerated/lose weight - has been able to lose a significant amount of weight since last year Plan Follow up in 6 months Orders: Orders Comprehensive [place]. Panel Fast Today F25.0 - Schizoaffective disorder, bipolar type, Z00.00 - Encounter for general adult medical examination without abnormal findings Hemoglobin A1c Today F25.0 - Schizoaffective disorder, bipolar type, R73.01 - Impaired fasting glucose, Z00.00 - Encounter for general adult medical examination without abnormal findings Lipid Panel Today E78.00 - Pure hypercholesterolemia, unspecified, F25.0 - Schizoaffective disorder, bipolar type, Z00.00 - Encounter for general adult medical examination without abnormal findings TSH reflex Free T4 Today F25.0 - Schizoaffective disorder, bipolar type, Z00.00 - Encounter for general adult medical examination without abnormal findings Vitamin D 25-OH Total Today E55.9 - Vitamin D deficiency, unspecified, F25.0 - Schizoaffective disorder, bipolar type, Z00.00 - Encounter for general adult medical examination without abnormal findings Complete Blood Count Auto Diff Today F25.0 - Schizoaffective disorder, bipolar type, Z00.00 - Encounter for general adult medical examination without abnormal findings UA CC w/rflx Micro + Cult Today F25.0 - Schizoaffective disorder, bipolar type, R30.0 - Dysuria, Z00.00 - Encounter for general adult medical examination without abnormal findings Referrals Ophthalmology Referral H53.8 - Other visual disturbances Coding Level of Care Code Est Pt Prev Care [id number]([id number]) Diagnoses Annual physical exam Z00.00 Elevated blood pressure reading in office without diagnosis of hypertension R03.0 Blurred vision, bilateral H53.8 Low back pain M54.50 Chronicity: unspecified Back pain laterality: midline Sciatica presence: without sciatica Schizoaffective disorder, bipolar type F25.0 Overweight (BMI 25.0-29.9) E66.3
== END 2023-01-28 15:46 | disposition home or self-care (01) ==
PROVIDERS: Visit Provider Internal Medicine
DX: Z00.00 Encounter for general adult medical examination without abnormal findings (principal); R03.0 Elevated blood-pressure reading, without diagnosis of hypertension; H53.8 Other visual disturbances; F25.0 Schizoaffective disorder, bipolar type; M54.50 Low back pain, unspecified; E66.3 Overweight; Z68.29 Body mass index [BMI] 29.0-29.9, adult
CPT/HCPCS: 99395

== ENCOUNTER 2023-02-07 13:44 | Outpatient (REF) | payer OTHER, SELFPAY ==
[2023-02-07 16:12] LABS: MANUAL DIFF FLAG NO
[2023-02-07 16:29] LABS: Appearance Urine Turbid; Color Urine Yellow; Glucose Urine UA Negative (Negative); Leukocyte Esterase Urine Negative (Negative); Nitrite Urine Negative (Negative); Specific Gravity - Urine >= 1.030 (1.005-1.025); UMIC TRIGGER UACC YES; Urine Blood Negative (Negative); Urine Ketones Negative (Negative); Urine Protein 30 (1+) mg/dL (Neg-Trace)
[2023-02-07 16:32] LABS: Basophils Percent Auto 0.4 % (0-2); Eosinophils Absolute Auto 0.1 X10*3/uL (0.0-0.4); Eosinophils Percent Auto 1.2 % (0-4); Hematocrit 46.1 % (42.0-52.0); Hemoglobin 14.7 g/dl (14.0-18.0); Imm Gran Abs Auto 0.03 X10*3/uL (0.00-0.03); Imm Gran Pct Auto 0.4 % (0.0-0.4); Lymphocytes Percent Auto 23.6 % (20-40); Mean Corpuscular HGB Conc 31.9 g/dl (31.0-36.0); Mean Corpuscular Hemoglobin 30.6 pg (27.0-33.0); Mean Corpuscular Volume 95.8 fL (80.0-98.0); Mean Platelet Volume 10.3 fL (9.4-12.4); Monocytes Absolute Auto 0.5 X10*3/uL (0.1-1.2); Monocytes Percent Auto 6.1 % (2-11); Neutrophils Absolute Auto 5.8 x10*3/uL (2.0-8.3); Neutrophils Percent Auto 68.3 % (45-73); Platelet Count 211 X10*3/uL (160-400); Red Blood Count 4.81 X10*6/uL (4.60-5.80); Red Cell Distribution Width 11.6 % (11.0-16.0); White Blood Count 8.5 X10*3/uL (4.8-10.8)
[2023-02-07 16:34] LABS: Bacteria Urine None Seen (None Seen); Hyaline Casts Urine 0-2 /LPF (0-2); RBC Urine 0-2 /HPF (0-2); Squamous Epithelial Cell Urine 0-2 /HPF (0-2); WBC Urine 0-5 /HPF (0-5)
[2023-02-07 16:53] LABS: Estimated Average Glucose 91 mg/dL; Hemoglobin A1C 113.7935 umol/L; Hemoglobin A1c % 4.8 % (<6.0)
[2023-02-07 17:06] LABS: Lithium 0.38 mmol/L (0.60-1.20)
[2023-02-07 17:25] LABS: Alanine Aminotransferase 23 U/L (0-40); Albumin Level 4.8 g/dL (3.5-5.0); Alkaline Phosphatase 87 U/L (39-117); Anion Gap 16 (12-20); Aspartate Amino Transferase 25 U/L (5-37); Bilirubin Total 0.5 mg/dL (0.0-1.0); Blood Urea Nitrogen 13 mg/dL (9-16); Calcium 9.8 mg/dL (8.4-10.2); Carbon Dioxide 22 mmol/L (22-29); Chloride 108 mmol/L (96-108); Cholesterol 220 mg/dL (<200); Estimated Glomerular Filt Rate > 60; Glucose Fasting 102 mg/dL (60-99); HDL Cholesterol 47 mg/dL (>40); LDL Cholesterol Calculated 158 mg/dL (<100); Potassium 3.9 mmol/L (3.3-5.1); Sodium 142 mmol/L (135-145); Total Protein 8.4 g/dL (6.5-8.0); Triglycerides 79 mg/dL (<150)
[2023-02-07 17:29] LABS: Thyroid Stimulating Hormone 2.08 uIU/mL (0.32-4.0)
[2023-02-07 17:34] LABS: TSH reflex Free T4 2.09 uIU/mL (0.32-4.0); Vitamin D 25-OH Total 48.2 ng/mL (>30)
== END 2023-02-07 13:45 | disposition home or self-care (01) ==
LOC: HO.HHCL 13:44
PROVIDERS: Referring Provider Psychiatry & Neurology Psychiatry; Visit Provider Internal Medicine
DX: Z00.00 Encounter for general adult medical examination without abnormal findings (principal); F25.0 Schizoaffective disorder, bipolar type; E78.00 Pure hypercholesterolemia, unspecified; R73.01 Impaired fasting glucose; E55.9 Vitamin D deficiency, unspecified; Z79.899 Other long term (current) drug therapy
CPT/HCPCS: 36415; 80053; 80061; 80178; 81001; 82306; 83036; 84443; 85025

== ENCOUNTER 2024-03-04 12:13 | Outpatient (REF) | payer OTHER, SELFPAY ==
[2024-03-04 14:28] LABS: Alanine Aminotransferase 18 U/L (0-40); Albumin Level 4.5 g/dL (3.5-5.0); Alkaline Phosphatase 71 U/L (39-117); Anion Gap 14 (12-20); Aspartate Amino Transferase 20 U/L (5-37); Bilirubin Direct 0.2 mg/dL (0.0-0.5); Bilirubin Total 0.8 mg/dL (0.0-1.0); Blood Urea Nitrogen 16 mg/dL (9-16); Calcium 9.6 mg/dL (8.4-10.2); Carbon Dioxide 28 mmol/L (22-29); Chloride 104 mmol/L (96-108); Cholesterol 216 mg/dL (<200); Estimated Glomerular Filt Rate > 60; Glucose Fasting 101 mg/dL (60-99); Glucose Random 100 mg/dL (60-115); HDL Cholesterol 43 mg/dL (>40); LDL Cholesterol Calculated 144 mg/dL (<100); Potassium 3.9 mmol/L (3.3-5.1); Sodium 142 mmol/L (135-145); Total Protein 7.8 g/dL (6.5-8.0); Triglycerides 146 mg/dL (<150)
[2024-03-04 14:34] LABS: Lithium 0.28 mmol/L (0.60-1.20)
== END 2024-03-04 12:14 | disposition home or self-care (01) ==
LOC: HO.HHCL 12:13
PROVIDERS: Visit Provider Psychiatry & Neurology Psychiatry
DX: Z79.899 Other long term (current) drug therapy (principal)
CPT/HCPCS: 36415; 80053; 80061; 80178; 82248; 84443

== ENCOUNTER 2024-06-26 10:15 | Outpatient (REF) | payer MEDICAID, SELFPAY ==
[2024-06-26 11:25] LABS: MANUAL DIFF FLAG NO
[2024-06-26 11:30] LABS: Basophils Percent Auto 0.4 % (0-2); Eosinophils Absolute Auto 0.3 X10*3/uL (0.0-0.4); Eosinophils Percent Auto 3.1 % (0-4); Hematocrit 49.2 % (42.0-52.0); Hemoglobin 16.1 g/dl (14.0-18.0); Imm Gran Abs Auto 0.02 X10*3/uL (0.00-0.03); Imm Gran Pct Auto 0.2 % (0.0-0.4); Lymphocytes Absolute Auto 2.9 X10*3/uL (1.2-4.9); Lymphocytes Percent Auto 32.8 % (20-40); Mean Corpuscular HGB Conc 32.7 g/dl (31.0-36.0); Mean Corpuscular Hemoglobin 30.8 pg (27.0-33.0); Mean Corpuscular Volume 94.1 fL (80.0-98.0); Mean Platelet Volume 10.1 fL (9.4-12.4); Monocytes Absolute Auto 0.7 X10*3/uL (0.1-1.2); Monocytes Percent Auto 7.4 % (2-11); Neutrophils Percent Auto 56.1 % (45-73); Platelet Count 225 X10*3/uL (160-400); Red Blood Count 5.23 X10*6/uL (4.60-5.80); Red Cell Distribution Width 11.9 % (11.0-16.0); White Blood Count 8.9 X10*3/uL (4.8-10.8)
[2024-06-26 12:07] LABS: Lithium 0.32 mmol/L (0.60-1.20)
[2024-06-26 12:17] LABS: Albumin Level 4.3 g/dL (3.5-5.0); Alkaline Phosphatase 75 U/L (39-117); Anion Gap 11 (12-20); Aspartate Amino Transferase 37 U/L (5-37); Bilirubin Direct 0.1 mg/dL (0.0-0.5); Bilirubin Total 0.5 mg/dL (0.0-1.0); Blood Urea Nitrogen 14 mg/dL (9-16); Carbon Dioxide 29 mmol/L (22-29); Chloride 106 mmol/L (96-108); Estimated Glomerular Filt Rate > 60; Glucose Random 96 mg/dL (60-115); Potassium 4.2 mmol/L (3.3-5.1); Sodium 142 mmol/L (135-145); Total Protein 7.9 g/dL (6.5-8.0)
[2024-06-26 12:18] LABS: Thyroid Stimulating Hormone 3.38 uIU/mL (0.32-4.0)
[2024-06-26 12:24] LABS: Alanine Aminotransferase 38 U/L (0-40)
== END 2024-06-26 10:16 | disposition home or self-care (01) ==
LOC: HO.HHCL 10:15
PROVIDERS: Visit Provider Nurse Practitioner Family
DX: Z79.899 Other long term (current) drug therapy (principal)
CPT/HCPCS: 36415; 80053; 80178; 82248; 84439; 84443; 85025

== ENCOUNTER 2024-09-25 15:19 | Outpatient (REF) | payer MEDICAID, SELFPAY ==
[2024-09-25 16:11] LABS: MANUAL DIFF FLAG NO
[2024-09-25 16:25] LABS: Basophils Absolute Auto 0.1 X10*3/uL (0.0-0.2); Basophils Percent Auto 0.6 % (0-2); Eosinophils Absolute Auto 0.1 X10*3/uL (0.0-0.4); Hematocrit 44.7 % (42.0-52.0); Hemoglobin 14.8 g/dl (14.0-18.0); Imm Gran Abs Auto 0.03 X10*3/uL (0.00-0.03); Imm Gran Pct Auto 0.3 % (0.0-0.4); Lymphocytes Absolute Auto 2.2 X10*3/uL (1.2-4.9); Lymphocytes Percent Auto 25.3 % (20-40); Mean Corpuscular HGB Conc 33.1 g/dl (31.0-36.0); Mean Corpuscular Hemoglobin 31.4 pg (27.0-33.0); Mean Corpuscular Volume 94.7 fL (80.0-98.0); Mean Platelet Volume 9.8 fL (9.4-12.4); Monocytes Absolute Auto 0.5 X10*3/uL (0.1-1.2); Monocytes Percent Auto 5.8 % (2-11); Neutrophils Absolute Auto 5.8 x10*3/uL (2.0-8.3); Platelet Count 219 X10*3/uL (160-400); Red Blood Count 4.72 X10*6/uL (4.60-5.80); White Blood Count 8.7 X10*3/uL (4.8-10.8)
[2024-09-25 16:57] LABS: Estimated Average Glucose 97 mg/dL; Hemoglobin A1C 122.1609 umol/L; Total Hemoglobin (HGBA1C) 3950.9875 umol/L
[2024-09-25 16:59] LABS: Cholesterol 191 mg/dL (<200); HDL Cholesterol 38 mg/dL (>40); LDL Cholesterol Calculated 129 mg/dL (<100); Triglycerides 124 mg/dL (<150)
[2024-09-25 17:17] LABS: TSH reflex Free T4 1.23 uIU/mL (0.32-4.0)
[2024-09-26 02:40] LABS: CT PCR NOT DETECTED (Not Detect.); NG PCR NOT DETECTED (Not Detect.)
[2024-09-26 08:19] LABS: HBS Num1 125.64 mIU/mL (0-7.99); HBc Num1 0.07 S/CO (0.00-0.79); HBsAGNum1 0.28 S/CO (0.00-0.99); HIV AB/AG Nonreactive (Nonreactive); HIV Num 1 0.06 S/CO (0.00-0.99); Hepatitis B Core Antibody Nonreactive (Nonreactive); Hepatitis B Surface Antigen Negative (Negative); ~Hepatitis B Surface Antibody REACTIVE (Nonreactive); ~Hepatitis C Antibody Nonreactive (Nonreactive)
== END 2024-09-25 15:20 | disposition home or self-care (01) ==
LOC: HO.HHCL 15:19
PROVIDERS: Visit Provider Nurse Practitioner Family
DX: Z00.00 Encounter for general adult medical examination without abnormal findings (principal)
CPT/HCPCS: 36415; 80061; 83036; 84443; 85025; 86704; 86706; 86803; 87340; 87389; 87491; 87591

== ENCOUNTER 2024-12-15 14:46 | Outpatient (REF) | payer MEDICAID, SELFPAY ==
[2024-12-15 17:45] LABS: Lithium 0.37 mmol/L (0.60-1.20)
== END 2024-12-15 14:47 | disposition home or self-care (01) ==
LOC: HO.HHCL 14:46
PROVIDERS: Visit Provider Nurse Practitioner Family
DX: Z79.899 Other long term (current) drug therapy (principal)
CPT/HCPCS: 36415; 80178

== ENCOUNTER 2025-03-03 11:35 | Outpatient (REF) | payer MEDICAID, SELFPAY ==
[2025-03-06 07:58] LABS: TS Negative Control Passed; TS Panel A 2; TS Panel B 4; TS Positive Control Passed; TSpotTB Negative (Negative)
== END 2025-03-03 11:36 | disposition home or self-care (01) ==
LOC: HO.HHCL 11:35
PROVIDERS: PCP Nurse Practitioner Family; Visit Provider Nurse Practitioner Family
DX: Z20.9 Contact with and (suspected) exposure to unspecified communicable disease (principal)
CPT/HCPCS: 36415; 86481

== ENCOUNTER 2025-04-21 09:34 | Outpatient (REF) | payer MEDICAID, SELFPAY ==
[2025-04-21 11:59] LABS: MANUAL DIFF FLAG NO
[2025-04-21 12:14] LABS: Hematocrit 47.5 % (42.0-52.0); Hemoglobin 15.2 g/dl (14.0-18.0); Imm Gran Abs Auto 0.01 X10*3/uL (0.00-0.03); Imm Gran Pct Auto 0.1 % (0.0-0.4); Lymphocytes Absolute Auto 2.9 X10*3/uL (1.2-4.9); Mean Corpuscular HGB Conc 32.0 g/dl (31.0-36.0); Mean Corpuscular Hemoglobin 30.8 pg (27.0-33.0); Mean Corpuscular Volume 96.2 fL (80.0-98.0); NRBC Abs Auto 0.000 X10*3/uL (0.0-0.012); NRBC Pct Auto 0.0 /100WBC (0.0-0.2); Platelet Count 222 X10*3/uL (160-400); Red Blood Count 4.94 X10*6/uL (4.60-5.80); White Blood Count 7.4 X10*3/uL (4.8-10.8)
[2025-04-21 12:47] LABS: Lithium 0.31 mmol/L (0.60-1.20)
[2025-04-21 12:58] LABS: Alanine Aminotransferase 34 U/L (0-40); Albumin Level 4.5 g/dL (3.5-5.0); Alkaline Phosphatase 66 U/L (39-117); Anion Gap 9 (12-20); Aspartate Amino Transferase 43 U/L (5-37); Blood Urea Nitrogen 12 mg/dL (9-16); Calcium 9.3 mg/dL (8.4-10.2); Carbon Dioxide 32 mmol/L (22-29); Chloride 105 mmol/L (96-108); Estimated Glomerular Filt Rate > 60; Potassium 4.9 mmol/L (3.3-5.1); Sodium 141 mmol/L (135-145); Total Protein 7.5 g/dL (6.5-8.0)
[2025-04-21 12:59] LABS: Thyroid Stimulating Hormone 3.30 uIU/mL (0.32-4.0)
== END 2025-04-21 09:35 | disposition home or self-care (01) ==
LOC: HO.HHCL 09:34
PROVIDERS: PCP Nurse Practitioner Family; Visit Provider Registered Nurse Psychiatric/Mental Health
DX: Z79.899 Other long term (current) drug therapy (principal)
CPT/HCPCS: 36415; 80053; 80178; 82248; 84436; 84443; 85025